=== PATIENT | male | born 1955 | race Caucasian/White ===

== ENCOUNTER → 2020-11-19 13:49 | Outpatient (BNVA) | payer OTHER, SELFPAY | PROVIDERS: Visit Provider Internal Medicine | DX: I25.10 Atherosclerotic heart disease of native coronary artery without angina pectoris (principal); I48.20 Chronic atrial fibrillation, unspecified; I51.9 Heart disease, unspecified; G90.3 Multi-system degeneration of the autonomic nervous system; Z95.1 Presence of aortocoronary bypass graft; Z95.0 Presence of cardiac pacemaker | CPT/HCPCS: 93005; 99202 ==

== ENCOUNTER 2025-09-14 10:06 | Outpatient (AMB) | payer OTHER, SELFPAY ==
--- OUTSIDE RECORDS SUMMARY | 2025-09-11 11:30 | XMS_ITS | Encounter Summary ---
[facility] Organization [facility] Address [address] [place] [address] Care Team Providers Care Vice President For Philanthropy Name Role Phone Chidi Carrillo NP Primary Care Provider [phone] Encounter Details Date Type Department Care Team (Late st Contact Info) Description 09/11/2025 11:30 AM EDT Treatment [facility] Physical Therapy [address] [place] [address] Wes Urrutia PT Social History Tobacco Use Types Packs/Day Years Used Date Smoking Tobacco: Never Passive Smoke Exposure: Past Smokeless Tobacco: Never Comments:Never smoked tobacc o Alcohol Use Standard Drinks/Week Comments Never 0 (1 standard drink = 0.6 oz pur e alcohol) Housing Instability Answer Date Recorde d Are you worried that in the next 2 months you may not have stable housing? Patient declined 08/06/2025 Food Access & Nutrition Answer Date Rec orded Do you have access to a vari ety of food including fruits and vegetables? Patient declined 08/06/2025 Access to Healthcare Answer Date Record ed Within the last 3 months, ho w many times did you visit the emergency department for your medical care? 4 02/09/2025 Health Literacy Answer Date Recorded How often do you need to hav e someone help you when you read instructions, pamphlets, or other written material from your doctor or pharmacy? Patient declined 08/06/2025 Caregiver: How often do you need to have someone help you when you read instructions, pamphlets, or other written material from your doctor or pharmacy? Not on file 025 Financial Risk Answer Date Recorded How hard is it for you to pa y for the very basics like food, housing, medical care, and air conditioning / heating? Patient declined 08/06/2025 Transportation Answer Date Recorded Has the lack of transportati on kept you from meetings, work, or from getting things needed for daily living? Patient declined 08/06/2025 Has the lack of transportati on kept you from medical appointments or from getting medications? Patient declined 08/06/2025 Social Isolation Answer Date Recorded How often do you feel lonely or isolated from those around you? Patient declined 08/06/2025 Food Risk Answer Date Recorded Within the past 12 months we worried whether our food would run out before we got money to buy more. Patient declined 025 Within the past 12 months th e food we bought just didn't last and we didn't have money to get more. Patient declined 06/2025 Dependent Care Answer Date Recorded Do you need help finding or paying for care for your loved ones. For example, infant childcare provider or elderly care for an older adult? Unable to respond 02/09/2025 Education Answer Date Recorded Do you think completing more education or training, like finishing a GED, going to college, or learning a trade, would be helpful for you? Patient declined 08/06/2025 Employment and Income Answer Date Recor ded During the last four weeks, have you been actively looking for work? Patient declined 08/06/2025 Living Situation Answer Date Recorded What is your living situation? Unrecognized valu e 08/06/2025 Interpersonal Safety Answer Date Record ed Physical Abuse Unrecognized value 08/06/2025 Verbal Abuse Unrecognized value 08/06/2025 Sex and Gender Information Value Date Recorded Sex Assigned at Male 12/08/2024 1:11 PM EST Legal Sex Male 9:31 PM EST Gender Identity Male 12/08/2024 1:11 PM EST Sexual Orientation Straight 02/14/2025 12 :16 AM EDT documented as of this encounter Functional Status * Are you deaf or do you have serious difficulty hearing? Answer Date of Assessment Author No 08/11/2025 6:42 PM EDT Luna RN * Are you blind or do you have serious difficulty seeing, even when wearing glasses? Answer Date of Assessment Author No 08/11/2025 6:42 PM EDT Luna RN * Do you have serious difficulty walking or climbing stairs? Answer Date of Assessment Author No 08/11/2025 6:42 PM EDT Luna RN * Do you have serious difficulty dressing or bathing? Answer Date of Assessment Author No 08/11/2025 6:42 PM EDT Luna RN * Because of a physical, mental, or emotional condition, do you have serious difficulty doing errandsalone such as visiting the doctor? Answer Date of Assessment Author No 08/11/2025 6:42 PM EDT Luna RN documented as of this encounter Mental Status * Because of a physical, mental, or emotional condition, do you have serious difficulty concentrating, remembering, or making decisions? (5 years old or older) Answer Entry Date Author No 08/11/2025 6:42 PM EDT Luna RN documented in this encounter Progress Notes * Wes Urrutia, PT - 09/11/2025 11:30 AM EDT PT TREATMENT S: Participant reports he has had some fluctuating edema due to decrease urinary output. He continues to self cath and is being followed up with multiple medical appts. He has surgeon appointment Wed the at 9am with surgeon who performed R BKA. O: Prosthetic tr for donning, doffing, locking and unlocking knee when transferring. 3 ply sock utilized today due to slight increase in swelling. Gait training with RW. 100 feet x 1. No SOB. One standing rest period. Cues needed for shorten step length on RLE and increase step on left to promote more midstance RLE. Gait tr continues with prosthetic locked in extension. Good stability when turning A: Participant independent with doffing and cleaning prosthesis. Consistent locking and unlocking during chair to rise and stand to sit with good control. Continue to monitor. Donning prosthethesis continues to be challenging and requiring A of 2. Prosthetic continues to be stored at [facility] until cleared for safe donning, doffing and ambulation short distances with turning and consistent safe transfers locking and unlocking prosthetic as approriate. P: Joint visit at [facility] for follow up. Address difficulty doning prosthesis documented in this encounter Plan of Treatment Upcoming Encounters Date Type Department Care Team (Late st Contact Info) Description 09/17/2025 10:00 AM EDT Appointment [facility] Pulmonary [address] [place] [address] 09/17/2025 2:30 PM EDT Treatment [facility] Physical Therapy [address] [place] [phone] Wes Urrutia, PT 09/19/2025 9:40 AM EDT Office Visit [facility] Cardiology [facility] [address] [address] Zay Garcia NP 300 [place] [address] 09/19/2025 1:10 PM EDT Clinical Support [address] [address] 09/20/2025 10:45 AM EDT Treatment [facility] Physical Therapy [address] [place] [phone] Wes Urrutia, PT 09/24/2025 1:15 PM EDT PACE External Visit [address] [address] 10/08/2025 8:50 AM EST Office Visit [facility] Cardiology [facility] [address] [address] Thais Stevenson MD 300 [place] [address] 10/12/2025 1:30 PM EST PACE External Visit [address] [address] 10/23/2025 9:30 AM EST Office Visit General Surgery - [place] [address] [place] [phone] Terrell Castillo MD 230 [place] [phone] 10/24/2025 3:00 PM EST [facility] Support [facility] [address] [place] [address] 11/07/2025 1:10 PM EST [facility] [address] [address] 03/28/2026 11:00 AM EDT Ancillary Procedure [facility] - [facility] [address] [facility] [address] [place] [address] 08/08/2026 10:45 AM EDT Treatment [facility] 200 [place] [address] Wes Urrutia, PT 08/15/2026 10:45 AM EDT Treatment [facility] [address] [place] [phone] Wes Urrutia, PT documented as of this encounter Goals Goal Patient Goal Type Associated Problems Recent Progress Patient-Stated? Author Wound volume breakdown reduced by X% by week 4 Care Plan Impaired Tissue No Kerri Olivo, hadoop application developer volume breakdown reduced by X% by week 8 Care Plan Impaired Tissue No Kerri Olivo, hadoop application developer volume breakdown reduced by X% by week 12 Care Plan Impaired Tissue No Kerri Olivo, RN Quit using tobacco (cigarettes, smokeless, etc) Care Plan Education needed on impact of smoking on wound No Kerri Olivo, RN Reduce tobacco use (cigarettes, smokeless, etc) Care Plan Education needed on impact of smoking on wound No Kerri Olivo, LETY Decrease Wound Volume by X% by date (in notes) Care Plan Education needed on impact of smoking on wound No Kerri Olivo, RN Patient and Caregiver Understand Wound Care Education Care Plan Education needed related to ulceration/compr omised skin integrity. No Kerri Olivo, LETY documented as of this encounter Visit Diagnoses Not on filedocumented in this encounter Additional Health Concerns Active Problems Noted Date Diagnosed Date Impaired Tissue 03/16/2025 Education needed on impact of smoking on wound 0 03/16/2025 Education needed related to ulceration/compromised skin integrity. 03/16/2025 Assessment Noted Time PHQ-9 Depression Total Score: 0 02/09/20 25 10:45 AM EDT documented as of this encounter Care Teams Vice President For Philanthropy Relationship Specialty Start Date End Date Chidi Carrillo NP [address] [place] [address] PCP - General 10/03/24 documented as of this encounter
--- OUTSIDE RECORDS SUMMARY | 2025-09-12 13:00 | XMS_ITS | Encounter Summary ---
[facility] Address [address] [place] [address] Care Team Providers Care Jewelry Jobber Name Role Phone Chidi Carrillo NP Primary Care Provider [phone] Encounter Details Date Type Department Care Team (Late st Contact Info) Description 09/12/2025 1:00 PM EDT Treatment [facility] [address] [place] [address] Wes Urrutia, PT Social History Tobacco Use Types Packs/Day [...] care for your loved ones. For example, child welfare worker or elderly care for an older adult? [...] Progress Notes * Wes Urrutia, PT - 09/12/2025 1:00 PM EDT PT co visit at [facility] with participant for follow up regarding prosthetic adjustments 1:00 pm to 2:00 pm Participant seen by wirer helper and adjustments made to pilon to move slightly posterior to allow for push off during gait as participant is progressing. A window was also cut out to allow for easierdonning of prosthetic. Participant was able to don independently in the office x 4 reps following this change. Gait assessment in parallel bars and with RW with cues and close supervision for equal step lengths for consistency and trial of reciprocal gait pattern ( patient not ready for at this time due to lack of midstance control with weight shift. Mild low back soreness with increase strides during gait. Plan: Continue skilled PT for prosthetic tr., gait tr, balance tr., fall prevention, safety issues as Par progresses. Follow up with wirer helper in approximately 3wks unless any modifications needed to be made earlier. Appointment to be set. documented in this encounter Plan of Treatment Upcoming Encounters Date Type Department Care Team (Late st Contact Info) Description 09/17/2025 10:00 AM EDT Appointment [facility] Pulmonary [address] [place] [address] 09/17/2025 2:30 PM EDT Treatment [facility] Physical Therapy [address] [place] [address] Wes Urrutia, PT 09/19/2025 9:40 AM EDT Office Visit [facility] 154 300 [facility] 154 [place] [address] Zay Garcia NP 300 [place] [address] 09/19/2025 1:10 PM EDT Clinical Support [address] [address] 09/20/2025 10:45 AM EDT Treatment [facility] Physical Therapy [address] [place] [address] Wes Urrutia, PT 09/24/2025 1:15 PM EDT PACE External Visit [facility] [address] [place] [address] 10/08/2025 8:50 AM EST Office Visit [facility] 154 300 [facility] 154 [place] [address] Thais Stevenson MD 300 [place] [address] 10/12/2025 1:30 PM EST PACE External Visit [address] [address] 10/23/2025 9:30 AM EST Office Visit General Surgery - [place] 175 [facility] 110 [place] [phone] Terrell Castillo MD [address] [place] [phone] 10/24/2025 3:00 PM EST Clinical Support [facility] 200 [place] [address] 11/07/2025 1:10 PM EST Clinical Support [facility] [address] [address] 03/28/2026 11:00 AM EDT Ancillary Procedure [facility] - [address] [place] [address] 08/08/2026 10:45 AM EDT Treatment [facility] [address] [place] [phone] Wes Urrutia, LIA 08/15/2026 10:45 AM EDT Treatment [facility] [address] [place] [phone] Wes Urrutia, PT documented as of this encounter Goals Goal Patient Goal Type Associated Problems Recent Progress Patient-Stated? Author Wound volume breakdown reduced by X% by week 4 Care Plan Impaired Tissue No Kerri Olivo RN Wound volume breakdown reduced by X% by week 8 Care Plan Impaired Tissue No Kerri Olivo RN Wound volume breakdown reduced by X% by week 12 Care Plan Impaired Tissue No Kerri Olivo RN Quit using tobacco (cigarettes, smokeless, etc) Care Plan Education needed on impact of smoking on wound No Kerri Olivo RN Reduce tobacco use (cigarettes, smokeless, etc) Care Plan Education needed on impact of smoking on wound No Kerri Olivo RN Decrease Wound Volume by X% by date (in notes) Care Plan Education needed on impact of smoking on wound No Kerri Olivo RN Patient and Caregiver Understand Wound Care Education Care Plan Education needed related to ulceration/compr omised skin integrity. No Kerri Olivo RN documented as of this encounter Visit Diagnoses Not on filedocumented in this encounter Additional Health Concerns Active Problems Noted Date Diagnosed Date Impaired Tissue 03/16/2025 Education needed on impact of smoking on wound 0 03/16/2025 Education needed related to ulceration/compromised skin integrity. 03/16/2025 Assessment Noted Time PHQ-9 Depression Total Score: 0 02/09/20 25 10:45 AM EDT documented as of this encounter Care Teams Jewelry Jobber Relationship Specialty Start Date End Date Chidi Carrillo NP 200 [place] [address] PCP - General 10/03/24 documented as of this encounter
--- OUTSIDE RECORDS SUMMARY | 2025-09-13 10:45 | XMS_ITS | Encounter Summary ---
[facility] Organization [facility] Address [address] [place] [address] Care Team Providers Care Link Machine Operator Name Role Phone Chidi Carrillo NP Primary Care Provider [phone] Encounter Details Date Type Department Care Team (Late st Contact Info) Description 09/13/2025 10:45 AM EDT Treatment [facility] Physical Therapy [address] [place] [address] Wes Urrutia PT Social History [...] care for your loved ones. For example, professor of early childhood education or elderly care for an older adult? [...] Progress Notes * Wes Urrutia, PT - 09/13/2025 10:45 AM EDT PT TREATMENT S: No complaints per participant he is monitoring his BP and it continues to run high. -Surgeon appt today rescheduled. He has pulmonology appt on 09/17. Cardiology on 09/19/2025 to follow up on highblood pressue and Urology on the DME: issued replacement std RW as current one unsafe. O: Prosthetic tr, self management. Donned prosthetic first attempt and 5x after that without need for assist. Gait with RW and balance activities in parallel bars decrease dependency on UE for support. Gait x 3 with single UE support on left and facilitation for sternal elevation to maintain upright posture. Gait with RW and close supervision - no LOB noted cues only for foot placement for optimal safety. 80 feet x 2. Transfer tr several times from varying chairs in rehab dept to assess safety and sequencing. Cues 40% of the time. No change in skin: inspected before and after PT. Endurance limited by mild SOB with exertion - recovers after 30 seconds. Goal to keep activities within tolerance and avoid over exertion due to high blood pressure hx. RPE less than 3/10. He reports occas he overworks himself and has chest pressure - mild but doesn't last longer than a few minutes. Reports only a few episodes with no other complaints. He has cardiology follow up next week. A: After modifications at [facility] visit ie: anterior window placed for donning prosthetic, participant is now independent with donning, doffing and managing maintenance. Transfers 75% of the time demonstrate safety after 15 transfers incorp within session. Gait tr continues for consistent/equal step lengths with cues for stride length 50 % of time as Par reports he is used to taking big strides and continues to try and remember this to promote weight shift on RLE. P: Continue to progress as tolerated. Avoid over exertion. Transfer/gait/balance tr. Update plan ofcare next visit if consistent with donning and doffing prosthesis documented in this encounter Plan of Treatment Upcoming Encounters Date Type Department Care Team (Late st Contact Info) Description 09/17/2025 10:00 AM EDT Appointment [facility] Pulmonary [address] [place] [address] 09/17/2025 2:30 PM EDT Treatment [facility] Physical Therapy [address] [place] [phone] Wes Urrutia, PT 09/19/2025 9:40 AM EDT Office Visit [facility] Cardiology Associates - [facility] [address] [address] Zay Garcia NP 300 [place] [address] 09/19/2025 1:10 PM EDT Clinical Support [address] [address] 09/20/2025 10:45 AM EDT Treatment [facility] Physical Therapy [address] [place] [phone] Wes Urrutia, PT 09/24/2025 1:15 PM EDT [facility] 200 [place] [address] 10/08/2025 8:50 AM EST Office Visit [facility] Cardiology [facility] 154 300 [facility] 154 [place] [address] Thais Stevenson MD 300 [place] [address] 10/12/2025 1:30 PM EST PACE External Visit [facility] 200 [place] [address] 10/23/2025 9:30 AM EST Office Visit General Surgery [facility] 175 [facility] 110 [place] [address] Terrell Castillo MD [address] [place] [phone] 10/24/2025 3:00 PM EST Clinical Support [facility] 200 [place] [address] 11/07/2025 1:10 PM EST [facility] [address] [address] 03/28/2026 11:00 AM EDT Ancillary Procedure [facility] Cardiology [facility] 154 300 [facility] 154 [place] [address] 08/08/2026 10:45 AM EDT Treatment [facility] [address] [place] [address] Wes Urrutia, PT 08/15/2026 10:45 AM EDT Treatment [facility] [address] [place] [phone] Wes Urrutia, PT documented as of this [...] documented as of this encounter Care Teams Link Machine Operator Relationship Specialty Start Date End Date Chidi Carrillo NP 200 [place] [address] PCP - General 10/03/24 documented as of this encounter
--- NOTE | 2025-09-14 10:09 | A.OFFVIS_ITS ---
Intake Visit Reasons: f/u appt Allergies No Known Allergies Allergy (Verified 09/14/25 10:10) Medication List - Last Reconciled 09/14/25 by Jenny Johnson CNP allopurinol 100 mg PO DAILY apixaban (Eliquis) 5 mg PO BID atorvastatin 80 mg PO BEDTIME bumetanide 3 mg PO BID calcitriol 2 mcg PO QWEEK cholecalciferol (vitamin D3) 25 mcg PO DAILY clonidine HCl 0.1 mg PO BID denosumab (Prolia) 60 mg subcut [id number] diltiazem HCl ER 60 mg PO BID docusate sodium (Stool Softener) 100 mg PO BID gabapentin 200 mg PO BID isosorbide mononitrate ER 60 mg PO DAILY metoprolol succinate ER 50 mg PO DAILY oxycodone 5 mg PO Q6H PRN potassium chloride ER 20 mEq PO DAILY ranolazine ER 500 mg PO BID sacubitril-valsartan 24-26 mg 1 tab PO BID spironolactone 25 mg PO DAILY HPI Comments Details: 70-year-old RH man who injured his back at work around , had multiple back surgeries with hardware placement by Dr. Talbert and Dr. Anne at [facility] and [facility]. He also used to be quite obese and insulin dependent diabetic. After gastroparesis surgery he lost a lot of weight and was not diabetic anymore. He denied any significant alcohol use. He had a spinal cord stimulator for pain control that did not work. He was seen for tremor. He had R AKA in 01/2025 after multiple surgeries to RLE (including foot, tib/fib, and R TKR in 04/2024). He had cardiac catheterization in 07/2025 at [facility], and was now working on controlling blood pressure. He was planning for procedure to replace spinal cord stimulator battery at [facility] in 09/2025 (Dr. Anne) and was considering prostatectomy for prostate cancer in 09/2025. He was having more arthritic pains in hands, previously treated with steroid injections and had follow up soon with PCP who treated arthritis in the past. He was no longer taking primidone. No significant tremors. No functional impairment. No difficulty eating, drinking, or swallowing. [facility] Medical History (Updated 09/14/25 @ 10:14 by Jenny Johnson CNP) Peripheral neuropathy Encephalopathy Spinal cord stimulator status Failed back syndrome Insomnia Atrial fibrillation CAD (coronary artery disease) Dysautonomia orthostatic hypotension syndrome Normally functioning cardiac pacemaker present Chronic atrial fibrillation Atherosclerotic cardiovascular disease Surgical History (Updated 09/14/25 @ 10:13 by Jenny Johnson CNP) S/P total knee replacement S/P cardiac pacemaker procedure Status post aorto-coronary artery bypass graft History of cardiac catheterization History of prior ablation treatment History of cardiac pacemaker (~2010) History of coronary artery bypass graft x 2 (~02/17/17) Family History (Updated 11/19/20 @ 14:18 by Monique Ventura [facility]) Father CVD (cardiovascular disease) Mother Lung cancer Asthma Review of Systems Const Denies chills, Denies daytime sleepiness, Denies difficulty sleeping, Denies fatigue, Denies fever(s), Denies frequent falls, Denies headache(s), Denies increased appetite, Denies poor appetite, Denies snoring, Denies weakness, Denies weight gain and Denies weight loss Eyes Denies loss of vision ENT Denies vertigo, Denies dizziness, Denies headache(s) and Reports tinnitus Card Denies chest pain at rest, Denies chest pain with activity, Denies syncope, Denies leg edema and Denies palpitations Resp Denies snoring GI Denies constipation, Denies heartburn, Denies diarrhea and Denies nausea Denies urinary frequency, Denies urinary incontinence and Denies urinary urgency Musc Denies abnormal gait, Reports numbness and Reports tingling Skin/Breast Denies dry skin and Denies rash Neuro Denies abnormal gait, Denies vertigo, Denies dizziness, Denies syncope, Denies frequent falls, Denies headache(s), Denies lack of coordination, Denies loss of vision, Denies memory loss, Reports numbness, Denies restless legs, Denies seizure-like activity, Reports tingling, Denies paresthesias, Reports tremor(s) and Denies weakness Psych Denies anxiety, Denies depression, Denies auditory hallucinations, Denies memory loss, Denies visual hallucinations and Denies suicidal ideation Endo Denies fatigue and Denies palpitations Physical Exam Const Other: General Appearance:? normal, in no acute distress. Skin:? no rashes, no significant birthmarks. Heart:? S1, S2 normal, no murmurs. Lungs:? clear anteriorly and posteriorly. Extremities:? R AKA Psych:? alert, oriented, cognitive function intact, cooperative with exam. Neuro Other: Mental Status:?Normal attention, orientation, memory and affect.? Cranial Nerves:?Pupils are equal, round and reactive to light. External occular muscles are intact. Visual powell are full. Face is symmetrical. Facial sensations are normal. Tongue is midline. Palate elevates symmetrically. Shoulder shrugging is normal. Hearing to bedside conversation is normal. Sensory Exam:?....? Coordination:?No ataxia,?no titubation.? Gait Exam: In wheelchair. Cerebellar Signs:?[id number] is okay. Extrapyramidal System:?No tremor, rigidity with normal facial expressions.? Pronator Drift:?Not present.? Involuntary Movements:?Fine tremors of outstretched hands are not noted today. Speech:?Normal.? Results Reviewed Results Reviewed: CT brain WO at [facility] in 2016: mild to mod diff cortical atrophy EMG/NCS LEs at [facility] in Dec 2022: Severe axonal SM PN, chronic bilateral multilevel lumbar radiculapathy. NCV/EMG UE Moderate sensory and motor peripheral neuropathy. Chronic bilateral lower cervical radiculopathy. 03/29/23. Assessment & Plan Assessment & Plan (1) Tremor: Code(s): R25.1 - Tremor, unspecified Category: Medical Plan: Tremor was not significant and medication was not indicated at this time. Coding Level of Care Code Est Pt Level 3 (21376) Diagnoses Tremor R25.1
--- OUTSIDE RECORDS SUMMARY | 2025-09-14 11:50 | XMS_ITS | Encounter Summary ---
Author Organization [facility], Address [address] [place] [address] Phone Care Team Providers Care Licensed Home Inspector Name Role Phone Chidi Carrillo Primary Care Provider Unavailabl e Encounter Details Date Type Department Care Team (Late Contact Info) Description 2023 Documentation Only [facility] [address] [place] [address] Tiana Lange [address] [place] [phone] Social History Tobacco Use Types Packs/Day Years Used Date Smoking Tobacco: Never Alcohol Use Standard Drinks/Week Comments No 0 (1 standard drink = 0.6 oz pur e alcohol) Sex and Gender Information Value Date Recorded Sex Assigned at Not on file Legal Sex Male 4:35 PM EST Gender Identity Not on file Sexual Orientation Not on file documented as of this encounter Plan of Treatment Upcoming Encounters Date Type Department Care Team (Late st Contact Info) Description 10/02/2025 1:30 PM EST Office Visit [facility] [address] [place] [address] Cuate Ramey MD [address] [place] [address] [place] [address] documented as of this encounter Visit Diagnoses Not on filedocumented in this encounter Care Teams Licensed Home Inspector Relationship Specialty Start Date End Date Chidi Carrillo [address] [address] PCP - General Nutrition 05/29/25 documented as of this encounter
--- OUTSIDE RECORDS SUMMARY | 2025-09-14 11:50 | XMS_ITS | Encounter Summary ---
Author Organization [facility] [place], Address [address] [place] [address] Phone Care Team Providers Care Pharmacy Intake Technician Name Role Phone Chidi Carrillo Primary Care Provider Unavailabl e Encounter Details Date Type Department Care Team (Late Contact Info) Description 08/19/2022 Documentation Only [facility] [address] [place] [address] Tiana Lange [address] [place] [phone] Social History Tobacco Use Types Packs/Day Years [...] Visit [facility] [address] [place] [address] Cuate Ramey MD [address] [place] [address] [place] [address] documented as of this encounter Visit Diagnoses Not on filedocumented in this encounter Care Teams Pharmacy Intake Technician Relationship Specialty Start Date End Date Chidi Carrillo [address] [address] PCP - General Nutrition 05/29/25 documented as of this encounter
--- OUTSIDE RECORDS SUMMARY | 2025-09-14 11:50 | XMS_ITS ---
Author Name [facility] Organization Unknown Results Test Name/Text Value Interpretation Date Range Source RBC NO. BLD AUTO 2.79 M/uL Below low normal 04/03/2024 4.7 - 6 [facility] MCV RBC AUTO 95.4 fL Normal 04/03/2024 78 - 100 [facility] RDW RBC AUTO RTO 21.1 % Above high normal 04/03/2024 12.1 - 17.7 [facility] PMV BLD AUTO 7.7 fL Normal 04/03/2024 7.4 - 11.4 [facility] HGB BLD MCNC 8.6 g/dL Below low normal 04/03/2024 13.5 - 18 [facility] MCH RBC QN AUTO 30.8 pg Normal 04/03/2024 25 - 33 [facility] MCHC RBC AUTO MCNC 32.3 g/dL Normal 04/03/2024 32 - 36 [facility] WBC NO. BLD AUTO 5.4 K/uL Normal 04/03/2024 4 - 10.5 [facility] HCT VFR BLD AUTO 26.6 % Below low normal 04/03/2024 40 - 54 [facility] PLATELET NO. BLD AUTO 383.0 K/uL Normal 04/03/2024 150 - 450 [facility] GLUCOSE SERPL MCNC 89.0 mg/dL Normal 04/03/2024 70 - 199 [facility] SODIUM SERPL SCNC 136.0 mmol/L Normal 04/03/2024 135 - 14 5 [facility] CREAT SERPL MCNC 0.7 mg/dL Normal 04/03/2024 0.7 - 1.3 [facility] CHLORIDE SERPL SCNC 107.0 mmol/L Normal 04/03/2024 98 - 1 07 [facility] BUN SERPL MCNC 18.0 mg/dL Normal 04/03/2024 9 - 20 [facility] ANION GAP SERPL SCNC 6.0 mmol/L Normal 04/03/2024 5 - 14 [facility] Glomerular filtration rate/1.73 sq M. predicted 100.0 Normal 04/03/2024 60 - [facility] HCO3 SER SCNC 23.0 mmol/L Below low normal 04/03/2024 24 - 3 2 [facility] CALCIUM SERPL MCNC 8.4 mg/dL Normal 04/03/2024 8.4 - 10.2 [facility] POTASSIUM SERPL SCNC 3.6 mmol/L Normal 04/03/2024 3.5 - 5.1 [facility] SODIUM SERPL SCNC 140.0 mmol/L Normal 04/02/2024 135 - 14 5 [facility] ANION GAP SERPL SCNC 6.0 mmol/L Normal 04/02/2024 5 - 14 [facility] Glomerular filtration rate/1.73 sq M. predicted 93.0 Normal 04/02/2024 60 - [facility] HCO3 SER SCNC 22.0 mmol/L Below low normal 04/02/2024 24 - 3 2 [facility] GLUCOSE SERPL MCNC 139.0 mg/dL Normal 04/02/2024 70 - 199 [facility] BUN SERPL MCNC 20.0 mg/dL Normal 04/02/2024 9 - 20 [facility] CALCIUM SERPL MCNC 8.3 mg/dL Below low normal 04/02/2024 8.4 - 10.2 [facility] CREAT SERPL MCNC 0.9 mg/dL Normal 04/02/2024 0.7 - 1.3 [facility] CHLORIDE SERPL SCNC 112.0 mmol/L Above high normal 98 - 107 [facility] POTASSIUM SERPL SCNC 4.4 mmol/L Normal 04/02/2024 3.5 - 5.1 [facility] RDW RBC AUTO RTO 19.1 % Above high normal 04/02/2024 12.1 - 17.7 [facility] PMV BLD AUTO 7.7 fL Normal 04/02/2024 7.4 - 11.4 [facility] WBC NO. BLD AUTO 5.8 K/uL Normal 04/02/2024 4 - 10.5 [facility] PLATELET NO. BLD AUTO 367.0 K/uL Normal 04/02/2024 150 - 450 [facility] RBC NO. BLD AUTO 2.7 M/uL Below low normal 04/02/2024 4.7 - 6 [facility] MCH RBC QN AUTO 30.1 pg Normal 04/02/2024 25 - 33 [facility] HCT VFR BLD AUTO 25.9 % Below low normal 04/02/2024 40 - 54 [facility] MCHC RBC AUTO MCNC 31.3 g/dL Below low normal 04/02/2024 32 - 36 [facility] HGB BLD MCNC 8.1 g/dL Below low normal 04/02/2024 13.5 - 18 [facility] MCV RBC AUTO 96.1 fL Normal 04/02/2024 78 - 100 [facility] ALPHA 2 % 9.4 Normal 04/05/2024 [facility] GAMMA % 15.0 Normal 04/05/2024 [facility] ALPHA 1 % 12.2 Above high normal 04/05/2024 [facility] ALBUMIN G/DL 2.5 Below low normal 04/05/2024 [facility] ALPHA 1 G/DL 0.6 Above high normal 04/05/2024 [facility] GAMMA G/DL 0.8 Normal 04/05/2024 [facility] ALPHA 2 G/DL 0.5 Normal 04/05/2024 [facility] BETA % 14.5 Above high normal 04/05/2024 [facility] ALBUMIN % 48.9 Below low normal 04/05/2024 [facility] BETA G/DL 0.7 Normal 04/05/2024 [facility] TOTAL PROTEIN 5.1 Below low normal 04/05/2024 [facility] Free Lambda Light Chains 4.88 Above high normal 04/05/2024 [facility] [place] Light Chains 5.89 Above high normal 04/05/2024 [facility] K/L FLC Ratio 1.21 Normal 04/05/2024 [facility] IGG SERPL-MCNC 722.0 mg/dL Normal 04/01/2024 635 - 1741 [facility] IGA SERPL-MCNC 319.0 mg/dL Normal 04/01/2024 66 - 433 [facility] IGM SER MCNC 56.0 mg/dL Normal 04/01/2024 45 - 281 [facility] LDH SERPL L TO P CCNC 300.0 U/L Above high normal 04/01/2024 125 - 220 [facility] CREAT SERPL MCNC 0.8 mg/dL Normal 04/01/2024 0.7 - 1.3 [facility] Glomerular filtration rate/1.73 sq M. predicted 96.0 Normal 04/01/2024 60 - [facility] POTASSIUM SERPL SCNC 4.1 mmol/L Normal 04/01/2024 3.5 - 5.1 [facility] HCO3 SER SCNC 21.0 mmol/L Below low normal 04/01/2024 24 - 3 2 [facility] BUN SERPL MCNC 20.0 mg/dL Normal 04/01/2024 9 - 20 [facility] CHLORIDE SERPL SCNC 111.0 mmol/L Above high normal 98 - 107 [facility] GLUCOSE SERPL MCNC 94.0 mg/dL Normal 04/01/2024 70 - 199 [facility] SODIUM SERPL SCNC 139.0 mmol/L Normal 04/01/2024 135 - 14 5 [facility] CALCIUM SERPL MCNC 8.1 mg/dL Below low normal 04/01/2024 8.4 - 10.2 [facility] ANION GAP SERPL SCNC 7.0 mmol/L Normal 04/01/2024 5 - 14 [facility] MCHC RBC AUTO MCNC 32.1 g/dL Normal 04/01/2024 32 - 36 [facility] PLATELET NO. BLD AUTO 351.0 K/uL Normal 04/01/2024 150 - 450 [facility] MCV RBC AUTO 94.5 fL Normal 04/01/2024 78 - 100 [facility] RBC NO. BLD AUTO 2.54 M/uL Below low normal 04/01/2024 4.7 - 6 [facility] HCT VFR BLD AUTO 24.0 % Below low normal 04/01/2024 40 - 54 [facility] WBC NO. BLD AUTO 6.2 K/uL Normal 04/01/2024 4 - 10.5 [facility] HGB BLD MCNC 7.7 g/dL Below low normal 04/01/2024 13.5 - 18 [facility] PMV BLD AUTO 7.9 fL Normal 04/01/2024 7.4 - 11.4 [facility] MCH RBC QN AUTO 30.4 pg Normal 04/01/2024 25 - 33 [facility] RDW RBC AUTO RTO 18.5 % Above high normal 04/01/2024 12.1 - 17.7 [facility] RETICS/100 RBC NFR AUTO 12.5 % Above high normal 04/01/2024 0.7 - 1.7 [facility] BILIRUB SERPL MCNC 1.3 mg/dL Above high normal 04/01/2024 0. 3 - 1 [facility] BILIRUB DIRECT SERPL MCNC 0.4 mg/dL Above high normal 04/01/2024 0 - 0.2 [facility] BLOOD BANK CMNT PATIENT-IMP Testing performed at [facility], [address] [place] [id number], Katerin Seals MD [employer], [facility] [id number] Normal 03/31/2024 [facility] QUYNH POLY-SP REAG RBC QL NEGATIVE Normal 03/31/2024 [facility] AMMONIA PLAS SCNC 33.0 mcmol/L Normal 03/31/2024 15 - 45 [facility] Prot Ur Ql Strip.auto 30.0 mg/dL Abnormal 03/31/2024 - [facility] Glucose Ur Ql Strip.auto NEGATIVE Normal 03/31/2024 - [facility] Color Ur Auto MAME Normal 03/31/2024 [facility] Hyaline casts number/area UrnS Auto 5.0 /LPF Above high normal 03/31/2024 0 - 3 [facility] Clarity Ur Refract.auto CLEAR Normal 03/31/2024 [facility] Nitrite Ur Ql Strip.auto NEGATIVE Normal 03/31/2024 - [facility] Sp Gr Ur Strip.auto 1.024 Normal 03/31/2024 1.005 - 1.03 [facility] Squamous number/area UrnS Auto 2.0 /LFP Normal 03/31/2024 0 - 5 [facility] pH Ur Strip.auto 6.0 Normal 03/31/2024 4.5 - 8 [facility] Hgb Ur Ql Strip.auto NEGATIVE Normal 03/31/2024 - [facility] Ketones Ur Ql Strip.auto NEGATIVE Normal 03/31/2024 - [facility] Mucous Threads Ur Ql Auto PRESENT Abnormal 03/31/2024 - [facility] RBC number/area UrnS Auto <1 Normal 03/31/2024 0 - 3 [facility] Leukocyte esterase Ur Ql Strip.auto NEGATIVE Normal 03/31/2024 - [facility] WBC number/area UrnS Auto 2.0 /HPF Normal 03/31/2024 0 - 5 [facility] SPECIMEN SOURCE XXX URINE CLEAN CATCH Normal 03/31/2024 [facility] PT TIME PPP 13.8 sec Above high normal 03/31/2024 10.5 - 13 .3 [facility] INR PPP 1.2 Above high normal 03/31/2024 0.8 - 1.1 [facility] ALBUMIN SERPL BCG MCNC 2.9 g/dL Below low normal 03/31/2024 3.5 - 5 [facility] RETICS/100 RBC NFR AUTO 11.5 % Above high normal 03/31/2024 0.7 - 1.7 [facility] APTT TIME PPP 42.0 sec Above high normal 03/31/2024 25 - 37 [facility] HGB BLD MCNC 8.1 g/dL Below low normal 03/31/2024 13.5 - 18 [facility] WBC NO. BLD AUTO 6.0 K/uL Normal 03/31/2024 4 - 10.5 [facility] RDW RBC AUTO RTO 17.5 % Normal 03/31/2024 12.1 - 17.7 [facility] PMV BLD AUTO 7.7 fL Normal 03/31/2024 7.4 - 11.4 [facility] MCV RBC AUTO 91.5 fL Normal 03/31/2024 78 - 100 [facility] RBC NO. BLD AUTO 2.7 M/uL Below low normal 03/31/2024 4.7 - 6 [facility] HCT VFR BLD AUTO 24.7 % Below low normal 03/31/2024 40 - 54 [facility] MCHC RBC AUTO MCNC 32.8 g/dL Normal 03/31/2024 32 - 36 [facility] MCH RBC QN AUTO 30.0 pg Normal 03/31/2024 25 - 33 [facility] PLATELET NO. BLD AUTO 381.0 K/uL Normal 03/31/2024 150 - 450 [facility] LDH SERPL L TO P CCNC 296.0 U/L Above high normal 03/31/2024 125 - 220 [facility] BUN SERPL MCNC 18.0 mg/dL Normal 03/31/2024 9 - 20 [facility] CREAT SERPL MCNC 0.9 mg/dL Normal 03/31/2024 0.7 - 1.3 [facility] CHLORIDE SERPL SCNC 110.0 mmol/L Above high normal 98 - 107 [facility] Glomerular filtration rate/1.73 sq M. predicted 93.0 Normal 03/31/2024 60 - [facility] ANION GAP SERPL SCNC 8.0 mmol/L Normal 03/31/2024 5 - 14 [facility] POTASSIUM SERPL SCNC 3.6 mmol/L Normal 03/31/2024 3.5 - 5.1 [facility] GLUCOSE SERPL MCNC 97.0 mg/dL Normal 03/31/2024 70 - 199 [facility] HCO3 SER SCNC 23.0 mmol/L Below low normal 03/31/2024 24 - 3 2 [facility] CALCIUM SERPL MCNC 8.5 mg/dL Normal 03/31/2024 8.4 - 10.2 [facility] SODIUM SERPL SCNC 141.0 mmol/L Normal 03/31/2024 135 - 14 5 [facility] BILIRUB SERPL MCNC 1.8 mg/dL Above high normal 03/31/2024 0. 3 - 1 [facility] BILIRUB DIRECT SERPL MCNC 0.5 mg/dL Above high normal 03/31/2024 0 - 0.2 [facility] Ketones Ur Ql Strip.auto TRACE Abnormal 03/30/2024 - [facility] Leukocyte esterase Ur Ql Strip.auto NEGATIVE Normal 03/30/2024 - [facility] Sp Gr Ur Strip.auto 1.018 Normal 03/30/2024 1.005 - 1.03 [facility] Mucous Threads Ur Ql Auto PRESENT Abnormal 03/30/2024 - [facility] Nitrite Ur Ql Strip.auto NEGATIVE Normal 03/30/2024 - [facility] Color Ur Auto MAME Normal 03/30/2024 [facility] WBC number/area UrnS Auto 3.0 /HPF Normal 03/30/2024 0 - 5 [facility] RBC number/area UrnS Auto 13.0 /HPF Above high normal 03/30/2024 0 - 3 [facility] Gran Casts number/area Ur Comp Assist 1.0 /LPF Abnormal 03/30/2024 - [facility] Prot Ur Ql Strip.auto 30.0 mg/dL Abnormal 03/30/2024 - [facility] Hgb Ur Ql Strip.auto SMALL Abnormal 03/30/2024 - [facility] Glucose Ur Ql Strip.auto NEGATIVE Normal 03/30/2024 - [facility] Hyaline casts number/area UrnS Auto 3.0 /LPF Normal 03/30/2024 0 - 3 [facility] Squamous number/area UrnS Auto 0.0 /LFP Normal 03/30/2024 0 - 5 [facility] Clarity Ur Refract.auto CLEAR Normal 03/30/2024 [facility] pH Ur Strip.auto 6.0 Normal 03/30/2024 4.5 - 8 [facility] SPECIMEN SOURCE XXX URINE CLEAN CATCH Normal 03/30/2024 [facility] HCO3 SER SCNC 20.0 mmol/L Below low normal 03/30/2024 24 - 3 2 [facility] SODIUM SERPL SCNC 136.0 mmol/L Normal 03/30/2024 135 - 14 5 [facility] CHLORIDE SERPL SCNC 108.0 mmol/L Above high normal 98 - 107 [facility] CREAT SERPL MCNC 0.8 mg/dL Normal 03/30/2024 0.7 - 1.3 [facility] BUN SERPL MCNC 16.0 mg/dL Normal 03/30/2024 9 - 20 [facility] ANION GAP SERPL SCNC 8.0 mmol/L Normal 03/30/2024 5 - 14 [facility] POTASSIUM SERPL SCNC 3.7 mmol/L Normal 03/30/2024 3.5 - 5.1 [facility] Glomerular filtration rate/1.73 sq M. predicted 96.0 Normal 03/30/2024 60 - [facility] CALCIUM SERPL MCNC 8.3 mg/dL Below low normal 03/30/2024 8.4 - 10.2 [facility] GLUCOSE SERPL MCNC 94.0 mg/dL Normal 03/30/2024 70 - 199 [facility] MCV RBC AUTO 90.3 fL Normal 03/30/2024 78 - 100 [facility] MCH RBC QN AUTO 29.8 pg Normal 03/30/2024 25 - 33 [facility] HGB BLD MCNC 7.3 g/dL Below low normal 03/30/2024 13.5 - 1 8 [facility] RDW RBC AUTO RTO 16.8 % Normal 03/30/2024 12.1 - 17.7 [facility] WBC NO. BLD AUTO 6.3 K/uL Normal 03/30/2024 4 - 10.5 [facility] MCHC RBC AUTO MCNC 33.0 g/dL Normal 03/30/2024 32 - 36 [facility] HCT VFR BLD AUTO 22.2 % Below low normal 03/30/2024 40 - 54 [facility] RBC NO. BLD AUTO 2.46 M/uL Below low normal 03/30/2024 4.7 - 6 [facility] PLATELET NO. BLD AUTO 332.0 K/uL Normal 03/30/2024 150 - 450 [facility] PMV BLD AUTO 7.9 fL Normal 03/30/2024 7.4 - 11.4 [facility] FACTOR II ASSAY 85.0 Normal 03/31/2024 [facility] FACT X ACT/NOR PPP 82.0 Normal 04/04/2024 [facility] FACTOR V ACTIVITY 99.0 Normal 04/04/2024 [facility] INR PPP 1.4 Above high normal 03/29/2024 0.8 - 1.1 [facility] PT TIME PPP 16.5 sec Above high normal 03/29/2024 10.5 - 13 .3 [facility] BUN SERPL MCNC 20.0 mg/dL Normal 03/29/2024 9 - 20 [facility] POTASSIUM SERPL SCNC 3.7 mmol/L Normal 03/29/2024 3.5 - 5.1 [facility] HCO3 SER SCNC 24.0 mmol/L Normal 03/29/2024 24 - 32 [facility] GLUCOSE SERPL MCNC 138.0 mg/dL Normal 03/29/2024 70 - 199 [facility] CHLORIDE SERPL SCNC 105.0 mmol/L Normal 03/29/2024 98 - 1 07 [facility] CALCIUM SERPL MCNC 8.3 mg/dL Below low normal 03/29/2024 8.4 - 10.2 [facility] ANION GAP SERPL SCNC 7.0 mmol/L Normal 03/29/2024 5 - 14 [facility] CREAT SERPL MCNC 0.9 mg/dL Normal 03/29/2024 0.7 - 1.3 [facility] SODIUM SERPL SCNC 136.0 mmol/L Normal 03/29/2024 135 - 14 5 [facility] Glomerular filtration rate/1.73 sq M. predicted 93.0 Normal 03/29/2024 60 - [facility] MCV RBC AUTO 90.0 fL Normal 03/29/2024 78 - 100 [facility] MCHC RBC AUTO MCNC 33.8 g/dL Normal 03/29/2024 32 - 36 [facility] RDW RBC AUTO RTO 16.9 % Normal 03/29/2024 12.1 - 17.7 [facility] HGB BLD MCNC 7.6 g/dL Below low normal 03/29/2024 13.5 - 18 [facility] RBC NO. BLD AUTO 2.5 M/uL Below low normal 03/29/2024 4.7 - 6 [facility] PMV BLD AUTO 8.1 fL Normal 03/29/2024 7.4 - 11.4 [facility] MCH RBC QN AUTO 30.5 pg Normal 03/29/2024 25 - 33 [facility] PLATELET NO. BLD AUTO 316.0 K/uL Normal 03/29/2024 150 - 450 [facility] HCT VFR BLD AUTO 22.5 % Below low normal 03/29/2024 40 - 54 [facility] WBC NO. BLD AUTO 6.8 K/uL Normal 03/29/2024 4 - 10.5 [facility] PT TIME PPP 1 TO 1 SALINE 17.2 sec Normal 03/29/2024 [facility] PT 1h HAT FORMING MACHINE OPERATOR PPP 14.2 sec Normal 03/29/2024 [facility] PT imm HAT FORMING MACHINE OPERATOR PPP 13.5 sec Normal 03/29/2024 [facility] PT TIME PPP 17.8 sec Above high normal 03/29/2024 10.5 - 13 .3 [facility] PT 1h p Inc PPP 18.1 sec Normal 03/29/2024 [facility] PT TIME PPP CONT 12.0 sec Normal 03/29/2024 [facility] APTT 1H P INC TIME PPP 45.0 sec Normal 03/29/2024 [facility] APTT 1H P INC TIME PPP CONT 35.0 sec Normal 03/29/2024 [facility] aPTT 1h HAT FORMING MACHINE OPERATOR PPP 39.0 sec Normal 03/29/2024 [facility] APTT TIME PPP 1 TO 1 SALINE 38.0 sec Normal 03/29/2024 [facility] APTT TIME PPP 42.0 sec Above high normal 03/29/2024 25 - 37 [facility] APTT TIME PPP CONT 32.0 sec Normal 03/29/2024 [facility] APTT IMM HAT FORMING MACHINE OPERATOR TIME PPP 36.0 sec Normal 03/29/2024 [facility] PLAT MORPH BLD NORMAL Normal 03/28/2024 [facility] HAPTOGLOB SERPL NEPH MCNC 206.0 mg/dL Normal 03/28/2024 44 - 215 [facility] BILIRUB DIRECT SERPL MCNC 0.7 mg/dL Above high normal 03/28/2024 0 - 0.2 [facility] BILIRUB SERPL MCNC 2.0 mg/dL Above high normal 03/28/2024 0. 3 - 1 [facility] HCT VFR BLD AUTO 22.9 % Below low normal 03/28/2024 40 - 54 [facility] MCHC RBC AUTO MCNC 33.3 g/dL Normal 03/28/2024 32 - 36 [facility] HGB BLD MCNC 7.6 g/dL Below low normal 03/28/2024 13.5 - 18 [facility] MCH RBC QN AUTO 30.0 pg Normal 03/28/2024 25 - 33 [facility] RDW RBC AUTO RTO 16.9 % Normal 03/28/2024 12.1 - 17.7 [facility] PLATELET NO. BLD AUTO 273.0 K/uL Normal 03/28/2024 150 - 450 [facility] WBC NO. BLD AUTO 7.4 K/uL Normal 03/28/2024 4 - 10.5 [facility] MCV RBC AUTO 90.0 fL Normal 03/28/2024 78 - 100 [facility] RBC NO. BLD AUTO 2.54 M/uL Below low normal 03/28/2024 4.7 - 6 [facility] PMV BLD AUTO 8.2 fL Normal 03/28/2024 7.4 - 11.4 [facility] SODIUM SERPL SCNC 135.0 mmol/L Normal 03/28/2024 135 - 14 5 [facility] GLUCOSE SERPL MCNC 76.0 mg/dL Normal 03/28/2024 70 - 199 [facility] BUN SERPL MCNC 19.0 mg/dL Normal 03/28/2024 9 - 20 [facility] CHLORIDE SERPL SCNC 105.0 mmol/L Normal 03/28/2024 98 - 1 07 [facility] POTASSIUM SERPL SCNC 3.7 mmol/L Normal 03/28/2024 3.5 - 5.1 [facility] CALCIUM SERPL MCNC 8.3 mg/dL Below low normal 03/28/2024 8.4 - 10.2 [facility] HCO3 SER SCNC 23.0 mmol/L Below low normal 03/28/2024 24 - 3 2 [facility] ANION GAP SERPL SCNC 7.0 mmol/L Normal 03/28/2024 5 - 14 [facility] CREAT SERPL MCNC 0.9 mg/dL Normal 03/28/2024 0.7 - 1.3 [facility] Glomerular filtration rate/1.73 sq M. predicted 93.0 Normal 03/28/2024 60 - [facility] GLUCOSE BLDC GLUCOMTR MCNC 136.0 mg/dL Normal 03/27/2024 70 - 199 [facility] GLUCOSE SERPL MCNC 131.0 mg/dL Normal 03/27/2024 70 - 199 [facility] POTASSIUM SERPL SCNC 3.9 mmol/L Normal 03/27/2024 3.5 - 5.1 [facility] ALBUMIN SERPL BCG MCNC 2.8 g/dL Below low normal 03/27/2024 3.5 - 5 [facility] AST SERPL CCNC 10.0 U/L Normal 03/27/2024 5 - 40 [facility] BUN SERPL MCNC 20.0 mg/dL Normal 03/27/2024 9 - 20 [facility] Glomerular filtration rate/1.73 sq M. predicted 82.0 Normal 03/27/2024 60 - [facility] BILIRUB SERPL MCNC 1.2 mg/dL Above high normal 03/27/2024 0. 3 - 1 [facility] CHLORIDE SERPL SCNC 108.0 mmol/L Above high normal 98 - 107 [facility] CALCIUM SERPL MCNC 8.1 mg/dL Below low normal 03/27/2024 8.4 - 10.2 [facility] ANION GAP SERPL SCNC 7.0 mmol/L Normal 03/27/2024 5 - 14 [facility] HCO3 SER SCNC 24.0 mmol/L Normal 03/27/2024 24 - 32 [facility] ALP SERPL-CCNC 51.0 U/L Normal 03/27/2024 34 - 104 [facility] SODIUM SERPL SCNC 139.0 mmol/L Normal 03/27/2024 135 - 14 5 [facility] CREAT SERPL MCNC 1.0 mg/dL Normal 03/27/2024 0.7 - 1.3 [facility] ALT SERPL CCNC 6.0 U/L Below low normal 03/27/2024 7 - 52 [facility] PROT SERPL MCNC 5.4 g/dL Below low normal 03/27/2024 6.4 - 8.5 [facility] MAGNESIUM SERPL MCNC 1.9 mg/dL Normal 03/27/2024 1.7 - 2.8 [facility] PHOSPHATE SERPL MCNC 2.5 mg/dL Normal 03/27/2024 2.5 - 4.5 [facility] PT TIME PPP 18.0 sec Above high normal 03/27/2024 10.5 - 13 .3 [facility] APTT TIME PPP 39.0 sec Above high normal 03/27/2024 25 - 37 [facility] INR PPP 1.5 Above high normal 03/27/2024 0.8 - 1.1 [facility] PMV BLD AUTO 8.4 fL Normal 03/27/2024 7.4 - 11.4 [facility] HGB BLD MCNC 7.8 g/dL Below low normal 03/27/2024 13.5 - 18 [facility] MCHC RBC AUTO MCNC 33.3 g/dL Normal 03/27/2024 32 - 36 [facility] HCT VFR BLD AUTO 23.5 % Below low normal 03/27/2024 40 - 54 [facility] PLATELET NO. BLD AUTO 230.0 K/uL Normal 03/27/2024 150 - 450 [facility] MCH RBC QN AUTO 30.1 pg Normal 03/27/2024 25 - 33 [facility] RDW RBC AUTO RTO 17.1 % Normal 03/27/2024 12.1 - 17.7 [facility] MCV RBC AUTO 90.4 fL Normal 03/27/2024 78 - 100 [facility] RBC NO. BLD AUTO 2.6 M/uL Below low normal 03/27/2024 4.7 - 6 [facility] WBC NO. BLD AUTO 7.6 K/uL Normal 03/27/2024 4 - 10.5 [facility] GLUCOSE SERPL MCNC 121.0 mg/dL Normal 03/27/2024 70 - 199 [facility] CHLORIDE SERPL SCNC 108.0 mmol/L Above high normal 98 - 107 [facility] ANION GAP SERPL SCNC 7.0 mmol/L Normal 03/27/2024 5 - 14 [facility] BUN SERPL MCNC 19.0 mg/dL Normal 03/27/2024 9 - 20 [facility] SODIUM SERPL SCNC 139.0 mmol/L Normal 03/27/2024 135 - 14 5 [facility] HCO3 SER SCNC 24.0 mmol/L Normal 03/27/2024 24 - 32 [facility] CREAT SERPL MCNC 1.0 mg/dL Normal 03/27/2024 0.7 - 1.3 [facility] POTASSIUM SERPL SCNC 3.8 mmol/L Normal 03/27/2024 3.5 - 5.1 [facility] CALCIUM SERPL MCNC 8.2 mg/dL Below low normal 03/27/2024 8.4 - 10.2 [facility] Glomerular filtration rate/1.73 sq M. predicted 82.0 Normal 03/27/2024 60 - [facility] FIBRINOGEN PPP-MCNC 670.0 mg/dL Above high normal 03/26/2024 145 - 415 [facility] FERRITIN SERPL MCNC 85.0 ng/mL Normal 03/26/2024 20 - 250 [facility] HGB BLD MCNC 8.5 g/dL Below low normal 03/27/2024 13.5 - 18 [facility] HCT VFR BLD AUTO 25.4 % Below low normal 03/27/2024 40 - 54 [facility] D DIMER DDU PPP EIA MCNC 313.0 ng/mL DDU Above high normal 03/26/2024 - 231 [facility] LDH SERPL L TO P CCNC 204.0 U/L Normal 03/26/2024 125 - 220 [facility] RETICS/100 RBC NFR AUTO 8.3 % Above high normal 03/26/2024 0.7 - 1.7 [facility] IRON SATN MFR SERPL 17.0 % Below low normal 03/26/2024 20 - 45 [facility] UIBC SERPL MCNC 209.0 ug/dL Normal 03/26/2024 155 - 355 C [facility] TIBC SERPL MCNC 252.0 ug/dL Normal 03/26/2024 250 - 450 C [facility] IRON SERPL MCNC 43.0 mcg/dL Below low normal 03/26/2024 49 - 181 [facility] TRANS NUM UNITS PACKED RBC Refer to TYPE AND SCREEN Order, for Red Cell Product Data / Detail Normal 03/26/2024 [facility] HGB BLD MCNC 7.1 g/dL Below low normal 03/26/2024 13.5 - 18 [facility] HCT VFR BLD AUTO 21.4 % Below low normal 03/26/2024 40 - 54 [facility] HCO3 SER SCNC 24.0 mmol/L Normal 03/26/2024 24 - 32 [facility] CREAT SERPL MCNC 1.0 mg/dL Normal 03/26/2024 0.7 - 1.3 [facility] GLUCOSE SERPL MCNC 126.0 mg/dL Normal 03/26/2024 70 - 199 [facility] POTASSIUM SERPL SCNC 4.3 mmol/L Normal 03/26/2024 3.5 - 5.1 [facility] SODIUM SERPL SCNC 139.0 mmol/L Normal 03/26/2024 135 - 14 5 [facility] CHLORIDE SERPL SCNC 108.0 mmol/L Above high normal 98 - 107 [facility] BUN SERPL MCNC 21.0 mg/dL Above high normal 03/26/2024 9 - 2 0 [facility] Glomerular filtration rate/1.73 sq M. predicted 82.0 Normal 03/26/2024 60 - [facility] CALCIUM SERPL MCNC 7.8 mg/dL Below low normal 03/26/2024 8.4 - 10.2 [facility] ANION GAP SERPL SCNC 7.0 mmol/L Normal 03/26/2024 5 - 14 [facility] T4 FREE SERPL MCNC 1.2 ng/dL Normal 03/26/2024 0.5 - 1.3 [facility] HCT VFR BLD AUTO 20.3 % Below low normal 03/26/2024 40 - 54 [facility] MCHC RBC AUTO MCNC 33.6 g/dL Normal 03/26/2024 32 - 36 [facility] PMV BLD AUTO 8.7 fL Normal 03/26/2024 7.4 - 11.4 [facility]LECIA MCH RBC QN AUTO 31.0 pg Normal 03/26/2024 25 - 33 CTT [facility] HGB BLD MCNC 6.8 g/dL Below low normal 03/26/2024 13.5 - 18 [facility] WBC NO. BLD AUTO 6.6 K/uL Normal 03/26/2024 4 - 10.5 [facility] MCV RBC AUTO 92.2 fL Normal 03/26/2024 78 - 100 [facility] RDW RBC AUTO RTO 16.1 % Normal 03/26/2024 12.1 - 17.7 [facility] RBC NO. BLD AUTO 2.2 M/uL Below low normal 03/26/2024 4.7 - 6 [facility] PLATELET NO. BLD AUTO 188.0 K/uL Normal 03/26/2024 150 - 450 [facility] VIT B12 SER MCNC 475.0 pg/mL Normal 03/26/2024 180 - 914 [facility] FOLATE SERPL MCNC 18.3 ng/mL Normal 03/26/2024 3 - [facility] TSH SerPl DL<=0.005 mIU/L-aCnc 6.84 uIU/mL Above high normal 03/26/2024 0.45 - 5.33 [facility] PMV BLD AUTO 9.0 fL Normal 03/25/2024 7.4 - 11.4 [facility] WBC NO. BLD AUTO 7.6 K/uL Normal 03/25/2024 4 - 10.5 [facility] RDW RBC AUTO RTO 15.9 % Normal 03/25/2024 12.1 - 17.7 [facility] MCH RBC QN AUTO 32.9 pg Normal 03/25/2024 25 - 33 CTT [facility] MCV RBC AUTO 92.7 fL Normal 03/25/2024 78 - 100 [facility] MCHC RBC AUTO MCNC 35.6 g/dL Normal 03/25/2024 32 - 36 [facility] RBC NO. BLD AUTO 2.4 M/uL Below low normal 03/25/2024 4.7 - 6 [facility] PLATELET NO. BLD AUTO 162.0 K/uL Normal 03/25/2024 150 - 450 [facility] HGB BLD MCNC 7.9 g/dL Below low normal 03/25/2024 13.5 - 18 [facility] HCT VFR BLD AUTO 22.3 % Below low normal 03/25/2024 40 - 54 [facility] GLUCOSE P FAST SERPL MCNC 120.0 mg/dL Above high normal 03/24/2024 70 - 99 [facility] BUN SERPL MCNC 28.0 mg/dL Above high normal 03/24/2024 9 - 2 0 [facility] CALCIUM SERPL MCNC 8.0 mg/dL Below low normal 03/24/2024 8.4 - 10.2 [facility] CREAT SERPL MCNC 1.0 mg/dL Normal 03/24/2024 0.7 - 1.3 [facility] CHLORIDE SERPL SCNC 106.0 mmol/L Normal 03/24/2024 98 - 1 07 [facility] Glomerular filtration rate/1.73 sq M. predicted 82.0 Normal 03/24/2024 60 - [facility] ANION GAP SERPL SCNC 6.0 mmol/L Normal 03/24/2024 5 - 14 [facility] HCO3 SER SCNC 28.0 mmol/L Normal 03/24/2024 24 - 32 CTT [facility] SODIUM SERPL SCNC 140.0 mmol/L Normal 03/24/2024 135 - 14 5 [facility] POTASSIUM SERPL SCNC 4.0 mmol/L Normal 03/24/2024 3.5 - 5.1 [facility] MAGNESIUM SERPL MCNC 2.1 mg/dL Normal 03/24/2024 1.7 - 2.8 [facility] MCHC RBC AUTO MCNC 34.3 g/dL Normal 03/24/2024 32 - 36 [facility] PLATELET NO. BLD AUTO 125.0 K/uL Below low normal 03/24/2024 150 - 450 [facility] PMV BLD AUTO 9.4 fL Normal 03/24/2024 7.4 - 11.4 [facility]LEC[facility] RBC NO. BLD AUTO 2.76 M/uL Below low normal 03/24/2024 4.7 - 6 [facility] MCV RBC AUTO 91.4 fL Normal 03/24/2024 78 - 100 [facility] MCH RBC QN AUTO 31.3 pg Normal 03/24/2024 25 - 33 CTT [facility] RDW RBC AUTO RTO 15.7 % Normal 03/24/2024 12.1 - 17.7 [facility] HGB BLD MCNC 8.7 g/dL Below low normal 03/24/2024 13.5 - 18 [facility] WBC NO. BLD AUTO 6.9 K/uL Normal 03/24/2024 4 - 10.5 [facility] HCT VFR BLD AUTO 25.3 % Below low normal 03/24/2024 40 - 54 [facility] POTASSIUM SERPL SCNC 3.8 mmol/L Normal 03/24/2024 3.5 - 5.1 [facility] MAGNESIUM SERPL MCNC 1.7 mg/dL Normal 03/24/2024 1.7 - 2.8 [facility] Troponin I SerPl HS-mCnc 16.0 ng/L Normal 03/24/2024 0 - 20 [facility] Troponin I SerPl HS-mCnc 16.0 ng/L Normal 03/24/2024 0 - 20 [facility] MAGNESIUM SERPL MCNC 1.8 mg/dL Normal 03/24/2024 1.7 - 2.8 [facility] CREAT SERPL MCNC 1.3 mg/dL Normal 03/24/2024 0.7 - 1.3 [facility] GLUCOSE SERPL MCNC 190.0 mg/dL Normal 03/24/2024 70 - 199 [facility] SODIUM SERPL SCNC 144.0 mmol/L Normal 03/24/2024 135 - 14 5 [facility] CALCIUM SERPL MCNC 8.1 mg/dL Below low normal 03/24/2024 8.4 - 10.2 [facility] ANION GAP SERPL SCNC 7.0 mmol/L Normal 03/24/2024 5 - 14 [facility] CHLORIDE SERPL SCNC 109.0 mmol/L Above high normal 98 - 107 [facility] HCO3 SER SCNC 28.0 mmol/L Normal 03/24/2024 24 - 32 CTT [facility] BUN SERPL MCNC 34.0 mg/dL Above high normal 03/24/2024 9 - 2 0 [facility] POTASSIUM SERPL SCNC 4.5 mmol/L Normal 03/24/2024 3.5 - 5.1 [facility] Glomerular filtration rate/1.73 sq M. predicted 60.0 Below low normal 03/24/2024 60 - [facility] PHOSPHATE SERPL MCNC 1.8 mg/dL Below low normal 03/24/2024 2.5 - 4.5 [facility] MCV RBC AUTO 90.9 fL Normal 03/24/2024 78 - 100 [facility] HCT VFR BLD AUTO 24.9 % Below low normal 03/24/2024 40 - 54 [facility] PMV BLD AUTO 9.5 fL Normal 03/24/2024 7.4 - 11.4 [facility] MCHC RBC AUTO MCNC 34.4 g/dL Normal 03/24/2024 32 - 36 [facility] RDW RBC AUTO RTO 16.0 % Normal 03/24/2024 12.1 - 17.7 [facility] PLATELET NO. BLD AUTO 127.0 K/uL Below low normal 03/24/2024 150 - 450 [facility] MCH RBC QN AUTO 31.3 pg Normal 03/24/2024 25 - 33 CTT [facility] HGB BLD MCNC 8.6 g/dL Below low normal 03/24/2024 13.5 - 18 [facility] RBC NO. BLD AUTO 2.74 M/uL Below low normal 03/24/2024 4.7 - 6 [facility] WBC NO. BLD AUTO 7.6 K/uL Normal 03/24/2024 4 - 10.5 [facility] GLUCOSE BLDC GLUCOMTR MCNC 153.0 mg/dL Normal 03/23/2024 70 - 199 [facility] BLD PROD DISPOSITION BPU REL FROM ALLOC Normal 03/24/2024 [facility] SUZY XM SERPL-IMP COMPATIBLE Normal 03/23/2024 C [facility] OTHER BLD PROD BPU 0.0 Normal 03/23/2024 [facility] BPU ID [id number] Normal 03/23/2024 [facility] TRANSFUSION STATUS PATIENT QL OK TO TRANSFUSE Normal 03/23/[facility]<[id number] Normal 03/23/2024 [facility] N BLD PROD TYP BPU RBC LR Normal 03/23/2024 [facility] BLD GP AB SCN SERPL QL NEGATIVE Normal 03/23/2024 [facility] BLOOD BANK CMNT PATIENT-IMP Testing performed at [facility], [address] [place] [id number], Katerin Seals MD [facility], CLIA [id number] Normal 03/23/2024 [facility] ABO+RH GP BLD A POSITIVE Normal 03/23/2024 [facility] BLD GP AB SCN SERPL QL NEGATIVE Normal 03/23/2024 [facility] ABO+RH GP BLD A POSITIVE Normal 03/23/2024 [facility] BLOOD BANK CMNT PATIENT-IMP Testing performed at [facility], [address] [place] [id number], Katerin Seals MD [facility], CLIA [id number] Normal 03/23/2024 [facility] TRANS NUM UNITS PACKED RBC Refer to TYPE AND SCREEN Order, for Red Cell Product Data / Detail Normal 03/23/2024 [facility] WBC NO. BLD AUTO 7.9 K/uL Normal 03/23/2024 4 - 10.5 CT [facility] PLATELET NO. BLD AUTO 120.0 K/uL Below low normal 03/23/2024 150 - 450 [facility] RBC NO. BLD AUTO 2.52 M/uL Below low normal 03/23/2024 4.7 - 6 [facility] PMV BLD AUTO 9.4 fL Normal 03/23/2024 7.4 - 11.4 [facility] FELECIA HCT VFR BLD AUTO 22.7 % Below low normal 03/23/2024 40 - 54 [facility] RDW RBC AUTO RTO 15.0 % Normal 03/23/2024 12.1 - 17.7 [facility] MCV RBC AUTO 90.1 fL Normal 03/23/2024 78 - 100 [facility] HGB BLD MCNC 8.0 g/dL Below low normal 03/23/2024 13.5 - 18 [facility] MCH RBC QN AUTO 31.6 pg Normal 03/23/2024 25 - 33 CTT HS[facility] MCHC RBC AUTO MCNC 35.1 g/dL Normal 03/23/2024 32 - 36 [facility] POTASSIUM SERPL SCNC 3.3 mmol/L Below low normal 03/23/2024 3.5 - 5.1 [facility] GLUCOSE P FAST SERPL MCNC 148.0 mg/dL Above high normal 03/23/2024 70 - 99 [facility] BUN SERPL MCNC 40.0 mg/dL Above high normal 03/23/2024 9 - 2 0 [facility] CALCIUM SERPL MCNC 7.4 mg/dL Below low normal 03/23/2024 8.4 - 10.2 [facility] CHLORIDE SERPL SCNC 104.0 mmol/L Normal 03/23/2024 98 - 1 07 [facility] HCO3 SER SCNC 29.0 mmol/L Normal 03/23/2024 24 - 32 CTT HSFRAN Glomerular filtration rate/1.73 sq M. predicted 55.0 Below low normal 03/23/2024 60 - [facility] ANION GAP SERPL SCNC 7.0 mmol/L Normal 03/23/2024 5 - 14 [facility] CREAT SERPL MCNC 1.4 mg/dL Above high normal 03/23/2024 0.7 - 1.3 [facility] SODIUM SERPL SCNC 140.0 mmol/L Normal 03/23/2024 135 - 14 5 [facility] RBC NO. BLD AUTO 2.84 M/uL Below low normal 03/23/2024 4.7 - 6 [facility] MCHC RBC AUTO MCNC 34.5 g/dL Normal 03/23/2024 32 - 36 [facility] MCH RBC QN AUTO 31.4 pg Normal 03/23/2024 25 - 33 CTT HS[facility] MCV RBC AUTO 91.0 fL Normal 03/23/2024 78 - 100 [facility] PLATELET NO. BLD AUTO 131.0 K/uL Below low normal 03/23/2024 150 - 450 [facility] HCT VFR BLD AUTO 25.8 % Below low normal 03/23/2024 40 - 54 [facility] WBC NO. BLD AUTO 10.0 K/uL Normal 03/23/2024 4 - 10.5 CT [facility] PMV BLD AUTO 9.6 fL Normal 03/23/2024 7.4 - 11.4 [facility] RDW RBC AUTO RTO 14.9 % Normal 03/23/2024 12.1 - 17.7 [facility] HGB BLD MCNC 8.9 g/dL Below low normal 03/23/2024 13.5 - 18 [facility] TRANS NUM UNITS PACKED RBC Refer to TYPE AND SCREEN Order, for Red Cell Product Data / Detail Normal 03/22/2024 [facility] PHOSPHATE SERPL MCNC 3.6 mg/dL Normal 03/22/2024 2.5 - 4.5 [facility] MAGNESIUM SERPL MCNC 1.9 mg/dL Normal 03/22/2024 1.7 - 2.8 [facility] Hgb A1c MFr Bld HPLC 5.4 % Normal 03/22/2024 - 5.7 [facility] HCO3 SER SCNC 21.0 mmol/L Below low normal 03/22/2024 24 - 3 2 [facility] Glomerular filtration rate/1.73 sq M. predicted 36.0 Below low normal 03/22/2024 60 - [facility] SODIUM SERPL SCNC 133.0 mmol/L Below low normal 03/22/2024 1 35 - 145 [facility] CHLORIDE SERPL SCNC 100.0 mmol/L Normal 03/22/2024 98 - 1 07 [facility] CALCIUM SERPL MCNC 7.6 mg/dL Below low normal 03/22/2024 8.4 - 10.2 [facility] BUN SERPL MCNC 43.0 mg/dL Above high normal 03/22/2024 9 - 2 0 [facility] ANION GAP SERPL SCNC 12.0 mmol/L Normal 03/22/2024 5 - 14 [facility] CREAT SERPL MCNC 2.0 mg/dL Above high normal 03/22/2024 0.7 - 1.3 [facility] GLUCOSE P FAST SERPL MCNC 165.0 mg/dL Above high normal 03/22/2024 70 - 99 [facility] POTASSIUM SERPL SCNC 4.1 mmol/L Normal 03/22/2024 3.5 - 5.1 [facility] HGB BLD MCNC 7.3 g/dL Below low normal 03/22/2024 13.5 - 18 [facility] RDW RBC AUTO RTO 15.3 % Normal 03/22/2024 12.1 - 17.7 [facility] RBC NO. BLD AUTO 2.36 M/uL Below low normal 03/22/2024 4.7 - 6 [facility] MCHC RBC AUTO MCNC 33.9 g/dL Normal 03/22/2024 32 - 36 [facility] PMV BLD AUTO 9.8 fL Normal 03/22/2024 7.4 - 11.4 [facility] WBC NO. BLD AUTO 15.2 K/uL Above high normal 03/22/2024 4 - 10.5 [facility] MCV RBC AUTO 90.6 fL Normal 03/22/2024 78 - 100 [facility] PLATELET NO. BLD AUTO 127.0 K/uL Below low normal 03/22/2024 150 - 450 [facility] MCH RBC QN AUTO 30.7 pg Normal 03/22/2024 25 - 33 CTT HS[facility]AN HCT VFR BLD AUTO 21.4 % Below low normal 03/22/2024 40 - 54 [facility] Troponin I SerPl HS-mCnc 12.0 ng/L Normal 03/22/2024 0 - 20 [facility] Glomerular filtration rate/1.73 sq M. predicted 29.0 Below low normal 03/21/2024 60 - [facility] POTASSIUM SERPL SCNC 4.0 mmol/L Normal 03/21/2024 3.5 - 5.1 [facility] CALCIUM SERPL MCNC 7.2 mg/dL Below low normal 03/21/2024 8.4 - 10.2 [facility] CREAT SERPL MCNC 2.4 mg/dL Above high normal 03/21/2024 0.7 - 1.3 [facility] GLUCOSE SERPL MCNC 217.0 mg/dL Above high normal 03/21/2024 70 - 199 [facility] HCO3 SER SCNC 22.0 mmol/L Below low normal 03/21/2024 24 - 3 2 [facility] ANION GAP SERPL SCNC 11.0 mmol/L Normal 03/21/2024 5 - 14 [facility] BUN SERPL MCNC 39.0 mg/dL Above high normal 03/21/2024 9 - 2 0 [facility] CHLORIDE SERPL SCNC 97.0 mmol/L Below low normal 03/21/2024 98 - 107 [facility] SODIUM SERPL SCNC 130.0 mmol/L Below low normal 03/21/2024 1 35 - 145 [facility] Troponin I SerPl HS-mCnc 13.0 ng/L Normal 03/21/2024 0 - 20 [facility] MAGNESIUM SERPL MCNC 1.3 mg/dL Below low normal 03/21/2024 1.7 - 2.8 [facility] PHOSPHATE SERPL MCNC 5.7 mg/dL Above high normal 03/21/2024 2.5 - 4.5 [facility] TRANS NUM UNITS PACKED RBC Refer to TYPE AND SCREEN Order, for Red Cell Product Data / Detail Normal 03/21/2024 [facility] CALCIUM SERPL MCNC 7.6 mg/dL Below low normal 03/21/2024 8.4 - 10.2 [facility] SODIUM SERPL SCNC 136.0 mmol/L Normal 03/21/2024 135 - 14 5 [facility] HCO3 SER SCNC 19.0 mmol/L Below low normal 03/21/2024 24 - 3 2 [facility] BUN SERPL MCNC 30.0 mg/dL Above high normal 03/21/2024 9 - 2 0 [facility] Glomerular filtration rate/1.73 sq M. predicted 36.0 Below low normal 03/21/2024 60 - [facility] POTASSIUM SERPL SCNC 4.2 mmol/L Normal 03/21/2024 3.5 - 5.1 [facility] GLUCOSE P FAST SERPL MCNC 174.0 mg/dL Above high normal 03/21/2024 70 - 99 [facility] CHLORIDE SERPL SCNC 103.0 mmol/L Normal 03/21/2024 98 - 1 07 [facility] CREAT SERPL MCNC 2.0 mg/dL Above high normal 03/21/2024 0.7 - 1.3 [facility] ANION GAP SERPL SCNC 14.0 mmol/L Normal 03/21/2024 5 - 14 [facility] Troponin I SerPl HS-mCnc 12.0 ng/L Normal 03/21/2024 0 - 20 [facility] MCV RBC AUTO 93.2 fL Normal 03/21/2024 78 - 100 [facility] HCT VFR BLD AUTO 25.1 % Below low normal 03/21/2024 40 - 54 [facility] PMV BLD AUTO 10.3 fL Normal 03/21/2024 7.4 - 11.4 [facility]LEC[facility] RBC NO. BLD AUTO 2.69 M/uL Below low normal 03/21/2024 4.7 - 6 [facility] PLATELET NO. BLD AUTO 157.0 K/uL Normal 03/21/2024 150 - 450 [facility] MCH RBC QN AUTO 31.2 pg Normal 03/21/2024 25 - 33 CTT HS[facility] WBC NO. BLD AUTO 18.6 K/uL Above high normal 03/21/2024 4 - 10.5 [facility] MCHC RBC AUTO MCNC 33.4 g/dL Normal 03/21/2024 32 - 36 [facility] RDW RBC AUTO RTO 15.6 % Normal 03/21/2024 12.1 - 17.7 [facility] HGB BLD MCNC 8.4 g/dL Below low normal 03/21/2024 13.5 - 18 [facility] GLUCOSE BLDC GLUCOMTR MCNC 165.0 mg/dL Normal 03/21/2024 70 - 199 [facility] MCHC RBC AUTO MCNC 33.9 g/dL Normal 03/20/2024 32 - 36 [facility] PMV BLD AUTO 9.9 fL Normal 03/20/2024 7.4 - 11.4 [facility] HCT VFR BLD AUTO 39.3 % Below low normal 03/20/2024 40 - 54 [facility] HGB BLD MCNC 13.3 g/dL Below low normal 03/20/2024 13.5 - 18 [facility] PLATELET NO. BLD AUTO 249.0 K/uL Normal 03/20/2024 150 - 450 [facility] WBC NO. BLD AUTO 17.0 K/uL Above high normal 03/20/2024 4 - 10.5 [facility] RBC NO. BLD AUTO 4.26 M/uL Below low normal 03/20/2024 4.7 - 6 [facility] MCV RBC AUTO 92.2 fL Normal 03/20/2024 78 - 100 [facility] RDW RBC AUTO RTO 15.4 % Normal 03/20/2024 12.1 - 17.7 [facility] MCH RBC QN AUTO 31.3 pg Normal 03/20/2024 25 - 33 CTT HS[facility] POTASSIUM SERPL SCNC 4.0 mmol/L Normal 03/20/2024 3.5 - 5.1 [facility] BUN SERPL MCNC 21.0 mg/dL Above high normal 03/20/2024 9 - 2 0 [facility] CREAT SERPL MCNC 1.2 mg/dL Normal 03/20/2024 0.7 - 1.3 CT [facility] SODIUM SERPL SCNC 137.0 mmol/L Normal 03/20/2024 135 - 14 5 [facility] ANION GAP SERPL SCNC 8.0 mmol/L Normal 03/20/2024 5 - 14 [facility] GLUCOSE SERPL MCNC 214.0 mg/dL Above high normal 03/20/2024 70 - 199 [facility] HCO3 SER SCNC 24.0 mmol/L Normal 03/20/2024 24 - 32 CTT HS[facility] CALCIUM SERPL MCNC 7.8 mg/dL Below low normal 03/20/2024 8.4 - 10.2 [facility] Glomerular filtration rate/1.73 sq M. predicted 66.0 Normal 03/20/2024 60 - [facility] CHLORIDE SERPL SCNC 105.0 mmol/L Normal 03/20/2024 98 - 1 07 [facility] SODIUM BLDC SCNC 140.0 mmol/L Normal 03/21/2024 135 - 145 [facility] HCT VFR BLDC 36.0 % Below low normal 03/21/2024 40 - 54 [facility] POTASSIUM BLDC SCNC 3.5 mmol/L Normal 03/21/2024 3.5 - 5. 1 [facility] HGB BLDC MCNC 12.2 g/dL Below low normal 03/21/2024 13.5 - 1 8 [facility] SODIUM BLDC SCNC 138.0 mmol/L Normal 03/21/2024 135 - 145 [facility] HGB BLDC MCNC 12.6 g/dL Below low normal 03/21/2024 13.5 - 1 8 [facility] POTASSIUM BLDC SCNC 2.7 mmol/L Below low normal 03/21/2024 3 .5 - 5.1 [facility] HCT VFR BLDC 37.0 % Below low normal 03/21/2024 40 - 54 [facility] HCT VFR BLDC 36.0 % Below low normal 03/21/2024 40 - 54 [facility] POTASSIUM BLDC SCNC 2.5 mmol/L Below low normal 03/21/2024 3 .5 - 5.1 [facility] HGB BLDC MCNC 12.2 g/dL Below low normal 03/21/2024 13.5 - 1 8 [facility] SODIUM BLDC SCNC 139.0 mmol/L Normal 03/21/2024 135 - 145 [facility] TRANS NUM UNITS PACKED RBC Refer to TYPE AND SCREEN Order, for Red Cell Product Data / Detail Normal 03/20/2024 [facility] BLD GP AB SCN SERPL QL NEGATIVE Normal 03/20/2024 [facility] ABO+RH GP BLD A POSITIVE Normal 03/20/2024 [facility] BLOOD BANK CMNT PATIENT-IMP Testing performed at [facility], [address] [place] [address], [place] [address], Katerin Seals MD [facility], GARY [id number] Normal 03/20/2024 [facility] RBC NO. BLD AUTO 4.89 M/uL Normal 02/21/2024 4.7 - 6 [facility] MCH RBC QN AUTO 31.2 pg Normal 02/21/2024 25 - [address] [facility] PLATELET NO. BLD AUTO 211.0 K/uL Normal 02/21/2024 150 - [facility] MONOCYTES NO. BLD AUTO 0.3 K/uL Normal 02/21/2024 0 - 0.8 [facility] HGB BLD MCNC 15.2 g/dL Normal 02/21/2024 13.5 - 18 [facility] WBC NO. BLD AUTO 5.6 K/uL Normal 02/21/2024 4 - 10.5 CT [facility] BASOPHILS NFR BLD AUTO 0.6 % Normal 02/21/2024 0 - 2 [facility] RDW RBC AUTO RTO 15.2 % Normal 02/21/2024 12.1 - 17.7 [facility] BASOPHILS IN BLOOD BY AUTOMATED COUNT 0.0 K/uL Normal 02/21/2024 0 - 0.2 [facility] MCHC RBC AUTO MCNC 33.9 g/dL Normal 02/21/2024 32 - 36 [facility] LYMPHOCYTES NFR BLD AUTO 23.5 % Normal 02/21/2024 20 - 48 [facility] PMV BLD AUTO 9.0 fL Normal 02/21/2024 7.4 - [facility] DI[facility] Normal 02/21/2024 C T[facility]S MCV RBC AUTO 92.0 fL Normal 02/21/2024 78 - 100 [facility] H EOSINOPHIL NO. BLD AUTO 0.0 K/uL Normal 02/21/2024 0 - 0.5 [facility] NEUTROPHILS NFR BLD AUTO 69.9 % Normal 02/21/2024 44 - 74 [facility] LYMPHOCYTES NO. BLD AUTO 1.3 K/uL Normal 02/21/2024 1 - 3.2 CT[facility] EOSINOPHIL NFR BLD AUTO 0.9 % Normal 02/21/2024 0 - 6 [facility] NEUTROPHILS NO. BLD AUTO 3.9 K/uL Normal 02/21/2024 1.8 - 7.8 [facility] HCT VFR BLD AUTO 45.0 % Normal 02/21/2024 40 - [facility]LD AUTO 5.1 % Normal 02/21/2024 2 - 12 [facility] GLUCOSE P FAST SERPL MCNC 62.0 mg/dL Below low normal 02/21/2024 70 - 99 [facility] AST SERPL CCNC 21.0 U/L Normal 02/21/2024 5 - 40 CTT [facility] SODIUM SERPL SCNC 141.0 mmol/L Normal 02/21/2024 135 - 14 5 [facility] ANION GAP SERPL SCNC 8.0 mmol/L Normal 02/21/2024 5 - 14 [facility] ALT SERPL CCNC 22.0 U/L Normal 02/21/2024 7 - 52 [facility]TT [facility] PROT SERPL MCNC 6.1 g/dL Below low normal 02/21/2024 6.4 - 8.5 [facility] BUN SERPL MCNC 11.0 mg/dL Normal 02/21/2024 9 - 20 CTT [facility] HCO3 SER SCNC 26.0 mmol/L Normal 02/21/2024 24 - 32 [facility]TT [facility] CHLORIDE SERPL SCNC 107.0 mmol/L Normal 02/21/2024 98 - 1 07 [facility] CALCIUM SERPL MCNC 9.0 mg/dL Normal 02/21/2024 8.4 - 10.2 [facility] BILIRUB [facility] MCNC 0.8 mg/dL Normal 02/21/2024 0.3 - 1 [facility] ALP [facility]PL-CCNC 92.0 U/L Normal 02/21/2024 34 - 104 [facility]TT [facility] POTASSIUM SERPL SCNC 3.6 mmol/L Normal 02/21/2024 3.5 - 5.1 [facility] CREAT SERPL MCNC 0.7 mg/dL Normal 02/21/2024 0.7 - 1.3 CT [facility] ALBUMIN SERPL BCG MCNC 4.0 g/dL Normal 02/21/2024 3.5 - 5 [facility] Glomerular filtration rate/1.73 sq M. predicted 100.0 Normal 02/21/2024 60 - [facility] PREALB SERPL NEPH MCNC 23.5 mg/dL Normal 02/21/2024 17 - [facility] PT TIME PPP 11.9 sec Normal 02/21/2024 10.5 - 13.3 [facility] INR PPP 1.0 Normal 02/21/2024 0.8 - 1.1 [facility] APTT TIME PPP 36.0 sec Normal 02/21/2024 25 - 37 [facility] ABO+RH GP BLD A POSITIVE Normal 02/22/2024 [facility] BLOOD BANK CMNT PATIENT-IMP Testing performed at [facility], [address] [place] [id number], Katerin Seals MD [facility], [facility] [id number] Normal 02/22/2024 [facility] BLD GP AB SCN SERPL QL NEGATIVE Normal 02/22/2024 [facility] POLYS NFR SNV MANUAL 47.0 % Normal 11/02/2023 [facility] SPECIMEN SOURCE FLD RGHT KNEE Normal 11/02/2023 [facility] SYNOVIOCYTES NFR SNV 0.0 /100 WBC Normal 11/02/2023 [facility] UNIDENT CELLS NFR SNV 0.0 /100 WBC Normal 11/02/2023 [facility] MONONUC CELLS NFR SNV MANUAL 39 LYMPHOCYTES, 14 MONOCYTES Normal 11/02/2023 [facility] APPEARANCE SNV BLOODY FLUID Normal 11/02/2023 [facility] NUCLEATED CELLS NO. SNV MANUAL 593.0 /UL Normal 11/02/2023 [facility] RBC NO. SNV MANUAL 232919.0 /UL Normal 11/02/2023 [facility] CRYSTALS SNV MICRO NO CRYSTALS SEEN Normal 11/02/2023 [facility] BASOPHILS NFR BLD AUTO 0.6 % Normal 11/02/2023 0 - 2 [facility] PMV BLD AUTO 8.9 fL Normal 11/02/2023 7.4 - 11.4 [facility] LYMPHOCYTES NO. BLD AUTO 1.2 K/uL Normal 11/02/2023 1 - 3.2 [facility] MCH RBC QN AUTO 29.9 pg Normal 11/02/2023 25 - 33 [facility] MONOCYTES NFR BLD AUTO 7.2 % Normal 11/02/2023 2 - 12 [facility] DIFFERENTIAL TYPE AUTOMATED Normal 11/02/2023 [facility] MONOCYTES NO. BLD AUTO 0.4 K/uL Normal 11/02/2023 0 - 0.8 [facility] PLATELET NO. BLD AUTO 270.0 K/uL Normal 11/02/2023 150 - 450 [facility] BASOPHILS IN BLOOD BY AUTOMATED COUNT 0.0 K/uL Normal 11/02/2023 0 - 0.2 [facility] MCHC RBC AUTO MCNC 32.6 g/dL Normal 11/02/2023 32 - 36 [facility] RDW RBC AUTO RTO 16.6 % Normal 11/02/2023 12.1 - 17.7 [facility] NEUTROPHILS NFR BLD AUTO 72.4 % Normal 11/02/2023 44 - 74 [facility] WBC NO. BLD AUTO 6.2 K/uL Normal 11/02/2023 4 - 10.5 [facility] MCV RBC AUTO 91.8 fL Normal 11/02/2023 78 - 100 [facility] MG HGB BLD MCNC 15.3 g/dL Normal 11/02/2023 13.5 - 18 [facility] MG RBC NO. BLD AUTO 5.13 M/uL Normal 11/02/2023 4.7 - 6 [facility] LYMPHOCYTES NFR BLD AUTO 19.1 % Below low normal 11/02/2023 20 - 48 [facility] HCT VFR BLD AUTO 47.1 % Normal 11/02/2023 40 - 54 [facility] NEUTROPHILS NO. BLD AUTO 4.5 K/uL Normal 11/02/2023 1.8 - 7.8 [facility] EOSINOPHIL NFR BLD AUTO 0.7 % Normal 11/02/2023 0 - 6 [facility] EOSINOPHIL NO. BLD AUTO 0.0 K/uL Normal 11/02/2023 0 - 0.5 [facility] ESR Bld Qn Photometric 4.0 mm/h Normal 11/02/2023 0 - 15 [facility] CRP SERPL MCNC 1.5 mg/dL Above high normal 11/02/2023 - 0.9 [facility] History of Medication Use Medication Directions Dispensed Refills Start Date End Date Stat nitrofurantoin, macrocrystal-monohyd rate, (Macrobid) 100 MG capsule Take 1 capsule (100 mg total) by mouth 2 (two) times a day for 7 days. 04/03/2024 4 active melatonin 3 MG tablet 6 mg 6 mg, Oral, Once, On Wed03/29/24 at 2345, For 1 dose 03/30/2024 4 completed traZODone (DESYREL) split tablet 25 mg 25 mg, Oral, Every 8 hours PRN, agitation., Starting on Wed03/29/24 at 1415 03/29/2024 active ferric gluconate (FERRLECIT) 125 mg in sodium chloride (NS) 0.9 % 100 mL IVPB 125 mg, Intravenous, Administer over 60 Minutes, Once, On Paulette 03/30/24 at 1330, For 1 doseNot to exceed 2.1 mg/min (duration = 60 min) 03/28/2024 4 completed acetaminophen (TYLENOL EXTRA STRENGTH) 500 MG tablet Take 2 tablets (1,000 mg total) by mouth every 8 (eight) hours. 03/27/2024 active acetaminophen (TYLENOL) 500 mg tablet Take 2 tablets (1,000 mg total) by mouth every 8 hours. 03/27/2024 active calcitriol (ROCALTROL) capsule 2 mcg 2 mcg, Oral, Weekly, First dose on 03/27/24 at 0900 03/27/2024 active methocarbamol (ROBAXIN) 750 MG tablet Take 1 tablet (750 mg total) by mouth every 6 (six) hours as needed. 03/27/2024 active oxyCODONE (ROXICODONE) 5 MG immediate release tablet Take 1 tablet (5 mg total) by mouth every 6 (six) hours as needed for up to 30 doses. 03/27/2024 active senna-docusate (PERICOLACE) 8.6-50 MG Take 1 tablet by mouth 2 (two) times a day. 03/27/2024 active lactated ringers bolus 1,000 mL 1,000 mL, Intravenous, Administer over 3 Hours, Once, On Paulette 03/23/24 at 1045, For 1 doseCan stop during blood transfusion 03/23/2024 4 completed potassium chloride ER tablet 40 mEq 40 mEq, Oral, Every 1 hour, First dose on Paulette 03/23/24 at 0900, For 2 dosesDo not crush or chew tablet. To make a liquid dissolution from a tablet: 1) Place the whole tablet(s) in approximately cup of water (4 fluid ounces). 2) Allow approximately 2 minutes for the tablet(s) to disintegrate. 03/23/2024 4 completed enoxaparin (LOVENOX) syringe 40 mg 40 mg, Subcutaneous, Every 24 hours scheduled (Daily), First dose on Wed04/02/24 at 1430Administer in abdomen (at least 2 inches from navel) 03/22/2024 4 active bumetanide (BUMEX) tablet 3 mg 3 mg, Oral, Once, On Wed03/22/24 at 1300, For 1 doseAfter 1st unit of blood 03/22/2024 4 completed midodrine (PROAMATINE) tablet 10 mg 10 mg, Oral, 3 times daily before meals, First dose (after last modification) on Wed03/21/24 at 1130Hold for BP > 110 Avoid dosing after 6 PM or within 4 hours of bedtime. 03/21/2024 4 aborted magnesium sulfate 2 g/50ml IVPB Premix 2 g, Intravenous, at 50 mL/hr, Once, On Wed03/24/24 at 0145, For 1 dose 03/21/2024 4 completed ceFAZolin (ANCEF) injection 2 g 2 g, Intravenous, Every 8 hours, First dose (after last modification) on Wed03/21/24 at 1900, For 2 doses, PACU/FloorGive 8 hours after the intra-op cefazolin dose. For Adults, if ordered IV then reconstitute each 1GM vial with 10mL sterile water or normal saline and administer IV Push over 3-5 min 03/21/2024 4 completed bumetanide (BUMEX) tablet 2 mg 2 mg, Oral, Once, On Wed03/21/24 at 1000, For 1 doseTo be given between RBC tranfusions, hold if BP < 80 or MAP < 60 03/21/2024 4 completed calcium gluconate 1 g/50 mL NaCl IVPB 1 g, Intravenous, Every 1 hour, First dose on Wed03/20/24 at 2100, For 2 doses 03/21/2024 4 completed dexamethasone (DECADRON) tablet 8 mg 8 mg, Oral, Once, On Wed03/21/24 at 0800, For 1 dosePOD #1 in the morning. Hold for patients with the following procedures: I&D w/ or w/o poly exchange, resection arthroplasty, removal of prosthesis 03/21/2024 4 completed dilTIAZem (CARDIZEM) tablet 60 mg 60 mg, Oral, 4 times daily, First dose on Wed03/20/24 at 2100 03/21/2024 4 aborted sodium chloride 0.9% bolus (NS) 500 mL 500 mL, Intravenous, at 500 mL/hr, Once, On Wed03/21/24 at 0000, For 1 dose 03/21/2024 4 completed calcitonin (salmon) (MIACALCIN) nasal spray 1 spray 1 spray, Nasal, Daily, First dose on Wed03/21/24 at 0900To administer, place nozzle into nostril with head in upright position. Alternate nostrils daily. 03/21/2024 active topiramate (TOPAMAX) tablet 25 mg 25 mg, Oral, Every Night at Bedtime, First dose on Wed03/20/24 at 2200Reproductive/B reast Feeding Risk: Use appropriate precautions for handling and disposal. 03/21/2024 active oxyCODONE (ROXICODONE) 5 MG immediate release tablet Take 2 tablets (10 mg total) by mouth every 6 (six) hours for 14 days. 03/20/2024 active ranolazine (RANEXA) 500 MG 12 hr tablet 1,000 mg 1,000 mg, Oral, 2 times daily, First dose on Wed03/20/24 at 1830Do not crush, break or chew. 03/20/2024 4 aborted lactated ringers infusion 100 mL/hr, Intravenous, Continuous, Starting on Wed03/20/24 at 0730 03/20/2024 4 aborted potassium chloride ER tablet 10 mEq 10 mEq, Oral, 2 times daily, First dose on Wed03/20/24 at 1830Do not crush or chew tablet. To make a liquid dissolution from a tablet: 1) Place the whole tablet(s) in approximately cup of water (4 fluid ounces). 2) Allow approximately 2 minutes for the tablet(s) to disintegrate. 3) Stir for 03/20/2024 4 aborted acetaminophen (TYLENOL EXTRA STRENGTH) 500 MG tablet Take 2 tablets (1,000 mg total) by mouth every 8 (eight) hours. 03/20/2024 4 active HYDROmorphone (DILAUDID) injection 0.5 mg 0.5 mg, Intravenous, Every 4 hours PRN, severe pain (7-10), Starting on Wed03/20/24 at 1827, PACU/FloorAdminist er IV push over 2-3 minutes. 03/20/2024 active vancomycin (VANCOCIN) 1,500 mg in dextrose 5% 500 mL IVPB Premix 1,500 mg, Intravenous, Once, On Wed03/20/24 at 0730, For 1 dose, Pre-opGive pre-op in OR. 03/20/2024 4 completed alum & mag hydroxide-simethicon e suspension 30 mL 30 mL, Oral, Every 6 hours PRN, indigestion, Starting on Wed03/20/24 at 1827 03/20/2024 active atorvastatin (LIPITOR) tablet 80 mg 80 mg, Oral, Every Evening, First dose on Wed03/20/24 at 1830Pregnancy Risk Factor Category: X 03/20/2024 active benzocaine-menthol (CEPACOL) lozenge 1 lozenge 1 lozenge, Oral, Every 2 hours PRN, sore throat, Starting on Wed03/20/24 at 1827 03/20/2024 active bisacodyl (DULCOLAX) suppository 10 mg 10 mg, Rectal, Daily as needed, constipation, Starting on Wed03/20/24 at 1827Hold for patients with history of IBS, IBO, Ileostomy. 03/20/2024 active calcium carbonate (TUMS) chewable tablet 500 mg 500 mg, Chew, Every 4 hours PRN, indigestion, heartburn, Starting on Wed03/20/24 at 1827 03/20/2024 active magnesium hydroxide (MILK OF MAGNESIA) 400 MG/5ML suspension 30 mL 30 mL, Oral, Daily as needed, constipation, Starting on Wed03/20/24 at 1827Hold for patients with history of IBS, IBO, Ileostomy. 03/20/2024 active methocarbamol (ROBAXIN) 750 MG tablet Take 1 tablet (750 mg total) by mouth every 6 (six) hours as needed. 03/20/2024 active metoclopramide (REGLAN) injection 10 mg 10 mg, Intravenous, Every 6 hours PRN, nausea, vomiting, Starting on Wed03/20/24 at 1827, PACU/FloorTo be given if zofran is ineffective. 03/20/2024 active ondansetron (ZOFRAN) injection 4 mg 4 mg, Intravenous, Every 6 hours PRN, nausea, vomiting, Starting on Wed03/20/24 at 1827, PACU/FloorTo be given first. 03/20/2024 active oxyCODONE (ROXICODONE) 5 MG immediate release tablet Take 1 tablet (5 mg total) by mouth every 6 (six) hours as needed for up to 30 doses. 03/20/2024 active senna-docusate (PERICOLACE) 8.6-50 MG Take 1 tablet by mouth 2 (two) times a day. 03/20/2024 active Sodium Phosphate 7-19 g (FLEET) Enema 118 mL 1 enema, Rectal, Daily as needed, constipation, Starting on Wed03/20/24 at 1827Hold for patients with history of IBS, IBO, Ileostomy. 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 03/20/2024 active metoprolol succinate (TOPROL-XL) 24 hr tablet 25 mg Take 1 tablet (25 mg total) by mouth daily. 11/02/2022 active metoprolol succinate (TOPROL-XL) 24 hr tablet 25 mg 25 mg, Oral, Daily, First dose on Wed03/21/24 at 0900Do not crush tablet. 11/02/2022 active metoprolol succinate (TOPROL-XL) 24 hr tablet 25 mg Take 0.5 tablets (12.5 mg total) by mouth. 11/02/2022 active metoprolol succinate (TOPROL-XL) 24 hr tablet 25 mg Take 1 tablet (25 mg total) by mouth daily. 11/02/2022 active metoprolol succinate (TOPROL-XL) 25 mg 24 hr tablet Take 1 tablet (25 mg total) by mouth 1 (one) time each day. 11/02/2022 active dilTIAZem (CARDIZEM) 30 MG tablet Take 2 tablets (60 mg total) by mouth 4 (four) times a day. 10/26/2022 4 aborted isosorbide mononitrate (IMDUR) 60 MG 24 hr tablet Take 3 tablets (180 mg total) by mouth daily. 10/26/2022 4 active dilTIAZem (CARDIZEM) 30 MG tablet Take 2 tablets (60 mg total) by mouth 4 (four) times a day. 10/26/2022 active dilTIAZem (CARDIZEM) 30 MG tablet Take 1 tablet (30 mg total) by mouth 4 (four) times a day. 10/26/2022 active dilTIAZem (CARDIZEM) 30 MG tablet Take 2 tablets (60 mg total) by mouth 4 (four) times a day. 10/26/2022 active isosorbide mononitrate (IMDUR) 60 MG 24 hr tablet Take 3 tablets (180 mg total) by mouth daily. 10/26/2022 active isosorbide mononitrate (IMDUR) 60 MG 24 hr tablet Take 1 tablet (60 mg total) by mouth daily. 10/26/2022 active isosorbide mononitrate (IMDUR) 60 MG 24 hr tablet Take 3 tablets (180 mg total) by mouth daily. 10/26/2022 active midodrine (PROAMATINE) tablet 5 mg 5 mg, Oral, 3 times daily before meals, First dose (after last modification) on Wed03/29/24 at 1630 08/06/2022 4 active midodrine (PROAMATINE) 5 MG tablet Take 1 tablet (5 mg total) by mouth 3 (three) times a day as needed. 08/06/2022 active midodrine (PROAMATINE) 5 MG tablet Take 1 tablet (5 mg total) by mouth 3 (three) times a day as needed. 08/06/2022 active gabapentin (NEURONTIN) 300 MG capsule Take 1 capsule (300 mg total) by mouth 2 (two) times a day. 06/05/2022 active gabapentin (NEURONTIN) 300 MG capsule Take 1 capsule (300 mg total) by mouth 2 (two) times a day. 06/05/2022 active gabapentin (NEURONTIN) capsule 300 mg 300 mg, Oral, 2 times daily, First dose on Wed03/20/24 at 1830 06/05/2022 active hyoscyamine (LEVSIN) 0.125 MG tablet Take 1 tablet (0.125 mg total) by mouth. 02/12/2022 aborted allopurinol (ZYLOPRIM) 100 MG tablet Take 1 tablet (100 mg total) by mouth. 02/12/2022 active allopurinol (ZYLOPRIM) 100 MG tablet Take 1 tablet (100 mg total) by mouth. 02/12/2022 active allopurinol (ZYLOPRIM) 100 MG tablet Take 1 tablet (100 mg total) by mouth. 02/12/2022 active allopurinoL (ZYLOPRIM) 100 mg tablet Take 1 tablet (100 mg total) by mouth. 02/12/2022 active hyoscyamine (LEVSIN) 0.125 MG tablet Take 1 tablet (0.125 mg total) by mouth. 02/12/2022 active hyoscyamine (LEVSIN) 0.125 MG tablet Take 1 tablet (0.125 mg total) by mouth. 02/12/2022 active calcitriol (ROCALTROL) 0.5 MCG capsule Take 4 capsules (2 mcg total) by mouth once a week. Mondays06/30/2018 active calcitriol (ROCALTROL) 0.5 MCG capsule Take 4 capsules (2 mcg total) by mouth once a week. Mondays06/30/2018 active calcitriol (ROCALTROL) 0.5 MCG capsule Take 4 capsules (2 mcg total) by mouth once a week. Mondays06/30/2018 active calcitrioL (ROCALTROL) 0.5 mcg capsule Take 4 capsules (2 mcg total) by mouth once a week. Mondays06/30/2018 active apixaban (ELIQUIS) 5 mg tablet Take 1 tablet (5 mg total) by mouth 2 (two) times a day. 07/07/2017 active apixaban (ELIQUIS) 5 MG TABS tablet Take 1 tablet (5 mg total) by mouth 2 (two) times a day. 07/07/2017 active apixaban (ELIQUIS) 5 MG TABS tablet Take 1 tablet (5 mg total) by mouth 2 (two) times a day. 07/07/2017 active apixaban (ELIQUIS) 5 MG TABS tablet Take 1 tablet (5 mg total) by mouth 2 (two) times a day. 07/07/2017 active Cyanocobalamin 1000 MCG/ML KIT 1,000 mcg every 30 (thirty) days. of every month 06/22/2017 active Cyanocobalamin 1000 MCG/ML KIT 1,000 mcg every 30 (thirty) days. of every month 06/22/2017 active Cyanocobalamin 1000 MCG/ML KIT 1,000 mcg every 30 (thirty) days. of every month 06/22/2017 active cyanocobalamin, vitamin B-12, 1,000 mcg/mL kit 1,000 mcg every 30 (thirty) days. of every month 06/22/2017 active oxyCODONE (OXY-IR) 5 MG capsule 3 (three) times a day as needed. 11/15/2014 4 aborted oxyCODONE (OXY-IR) 5 MG capsule 3 (three) times a day as needed. 11/15/2014 active oxyCODONE (OXY-IR) 5 MG capsule 3 (three) times a day as needed. 11/15/2014 active bumetanide (BUMEX) 1 MG tablet Take 3 tablets (3 mg total) by mouth 3 (three) times a day. 12/19/2013 4 active bumetanide (BUMEX) 1 MG tablet Take 3 tablets (3 mg total) by mouth 3 (three) times a day. 12/19/2013 active bumetanide (BUMEX) 1 MG tablet Take 3 tablets (3 mg total) by mouth 3 (three) times a day. 12/19/2013 active bumetanide (BUMEX) 1 MG tablet Take 2 tablets (2 mg total) by mouth. 12/19/2013 active latanoprost (XALATAN) 0.005 % ophthalmic solution Place 1 drop into both eyes every night at bedtime. 12/19/2013 active latanoprost (XALATAN) 0.005 % ophthalmic solution Place 1 drop into both eyes every night at bedtime. 12/19/2013 active latanoprost (XALATAN) 0.005 % ophthalmic solution Place 1 drop into both eyes every night at bedtime. 12/19/2013 active latanoprost (XALATAN) 0.005 % ophthalmic solution 1 drop 1 drop, Both Eyes, Every Night at Bedtime, First dose on 03/20/24 at 2200 12/19/2013 active Naproxen Sodium (ALEVE PO) Take by mouth. 4 aborted atorvastatin (LIPITOR) 80 mg tablet Take 1 tablet (80 mg total) by mouth every evening. active atorvastatin (LIPITOR) tablet 80 mg Take 1 tablet (80 mg total) by mouth. active atorvastatin (LIPITOR) tablet 80 mg Take 1 tablet (80 mg total) by mouth. active bumetanide (BUMEX) 1 mg tablet Take 3 tablets (3 mg total) by mouth 1 (one) time each day in the morning. 3 tablets afternoon and two tablets in the evening active calcitonin (salmon) (MIACALCIN) nasal spray 200 units/actuation spray or apply 200 Units inside Nose. active calcitonin (salmon) (MIACALCIN) nasal spray 200 units/actuation spray or apply 200 Units inside Nose. active calcitonin (salmon) (MIACALCIN) nasal spray 200 units/actuation spray or apply 200 Units inside Nose. active calcitonin salmon (MIACALCIN) 200 unit/actuation nasal spray spray or apply 200 Units inside Nose. active denosumab (PROLIA) 60 mg/mL syringe syringe Inject 1 mL (60 mg total) under the skin every 6 months. active denosumab (PROLIA) injection 60 mg/mL Inject 1 mL (60 mg total) under the skin every 6 (six) months. October, active denosumab (PROLIA) injection 60 mg/mL Inject 1 mL (60 mg total) under the skin every 6 (six) months. October, active denosumab (PROLIA) injection 60 mg/mL Inject 1 mL (60 mg total) under the skin every 6 (six) months. October, active dilTIAZem (CARDIZEM) 60 mg immediate release tablet Take 1 tablet (60 mg total) by mouth 4 (four) times a day. active ergocalciferol (VITAMIN D-2) 1,250 mcg (50,000 unit) capsule Take 1 capsule (50,000 Units total) by mouth once a week. Wednesday active ergocalciferol (VITAMIN D2) capsule 93948 units Take 1 capsule (50,000 Units total) by mouth once a week. Wednesday active ergocalciferol (VITAMIN D2) capsule 21981 units Take 1 capsule (50,000 Units total) by mouth. active ergocalciferol (VITAMIN D2) capsule 82786 units Take 1 capsule (50,000 Units total) by mouth once a week. Wednesday active magnesium 250 mg tablet Take 250 mg by mouth 1 (one) time each day. active mirabegron (MYRBETRIQ) 25 mg 24 hr tablet Take 1 tablet (25 mg total) by mouth 1 (one) time each day. active Naproxen Sodium (ALEVE PO) Take by mouth. active Naproxen Sodium (ALEVE PO) Take by mouth. active oxyCODONE (ROXICODONE) 10 mg immediate release tablet Take 1 tablet (10 mg total) by mouth every 6 (six) hours. active potassium chloride (KLOR-CON M20) 20 mEq CR tablet Take 1 tablet (20 mEq total) by mouth 2 (two) times a day. Tablet may be swallowed whole (do not crush/chew/suck on) OR broken in half and each half swallowed separately OR dissolved (whole tablet) in ~4 ounces of water (allow ~2 minutes to dissolve, stir well and administer immediately). active potassium chloride ER (K-DUR,KLOR-CON) tablet 10 mEq Take 1 tablet (10 mEq total) by mouth 2 (two) times a day. active potassium chloride ER (K-DUR,KLOR-CON) tablet 10 mEq Take 1 tablet (10 mEq total) by mouth 2 (two) times a day. active ranolazine (RANEXA) 500 mg 12 hr tablet Take 1 tablet (500 mg total) by mouth 2 (two) times a day. Do not crush, chew, or split. active ranolazine (RANEXA) 500 MG 12 hr tablet Take 2 tablets (1,000 mg total) by mouth. active ranolazine (RANEXA) 500 MG 12 hr tablet Take 2 tablets (1,000 mg total) by mouth. active spironolactone (ALDACTONE) 25 mg tablet Take 1 tablet (25 mg total) by mouth 1 (one) time each day. active topiramate (TOPAMAX) 25 MG tablet Take 1 tablet (25 mg total) by mouth every night at bedtime. active topiramate (TOPAMAX) 25 MG tablet Take 1 tablet (25 mg total) by mouth every night at bedtime. active Allergies Allergen Reaction Severity Comment Documented Date Source Statu s PREGABALIN OTHER (SEE COMMENTS) Patient does not feel this is an allergy. Thinks he had a syncopal episode shortly after starting the medication but it was not determined to be the cause of the syncope. 09/21/2017 [facility] active Problems Problem Status Onset Date Problem Type Date of Resolution Source Sleep apnea active ProblemAct [facility] AN Hyperlipidemia active ProblemAct [facility]TH SFR[facility] Dysautonomia orthostatic hypotension syndrome active ProblemAct [facility] AN Acute kidney injury active 2021-05-23 ProblemAct [facility] Periprosthetic fracture around internal prosthetic right knee joint, subsequent encounter active EncounterDiagnosisAct [facility]THSFRAN Inadequate oral nutritional intake active EncounterDiagnosisAct [facility] Anemia [facility] Acute tubular necrosis active 2021-05-23 ProblemAct [facility]THS[facility] Periprosthetic fracture around internal prosthetic right knee joint, sequela active EncounterDiagnosisAct [facility]THSF RAN Demand ischemia active 2023-11-15 ProblemAct CT THS[facility] Osteoarthritis, knee active EncounterDiagnosisA ct CTTJ Congestive heart failure active 2022-01-22 ProblemAct [facility] Glaucoma active ProblemAct [facility] History of back surgery active 2023-11-16 ProblemAct [facility] History of atrial fibrillation active 2023-11-15 ProblemAct [facility] Altered mental status active 2014-02-03 ProblemAct [facility] Abnormality of albumin active 2021-05-23 ProblemAct [facility] Diabetic neuropathy active 2007-12-10 ProblemAct [facility] Persistent recurrent vomiting active 2023-11-02 ProblemAct [facility] Hyperlipidemia active 2024-08-18 ProblemAct CT_ THS[facility] Chronic kidney disease, unspecified active 2023-11-02 ProblemAct [facility] R[facility] Failed total knee, right, initial encounter active 2024-03-20 ProblemAct [facility] Osteoarthritis active 2023-11-15 ProblemAct CT_ THS[facility] Gout active 2021-05-23 ProblemAct [facility] AN 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-02 ProblemAct [facility] NSVT (nonsustained ventricular tachycardia) active 2024-10-06 ProblemAct [facility] Charcot's joint of foot in type 2 diabetes mellitus active 2012-10-28 ProblemAct [facility] COPD (chronic obstructive pulmonary disease) active 2011-07-18 ProblemAct [facility]SFRA N Raynaud's disease without gangrene active 2017-10-19 ProblemAct [facility] Encounter for adjustment or management of cardiac device active EncounterDiagnosisAct CT_T HSFRAN HTN (hypertension) active 2015-01-12 ProblemAct [facility] Sleep apnea active 2024-08-18 ProblemAct [facility] FELECIA Pneumonia active 2023-11-02 ProblemAct [facility] AN Closed comminuted supracondylar fracture of right femur with malunion active 2024-03-20 ProblemAct [facility] AN Hiatal hernia active 2023-11-02 ProblemAct CT_T HSFRAN Carotid stenosis active 2022-01-22 ProblemAct C T_THSFRAN Periprosthetic fracture around internal prosthetic right knee joint active 2023-11-02 ProblemAct [facility] Permanent atrial fibrillation active 2024-10-06 ProblemAct [facility] Chronic bilateral low back pain without sciatica active 2012-10-14 ProblemAct [facility] Dysautonomia orthostatic hypotension syndrome active 2024-08-18 ProblemAct [facility] R[facility] Status post revision of total knee, right active EncounterDiagnosisAct CT_THSFRAN Coronary artery disease active 2023-11-02 ProblemAct [facility] Right foot drop active 2023-11-16 ProblemAct [address] _THSFRAN Pain due to total right knee replacement active 2023-11-16 ProblemAct [facility] 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 active 2012-10-14 ProblemAct [facility] Coagulation disorder active 2009-09-03 ProblemAct [facility] Anemia active 2022-12-30 ProblemAct [facility] AN Diabetic gastroparesis active 2024-03-02 ProblemAct [facility] Diabetic nephropathy active 2008-04-30 ProblemAct [facility] Anemia, blood loss active 2024-04-01 ProblemAct [facility] Venous insufficiency active 2024-03-02 ProblemAct [facility]_THS[facility] Cardiac pacemaker in situ active 2011-01-06 ProblemAct [facility] Glaucoma active 2024-08-18 ProblemAct [facility] AN DVT (deep venous thrombosis) active 2017-10-19 ProblemAct [facility]SFR[facility] Immunizations Vaccine Date Source Lot Number Status Influenza trivalent, with pr eservative (Fluzone; Afluria) 6mo and older 09/09/2022 [id number] completed Influenza trivalent, with pr eservative (Fluzone; Afluria) 6mo and older 09/09/2022 [facility] [id number] completed [facility] SARS-CoV-2 COVID-19, mRNA, LNP-S, preservative free 08/25/2021 [facility] [id number] completed Pfizer SARS-CoV-2 COVID-19, mRNA, LNP-S, preservative free 03/10/2021 [id number] completed Pfizer SARS-CoV-2 COVID-19, mRNA, LNP-S, preservative free 03/10/2021 [facility] [id number] completed [facility] SARS-CoV-2 COVID-19, mRNA, LNP-S, preservative free 02/17/[facility]21 [id number] completed Pneumococcal polysaccharide 23 valent (Pneumovax 23) 2yo and older 02/05/2014 [facility]_S[facility]AN com pleted Pneumococcal polysaccharide 23 valent (Pneumovax 23) 2yo and older 05/11/2012 [facility]_S[facility] UNK com pleted Pneumococcal polysaccharide 23 valent (Pneumovax 23) 2yo and older 05/11/2012 CT_THS[facility]AN UNK com pleted Influenza trivalent, with pr eservative (Fluzone; Afluria) 6mo and older 08/24/2011 [facility] [id number] completed Pneumococcal polysaccharide 23 valent (Pneumovax 23) 2yo and older 08/13/2011 [facility] [id number] com pleted Influenza Whole 11/29/1998 CT_[facility] 0 completed Influenza Whole 09/17/1990 [facility] 0 completed Encounters Encounter Type Encounter Reason Primary Diagnosis Location Date Ambulatory [facility] 12/05/2024 Ambulatory Presence of right artificial knee joint Presence of right artificial knee joint [facility] 12/05/2024 Ambulatory Presence of right artificial knee joint Presence of right artificial knee joint [facility] 12/05/2024 Ambulatory Presence of right artificial knee joint Presence of right artificial knee joint [facility] 08/17/2024 Ambulatory Periprosthetic fracture around internal prosthetic right knee joint, sequela Periprosthetic fracture around internal prosthetic right knee joint, [facility] 08/17/2024 Ambulatory Periprosthetic fracture around internal prosthetic right knee joint, sequela Periprosthetic fracture around internal prosthetic right knee joint, [facility] 07/13/2024 Ambulatory Periprosthetic fracture around internal prosthetic right knee joint, sequela Periprosthetic fracture around internal prosthetic right knee joint, [facility] 07/13/2024 Ambulatory Pain due to internal orthopedic prosthetic devices, implants and grafts, initial encounter Pain due to internal orthopedic prosthetic devices, implants and grafts, initial encounter [facility] 05/11/2024 Ambulatory Pain due to internal orthopedic prosthetic devices, implants and grafts, initial encounter Pain due to internal orthopedic prosthetic devices, implants and grafts, initial encounter [facility] 05/11/2024 Inpatient Pain due to internal orthopedic prosthetic devices, implants and grafts, subsequent encounter Pain due to internal orthopedic prosthetic devices, implants and grafts, subsequent encounter [facility] 03/20/2024 Ambulatory Anemia, unspecified Anemia, unspecified [facility] 02/21/2024 Ambulatory Anemia, unspecified Anemia, unspecified [facility] 02/21/2024 Ambulatory [facility] 02/18/2024 Care Team Organization Name Specialty Phone Email Start Date End Da te [facility] GERARDO Primary [facility] 12/17/2024 [facility] Chidi Gerardo Primary Care 12/05/2024 [facility] 03/20/2024 [facility] 0 02/21/2024 [facility] Primary Care 02/21/2024 06/12/2025 [facility] [place]/17/2024 06/12/2025 [facility] Primary Care 02/17/2024
--- OUTSIDE RECORDS SUMMARY | 2025-09-14 11:50 | XMS_ITS | Encounter Summary ---
Author Organization [facility], Address [address] [place] [address] Phone Care Team Providers Care Branch Lending Manager Name Role Phone Chidi Carrillo Primary Care Provider Unavailabl e Encounter Details Date Type Department Care Team (Late Contact Info) Description 08/28/2022 Documentation Only [facility] [address] [place] [address] Tiana Lange [address] [place] [phone] Social History Tobacco Use Types Packs/Day Years [...] Visit [facility] [address] [place] [address] Cuate Ramey MD [address] [place] [address] [place] [address] documented as of this encounter Visit Diagnoses Not on filedocumented in this encounter Care Teams Branch Lending Manager Relationship Specialty Start Date End Date Chidi Carrillo [address] [address] PCP - General Nutrition 05/29/25 documented as of this encounter
--- OUTSIDE RECORDS SUMMARY | 2025-09-14 11:50 | XMS_ITS | Encounter Summary ---
Author Organization [facility], Address [address] [place] [address] Phone Care Team Providers Care Skiagrapher Name Role Phone Chidi Carrillo Primary Care Provider Unavailabl e Encounter Details Date Type Department Care Team (Late Contact Info) Description 08/27/2022 Documentation Only [facility] [address] [place] [address] Tiana Lange [address] [place] [phone] Social History Tobacco Use Types Packs/Day Years [...] Visit [facility] [address] [place] [address] Cuate Ramey MD [address] [place] [address] [place] [address] documented as of this encounter Visit Diagnoses Not on filedocumented in this encounter Care Teams Skiagrapher Relationship Specialty Start Date End Date Chidi Carrillo [address] [address] PCP - General Nutrition 05/29/25 documented as of this encounter
--- OUTSIDE RECORDS SUMMARY | 2025-09-14 11:50 | XMS_ITS | Encounter Summary ---
Author Organization [facility] [place] [facility], Address [address] [place] [address] Phone Care Team Providers Care Hospice Case Manager Name Role Phone Chidi Carrillo Primary Care Provider Unavailabl e Encounter Details Date Type Department Care Team (Late Contact Info) Description 12/21/2022 Documentation Only [facility] [address] [place] [address] Tiana Lange [address] [place] [phone] Social History Tobacco Use Types Packs/Day Years [...] Visit [facility] [address] [place] [address] Cuate Ramey MD [address] [place] [address] [place] [address] documented as of this encounter Visit Diagnoses Not on filedocumented in this encounter Care Teams Hospice Case Manager Relationship Specialty Start Date End Date Chidi Carrillo [address] [address] PCP - General Nutrition 05/29/25 documented as of this encounter
--- OUTSIDE RECORDS SUMMARY | 2025-09-14 11:50 | XMS_ITS | Patient Health Record ---
[facility] Organization [facility] Gwendolyn henrry Pearsall Address [address] [place] [address] Care Team Providers Care Rn Transitional Name Role Phone Torrie Champion MD Primary Care Provider Unavail able Sean Berkowitz Unavailable [phone] Reason For Referral No Information Medications Medication SIG (Take, Route, Frequency, Duration) Notes Start Date End Date Status Acetaminophen 325 MG 1 tablet as needed Orally every 4 hrs Active Naproxen & Dietary Manage Prod Active Tamsulosin HCl 0.4 MG 1 capsule Orally O nce a day; Duration: 30 day(s) Active Vitamin D3 High Potency Active Calcitriol 0.5 MCG 1 capsule Orally Onc e a day; Duration: 30 day(s) Active Hydroxychloroquine Sulfate 2 00 MG as directed Orally Active DULoxetine HCl 60 MG 1 capsule Orally On ce a day; Duration: 30 day(s) Active Midodrine HCl 10 MG 1 tablet Orally Thre e times a day; Duration: 30 day(s) Active Bumetanide 1 MG as directed Orally Active Eucerin - as directed Externally Active Atorvastatin Calcium 80 MG 1 tablet Oral ly Once a day; Duration: 30 day(s) Active Lidocaine 5 % 1 patch remove after 12 hours Externally Once a day Active potassium 1 tab Oral; Duration : 14 days Active eliquis 5 mg Active Ferrous Sulfate 325 (65 Fe) MG 1 tablet Orally Once a day; Duration: 30 day(s) Active Isosorbide Mononitrate ER 30 MG 1 tablet in the morning Orally Once a day; Duration: 30 day(s) Active traMADol HCl Active Topiramate 25 MG 1 tablet Orally Once a day; Duration: 30 day(s) Active Social History Tobacco Use: Social History Observation Description Date Details (start date - stop date) Never Smoker NA - NA Tobacco Use/Smoking Question Answer Notes Are you a: nonsmoker Alcohol Screen Question Answer Notes Did you have a drink containing alcohol in the p ast year? No Points 0 Interpretation Negative Tobacco use other than smoking: Question Answer Notes Are you an other tobacco user? No Plan Of Treatment No Information Insurance Providers Payer Name Payer Address Payer Phone Subscriber Number Group Number Insured Name Patient Relationship to Insured Coverage Start Date Coverage End Date [employer] Claims Adjudication - [place] [id number] [place] [address] [id number] Amaury Sosa Self - patient is the insured Medical (General) History Medical History History ICD Code Arthritis Back,Hip,and Knee pain Broken bones Cataracts Diabetes mellitus - inactive Epilepsy Gall bladder problems Glaucoma Gout Headaches/Migraines High blood pressure Kidney disease nerve disorder Numbness Stomach ulcer Surgical History Surgery Date(Month/Year) back surgery- x7 stimulation, rods, pins bypass- x3 gall bladder cardiac pacemeker right knee arthroscopy gastrectomy
--- OUTSIDE RECORDS SUMMARY | 2025-09-14 11:50 | XMS_ITS | Encounter Summary ---
Author Organization [facility] [place], Address [address] [place] [address] Phone Care Team Providers Care Blower Insulator Name Role Phone Chidi Carrillo Primary Care Provider Unavailabl e Encounter Details Date Type Department Care Team (Late Contact Info) Description 09/22/2022 Documentation Only [facility] [address] [place] [address] Tiana Lange [address] [place] [phone] Social History Tobacco Use Types Packs/Day Years [...] Visit [facility] [address] [place] [address] Cuate Ramey MD [address] [place] [address] [place] [address] documented as of this encounter Visit Diagnoses Not on filedocumented in this encounter Care Teams Blower Insulator Relationship Specialty Start Date End Date Chidi Carrillo [address] [address] PCP - General Nutrition 05/29/25 documented as of this encounter
--- OUTSIDE RECORDS SUMMARY | 2025-09-14 11:50 | XMS_ITS | Encounter Summary ---
Author Organization [facility] [place], Address [address] [place] [address] Phone Care Team Providers Care Blasting Cap Assembler Name Role Phone Chidi Carrillo Primary Care Provider Unavailabl e Encounter Details Date Type Department Care Team (Late Contact Info) Description 12/21/2022 Documentation Only [facility] [address] [place] [address] Tiana Lange [address] [place] [phone] Social History Tobacco Use Types Packs/Day Years [...] Visit [facility] [address] [place] [address] Cuate Ramey MD [address] [place] [address] [place] [address] documented as of this encounter Visit Diagnoses Not on filedocumented in this encounter Care Teams Blasting Cap Assembler Relationship Specialty Start Date End Date Chidi Carrillo [address] [address] PCP - General Nutrition 05/29/25 documented as of this encounter
--- OUTSIDE RECORDS SUMMARY | 2025-09-14 11:50 | XMS_ITS | Encounter Summary ---
Author Organization [facility] [place], Address [address] [place] [address] Phone Care Team Providers Care Compressor Assembler Name Role Phone Chidi Carrillo Primary Care Provider Unavailabl e Encounter Details Date Type Department Care Team (Late Contact Info) Description 07/01/2023 Documentation Only [facility] [address] [place] [address] Tiana Lange [address] [place] [phone] Social History Tobacco Use Types Packs/Day Years [...] Visit [facility] [address] [place] [address] Cuate Ramey MD [address] [place] [address] [place] [address] documented as of this encounter Visit Diagnoses Not on filedocumented in this encounter Care Teams Compressor Assembler Relationship Specialty Start Date End Date Chidi Carrillo [address] [address] PCP - General Nutrition 05/29/25 documented as of this encounter
--- OUTSIDE RECORDS SUMMARY | 2025-09-14 11:50 | XMS_ITS | Encounter Summary ---
Author Organization [facility] [place], Address [address] [place] [address] Phone Care Team Providers Care Certifier Name Role Phone Chidi Carrillo Primary Care Provider Unavailabl e Encounter Details Date Type Department Care Team (Late Contact Info) Description 03/11/2022 Documentation Only [facility] [address] [place] [address] Tiana Lange [address] [place] [phone] Social History Tobacco Use Types Packs/Day Years [...] Visit [facility] [address] [place] [address] Cuate Ramey MD [address] [place] [address] [place] [address] documented as of this encounter Visit Diagnoses Not on filedocumented in this encounter Care Teams Certifier Relationship Specialty Start Date End Date Chidi Carrillo [address] [address] PCP - General Nutrition 05/29/25 documented as of this encounter
--- OUTSIDE RECORDS SUMMARY | 2025-09-14 11:50 | XMS_ITS | Encounter Summary ---
Author Organization [facility] [place], Address [address] [place] [address] Phone Care Team Providers Care Meat Processing Center Manager Name Role Phone Chidi Carrillo Primary Care Provider Unavailabl e Encounter Details Date Type Department Care Team (Late Contact Info) Description 08/31/2022 Documentation Only [facility] [address] [place] [address] Tiana Lange [address] [place] [phone] Social History Tobacco Use Types Packs/Day Years [...] Visit [facility] [address] [place] [address] Cuate Ramey MD [address] [place] [address] [place] [address] documented as of this encounter Visit Diagnoses Not on filedocumented in this encounter Care Teams Meat Processing Center Manager Relationship Specialty Start Date End Date Chidi Carrillo [address] [address] PCP - General Nutrition 05/29/25 documented as of this encounter
--- OUTSIDE RECORDS SUMMARY | 2025-09-14 11:50 | XMS_ITS ---
Author Organization [facility] Care Team Providers Care Whale Trainer Name Role Phone Noah Galvan Unavailable Unavailable Derrick Roberto Unavailable Unavailable Marcela Metzger Unavailable Unavailable Allergies and adverse reactions No Known Allergies Care Team Name Role Address Phone Organization Dates Derrick Roberto PCP [address] [facility] [address], [place], [address], [facility] (Office): : [facility] 08/06/2022 - 08/07/2022 Noah Galvan [address] [place] [address], [address], [place], [address], [place] (Office): : [facility] 08/06/2022 - 08/07/2022 Marcela Metzger [address] [facility] [address], [place], [address], [place] (Office): : [facility] 08/06/2022 - 08/07/2022 Mental Status Section Date Assessment Total Score Description 08/07/2022 CAM 0 No delirium ind icated Insurance Providers Problems Problem # Description Date of onset Resolved Date Code CodeSystem Concern Status 1 ATHEROSCLEROTIC HEART DISEASE OF [place] CORONARY ARTERY WITHOUT ANGINA PECTORIS 08/07/[id number] active 2 CHRONIC KIDNEY DISEASE, UNSPECIFIED 08/07/[address] active 3 CHRONIC OBSTRUCTIVE PULMONARY DISEASE, UNSPECIFIED 08/06/[address] active 4 DISORDER OF THE AUTONOMIC NERVOUS SYSTEM, UNSPECIFIED 08/06/[address] active 5 ESSENTIAL (PRIMARY) HYPERTENSION 08/06/[address] active 6 GASTROPARESIS 08/06/[address] active 7 HEART FAILURE, UNSPECIFIED 08/06/[address] active 8 HYPERLIPIDEMIA, UNSPECIFIED 08/06/[address] active 9 MAJOR DEPRESSIVE DISORDER, SINGLE EPISODE, UNSPECIFIED 08/06/[address] active 10 PRESENCE OF CARDIAC PACEMAKER 08/06/[address] active 11 SYNCOPE AND COLLAPSE 08/06/[address] active 12 TYPE 2 DIABETES MELLITUS WITH DIABETIC NEUROPATHY, UNSPECIFIED 08/06/[address] active 13 UNSPECIFIED ATRIAL FIBRILLATION 08/06/[address] active 14 UNSPECIFIED CONVULSIONS 08/06/[address] active Reason for Referral No Reasons for Referral Entered Social History Social History Observation Description Start Date End Date Code Code System Current Smoking Status Tobacco smoking consumption unknown 585338395 SNOMED CT Sex Assigned At Male 1955 50461-5 [facility] Gender Identity Sexual Orientation Vital Signs Code Code System Vitals Name Values and Units Timing Information 9279-1 [facility] Respiratory Rate Value=18.0 Units=/m in 08/07/2022 8462-4 [facility] Blood Pressure-Diastolic Value=77 Un its=mmHg 08/07/2022 8480-6 [facility] Blood Pressure-Systolic Egkrm=079 Un its=mmHg 08/07/2022 8310-5 [facility] Body Temperature Value=97.8 Units= F 08/07/2022 8867-4 [facility] Heart rate Value=72.0 Units=/min 07/2022 19354-9 [facility] O2 % BldC Oximetry Value=96.0 Units= % 08/07/2022 52290-7 [facility] Pain Level Value=6.0 08/07/2022 8302-2 [facility] Height Value=74.0 Units=Inches 08/06/2022 14231-4 [facility] Weight Oqcdd=617.0 Units=Lbs 06/2022
--- OUTSIDE RECORDS SUMMARY | 2025-09-14 11:50 | XMS_ITS | Encounter Summary ---
Author Organization [facility] [place], Address [address] [place] [address] Phone Care Team Providers Care Fitting Room Supervisor Name Role Phone Chidi Carrillo Primary Care Provider Unavailabl e Encounter Details Date Type Department Care Team (Late Contact Info) Description 12/07/2022 Documentation Only [facility] [address] [place] [address] Tiana Lange [address] [place] [phone] Social History Tobacco Use Types Packs/Day Years [...] Visit [facility] [address] [place] [address] Cuate Ramey MD [address] [place] [address] [place] [address] documented as of this encounter Visit Diagnoses Not on filedocumented in this encounter Care Teams Fitting Room Supervisor Relationship Specialty Start Date End Date Chidi Carrillo [address] [address] PCP - General Nutrition 05/29/25 documented as of this encounter
--- OUTSIDE RECORDS SUMMARY | 2025-09-14 11:50 | XMS_ITS | Encounter Summary ---
Author Organization [facility] [place], Address [address] [place] [address] Phone Care Team Providers Care Proof Inspector Name Role Phone Chidi Carrillo Primary Care Provider Unavailabl e Encounter Details Date Type Department Care Team (Late Contact Info) Description 08/28/2022 Documentation Only [facility] [address] [place] [address] Tiana Lange [address] [place] [phone] Social History Tobacco Use Types Packs/Day Years [...] Visit [facility] [address] [place] [address] Cuate Ramey MD [address] [place] [address] [place] [address] documented as of this encounter Visit Diagnoses Not on filedocumented in this encounter Care Teams Proof Inspector Relationship Specialty Start Date End Date Chidi Carrillo [address] [address] PCP - General Nutrition 05/29/25 documented as of this encounter
--- OUTSIDE RECORDS SUMMARY | 2025-09-14 11:50 | XMS_ITS | Encounter Summary ---
Author Organization [facility] [place], Address [address] [place] [address] Phone Care Team Providers Care Shake Feeder Name Role Phone Chidi Carrillo Primary Care Provider Unavailabl e Encounter Details Date Type Department Care Team (Late Contact Info) Description 12/24/2022 Documentation Only [facility] [address] [place] [address] Tiana Lange [address] [place] [phone] Social History Tobacco Use Types Packs/Day Years [...] Visit [facility] [address] [place] [address] Cuate Ramey MD [address] [place] [address] [place] [address] documented as of this encounter Visit Diagnoses Not on filedocumented in this encounter Care Teams Shake Feeder Relationship Specialty Start Date End Date Chidi Carrillo [address] [address] PCP - General Nutrition 05/29/25 documented as of this encounter
--- OUTSIDE RECORDS SUMMARY | 2025-09-14 11:50 | XMS_ITS | Encounter Summary ---
Author Organization [facility] [place], Address [address] [place] [address] Phone Care Team Providers Care Pharmacognosy Teacher Name Role Phone Chidi Carrillo Primary Care Provider Unavailabl e Encounter Details Date Type Department Care Team (Late Contact Info) Description 12/24/2022 Documentation Only [facility] [address] [place] [address] Tiana Lange [address] [place] [phone] Social History Tobacco Use Types Packs/Day Years [...] Visit [facility] [address] [place] [address] Cuate Ramey MD [address] [place] [address] [place] [address] documented as of this encounter Visit Diagnoses Not on filedocumented in this encounter Care Teams Pharmacognosy Teacher Relationship Specialty Start Date End Date Chidi Carrillo [address] [address] PCP - General Nutrition 05/29/25 documented as of this encounter
--- OUTSIDE RECORDS SUMMARY | 2025-09-14 11:50 | XMS_ITS | Encounter Summary ---
Author Organization [facility] Address [address] [place] [address] Care Team Providers Care Tar Pot Man Name Role Phone Chidi Carrillo NP Primary Care Provider [phone] Reason for Visit * Reason Onset Date Comments Clinical 08/12/2025 Par called to re port he has had the hiccups for 3 days straight and his BP is 173/117 checked with a wrist BP cuff. Par instructed to go the ER for evaluation. skydiving instructor provider made aware. Encounter Details Date Type Department Care Team ([facility] st Contact Info) Description 08/12/2025 PACE On-Call [facility] [address] [place] [address] Chidi Carrillo NP [address] [id number] Social History Tobacco Use Types Packs/Day Years [...] care for your loved ones. For example, housekeeper child care or elderly care for an older adult? [...] EDT Luna RN documented in this encounter Plan of Treatment Upcoming Encounters Date Type Department Care Team (Late st Contact Info) Description 09/17/2025 10:00 AM EDT Appointment [facility]monary [address] [place] [address] 09/17/2025 2:30 PM EDT Treatment [facility] Physical Therapy [address] [place] [address] Wes Urrutia, LIA 09/19/2025 9:40 AM EDT Office Visit [facility] [address] [facility] [address] [place] [address] Zay Garcia NP [address] [place] [address] 09/19/2025 1:10 PM EDT Clinical Support Veronika [place] [address] [place] [address] 09/20/2025 10:45 AM EDT [facility] [address] [place] [address] Wes Urrutia, LIA 09/24/2025 1:15 PM EDT PACE [facility] [address] [address] 10/08/2025 8:50 AM EST Office Visit [facility] [address] [address] Thais Stevenson MD [address] [place] [address] 10/12/2025 1:30 PM EST PACE External Visit Veronika [address] [address] 10/23/2025 9:30 AM EST Office Visit General [facility] - [place] 175 [facility] [address] [place] [address] Terrell Castillo MD [address] [place] [address] 10/24/2025 3:00 PM EST Clinical Support Veronika [address] [address] 11/07/2025 1:10 PM EST Clinical Support Veronika [address] [address] 03/28/2026 11:00 AM EDT Ancillary Procedure [facility] 154 300 [facility] 154 [place] [address] 08/08/2026 10:45 AM EDT Treatment [facility] Physical Therapy [address] [place] [phone] Wes Urrutia, PT 08/15/2026 10:45 AM EDT Treatment [facility] Physical Therapy [address] [place] [address] Wes Urrutia, PT documented as of this [...] documented as of this encounter Care Teams Tar Pot Man Relationship Specialty Start Date End Date Chidi Carrillo NP [address] [place] [address] PCP - General 10/03/24 documented as of this encounter
--- OUTSIDE RECORDS SUMMARY | 2025-09-14 11:50 | XMS_ITS | Encounter Summary ---
Author Organization [facility] [place], Address [address] [place] [address] Phone Care Team Providers Care Extension Work Director Name Role Phone Chidi Carrillo Primary Care Provider Unavailabl e Encounter Details Date Type Department Care Team (Late Contact Info) Description 08/31/2022 Documentation Only [facility] [address] [place] [address] Tiana Lange [address] [place] [phone] Social History Tobacco Use Types Packs/Day Years [...] Visit [facility] [address] [place] [address] Cuate Ramey MD [address] [place] [address] [place] [address] documented as of this encounter Visit Diagnoses Not on filedocumented in this encounter Care Teams Extension Work Director Relationship Specialty Start Date End Date Chidi Carrillo [address] [address] PCP - General Nutrition 05/29/25 documented as of this encounter
--- OUTSIDE RECORDS SUMMARY | 2025-09-14 11:50 | XMS_ITS | Encounter Summary ---
Author Organization [facility] [place], Address [address] [place] [address] Phone Care Team Providers Care Change Manager Name Role Phone Chidi Carrillo Primary Care Provider Unavailabl e Encounter Details Date Type Department Care Team (Late Contact Info) Description 09/16/2022 Documentation Only [facility] [address] [place] [address] Tiana Lange [address] [place] [address] Social History Tobacco Use Types Packs/Day Years [...] Visit [facility] [address] [place] [address] Cuate Ramey MD [address] [place] [address] [place] [address] documented as of this encounter Visit Diagnoses Not on filedocumented in this encounter Care Teams Change Manager Relationship Specialty Start Date End Date Chidi Carrillo [address] [address] PCP - General Nutrition 05/29/25 documented as of this encounter
--- OUTSIDE RECORDS SUMMARY | 2025-09-14 11:50 | XMS_ITS | Encounter Summary ---
Author Organization [facility] [place], Address [address] [place] [address] Phone Care Team Providers Care Flue Lining Dipper Name Role Phone Chidi Carrillo Primary Care Provider Unavailabl e Encounter Details Date Type Department Care Team (Late Contact Info) Description 01/14/2024 Documentation Only [facility] [address] [place] [address] Molly Kim [place] [address] [place] [phone] Social History Tobacco Use Types Packs/Day Years [...] Visit [facility] [address] [place] [address] Cuate Ramey MD [address] [facility] [place] [address] documented as of this encounter Visit Diagnoses Not on filedocumented in this encounter Care Teams Flue Lining Dipper Relationship Specialty Start Date End Date Chidi Carrillo [address] [place] [address] PCP - General Nutrition 05/29/25 documented as of this encounter
--- OUTSIDE RECORDS SUMMARY | 2025-09-14 11:50 | XMS_ITS | Encounter Summary ---
Author Organization [facility] [place], Address [address] [place] [address] Phone Care Team Providers Care X Ray Developer Name Role Phone Chidi Carrillo Primary Care Provider Unavailabl e Encounter Details Date Type Department Care Team (Late Contact Info) Description 08/28/2022 Documentation Only [facility] [address] [place] [address] Tiana Lange [address] [place] [phone] Social History Tobacco Use Types Packs/Day Years [...] Visit [facility] [address] [place] [address] Cuate Ramey MD [address] [place] [address] [place] [address] documented as of this encounter Visit Diagnoses Not on filedocumented in this encounter Care Teams X Ray Developer Relationship Specialty Start Date End Date Chidi Carrillo [address] [address] PCP - General Nutrition 05/29/25 documented as of this encounter
--- OUTSIDE RECORDS SUMMARY | 2025-09-14 11:50 | XMS_ITS | Encounter Summary ---
Author Organization [facility] Address [address] [place] [address] Phone Care Team Providers Care Cracker Dough Mixer Name Role Phone Chidi Carrillo Primary Care Provider Unavailabl e Encounter Details Date Type Department Care Team (Late st Contact Info) Description 03/29/2022 Documentation Only [facility] [address] [place] [address] Yair Foster MD Social History Tobacco Use Types Packs/Day Years [...] Visit [facility] [address] [place] [address] Cuate Ramey MD [address] [place] [address] [place] [phone] documented as of this encounter Visit Diagnoses Not on filedocumented in this encounter Care Teams Cracker Dough Mixer Relationship Specialty Start Date End Date Chidi Carrillo 2111 [facility] 1 [place] [address] PCP - General Nutrition 05/29/25 documented as of this encounter
--- OUTSIDE RECORDS SUMMARY | 2025-09-14 11:50 | XMS_ITS | Encounter Summary ---
Author Organization [facility] [place], Address [address] [place] [address] Phone Care Team Providers Care Deposit Refund Clerk Name Role Phone Chidi Carrillo Primary Care Provider Unavailabl e Encounter Details Date Type Department Care Team (Late Contact Info) Description 02/04/2024 Documentation Only [facility] [address] [place] [address] Molly Kim [place] [address] [place] [phone] Social History Tobacco Use Types Packs/Day Years [...] Visit [facility] [address] [address] [place] [address] Cuate Ramey MD [address] [facility] [place] [address] documented as of this encounter Visit Diagnoses Not on filedocumented in this encounter Care Teams Deposit Refund Clerk Relationship Specialty Start Date End Date Chidi Carrillo [address] [place] [address] PCP - General Nutrition 05/29/25 documented as of this encounter
--- OUTSIDE RECORDS SUMMARY | 2025-09-14 11:50 | XMS_ITS | Encounter Summary ---
Author Organization [facility] [place], Address [address] [place] [address] Phone Care Team Providers Care Restorative Rehab Aide Name Role Phone Chidi Carrillo Primary Care Provider Unavailabl e Encounter Details Date Type Department Care Team (Late Contact Info) Description 08/31/2022 Documentation Only [facility] [address] [place] [place] [address] Tiana Lange 2150 [place] [phone] Social History Tobacco Use Types Packs/Day Years [...] Visit [facility] [address] [place] [address] Cuate Ramey MD [address] [place] [address] [place] [address] documented as of this encounter Visit Diagnoses Not on filedocumented in this encounter Care Teams Restorative Rehab Aide Relationship Specialty Start Date End Date Chidi Carrillo [address] [address] PCP - General Nutrition 05/29/25 documented as of this encounter
--- OUTSIDE RECORDS SUMMARY | 2025-09-14 11:50 | XMS_ITS | Encounter Summary ---
Author Organization [facility] [place], Address [address] [place] [address] Phone Care Team Providers Care Environmental Studies Department Chair Name Role Phone Chidi Carrillo Primary Care Provider Unavailabl e Encounter Details Date Type Department Care Team (Late st Contact Info) Description 01/28/2024 Documentation Only [facility] [address] [place] [address] Molly Kim [place] [address] [place] [phone] Social History Tobacco Use Types Packs/Day Years [...] Visit [facility] [address] [address] [place] [address] Cuate Ramey MD 134 [facility] [place] [address] documented as of this encounter Visit Diagnoses Not on filedocumented in this encounter Care Teams Environmental Studies Department Chair Relationship Specialty Start Date End Date Chidi Carrillo [address] [place] [address] PCP - General Nutrition 05/29/25 documented as of this encounter
--- OUTSIDE RECORDS SUMMARY | 2025-09-14 11:50 | XMS_ITS | Encounter Summary ---
Author Organization [facility] [place], Address [address] [place] [address] Phone Care Team Providers Care Voice Over Artist Name Role Phone Chidi Carrillo Primary Care Provider Unavailabl e Encounter Details Date Type Department Care Team (Late Contact Info) Description 12/21/2022 Documentation Only [facility] [address] [place] [address] Tiana Lange 2150 [place] [phone] Social History Tobacco Use Types Packs/Day Years [...] Visit [facility] [address] [facility] [place] [address] Cuate Ramey MD [address] [place] [address] [place] [address] documented as of this encounter Visit Diagnoses Not on filedocumented in this encounter Care Teams Voice Over Artist Relationship Specialty Start Date End Date Chidi Carrillo [address] [address] PCP - General Nutrition 05/29/25 documented as of this encounter
--- OUTSIDE RECORDS SUMMARY | 2025-09-14 11:50 | XMS_ITS | Encounter Summary ---
Author Organization [facility] [place], Address [address] [place] [address] Phone Care Team Providers Care Quantitative Associate Name Role Phone Chidi Carrillo Primary Care Provider Unavailabl e Encounter Details Date Type Department Care Team (Late Contact Info) Description 09/14/2022 Documentation Only [facility] [address] [place] [address] Tiana Lange 2150 [place] [phone] Social History Tobacco Use Types Packs/Day Years [...] [facility] [address] [place] [address] Cuate Ramey MD [address] [place] [address] [place] [address] documented as of this encounter Visit Diagnoses Not on filedocumented in this encounter Care Teams Quantitative Associate Relationship Specialty Start Date End Date Chidi Carrillo [address] [address] PCP - General Nutrition 05/29/25 documented as of this encounter
--- OUTSIDE RECORDS SUMMARY | 2025-09-14 11:51 | XMS_ITS | Encounter Summary ---
Author Organization [facility] Address [address] [place] [address] Care Team Providers Care Rn Referral Name Role Phone Chidi Carrillo NP Primary Care Provider [phone] Reason for Visit * Reason Onset Date Comments Clinical 03/24/2025 Participant call ed to report wound vac was beeping.Instructed participant to turn device off then back on so it could reset. Beeping had stopped. Instructed participant to call back with any other concerns. Verbalized understanding. Encounter Details Date Type Department Care Team ([facility] st Contact Info) Description 03/24/2025 PACE On-Call [facility] [address] [place] [phone] Chidi Carrillo NP [address] [phone] Social History Tobacco Use Types Packs/Day Years Used Date Smoking Tobacco: Never Smokeless Tobacco: Never Comments:Never smoked tobacc o Alcohol Use Standard Drinks/Week Comments Never 0 (1 standard drink = 0.6 oz pur e alcohol) Housing Instability Answer Date Recorde d Are you worried that in the next 2 months you may not have stable housing? No 02/09/2025 Food Access & Nutrition Answer Date Rec orded Do you have access to a vari ety of food including fruits and vegetables? Yes 02/09/2025 Access to Healthcare Answer Date Record ed Within the last 3 months, ho w many times did you visit the emergency department for your medical care? 4 02/09/2025 Health Literacy Answer Date Recorded How often do you need to hav e someone help you when you read instructions, pamphlets, or other written material from your doctor or pharmacy? Sometimes 02/09/2025 Caregiver: How often do you need to have someone help you when you read instructions, pamphlets, or other written material from your doctor or pharmacy? Not on file 02/09/2025 Financial Risk Answer Date Recorded How hard is it for you to pa y for the very basics like food, housing, medical care, and air conditioning / heating? Very hard 02/09/2025 Transportation Answer Date Recorded Has the lack of transportati on kept you from meetings, work, or from getting things needed for daily living? No Has the lack of transportati on kept you from medical appointments or from getting medications? No 02/09/2025 Social Isolation Answer Date Recorded How often do you feel lonely or isolated from th ose around you? Often 02/09/2025 Food Risk Answer Date Recorded Within the past 12 months we worried whether our food would run out before we got money to buy more. Often true 025 Within the past 12 months th e food we bought just didn't last and we didn't have money to get more. Sometimes true 02/09/2025 Dependent Care Answer Date Recorded Do you need help finding or paying for care for your loved ones. For example, child welfare social worker or elderly care for an older adult? Unable to respond 02/09/2025 Education Answer Date Recorded Do you think completing more education or training, like finishing a GED, going to college, or learning a trade, would be helpful for you? No 02/09/2025 Employment and Income Answer Date Recor ded During the last four weeks, have you been actively looking for work? Patient declined 02/09/2025 Living Situation Answer Date Recorded What is your living situation? Unrecognized valu e 02/09/2025 Interpersonal Safety Answer Date Record ed Physical Abuse Unrecognized value 02/14/2025 Verbal Abuse Unrecognized value 02/14/2025 Sex and Gender Information Value Date Recorded Sex Assigned at Male 12/08/2024 1:11 PM EST Legal Sex Male 9:31 PM EST Gender Identity Male 12/08/2024 1:11 PM EST Sexual Orientation Straight 02/14/2025 12 :16 AM EDT documented as of this encounter Functional Status * Are you deaf or do you have serious difficulty hearing? Answer Date of Assessment Author No 02/08/2025 5:16 PM EDT Jatinder Kincaid RN * Are you blind or do you have serious difficulty seeing, even when wearing glasses? Answer Date of Assessment Author No 02/08/2025 5:16 PM EDT Jatinder Kincaid RN * Do you have serious difficulty walking or climbing stairs? Answer Date of Assessment Author Yes 02/08/2025 5:16 PM EDT Jatinder Kincaid RN * Do you have serious difficulty dressing or bathing? Answer Date of Assessment Author Yes 02/08/2025 5:16 PM EDT Jatinder Kincaid RN * Because of a physical, mental, or emotional condition, do you have serious difficulty doing errandsalone such as visiting the doctor? Answer Date of Assessment Author No 02/08/2025 5:16 PM EDT Jatinder Kincaid RN documented as of this encounter Mental Status * Because of a physical, mental, or emotional condition, do you have serious difficulty concentrating, remembering, or making decisions? (5 years old or older) Answer Entry Date Author No 02/08/2025 5:16 PM EDT Jatinder Kincaid RN documented in this encounter Plan of Treatment Upcoming Encounters Date Type Department Care Team (Late st Contact Info) Description 09/17/2025 10:00 AM EDT Appointment [facility] Pulmonary [address] [place] [address] 09/17/2025 2:30 PM EDT Treatment [facility] Physical Therapy [address] [place] [phone] Wes Urrutia, LIA 09/19/2025 9:40 AM EDT Office Visit [facility] 154 300 [facility] 154 [place] [address] Zay Garcia NP 300 [place] [address] 09/19/2025 1:10 PM EDT Clinical Support Veronika STILES [place] 200 [place] [address] 09/20/2025 10:45 AM EDT [facility] Physical Therapy 200 [place] [address] Wes Urrutia, LIA 09/24/2025 1:15 PM EDT [facility] [address] [address] 10/08/2025 8:50 AM EST Office Visit [facility] - [facility] [address] [address] Thais Stevenson MD 300 [place] [address] 10/12/2025 1:30 PM EST PACE External Visit Veronika [address] [address] 10/23/2025 9:30 AM EST Office Visit General Surgery - [place] 175 [facility] 110 [place] [address] Terrell Castillo MD 230 [place] [address] 10/24/2025 3:00 PM EST Clinical Support Veronika [facility] [address] [address] 11/07/2025 1:10 PM EST Clinical Support Veronika [facility] [address] [address] 03/28/2026 11:00 AM EDT Ancillary Procedure [facility] 154 300 [facility] 154 [place] [address] 08/08/2026 10:45 AM EDT [facility] Physical Therapy 200 [place] [phone] Wes Urrutia, PT 08/15/2026 10:45 AM EDT [facility] Physical Therapy 200 [place] [address] Wes Urrutia, PT documented as of this [...] documented as of this encounter Care Teams Rn Referral Relationship Specialty Start Date End Date Chidi Carrillo NP 200 [place] [address] PCP - General 10/03/24 documented as of this encounter
--- OUTSIDE RECORDS SUMMARY | 2025-09-14 11:51 | XMS_ITS | Encounter Summary ---
Author Organization [facility] [place], Address [address] [place] [address] Phone Care Team Providers Care Human Services Case Manager Name Role Phone Chidi Carrillo Primary Care Provider Unavailabl e Encounter Details Date Type Department Care Team (Late Contact Info) Description 01/21/2022 Documentation Only [facility] [address] [place] [address] Tiana Lange 2150 [place] [phone] Social History Tobacco Use Types Packs/Day Years [...] Visit [facility] [address] [facility] [place] [address] Cuate Ramey MD [address] [place] [address] [place] [address] documented as of this encounter Visit Diagnoses Not on filedocumented in this encounter Care Teams Human Services Case Manager Relationship Specialty Start Date End Date Chidi Carrillo [address] [address] PCP - General Nutrition 05/29/25 documented as of this encounter
--- OUTSIDE RECORDS SUMMARY | 2025-09-14 11:51 | XMS_ITS | Encounter Summary ---
Author Organization [facility] [place], Address [address] [place] [address] Phone Care Team Providers Care Graphotype Operator Name Role Phone Chidi Carrillo Primary Care Provider Unavailabl e Encounter Details Date Type Department Care Team (Late Contact Info) Description 01/16/2022 Documentation Only [facility] [address] [place] [address] Tiana Lange 2150 [place] [phone] Social History Tobacco Use Types Packs/Day Years [...] Visit [facility] [address] [place] [address] Cuate Ramey MD [address] [place] [address] [place] [address] documented as of this encounter Visit Diagnoses Not on filedocumented in this encounter Care Teams Graphotype Operator Relationship Specialty Start Date End Date Chidi Carrillo [address] [address] PCP - General Nutrition 05/29/25 documented as of this encounter
--- OUTSIDE RECORDS SUMMARY | 2025-09-14 11:51 | XMS_ITS | Encounter Summary ---
Author Organization [employer] [place] [place] [address] Care Team Providers Care Lumber Racker Name Role Phone Chidi Carrillo NP Primary Care Provider [phone] Encounter Details Date Type Department Care Team (Late st Contact Info) Description 03/03/2025 Lab Requisition [facility] - Main Lab 299 [facility] [place] [address] Ai Majano MD [address] [phone] Anemia, unspecified; Other disorders of electrolyte and fluid balance, not elsewhere classified Social History Tobacco Use Types Packs/Day Years [...] for your loved ones. For example, child development specialist or elderly care for an older adult? [...] Info) Description 09/17/2025 10:00 AM EDT Appointment [facility] Pulmonary [address] [place] [address] 09/17/2025 2:30 PM EDT Treatment [facility] Physical Therapy [address] [place] [address] Wes Urrutia PT 09/19/2025 9:40 AM EDT Office Visit [facility] - [facility] [address] 300 [facility] 154 [place] [address] Zay Garcia NP 300 [place] [address] 09/19/2025 1:10 PM EDT Clinical Support Veronika STILES [place] [address] [place] [address] 09/20/2025 10:45 AM EDT Treatment Veronika STILES [place] Physical Therapy [address] [place] [address] Wes Urrutia PT 09/24/2025 1:15 PM EDT PACE External Visit Veronika STILES [place] 200 [place] [address] 10/08/2025 8:50 AM EST Office Visit [facility] Cardiology [facility] - [facility] 154 300 [facility] 154 [place] [address] Thais Stevenson MD 300 [place] [address] 10/12/2025 1:30 PM EST PACE External Visit Veronika STILES [address] [address] 10/23/2025 9:30 AM EST Office Visit General Surgery - [place] 175 [facility] 110 [place] [address] Terrell Castillo MD [address] [place] [address] 10/24/2025 3:00 PM EST Clinical Support Veronika STILES [place] 200 [place] [address] 11/07/2025 1:10 PM EST Clinical Support Veronika STILES [place] [address] [place] [address] 03/28/2026 11:00 AM EDT Ancillary Procedure [facility] Cardiology [facility] 154 300 [facility] 154 [place] [address] 08/08/2026 10:45 AM EDT Treatment Veronika STILES [place] Physical Therapy [address] [place] [phone] Wes Urrutia, PT 08/15/2026 10:45 AM EDT Treatment [facility] Physical Therapy [address] [place] [address] Wes Urrutia, PT documented as of this encounter Procedures Procedure Name Priority Date/Time Associated Diagnosis Comments COMPLETE BLOOD COUNT Routine 03/05/2025 8:11 AM EDT Anemia, unspecified Other disorders of electrolyte and fluid balance, not elsewhere classified BASIC METABOLIC PANEL Routine 03/05/2025 8:11 AM EDT Anemia, unspecified Other disorders of electrolyte and fluid balance, not elsewhere classified documented in this encounter Results * (ABNORMAL) Basic metabolic panel (03/05/2025 8:11 AM EDT) Sodium 131(L) 133 - 145 mmol/L LAB CHEMISTRY METHOD 03/05/2025 1:47 PM [facility] Potassium 4.0 3.5 - 5.5 mmol/L LAB CHEMISTRY METHOD 03/05/2025 1:47 PM [facility] Chloride 94(L) 96 - 110 mmol/L LAB CHEMISTRY METHOD 03/05/2025 1:47 PM [facility] CO2 25 21 - 32 mmol/L LAB CHEMISTRY METHOD 03/05/2025 1:47 PM [facility] Anion Gap 12(H) 3 - 11 LAB CHEMISTRY METHOD 03/05/2025 1:47 PM [facility] Glucose 176(H) 70 - 100 mg/dL LAB CHEMISTRY METHOD 03/05/2025 1:47 PM [facility] BUN 28(H) 5 - 25 mg/dL LAB CHEMISTRY METHOD 03/05/2025 1:47 PM [facility] Creatinine 1.47(H) 0.70 - 1.30 mg/dL LAB CHEMISTRY METHOD 03/05/2025 1:47 PM [facility] eGFR 51(L) >=60 mL/min/1. 73m2 LAB CHEMISTRY METHOD 03/05/2025 1:47 PM EDT [facility] Comment:Calculation based on the Chronic Kidney Disease Epidemiology Collaboration (CKD-EPI) equation refit without adjustment for race. BUN/Creatinine Ratio 19.0 LAB CHEMISTRY METHOD 03/05/2025 1:47 PM EDT [facility] Calcium 9.1 8.5 - 10.5 mg/dL LAB CHEMISTRY METHOD 03/05/2025 1:47 PM EDT [facility] Blood Venous blood specimen / Unknown Venipuncture / Unknown 03/05/2025 8:11 AM EDT 03/05/2025 10:13 AM EDT us Ai Majano MD LAB BLOOD ORDERABLES Fin al Result [facility] 299 [place] [address], * (ABNORMAL) Complete blood count (03/05/2025 8:11 AM EDT) WBC 7.8 4.8 - 10.8 K/mcL LAB HEMETOLOGY METHOD 03/05/2025 11:21 AM [facility] RBC 3.90(L) 4.50 - 5.50 M/mcL LAB HEMETOLOGY METHOD 03/05/2025 11:21 AM T [facility] Hemoglobin 10.9(L) 13.5 - 17.5 g/dL LAB HEMETOLOGY METHOD 03/05/2025 11:21 AM [facility] Hematocrit 35.3(L) 42.0 - 54.0 % LAB HEMETOLOGY METHOD 03/05/2025 11:21 AM [facility] MCV 91.7 79.0 - 98.0 FL LAB HEMETOLOGY METHOD 03/05/2025 11:21 AM EDT [facility] MCH 28.3 27.0 - 32.0 pcg LAB HEMETOLOGY METHOD 03/05/2025 11:21 AM EDT [facility] MCHC 30.9(L) 32.0 - 37.0 g/dL LAB HEMETOLOGY METHOD 03/05/2025 11:21 AM [facility] RDW 16.1(H) 11.0 - 15.0 % LAB HEMETOLOGY METHOD 03/05/2025 11:21 AM EDT [facility] Platelets 515(H) 130 - 400 K/mcL LAB HEMETOLOGY METHOD 03/05/2025 [facility] MPV 10.6 7.0 - 11.0 FL LAB HEMETOLOGY METHOD 03/05/2025 11:21 AM [facility] NRBC 0.0 <1.0 % LAB HEMETOLOGY METHOD 03/05/2025 11:21 AM [facility] NRBC Absolute 0.00 <0.10 K/mcL LAB HEMETOLOGY METHOD 03/05/2025 11:21 AM [facility] Blood Venous blood specimen / Unknown Venipuncture / Unknown 03/05/2025 8:11 AM EDT 03/05/2025 10:13 AM EDT us Ai Majano MD LAB BLOOD ORDERABLES Fin al Result [facility] [address] [place] [address], documented in this encounter Visit Diagnoses Diagnosis Anemia, unspecified Other disorders of electrolyte and fluid balance, not elsewhere classified Encounter for adjustment or management of cardiac device documented in this encounter Additional Health Concerns Assessment Noted Time PHQ-9 Depression Total Score: 0 02/09/20 25 10:45 AM EDT documented as of this encounter Care Teams Lumber Racker Relationship Specialty Start Date End Date Chidi Carrillo NP 200 [place] [address] PCP - General 10/03/24 documented as of this encounter
--- OUTSIDE RECORDS SUMMARY | 2025-09-14 11:51 | XMS_ITS | Encounter Summary ---
Author Organization [facility], Address [address] [place] [address] Phone Care Team Providers Care Employee Relations Specialist Name Role Phone Chidi Carrillo Primary Care Provider Unavailabl e Encounter Details Date Type Department Care Team (Late Contact Info) Description 01/21/2022 Documentation Only [facility] [address] [place] [place] [address] Tiana Lange [address] [place] [phone] Social History Tobacco Use Types Packs/Day Years [...] Visit [facility] [address] [place] [address] Cuate Ramey MD [address] [place] [address] [place] [address] documented as of this encounter Visit Diagnoses Not on filedocumented in this encounter Care Teams Employee Relations Specialist Relationship Specialty Start Date End Date Chidi Carrillo [address] [address] PCP - General Nutrition 05/29/25 documented as of this encounter
--- OUTSIDE RECORDS SUMMARY | 2025-09-14 11:51 | XMS_ITS | Encounter Summary ---
Author Organization [facility] [place], Address [address] [place] [address] Phone Care Team Providers Care Gristmill Operator Name Role Phone Chidi Carrillo Primary Care Provider Unavailabl e Encounter Details Date Type Department Care Team (Late Contact Info) Description 12/26/2021 Documentation Only [facility] [address] [place] [address] Tiana Lange 2150 [place] [phone] Social History Tobacco Use Types Packs/Day Years [...] Visit [facility] [address] [place] [address] Cuate Ramey MD [address] [place] [address] [place] [address] documented as of this encounter Visit Diagnoses Not on filedocumented in this encounter Care Teams Gristmill Operator Relationship Specialty Start Date End Date Chidi Carrillo [address] [address] PCP - General Nutrition 05/29/25 documented as of this encounter
--- OUTSIDE RECORDS SUMMARY | 2025-09-14 11:51 | XMS_ITS | Encounter Summary ---
Author Organization [facility] [place], Address [address] [place] [address] Phone Care Team Providers Care Acute Care Nursing Assistant Name Role Phone Chidi Carrillo Primary Care Provider Unavailabl e Encounter Details Date Type Department Care Team (Late Contact Info) Description 01/21/2022 Documentation Only [facility] [address] [place] [address] Tiana Lange 2150 [place] [phone] Social History Tobacco Use Types Packs/Day Years [...] Visit [facility] [address] [place] [address] Cuate Ramey MD [address] [place] [address] [place] [address] documented as of this encounter Visit Diagnoses Not on filedocumented in this encounter Care Teams Acute Care Nursing Assistant Relationship Specialty Start Date End Date Chidi Carrillo [address] [address] PCP - General Nutrition 05/29/25 documented as of this encounter
--- OUTSIDE RECORDS SUMMARY | 2025-09-14 11:51 | XMS_ITS | Encounter Summary ---
Author Organization [place] [address] Care Team Providers Care Small Brake Form Operator Name Role Phone Chidi Carrillo NP Primary Care Provider [phone] Encounter Details Date Type Department Care Team (Late st Contact Info) Description 03/10/2025 Lab Requisition [facility] - Main Lab [address] [facility] [place] [address] Ai Majano MD [address] [phone] Anemia, unspecified; Other disorders of electrolyte and [...] for your loved ones. For example, child nutrition director or elderly care for an older adult? [...] Info) Description 09/17/2025 10:00 AM EDT Appointment [facility] Pulmonary [address] [place] [address] 09/17/2025 2:30 PM EDT Treatment [facility] Physical Therapy [address] [place] [address] Wes Urrutia PT 09/19/2025 9:40 AM EDT Office Visit [facility] Associates - [facility] [address] 300 [facility] 154 [place] [address] Zay Garcia NP 300 [place] [address] 09/19/2025 1:10 PM EDT Clinical Support Veronika STILES [place] [address] [place] [phone] 09/20/2025 10:45 AM EDT Treatment Veronika STILES [place] Physical Therapy [address] [place] [phone] Wes Urrutia PT 09/24/2025 1:15 PM EDT PACE External Visit Veronika STILES [place] 200 [place] [address] 10/08/2025 8:50 AM EST Office [facility] Cardiology [facility] 154 300 [facility] 154 [place] [address] Thais Stevenson MD 300 [place] [address] 10/12/2025 1:30 PM EST PACE External Visit Veronika STILES [address] [address] 10/23/2025 9:30 AM EST Office Visit General Surgery - [place] 175 [facility] 110 [place] [address] Terrell Castillo MD [address] [place] [phone] 10/24/2025 3:00 PM EST Clinical Support Veronika STILES [place] 200 [place] [address] 11/07/2025 1:10 PM EST Clinical Support Veronika STILES [place] [address] [place] [phone] 03/28/2026 11:00 AM EDT Ancillary Procedure [facility] Cardiology [facility] 154 300 [facility] 154 [place] [address] 08/08/2026 10:45 AM EDT Treatment Veronika STILES [place] Physical Therapy [address] [place] [phone] Wes Urrutia, PT 08/15/2026 10:45 AM EDT [facility] Physical Therapy 200 [place] [address] Wes Urrutia, PT documented as of this encounter Visit Diagnoses Diagnosis Anemia, unspecified Other disorders of electrolyte and fluid balance, not elsewhere classified Encounter for adjustment or management of cardiac device documented in this encounter Additional Health Concerns Assessment Noted Time PHQ-9 Depression Total Score: 0 02/09/20 25 10:45 AM EDT documented as of this encounter Care Teams Small Brake Form Operator Relationship Specialty Start Date End Date Chidi Carrillo NP 200 [place] [address] PCP - General 10/03/24 documented as of this encounter
--- OUTSIDE RECORDS SUMMARY | 2025-09-14 11:51 | XMS_ITS | Encounter Summary ---
Author Organization [email or web address] [address] Care Team Providers Care Accounting Supervisor Name Role Phone Chidi Carrillo NP Primary Care Provider [phone] Encounter Details Date Type Department Care Team (Late st Contact Info) Description 03/01/2025 Lab Requisition [facility] - Main Lab [address] [facility] [place] [address] Ai Majano MD [address] [phone] Anemia, unspecified; Other disorders of electrolyte and [...] care for your loved ones. For example, children's nursery assistant or elderly care for an older adult? [...] Description 09/17/2025 10:00 AM EDT Appointment [facility] Pulmonary [address] [place] [address] 09/17/2025 2:30 PM EDT Treatment [facility] Physical Therapy [address] [place] [address] Wes Urrutia PT 09/19/2025 9:40 AM EDT Office Visit [facility]iology Associates - [facility] [address] 300 [facility] 154 [place] [address] Zya Garcia NP 300 [place] [address] 09/19/2025 1:10 PM EDT Clinical Support Veronika STILES [place] [address] [place] [phone] 09/20/2025 10:45 AM EDT Treatment Veronika STILES [place] Physical Therapy [address] [place] [phone] Wes Urrutia PT 09/24/2025 1:15 PM EDT PACE External Visit Veronika STILES [place] 200 [place] [address] 10/08/2025 8:50 AM EST Office Visit [facility] Cardiology [facility] 154 300 [facility] 154 [place] [address] Thais Stevenson MD 300 [place] [address] 10/12/2025 1:30 PM EST PACE External Visit Veronika STILES [address] [address] 10/23/2025 9:30 AM EST Office Visit General Surgery - [place] 175 [facility] 110 [place] [address] Terrell Castillo MD [address] [place] [phone] 10/24/2025 3:00 PM EST Clinical Support Veronika STILES [place] 200 [place] [address] 11/07/2025 1:10 PM EST Clinical Support Veronika STILES [place] [address] [place] [phone] 03/28/2026 11:00 AM EDT Ancillary Procedure [facility] Cardiology [facility] 154 300 [facility] 154 [place] [address] 08/08/2026 10:45 AM EDT Treatment Veronika STILES [place] Physical Therapy [address] [place] [phone] Wes Urrutia, PT 08/15/2026 10:45 AM EDT Treatment [facility] Physical Therapy 200 [place] [address] Wes Urrutia, PT documented as of this encounter Procedures Procedure Name Priority Date/Time Associated Diagnosis Comments COMPLETE BLOOD COUNT Routine 03/01/2025 6:06 AM EDT Anemia, unspecified Other disorders of electrolyte and fluid balance, not elsewhere classified BASIC METABOLIC PANEL Routine 03/01/2025 6:06 AM EDT Anemia, unspecified Other disorders of electrolyte and fluid balance, not elsewhere classified documented in this encounter Results * (ABNORMAL) Basic metabolic panel (03/01/2025 6:06 AM EDT) Sodium 133 133 - 145 mmol/L LAB CHEMISTRY METHOD 03/01/2025 10:03 AM [facility] Potassium 4.3 3.5 - 5.5 mmol/L LAB CHEMISTRY METHOD 03/01/2025 10:03 AM [facility] Chloride 95(L) 96 - 110 mmol/L LAB CHEMISTRY METHOD 03/01/2025 10:03 AM [facility] CO2 32 21 - 32 mmol/L LAB CHEMISTRY METHOD 03/01/2025 10:03 AM [facility] Anion Gap 6 3 - 11 LAB CHEMISTRY METHOD 03/01/2025 10:03 AM [facility] Glucose 72 70 - 100 mg/dL LAB CHEMISTRY METHOD 03/01/2025 10:03 AM [facility] BUN 37(H) 5 - 25 mg/dL LAB CHEMISTRY METHOD 03/01/2025 10:03 AM [facility] Creatinine 1.51(H) 0.70 - 1.30 mg/dL LAB CHEMISTRY METHOD 03/01/2025 10:03 AM [facility] eGFR 50(L) >=60 mL/min/1. 73m2 LAB CHEMISTRY METHOD 03/01/2025 10:03 AM EDT [facility] Comment:Calculation based on the Chronic Kidney Disease Epidemiology Collaboration (CKD-EPI) equation refit without adjustment for race. BUN/Creatinine Ratio 24.5 LAB CHEMISTRY METHOD 03/01/2025 10:03 AM EDT [facility] Calcium 9.6 8.5 - 10.5 mg/dL LAB CHEMISTRY METHOD 03/01/2025 10:03 AM T [facility] Blood Venous blood specimen / Unknown Venipuncture / Unknown 03/01/2025 6:06 AM EDT 03/01/2025 8:47 AM EDT us Ai Majano MD LAB BLOOD ORDERABLES Fin al Result [facility] 299 [place] [address], * (ABNORMAL) Complete blood count (03/01/2025 6:06 AM EDT) WBC 7.1 4.8 - 10.8 K/mcL LAB HEMETOLOGY METHOD 03/01/2025 9:33 AM [facility] RBC 3.60(L) 4.50 - 5.50 M/mcL LAB HEMETOLOGY METHOD 03/01/2025 9:33 AM [facility] Hemoglobin 10.0(L) 13.5 - 17.5 g/dL LAB HEMETOLOGY METHOD 03/01/2025 9:33 AM [facility] Hematocrit 31.8(L) 42.0 - 54.0 % LAB HEMETOLOGY METHOD 03/01/2025 9:33 AM [facility] MCV 89.3 79.0 - 98.0 FL LAB HEMETOLOGY METHOD 03/01/2025 9:33 AM [facility] MCH 28.1 27.0 - 32.0 pcg LAB HEMETOLOGY METHOD 03/01/2025 9:33 AM EDT [facility] MCHC 31.4(L) 32.0 - 37.0 g/dL LAB HEMETOLOGY METHOD 03/01/2025 9:33 AM EDT [facility] RDW 16.2(H) 11.0 - 15.0 % LAB HEMETOLOGY METHOD 03/01/2025 9:33 AM EDT [facility] Platelets 428(H) 130 - 400 K/mcL LAB HEMETOLOGY METHOD 03/01/2025 9:33 AM EDT [facility] MPV 10.5 7.0 - 11.0 FL LAB HEMETOLOGY METHOD 03/01/2025 9:33 AM EDT [facility] NRBC 0.0 <1.0 % LAB HEMETOLOGY METHOD 03/01/2025 9:33 AM EDT [facility] NRBC Absolute 0.00 <0.10 K/mcL LAB HEMETOLOGY METHOD 03/01/2025 9:33 AM T [facility] Blood Venous blood specimen / Unknown Venipuncture / Unknown 03/01/2025 6:06 AM EDT 03/01/2025 8:47 AM EDT us Ai Majano MD LAB BLOOD ORDERABLES Fin al Result [facility] [address] [place] [address], documented in this encounter Visit Diagnoses Diagnosis Anemia, unspecified Other disorders of electrolyte and fluid balance, not elsewhere classified Encounter for adjustment or management of cardiac device documented in this encounter Additional Health Concerns Assessment Noted Time PHQ-9 Depression Total Score: 0 02/09/20 25 10:45 AM EDT documented as of this encounter Care Teams Accounting Supervisor Relationship Specialty Start Date End Date Chidi Carrillo NP 200 [place] [address] PCP - General 10/03/24 documented as of this encounter
--- OUTSIDE RECORDS SUMMARY | 2025-09-14 11:51 | XMS_ITS | Encounter Summary ---
Author Organization [facility] Address [address] [place] [address] Care Team Providers Care Rn Sexual Assault Name Role Phone Chidi Carrillo NP Primary Care Provider [phone] Reason for Visit * Reason Onset Date Comments Clinical 03/24/2025 Participant call ed again to state wd vac was alarming, blocked . Attempted with instructions to reset and disconnect but to no avail. Informed participant to apply the wet to dry and securely dress wound until next day. The nurse has been advised to perform home visit on Wednesday to reapply wd vac. Encounter Details Date Type Department Care Team ([facility] st Contact Info) Description 03/24/2025 PACE On-Call [facility] Clinic [address] [place] [address] Chidi Carrillo NP [address] [phone] Social History Tobacco Use Types Packs/Day Years [...] your loved ones. For example, child nutrition assistant or elderly care for an older [...] Info) Description 09/17/2025 10:00 AM EDT Appointment [facility] Pulmonary [address] [place] [address] 09/17/2025 2:30 PM EDT Treatment [facility] Physical Therapy [address] [place] [address] Wes Urrutia, PT 09/19/2025 9:40 AM EDT Office Visit [facility] - [facility] 154 300 [facility] 154 [place] [address] Zay Garcia NP 300 [place] [address] 09/19/2025 1:10 PM EDT Clinical Support Veronika STILES [address] [address] 09/20/2025 10:45 AM EDT [facility] Physical Therapy [address] [place] [phone] Wes Urrutia, LIA 09/24/2025 1:15 PM EDT [facility]ACE External [facility] [address] [address] 10/08/2025 8:50 AM EST Office Visit [facility] Cardiology [facility] - [facility] 154 300 [facility] 154 [place] [address] Thais Stevenson MD 300 [place] [address] 10/12/2025 1:30 PM EST PACE External Visit Veronika [address] [address] 10/23/2025 9:30 AM EST Office Visit General Surgery - [place] 175 [facility] 110 [place] [phone] Terrell Castillo MD 230 [place] [address] 10/24/2025 3:00 PM EST Clinical Support Veronika STILES [address] [address] 11/07/2025 1:10 PM EST Clinical Support Veronika [address] [address] 03/28/2026 11:00 AM EDT Ancillary Procedure [facility] - [facility] [address] [facility] [address] [place] [address] 08/08/2026 10:45 AM EDT Treatment [facility] Physical Therapy 200 [place] [address] Wes Urrutia, PT 08/15/2026 10:45 AM EDT Treatment [facility] Physical Therapy 200 [place] [address] Wes Urrutia, PT documented as of this [...] as of this encounter Care Teams Rn Sexual Assault Relationship Specialty Start Date End Date Chidi Carrillo NP 200 [place] [address] PCP - General 10/03/24 documented as of this encounter
--- OUTSIDE RECORDS SUMMARY | 2025-09-14 11:51 | XMS_ITS | Encounter Summary ---
Author Organization [facility] [place] [address] Care Team Providers Care Fish And Wildlife Warden Name Role Phone Chidi Carrillo NP Primary Care Provider [phone] Reason for Visit * Reason Onset Date Comments Fall 03/10/2025 Participant arie es any injury Encounter Details Date Type Department Care Team (Late st Contact Info) Description 03/10/2025 PACE On-Call [facility] 200 [place] [address] Nohemi Rebolledo LPN Social History Tobacco Use Types Packs/Day Years [...] Record ed Within the last 3 months, katy khoury many times did you visit the emergency [...] care for your loved ones. For example, childbirth and infant care teacher or elderly care for an older adult? [...] Jatinder Kincaid RN documented in this encounter Progress Notes * Nohemi Rebolledo LPN - 03/10/2025 4:59 PM EDT Participant slid out of his chair and fell while attempting to transfer. He landed on his left kneeand right stump. Participant reports no injuries from the fall. He did not hit his head and did notlose consciousness. He noted a small amount of blood around the wound vac area but expressed no concern. Participant is scheduled for a nursing visit tomorrow and will call if any issues arise. documented in this encounter Plan of Treatment Upcoming Encounters Date Type Department Care Team (Late st Contact Info) Description 09/17/2025 10:00 AM EDT Appointment [facility] Pulmonary [address] [place] [address] 09/17/2025 2:30 PM EDT [facility] 200 [place] [address] Wes Urrutia, PT 09/19/2025 9:40 AM EDT Office Visit [facility] Cardiology [facility] 154 300 [facility] 154 [place] [address] Zay Garcia NP 300 [place] [address] 09/19/2025 1:10 PM EDT [facility] [address] [address] 09/20/2025 10:45 AM EDT Treatment [facility] Physical Therapy [address] [place] [address] Wes Urrutia, PT 09/24/2025 1:15 PM EDT PACE External Visit [facility] [place] 200 [place] [address] 10/08/2025 8:50 AM EST Office Visit [facility] Cardiology [facility] 154 300 [facility] 154 [place] [address] Thais Stevenson MD 300 [place] [address] 10/12/2025 1:30 PM EST PACE External Visit [facility] [address] [address] 10/23/2025 9:30 AM EST Office Visit General Surgery - [place] 175 [facility] 110 [place] [address] Terrell Castillo MD 230 [place] [address] 10/24/2025 3:00 PM EST Clinical Support [facility] [address] [address] 11/07/2025 1:10 PM EST Clinical Support [facility]ika [facility] 200 [place] [address] 03/28/2026 11:00 AM EDT Ancillary Procedure [facility]iology Associates - [address] [place] [address] 08/08/2026 10:45 AM EDT [facility] Physical Therapy [address] [place] [address] Wes Urrutia, LIA 08/15/2026 10:45 AM EDT [facility] Physical Therapy [address] [place] [address] Wes Urrutia, PT documented as of this encounter Visit Diagnoses Not on filedocumented in this encounter Additional Health Concerns Assessment Noted Time PHQ-9 Depression Total Score: 0 02/09/20 25 10:45 AM EDT documented as of this encounter Care Teams Fish And Wildlife Warden Relationship Specialty Start Date End Date Chidi Carrillo NP 200 [place] [address] PCP - General 10/03/24 documented as of this encounter
--- OUTSIDE RECORDS SUMMARY | 2025-09-14 11:52 | XMS_ITS | Encounter Summary ---
Author Organization [facility] [place] [address] Care Team Providers Care Multifocal Button Grinder Name Role Phone Chidi Carrillo NP Primary Care Provider [phone] Reason for Visit * Reason Onset Date Comments Clinical 06/10/2025 Jose called to [place] day his appt time for 06/11/25. Reviewed the time with par. No further f/u. Encounter Details Date Type Department Care Team ([facility] st Contact Info) Description 06/10/2025 PACE On-Call [facility] Clinic 200 [place] [address] Chidi Carrillo NP [address] [address] Social History Tobacco Use Types Packs/Day Years [...] for your loved ones. For example, child and family services specialist or elderly care for an older [...] Info) Description 09/17/2025 10:00 AM EDT Appointment [facility] Pulmonary [address] [place] [phone] 09/17/2025 2:30 PM EDT Treatment [facility] Physical Therapy [address] [place] [address] Wes Urrutia PT 09/19/2025 9:40 AM EDT Office Visit [facility] - [facility] [address] 300 [facility] 154 [place] [phone] Zay Garcia NP 300 [place] [address] 09/19/2025 1:10 PM EDT Clinical Support Veronika STILES [place] 200 [place] [address] 09/20/2025 10:45 AM EDT [facility] [place] Physical Therapy [address] [place] [address] Wes Urrutia, LIA 09/24/2025 1:15 PM EDT PACE External Visit Veronika [address] [address] 10/08/2025 8:50 AM EST Office Visit [facility]iology Associates - [facility] 154 300 [facility] 154 [place] [address] Thais Stevenson MD 300 [place] [address] 10/12/2025 1:30 PM EST PACE External Visit Veronika [address] [address] 10/23/2025 9:30 AM EST Office Visit General Surgery - [place] 175 [facility] 110 [place] [address] Terrell Castillo MD 230 [place] [address] 10/24/2025 3:00 PM EST Clinical Support Veronika STILES [address] [address] 11/07/2025 1:10 PM EST Clinical Support Veronika STILES [address] [place] [address] [address] 03/28/2026 11:00 AM EDT Ancillary Procedure [facility] Cardiology [facility] - [facility] 154 300 [facility] 154 [place] [address] 08/08/2026 10:45 AM EDT Treatment [facility] Physical Therapy [address] [place] [phone] Wes Urrutia, PT 08/15/2026 10:45 AM EDT [facility] Physical Therapy [address] [place] [phone] Wes Urrutia, PT documented as of this [...] documented as of this encounter Care Teams Multifocal Button Grinder Relationship Specialty Start Date End Date Chidi Carrillo NP [address] [place] [address] PCP - General 10/03/24 documented as of this encounter
--- OUTSIDE RECORDS SUMMARY | 2025-09-14 11:52 | XMS_ITS | Encounter Summary ---
Author Organization [facility] Address [address] [place] [address] Phone Care Team Providers Care Aeronautical Engineering Officer Name Role Phone Chidi Carrillo Primary Care Provider Unavailabl e Encounter Details Date Type Department Care Team (Late Contact Info) Description 09/07/2025 Office Communication [facility] [address] [place] [address] Tiana Lange [address] [place] [phone] Social History Tobacco Use Types Packs/Day Years Used Date Smoking Tobacco: Never Alcohol Use Standard Drinks/Week Comments No 0 (1 standard drink = 0.6 oz pur e alcohol) Sex and Gender Information Value Date Recorded Sex Assigned at Not on file Legal Sex Male 4:35 PM EST Gender Identity Not on file Sexual Orientation Not on file documented as of this encounter Miscellaneous Notes * Telephone Encounter - Bailey Tilley RN - 09/12/2025 8:42 AM EDT Need a ferritin please documented in this encounter Plan of Treatment Upcoming Encounters Date Type Department Care Team (Late Contact Info) Description 10/02/2025 1:30 PM EST Office Visit [facility] [address] [place] [phone] Cuate Ramey MD [address] [place] [address] documented as of this encounter Visit Diagnoses Not on filedocumented in this encounter Care Teams Aeronautical Engineering Officer Relationship Specialty Start Date End Date Chidi Carrillo [address] [address] PCP - General Nutrition 05/29/25 documented as of this encounter
--- OUTSIDE RECORDS SUMMARY | 2025-09-14 11:52 | XMS_ITS | Clinical Summary ---
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 Name Role Phone Johann King NP Primary Care Provider [phone] Allergies No known active allergies Medications allopurinoL (ZYLOPRIM) 100 mg tabletIndications:Tran min B12 deficiency,Vitamin B12 deficiency anemia due to selective vitamin B12 malabsorption with proteinuria,Chronic combined systolic and diastolic congestive heart failure ([facility] V24, [facility] V28),Retention of urine,Chronic bilateral low back pain without sciatica,Diabetic gastroparesis ([facility] V24, [facility] V28),Other diabetic neurological complication associated with type 2 diabetes mellitus ([facility] V24, [facility] V28),Dysautonomia orthostatic hypotension syndrome,Open-angle glaucoma of both eyes, unspecified glaucoma stage, unspecified open-angle glaucoma type,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 V24, CMS/HCC V28),Pain in right hip,Seizure disorder (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 V24, [facility] V28),Primary open angle glaucoma of both eyes, moderate stage,Chronic obstructive pulmonary disease, unspecified COPD type ([facility] V24, [facility] V28),Sleep apnea, unspecified type,Bilateral carotid artery stenosis,Coronary artery disease involving quechan heart, unspecified vessel or lesion type, unspecified whether angina present,Cardiac pacemaker in situ,Primary hypertension,Raynaud's disease without gangrene,Venous insufficiency,Permanen t atrial fibrillation ([facility] V24, [facility] V28),Nutcracker esophagus,Deficiency of vitamin B12,Vitamin D deficiency,Gastroesoph ageal reflux disease with esophagitis without hemorrhage,Type 2 diabetes mellitus with chronic kidney disease, without long-term current use of insulin, unspecified CKD stage ([facility] V24, [facility] V28),Diabetic nephropathy associated with type 2 diabetes mellitus ([facility] V24, [facility] V28),Benign prostatic hyperplasia with urinary retention,Overactive bladder,Renal cyst, left,Other specified disorders of bone density and structure, multiple sites,Hammer toe of right foot,Right above-knee amputee ([facility] V24, [facility] V28),Chronic gout involving toe without tophus, unspecified cause, unspecified laterality,Mixed hyperlipidemia,Hyperpa rathyroidism, secondary renal ([facility] V24),Nocturia,Recurren t major depression in remission ([facility] V24),Failed back syndrome of lumbar spine,Umbilical hernia without obstruction and without gangrene Take 1 tablet (100 mg total) by mouth 1 (one) time each day. 30 tablet 11 2025 Active isosorbide mononitrate (IMDUR) 60 mg 24 hr tabletIndications:Tran min B12 deficiency,Vitamin B12 deficiency anemia due to selective vitamin B12 malabsorption with proteinuria,Chronic combined systolic and diastolic congestive heart failure ([facility] V24, [facility] V28),Retention of urine,Chronic bilateral low back pain without sciatica,Diabetic gastroparesis ([facility] V24, 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,Behavioral variant frontotemporal dementia ([facility] V24, [facility] V28),Spinal stenosis, lumbar region with neurogenic claudication,Diabetic peripheral neuropathy associated with type 2 diabetes mellitus ([facility] V24, [facility] V28),Pain in right hip,Seizure disorder ([facility] V24[facility] V28),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 ([facility] V24, [facility] V28),Primary open angle glaucoma of both eyes, moderate stage,Chronic obstructive pulmonary disease, unspecified COPD type ([facility] V24, [facility] V28),Sleep apnea, unspecified type,Bilateral carotid artery stenosis,Coronary artery disease involving quechan heart, unspecified vessel or lesion type, unspecified whether angina present,Cardiac pacemaker in situ,Primary hypertension,Raynaud's disease without gangrene,Venous insufficiency,Permanen t atrial fibrillation ([facility] V24, [facility] V28),Nutcracker esophagus,Deficiency of vitamin B12,Vitamin D deficiency,Gastroesoph ageal reflux disease with esophagitis without hemorrhage,Type 2 diabetes mellitus with chronic kidney disease, without long-term current use of insulin, unspecified CKD stage ([facility] V24[facility] V28),Diabetic nephropathy associated with type 2 diabetes mellitus ([facility] V24, [facility] V28),Benign prostatic hyperplasia with urinary retention,Overactive bladder,Renal cyst, left,Other specified disorders of bone density and structure, multiple sites,Hammer toe of right foot,Right above-knee amputee ([facility] V24, [facility] V28),Chronic gout involving toe without tophus, unspecified cause, unspecified laterality,Mixed hyperlipidemia,Hyperpa rathyroidism, secondary renal ([facility] V24),Nocturia,Recurren t major depression in remission ([facility] V24),Failed back syndrome of lumbar spine,Umbilical hernia without obstruction and without gangrene Take 1 tablet (60 mg total) by mouth 1 (one) time each day. Do not crush or chew. 30 tablet 11 025 2025 Active ranolazine (RANEXA) 500 mg 12 hr tabletIndications:Tran min B12 deficiency,Vitamin B12 deficiency anemia due to selective vitamin B12 malabsorption with proteinuria,Chronic combined systolic and diastolic congestive heart failure ([facility] V24, [facility] V28),Retention of urine,Chronic bilateral low back pain without sciatica,Diabetic gastroparesis ([facility] V24, [facility] V28),Other diabetic neurological complication associated with type 2 diabetes mellitus ([facility] V24, 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 V24, [facility] V28),Spinal stenosis, lumbar region with neurogenic claudication,Diabetic peripheral neuropathy associated with type 2 diabetes mellitus ([facility] V24, [facility] V28),Pain in right hip,Seizure disorder ([facility] V24, 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 V24, [facility] V28),Primary open angle glaucoma of both eyes, moderate stage,Chronic obstructive pulmonary disease, unspecified COPD type ([facility] V24, [facility] V28),Sleep apnea, unspecified type,Bilateral carotid artery stenosis,Coronary artery disease involving quechan heart, unspecified vessel or lesion type, unspecified whether angina present,Cardiac pacemaker in situ,Primary hypertension,Raynaud's disease without gangrene,Venous insufficiency,Permanen t atrial fibrillation ([facility] V24, [facility] V28),Nutcracker esophagus,Deficiency of vitamin B12,Vitamin D deficiency,Gastroesoph ageal reflux disease with esophagitis without hemorrhage,Type 2 diabetes mellitus with chronic kidney disease, without long-term current use of insulin, unspecified CKD stage ([facility] V24, [facility] V28),Diabetic nephropathy associated with type 2 diabetes mellitus ([facility] V24, [facility] V28),Benign prostatic hyperplasia with urinary retention,Overactive bladder,Renal cyst, left,Other specified disorders of bone density and structure, multiple sites,Hammer toe of right foot,Right above-knee amputee ([facility] V24, [facility] V28),Chronic gout involving toe without tophus, unspecified cause, unspecified laterality,Mixed hyperlipidemia,Hyperpa rathyroidism, secondary renal ([facility] V24),Nocturia,Recurren t major depression in remission ([facility] V24),Failed back syndrome of lumbar spine,Umbilical hernia without obstruction and without gangrene Take 1 tablet (500 mg total) by mouth 2 (two) times a day. Do not crush, chew, or split. 60 each 11 2025 Active cyanocobalamin (VITAMIN B-12) 1,000 mcg/mL injectionIndications:V itamin B12 deficiency,Vitamin B12 deficiency anemia due to selective vitamin B12 malabsorption with proteinuria,Chronic combined systolic and diastolic congestive heart failure ([facility] V24, [facility] V28),Retention of urine,Chronic bilateral low back pain without sciatica,Diabetic gastroparesis ([facility] V24, [facility] V28),Other diabetic neurological complication associated with type 2 diabetes mellitus ([facility] V24, 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 V24, [facility] V28),Spinal stenosis, lumbar region with neurogenic claudication,Diabetic peripheral neuropathy associated with type 2 diabetes mellitus ([facility] V24, [facility] V28),Pain in right hip,Seizure disorder (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 V24, [facility] V28),Primary open angle glaucoma of both eyes, moderate stage,Chronic obstructive pulmonary disease, unspecified COPD type ([facility] V24, [facility] V28),Sleep apnea, unspecified type,Bilateral carotid artery stenosis,Coronary artery disease involving quechan heart, unspecified vessel or lesion type, unspecified whether angina present,Cardiac pacemaker in situ,Primary hypertension,Raynaud's disease without gangrene,Venous insufficiency,Permanen t atrial fibrillation ([facility] V24, [facility] V28),Nutcracker esophagus,Deficiency of vitamin B12,Vitamin D deficiency,Gastroesoph ageal reflux disease with esophagitis without hemorrhage,Type 2 diabetes mellitus with chronic kidney disease, without long-term current use of insulin, unspecified CKD stage ([facility] V24, [facility] V28),Diabetic nephropathy associated with type 2 diabetes mellitus ([facility] V24, [facility] V28),Benign prostatic hyperplasia with urinary retention,Overactive bladder,Renal cyst, left,Other specified disorders of bone density and structure, multiple sites,Hammer toe of right foot,Right above-knee amputee ([facility] V24, [facility] V28),Chronic gout involving toe without tophus, unspecified cause, unspecified laterality,Mixed hyperlipidemia,Hyperpa rathyroidism, secondary renal ([facility] V24),Nocturia,Recurren t major depression in remission ([facility] V24),Failed back syndrome of lumbar spine,Umbilical hernia without obstruction and without gangrene Inject 1 mL (1,000 mcg total) into the shoulder, thigh, or buttocks every 30 (thirty) days. 1 mL 11 03/28/2025 Active spironolactone (Aldactone) 25 mg tabletIndications:Tran min B12 deficiency,Vitamin B12 deficiency anemia due to selective vitamin B12 malabsorption with proteinuria,Chronic combined systolic and diastolic congestive heart failure ([facility] V24, [facility] V28),Retention of urine,Chronic bilateral low back pain without sciatica,Diabetic gastroparesis ([facility] V24, [facility] V28),Other diabetic neurological complication associated with type 2 diabetes mellitus ([facility] V24, 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 V24, [facility] V28),Spinal stenosis, lumbar region with neurogenic claudication,Diabetic peripheral neuropathy associated with type 2 diabetes mellitus ([facility] V24, [facility] V28),Pain in right hip,Seizure disorder ([facility] V24, 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 V24, [facility] V28),Primary open angle glaucoma of both eyes, moderate stage,Chronic obstructive pulmonary disease, unspecified COPD type ([place] [id number], [facility] V28),Sleep apnea, unspecified type,Bilateral carotid artery stenosis,Coronary artery disease involving quechan heart, unspecified vessel or lesion type, unspecified whether angina present,Cardiac pacemaker in situ,Primary hypertension,Raynaud's disease without gangrene,Venous insufficiency,Permanen t atrial fibrillation ([facility] V24, [facility] V28),Nutcracker esophagus,Deficiency of vitamin B12,Vitamin D deficiency,Gastroesoph ageal reflux disease with esophagitis without hemorrhage,Type 2 diabetes mellitus with chronic kidney disease, without long-term current use of insulin, unspecified CKD stage ([facility] V24, [facility] V28),Diabetic nephropathy associated with type 2 diabetes mellitus ([facility] V24, [facility] V28),Benign prostatic hyperplasia with urinary retention,Overactive bladder,Renal cyst, left,Other specified disorders of bone density and structure, multiple sites,Hammer toe of right foot,Right above-knee amputee ([facility] V24, [facility] V28),Chronic gout involving toe without tophus, unspecified cause, unspecified laterality,Mixed hyperlipidemia,Hyperpa rathyroidism, secondary renal ([facility] V24),Nocturia,Recurren t major depression in remission ([facility] V24),Failed back syndrome of lumbar spine,Umbilical hernia without obstruction and without gangrene Take 1 tablet (25 mg total) by mouth 1 (one) time each day. 30 each 2025 Active latanoprost (Xalatan) 0.005 % ophthalmic solutionIndications:Vi tamin B12 deficiency,Vitamin B12 deficiency anemia due to selective vitamin B12 malabsorption with proteinuria,Chronic combined systolic and diastolic congestive heart failure ([facility] V24, [facility] V28),Retention of urine,Chronic bilateral low back pain without sciatica,Diabetic gastroparesis ([facility] V24[facility] V28),Other diabetic neurological complication associated with type 2 diabetes mellitus ([facility] V24, [facility] V28),Dysautonomia orthostatic hypotension syndrome,Open-angle glaucoma of both eyes, unspecified glaucoma stage, unspecified open-angle glaucoma type,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 V24, [facility] V28),Spinal stenosis, lumbar region with neurogenic claudication,Diabetic peripheral neuropathy associated with type 2 diabetes mellitus ([facility] V24, [facility] V28),Pain in right hip,Seizure disorder ([facility] V24[facility] V28),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 ([facility] V24, [facility] V28),Primary open angle glaucoma of both eyes, moderate stage,Chronic obstructive pulmonary disease, unspecified COPD type ([facility] V24, [facility] V28),Sleep apnea, unspecified type,Bilateral carotid artery stenosis,Coronary artery disease involving quechan heart, unspecified vessel or lesion type, unspecified whether angina present,Cardiac pacemaker in situ,Primary hypertension,Raynaud's disease without gangrene,Venous insufficiency,Permanen t atrial fibrillation ([facility] V24, [facility] V28),Nutcracker esophagus,Deficiency of vitamin B12,Vitamin D deficiency,Gastroesoph ageal reflux disease with esophagitis without hemorrhage,Type 2 diabetes mellitus with chronic kidney disease, without long-term current use of insulin, unspecified CKD stage ([facility] V24, [facility] V28),Diabetic nephropathy associated with type 2 diabetes mellitus ([facility] V24, [facility] V28),Benign prostatic hyperplasia with urinary retention,Overactive bladder,Renal cyst, left,Other specified disorders of bone density and structure, multiple sites,Hammer toe of right foot,Right above-knee amputee ([facility] V24, [facility] V28),Chronic gout involving toe without tophus, unspecified cause, unspecified laterality,Mixed hyperlipidemia,Hyperpa rathyroidism, secondary renal ([facility] V24),Nocturia,Recurren t major depression in remission ([facility] V24),Failed back syndrome of lumbar spine,Umbilical hernia without obstruction and without gangrene Administer 1 drop into both eyes at bedtime. 2.5 mL 12 025 2025 Active dilTIAZem (CARDIZEM) 60 mg immediate release tabletIndications:Long standing persistent atrial fibrillation ([facility] V24, [facility] V28) Take 1 tablet (60 mg total) by mouth 2 (two) times a day. 60 each 11 025 2025 Active docusate sodium (COLACE) 100 mg capsuleIndications:Con stipation, unspecified constipation type Take 1 capsule (100 mg total) by mouth 2 (two) times a day. 60 each 025 2025 Active apixaban (Eliquis) 5 mg tabletIndications:Paro xysmal atrial fibrillation ([facility] V24, [facility] V28) Take 1 tablet (5 mg total) by mouth 2 (two) times a day. 60 each 025 2025 Active metoprolol succinate (TOPROL-XL) 25 mg 24 hr tabletIndications:Tran min B12 deficiency,Vitamin B12 deficiency anemia due to selective vitamin B12 malabsorption with proteinuria,Chronic combined systolic and diastolic congestive heart failure ([facility] V24, [facility] V28),Retention of urine,Chronic bilateral low back pain without sciatica,Diabetic gastroparesis ([facility] V24, [facility] V28),Other diabetic neurological complication associated with type 2 diabetes mellitus ([facility] V24, 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 V24, [facility] V28),Spinal stenosis, lumbar region with neurogenic claudication,Diabetic peripheral neuropathy associated with type 2 diabetes mellitus ([facility] V24, [facility] V28),Pain in right hip,Seizure disorder (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 V24, [facility] V28),Primary open angle glaucoma of both eyes, moderate stage,Chronic obstructive pulmonary disease, unspecified COPD type ([facility] V24, [facility] V28),Sleep apnea, unspecified type,Bilateral carotid artery stenosis,Coronary artery disease involving quechan heart, unspecified vessel or lesion type, unspecified whether angina present,Cardiac pacemaker in situ,Primary hypertension,Raynaud's disease without gangrene,Venous insufficiency,Permanen t atrial fibrillation ([facility] V24, [facility] V28),Nutcracker esophagus,Deficiency of vitamin B12,Vitamin D deficiency,Gastroesoph ageal reflux disease with esophagitis without hemorrhage,Type 2 diabetes mellitus with chronic kidney disease, without long-term current use of insulin, unspecified CKD stage ([facility] V24, [facility] V28),Diabetic nephropathy associated with type 2 diabetes mellitus ([facility] V24, [facility] V28),Benign prostatic hyperplasia with urinary retention,Overactive bladder,Renal cyst, left,Other specified disorders of bone density and structure, multiple sites,Hammer toe of right foot,Right above-knee amputee ([facility] V24, [facility] V28),Chronic gout involving toe without tophus, unspecified cause, unspecified laterality,Mixed hyperlipidemia,Hyperpa rathyroidism, secondary renal ([facility] V24),Nocturia,Recurren t major depression in remission ([facility] V24),Failed back syndrome of lumbar spine,Umbilical hernia without obstruction and without gangrene Take 2 tablets (50 mg total) by mouth 1 (one) time each day. 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 V24, [facility] V28) Take 3 tablets three times per daily at 0700 and 1300 and 1700 9 tablet Active gabapentin (NEURONTIN) 100 mg capsuleIndications:Lauren ropathic pain Take 2 capsules (200 mg total) by mouth every 8 (eight) hours. 180 each 2025 Active atorvastatin (LIPITOR) 80 mg tabletIndications:Pure hypertriglyceridemia Take 1 tablet (80 mg total) by mouth at bedtime. 30 each 025 2025 Active denosumab (Prolia) 60 mg/mL syringe syringeIndications:Vit meier B12 deficiency,Vitamin B12 deficiency anemia due to selective vitamin B12 malabsorption with proteinuria,Chronic combined systolic and diastolic congestive heart failure ([facility] V24, [facility] V28),Retention of urine,Chronic bilateral low back pain without sciatica,Diabetic gastroparesis ([facility] V24, [facility] V28),Other diabetic neurological complication associated with type 2 diabetes mellitus ([facility] V24, [facility] V28),Dysautonomia orthostatic hypotension syndrome,Open-angle glaucoma of both eyes, unspecified glaucoma stage, unspecified open-angle glaucoma type,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,Behavioral variant frontotemporal dementia ([facility] V24, [facility] V28),Spinal stenosis, lumbar region with neurogenic claudication,Diabetic peripheral neuropathy associated with type 2 diabetes mellitus ([facility] V24, [facility] V28),Pain in right hip,Seizure disorder ([facility] V24[facility] V28),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 ([facility] V24, [facility] V28),Primary open angle glaucoma of both eyes, moderate stage,Chronic obstructive pulmonary disease, unspecified COPD type ([facility] V24, [facility] V28),Sleep apnea, unspecified type,Bilateral carotid artery stenosis,Coronary artery disease involving quechan heart, unspecified vessel or lesion type, unspecified whether angina present,Cardiac pacemaker in situ,Primary hypertension,Raynaud's disease without gangrene,Venous insufficiency,Permanen t atrial fibrillation ([facility] V24, [facility] V28),Nutcracker esophagus,Deficiency of vitamin B12,Vitamin D deficiency,Gastroesoph ageal reflux disease with esophagitis without hemorrhage,Type 2 diabetes mellitus with chronic kidney disease, without long-term current use of insulin, unspecified CKD stage ([facility] V24, [facility] V28),Diabetic nephropathy associated with type 2 diabetes mellitus ([facility] V24, [facility] V28),Benign prostatic hyperplasia with urinary retention,Overactive bladder,Renal cyst, left,Other specified disorders of bone density and structure, multiple sites,Hammer toe of right foot,Right above-knee amputee ([facility] V24, [facility] V28),Chronic gout involving toe without tophus, unspecified cause, unspecified laterality,Mixed hyperlipidemia,Hyperpa rathyroidism, secondary renal ([facility] V24),Nocturia,Recurren t major depression in remission ([facility] V24),Failed back syndrome of lumbar spine,Umbilical hernia without obstruction and without gangrene Inject 1 mL (60 mg total) under the skin every 6 (six) months. 1 mL 025 Active lidocaine (LIDODERM) 5 % patchIndications:Vitam in B12 deficiency,Vitamin B12 deficiency anemia due to selective vitamin B12 malabsorption with proteinuria,Chronic combined systolic and diastolic congestive heart failure ([facility] V24, [facility] V28),Retention of urine,Chronic bilateral low back pain without sciatica,Diabetic gastroparesis ([facility] V24, 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 V24, [facility] V28),Spinal stenosis, lumbar region with neurogenic claudication,Diabetic peripheral neuropathy associated with type 2 diabetes mellitus ([facility] V24, [facility] V28),Pain in right hip,Seizure disorder ([facility] V24, 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 V24, [facility] V28),Primary open angle glaucoma of both eyes, moderate stage,Chronic obstructive pulmonary disease, unspecified COPD type ([facility] V24, [facility] V28),Sleep apnea, unspecified type,Bilateral carotid artery stenosis,Coronary artery disease involving quechan heart, unspecified vessel or lesion type, unspecified whether angina present,Cardiac pacemaker in situ,Primary hypertension,Raynaud's disease without gangrene,Venous insufficiency,Permanen t atrial fibrillation ([facility] V24, [facility] V28),Nutcracker esophagus,Deficiency of vitamin B12,Vitamin D deficiency,Gastroesoph ageal reflux disease with esophagitis without hemorrhage,Type 2 diabetes mellitus with chronic kidney disease, without long-term current use of insulin, unspecified CKD stage ([facility] V24, [facility] V28),Diabetic nephropathy associated with type 2 diabetes mellitus ([facility] V24, [facility] V28),Benign prostatic hyperplasia with urinary retention,Overactive bladder,Renal cyst, left,Other specified disorders of bone density and structure, multiple sites,Hammer toe of right foot,Right above-knee amputee ([facility] V24, [facility] V28),Chronic gout involving toe without tophus, unspecified cause, unspecified laterality,Mixed hyperlipidemia,Hyperpa rathyroidism, secondary renal ([facility] V24),Nocturia,Recurren t major depression in remission (CMS/HCC V24),Failed back syndrome of lumbar spine,Umbilical hernia without obstruction and without gangrene Apply 1 patch topically 1 (one) time each day. Apply to painful area 12 hours per day, remove for 12 hours. 120 each 3 025 2025 Active cholecalciferol (VITAMIN D-3) 125 mcg (5,000 unit) capsuleIndications:Vit meier D deficiency Take 1 capsule (5,000 Units total) by mouth 1 (one) time each day. 30 each 025 2025 Active magnesium 250 mg tabletIndications:Syst olic and diastolic CHF, chronic (CMS/HCC V24, CMS/HCC V28),Type 2 diabetes mellitus with stage 1 chronic kidney disease, with long-term current use of insulin (CMS/HCC V24, CMS/HCC V28) Take 1 tablet by mouth 1 (one) time each day. 28 tablet 025 2025 Active phosphorus (Phosphorous) tabletIndications:Syst olic and diastolic CHF, chronic (CMS/HCC V24, CMS/HCC V28),Type 2 diabetes mellitus with stage 1 chronic kidney disease, with long-term current use of insulin (CMS/HCC V24, CMS/HCC V28) Take 1 tablet by mouth 1 (one) time each day. 30 tablet 2025 Active syringe with needle (Tuberculin Syringe) 1 mL 25 gauge x 1 syringeIndications:Sys tolic and diastolic CHF, chronic (CMS/HCC V24, CMS/HCC V28),Type 2 diabetes mellitus with stage 1 chronic kidney disease, with long-term current use of insulin (CMS/HCC V24, CMS/HCC V28) 1 each every 30 (thirty) days. 12 each 025 2025 Active potassium chloride (KLOR-CON M20) 20 mEq CR tabletIndications:Syst olic and diastolic CHF, chronic (CMS/HCC V24, CMS/HCC V28),Type 2 diabetes mellitus with stage 1 chronic kidney disease, with long-term current use of insulin (CMS/HCC V24, CMS/HCC V28) Take 1 tablet (20 mEq total) by mouth 1 (one) time each day. 30 each 025 2025 Active cloNIDine (CATAPRES) 0.1 mg tabletIndications:Resi stant hypertension Take 1 tablet (0.1 mg total) by mouth 2 (two) times a day for 2 days. 4 each Active cloNIDine (CATAPRES) 0.1 mg tabletIndications:Resi stant hypertension Take 1 tablet (0.1 mg total) by mouth 2 (two) times a day. 60 each 025 2025 Active ferrous gluconate (FERGON) 324 mg (38 mg iron) tabletIndications:Iron deficiency anemia, unspecified iron deficiency anemia type,Indigestion Take 1 tablet (324 mg total) by mouth every other day. 15 each 025 2025 Active tamsulosin (FLOMAX) 0.4 mg 24 hr capsuleIndications:Jaime ign prostatic hyperplasia with urinary hesitancy Take 1 capsule (0.4 mg total) by mouth 1 (one) time each day. Capsules should be taken 30 minutes following the same meal each day. 30 each 025 2025 Active sacubitriL-valsartan (Entresto) 49-51 mg per tabletIndications:Hype rtensive heart and renal disease with congestive heart failure (CMS/HCC V24, CMS/HCC V28),HFrEF (heart failure with reduced ejection fraction) (CMS/HCC V24, CMS/HCC V28) Take 1 tablet by mouth 2 (two) times a day. 60 each 025 2025 Active oxyCODONE (OXY-IR) 5 mg immediate release capsuleIndications:Chr onic bilateral low back pain without sciatica Take 1 capsule (5 mg total) by mouth every 6 (six) hours if needed for severe pain for up to 14 days. Max Daily Amount: 20 mg 56 capsule 025 2024 Active mirabegron (MYRBETRIQ) 25 mg 24 hr tabletIndications:Tran min B12 deficiency,Vitamin B12 deficiency anemia due to selective vitamin B12 malabsorption with proteinuria,Chronic combined systolic and diastolic congestive heart failure (CMS/HCC V24, CMS/HCC V28),Retention of urine,Chronic bilateral low back pain without sciatica,Diabetic gastroparesis ([facility] V24, [facility] V28),Other diabetic neurological complication associated with type 2 diabetes mellitus (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 V24, [facility] V28),Spinal stenosis, lumbar region with neurogenic claudication,Diabetic peripheral neuropathy associated with type 2 diabetes mellitus ([facility] V24, [facility] V28),Pain in right hip,Seizure disorder ([facility] V24, 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 V24, [facility] V28),Primary open angle glaucoma of both eyes, moderate stage,Chronic obstructive pulmonary disease, unspecified COPD type ([facility] V24, [facility] V28),Sleep apnea, unspecified type,Bilateral carotid artery stenosis,Coronary artery disease involving quechan heart, unspecified vessel or lesion type, unspecified whether angina present,Cardiac pacemaker in situ,Primary hypertension,Raynaud's disease without gangrene,Venous insufficiency,Permanen t atrial fibrillation ([facility] V24, [facility] V28),Nutcracker esophagus,Deficiency of vitamin B12,Vitamin D deficiency,Gastroesoph ageal reflux disease with esophagitis without hemorrhage,Type 2 diabetes mellitus with chronic kidney disease, without long-term current use of insulin, unspecified CKD stage ([facility] V24, [facility] V28),Diabetic nephropathy associated with type 2 diabetes mellitus ([facility] V24, [facility] V28),Benign prostatic hyperplasia with urinary retention,Overactive bladder,Renal cyst, left,Other specified disorders of bone density and structure, multiple sites,Hammer toe of right foot,Right above-knee amputee ([facility] V24, [facility] V28),Chronic gout involving toe without tophus, unspecified cause, unspecified laterality,Mixed hyperlipidemia,Hyperpa rathyroidism, secondary renal ([facility] V24),Nocturia,Recurren t major depression in remission ([facility] V24),Failed back syndrome of lumbar spine,Umbilical hernia without obstruction and without gangrene Take 1 tablet (25 mg total) by mouth 1 (one) time each day. 30 each 11 025 2024 Disconti nued(The rapy complete d) oxyCODONE (ROXICODONE) 10 mg immediate release tablet Take 1 tablet (10 mg total) by mouth every 6 (six) hours if needed for severe pain. 2024 Disconti nued(The rapy complete d) sacubitriL-valsartan (Entresto) 24-26 mg per tabletIndications:HFrE F (heart failure with reduced ejection fraction) ([facility] V24, [facility] V28) Take 1 tablet by mouth 2 (two) times a day. 60 each 5 025 2024 Disconti nued(Dos e adjustme nt) metoclopramide (REGLAN) 10 mg tabletIndications:Dysp epsia Take 1 tablet (10 mg total) by mouth every 6 (six) hours for 7 days. 28 each 025 2024 metoclopramide (REGLAN) 10 mg tabletIndications:Iron deficiency anemia, unspecified iron deficiency anemia type,Indigestion Take 1 tablet (10 mg total) by mouth 4 (four) times a day if needed (nausea) for up to 8 days. 32 tablet 025 2024 furosemide (LASIX) 10 mg/mL solutionIndications:[place] chronic combined systolic and diastolic CHF (congestive heart failure) ([facility] V24, [facility] V28) Take 4 mL (40 mg total) by mouth See administration instructions. 80 mg furosemide IV X 1 administered in clinic. 8 mL 025 2024 Disconti nued(The rapy complete d) cefpodoxime (VANTIN) 100 mg tabletIndications:Acut e cystitis without hematuria Take 1 tablet (100 mg total) by mouth 2 (two) times a day for 7 days. 14 tablet 025 2024 Hospital, Clinic, or Other Facility Administered Medication Ordered Dose Route Frequency Start Date End Date Status flash glucose sensor kit 1 EAIndications:Type 2 diabetes mellitus with chronic kidney disease, without long-term current use of insulin, unspecified CKD stage ([facility] V24, [facility] V28) 1 EA misc Every 14 days 04/18/2025 Active Active Problems Problem Noted Date Diagnosed Date Acute cystitis without hematuria 08/31/2025 Assessment & Plan (08/31/2025 11:21 AM EDT): Urine culture & sensitivity on 08/31/2025: Klebsiella Pneumoniae: Contacted Amaury by phone and reviewed results today. Jose agreed to start treatment: Cefpodoxime 100 mg PO BID X 7 days, sent to his local pharmacy and his will pick it up, will CTM. Ischemic cardiomyopathy 08/24/2025 Assessment & Plan (08/29/2025 4:36 PM EDT): Chronic, stable condition, Cardiology f/u on 09/19/2025, will continue current medications and continue to monitor. Assessment & Plan (08/24/2025 4:21 PM EDT): Images from the original note were not included. Cardiac catheterization on 08/23/2025: Pressures during procedure: LV 153/8, 19 AO 161/77 LV 170/15, 32 Conclusion: Cardiology f/u on 09/19/2025, will continue current medications and continue to monitor. Other constipation 08/24/2025 Assessment & Plan (08/29/2025 3:39 PM EDT): Jose denies constipation, last BM yesterday. Assessment & Plan (08/24/2025 4:35 PM EDT): Jose endorses periodic episodes of straining to move his bowels. He stated his last BM was this am and he had to strain. He states he is taking his colace. Plan: Added one week trial of Dulcolux suppositories PRN from clinic stock, will see him back in clinic next week to reassess.. Right above-knee amputee ([facility] V24, [facility] V 28) 02/03/2025 Assessment & Plan (08/29/2025 3:46 PM EDT): Wound healed, stable. No complaints. Assessment & Plan (05/30/2025 4:43 PM EDT): Surgical wound was left to close by secondary intention. On exam this encounter the wound appears to be closed. Discussed with Par the importance of realizing that although the wound is closed it is still healing under the surface and not to stress the area too much. Par stated understanding and agreed with the plan. Assessment & Plan (05/30/2025 4:41 PM EDT): >>ASSESSMENT AND PLAN FOR UNILATERAL AKA, RIGHT ([facility] V24, [facility] V28) WRITTEN ON 05/02/2025 3:30 PM BY JOHANN KING NP AKA stump left to close by secondary intension. Wound VAC assisted for first several weeks, now has been off of wound VAC therapy for 4 weeks approximately. Wound continues to be closing and w/o evidence of infection. Plan: Continue current orthopedic/PCP - wound care plan. Assessment & Plan (05/30/2025 4:41 PM EDT): >>ASSESSMENT AND PLAN FOR UNILATERAL AKA, RIGHT (CMS/HCC V24, CMS/[facility] V28) WRITTEN ON 05/18/2025 8:02 AM BY JOHANN KING NP Par went to surgical corsetier for assessment of right AKA in preparation for stump rn cardiac rehab on 05/17/2025. ML therapy present for appt: Par seen surgical corsetier at [facility] [facility] for R AKA rn cardiac rehab assessment. Discussion of par's medical history, prior vs current level of function, types of rn cardiac rehab. Primer Inserting Machine Operator recommending rn cardiac rehab w/ waist belt and compressor hand twister due to concerns about suture line healing. Measurements taken by the surgical corsetier. Par received two rn cardiac rehab. Primer Inserting Machine Operator educated to wear consistently, as much as possible, being aware of bunching of rn cardiac rehab material on residual limb, and how to launder, par reports understanding. Par requires redirection and re-education multiple times during session regarding the process/timeline for obtaining prosthesis. Par educated that documentation from the surgeon, wound clinic, and PCP would be needed before casting of prosthesis could start. Plan: Continue to monitor progress with stump rn cardiac rehab, orthopedic and wound care f/u before progressing to prosthetic application. Assessment & Plan (04/25/2025 2:46 PM EDT): AKA stump left to close by secondary intension. Wound VAC assisted for first several weeks, now has been off of wound VAC therapy for 2 weeks or so. Wound continues to be closing and w/o evidence of infection. Discussed with Amaury the fact that a closed wound is not synonymous with a healed wound. His wound will continue to heal for a few months after the skin edges are approximated and closed. Par stated understanding and ML nursing continue with wound DSG change. Assessment & Plan (04/09/2025 12:36 PM EDT): Right AKA stump wound bed is moist, beefy red with mild slough. Wound VAC has been discontinued by orthopedic surgery; f/u with them tomorrow, wound care clinic in two days. Plan: continue current management and be alert for changes; currently stable. Assessment & Plan (04/04/2025 1:07 PM EDT): Wound right AKA stump continues to improve. It has shrunk significantly and no tunneling to speak of. Wound VAC on hold per orthopedic surgery. Wound Care tomorrow will make the final determination for the need to continue wound vac therapy or not. Assessment & Plan (03/28/2025 2:41 PM EDT): Right AKA stump with 7 CM X 5 CM WITH 1 CM OF TUNNELING IN THE POSTERIOR ASPECT, improvement from previous assessment two weeks ago. Plan continue wound vac therapy and f/u with [facility] for closure. Assessment & Plan (03/14/2025 3:22 PM EDT): Right AKA with postoperative bleeding/hematoma, multiple subsequent I&Ds in the operating room. Par has open wound defect of his stump: 9 cm X 4cm with tunneling in the posterior aspect of the wound that measures 4.5 cm. He has a f/u with [facility] wound care clinic, [facility] Orthopedic clinic appointments: 03/20/25 and every week after that until 04/30/2025. Current wound care is wound vac with DSG changes 3 X week. Abdominal wall hernia 01/02/2025 Overview (06/07/2025): Successful: OPEN REPAIR RECURRENT INCISIONAL HERNIA OPERATIVE NOTE Date: 06/07/2025 Location: [facility] OR Name: Amaury Sosa, : 1955, Diagnosis Pre-Op Diagnosis Codes: * Abdominal wall hernia [K43.9] Post-op Diagnosis * Abdominal wall hernia [K43.9] Procedures OPEN REPAIR RECURRENT INCISIONAL HERNIA 12659 - IA REPR ANT ABD HERNIA(S) ANY APPR RECUR INCL IMPL < 3 CM REDUCIBLE Assessment & Plan (08/29/2025 3:50 PM EDT): Repaired. Other specified disorders of bone density and structure, multiple sites 12/26/2024 Overview (03/28/2025): DEXA: Z13.820, M85.89 >>OVERVIEW FOR OSTEOPENIA WRITTEN ON 12/26/2024 8:39 AM BY NBA QUINTANILLA Osteopenia, Right Calf, Right Ankle & Right Rudi Assessment & Plan (08/29/2025 3:45 PM EDT): DEXA: Z13.820, M85.89 >>OVERVIEW FOR OSTEOPENIA WRITTEN ON 12/26/2024 8:39 AM BY NBA QUINTANILLA Osteopenia, Right Calf, Right Ankle & Right He Continue vit d Assessment & Plan (03/28/2025 2:36 PM EDT): Par is on Prolia injections every 6 months and calcitriol; stable. 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 Answering questions appropriately. Assessment & Plan (03/28/2025 12:32 PM EDT): Par alert and oriented X 4 in clinic for this encounter, answering questions appropriately. Remembering dates for future appointments with accuracy. Behavioral variant frontotem poral dementia ([facility] V24, [facility] V28) 12/26/2024 Overview (12/26/2024): Behavioral Variant Frontotemporal degeneration FTD (BvFTD) Assessment & Plan (08/29/2025 2:57 PM EDT): Par symptomatic at time of visit, will continue to monitor. Assessment & Plan (03/28/2025 12:32 PM EDT): Chronic condition, stable, asymptomatic. Benign prostatic hyperplasia with lower urinary tract symptoms 12/26/2024 Assessment & Plan (08/29/2025 3:43 PM EDT): Jose had nelson cath removed on Wednesday in urology office due to pain and discomfort, par reports drinking 2 bottles of power aid, two 12 oz bottles of water, and 2 cups of coffee since 0700, reports he has only been able to void in dribbles he also reports he woke up q 1 hr last night with urgency and was only able to produce drops . Bladder scan showed less than 15ml in bladder, RN educated jose on how to do straight cath from home, walked par through procedure and par demonstrated teach back on himself, c + s sent to lab, par has urology follow up on 09/24/25. Called Urologist office for most recent notes. Assessment & Plan (03/28/2025 2:35 PM EDT): Post void residual 325 ml in clinic this encounter, will order urology f/u. Anuria 12/26/2024 Assessment & Plan (08/29/2025 3:43 PM EDT): Jose had nelson cath removed on Wednesday in urology office due to pain and discomfort, par reports drinking 2 bottles of power aid, two 12 oz bottles of water, and 2 cups of coffee since 0700, reports he has only been able to void in dribbles he also reports he woke up q 1 hr last night with urgency and was only able to produce drops . Bladder scan showed less than 15ml in bladder, RN educated jose on how to do straight cath from home, walked jose through procedure and par demonstrated teach back on himself, c + s sent to lab, jose has urology follow up on 09/24/25. Called Urologist office for most recent notes. Assessment & Plan (08/24/2025 4:02 PM EDT): Nelson catheter change d/t discomfort. D/C'd Nelson, 16 Greek standard silicone catheter, with 200 ml of dark crystal urine in Urimeter. Inserted 20 Greek coude' tip catheter w/o obstruction or difficulty, urine flow appreciated prior to inflating 10 cc of NACL into balloon. New catheter secure place on left leg. Additional catheter secures provided to participant for after bathing. Jose tolerated procedure well, no trauma or bleeding appreciated, will CTM, urology f/u on Wednesday08/27/2025. Assessment & Plan (08/15/2025 8:41 AM EDT): Amaury stated when he goes to the BR to urinate he has a strong urge and sometimes nothing comes out or a small amount. He states his recent ED visit on 08/11/2025 he had a bladder scan for > 200 ml. During this encounter Jose was diuresed with IV furosemide for 3100 ml. Jose agreed to take all of his medications as prescribed. He will return to clinic next week for f/u. Plan: Starting Tamsulosin 0.4 mg PO QD. Order for urology referral for urodynamic testing to r/o neurogenic bladder vs bladder outlet obstruction ordered. Overactive bladder 12/26/2024 Assessment & Plan (08/29/2025 3:43 PM EDT): Jose had nelson cath removed on Wednesday in urology office due to pain and discomfort, par reports drinking 2 bottles of power aid, two 12 oz bottles of water, and 2 cups of coffee since 0700, reports he has only been able to void in dribbles he also reports he woke up q 1 hr last night with urgency and was only able to produce drops . Bladder scan showed less than 15ml in bladder, RN educated jose on how to do straight cath from home, walked jose through procedure and par demonstrated teach back on himself, c + s sent to lab, jose has urology follow up on 09/24/25. Called Urologist office for most recent notes. Assessment & Plan (03/28/2025 2:35 PM EDT): Controlled with medications Systolic and diastolic CHF, chronic (CMS/[facility] V24, CMS/HCC V28) 12/26/2024 Overview (08/10/2025): - mildly reduced EF 45-50% - Does not tolerate reduced diuretic dose despite episodes of syncope/presyncope Assessment & Plan (08/29/2025 3:32 PM EDT): Jose is euvolemic at time of visit, denies SOB, no evidence of LLE, condition stable, will continue to monitor. Assessment & Plan (08/24/2025 4:38 PM EDT): Images from the original note were not included. Last week Amaury's labs revealed a very high BNP Repeated labs this encounter. No evidence of fluid volume overload on exam, will continue current medications and CTM, see him back in clinic next week. Assessment & Plan (08/14/2025 3:42 PM EDT): Acute on chronic combined systolic/diastolic heart failure. Initial BP 180/110 mmhg. Par agreed to IV start for the administration of IV Furosemide as well, placement of urinary catheter for the duration of diuresis then to discontinue. # 20 PIV started in left AC. 80 mg Furosemide IV administered 1 mg per minute at 12:15. Total urine output 3100 ml at 15:30, BP down to 142/88 mmhg. Discussed with Jose to continue home medications as prescribed, subscribe to a low sodium diet. Jose states that the only thing he can drink that has flavor since his gastrectomy is Power Aid. I explained that Power Aid has a lot of sodium and will end up getting you in trouble. Jose tolerated IVP lasix, good result of an estimated 6.6 lb off with 3 liters of urine out. Jose will return to clinic in 9 days and agreed to call in his daily weight to clinic, will repeat labs next week. Interventional Cardiology referral order for cardiac catheterization per Jose's primary collections attorney recommendation, schedule date is pending. Assessment & Plan (08/13/2025 10:26 AM EDT): Evidence of hypervolemia during ED visit over the weekend. Par endorsed new 3 pillow orthopnea. Message to Jose's Primary General Internist And Physician Leader, Dr. Stevenson regarding question of direction of care for diuresis, she recommended brining him into ML clinic for IV diuresis fist. Imaging shows dilated IVC, hepatic veins, LFTs are WNL. Discussed with Amaury the importance of taking all of his medications as prescribed and that he had told me previously that he was not taking his bumetanide regularly. He states that in the ED this weekend they scanned his bladder for > 200 PVR. Jose is scheduled to ML clinic tomorrow at 10:30. Plan is to assess him, he has agreed to IV start for IV demonstration for furosemide. Will bladder scan him and place urinary catheter prior to starting diuresis and discontinue it when done, will repeat labs, CTM. Assessment & Plan (08/10/2025 5:28 PM EDT): The patient appears euvolemic on his current regimen. He has mildly reduced LVEF in the 45-50% range. He has been started on Entresto by his PCP both for his myopathy as well as his blood pressure. He is on diltiazem, and this is reasonable given his mildly impaired LVEF and concurrent indication of nutcracker esophagus. Evaluate for ischemia as above. He takes high-dose diuretic, typically to mitigate urinary retention, but he has not passed out of late. Continue current treatment plan as the diuretic is likely helping his blood pressure as well Renal cyst, left 12/26/2024 Assessment & Plan (08/29/2025 3:44 PM EDT): Asymptomatic at encounter, stable. Assessment & Plan (03/28/2025 2:36 PM EDT): Chronic, stable, asymptomatic. Deficiency of vitamin B12 12/26/2024 Assessment & Plan (08/29/2025 3:37 PM EDT): Component Ref Range & Units (hover) 5 mo ago (03/28/25) 6 mo ago (02/15/25) 6 mo ago (02/08/25) 6 mo ago (02/08/25) Vitamin B-12 [phone] Folate 15.7 6.8 Resulting Agency SP [facility] Labs pending from todays visit Assessment & Plan (03/28/2025 2:31 PM EDT): Labs pending from this encounter. Vitamin D deficiency 12/26/2024 Assessment & Plan (08/29/2025 3:38 PM EDT): Component Ref Range & Units (hover) 5 mo ago Vit D, 25-Hydroxy 29.2 Low Continue vit d supplement, vitamin d level drawn at todays visit. Assessment & Plan (03/28/2025 2:32 PM EDT): Last VIT D was low, increased frequency of replacement to EOD. Recurrent major depression in remission (CMS/[facility] V24) 12/26/2024 Overview (12/26/2024): Depression Major, Recurrent, Mild, in remission Assessment & Plan (08/29/2025 3:49 PM EDT): Controlled, reports he has too much to live for, denies SI/HI Assessment & Plan (03/28/2025 2:46 PM EDT): Stable, in remission. Failed back syndrome of lumbar spine 12/26/2024 Assessment & Plan (08/29/2025 4:49 PM EDT): Referral to [facility] for assessment and management of spinal cord stimulator, see if therapy can be restarted, will continue to monitor. Assessment & Plan (03/28/2025 2:47 PM EDT): Chronic intermittent symptoms, currently stable, no complaints Spinal stenosis, lumbar region with neurogenic c laudication 12/26/2024 Overview (03/28/2025): >>OVERVIEW FOR OTHER SPONDYLOSIS WITH RADICULOPATHY, LUMBAR REGION WRITTEN ON 12/26/2024 8:30 AM BY NBA QUINTANILLA Spondylosis, Lumbar with Radiculopathy Assessment & Plan (08/29/2025 4:25 PM EDT): Referral to [facility] for evaluation to restart spinal cord stimulator therapy ordered this encounter, Par is in agreement, will order refill for short course therapy of oxycodone 5 mg IR and CTM. Assessment & Plan (03/28/2025 12:32 PM EDT): Chronic condition, stable, asymptomatic. Bilateral cervical radiculopathy 12/26/2024 Assessment & Plan (08/29/2025 4:26 PM EDT): Chronic intermittent condition, stable, asymptomatic, will continue current medications and CTM. Assessment & Plan (03/28/2025 12:33 PM EDT): Chronic, intermittent condition, currently asymptomatic. GERD with esophagitis 12/26/2024 Assessment & Plan (08/29/2025 4:40 PM EDT): Asymptomatic at time of encounter, will continue current medications and monitor. Assessment & Plan (03/28/2025 2:32 PM EDT): Chronic, stable, asymptomatic. Hyperparathyroidism, secondary renal ([facility] V2 4) 12/26/2024 Assessment & Plan (08/29/2025 4:45 PM EDT): Images from the original note were not included. Last GFR on 08/24/25: Stable, continue to monitor. Assessment & Plan (03/28/2025 2:43 PM EDT): CKD is resolved, last eGFR is 92 ml/min, labs performed in clinic this encounter, hyperparathyroidism is asymptomatic and stable. 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 CMP drawn and pending, par having decreased urine output s/p removal of nelson cath in urology on Wednesday, will follow up with results and continue to monitor. Assessment & Plan (08/06/2025 1:44 PM EDT): Very high blood pressure on exam this encounter, bilaterally. Jose has reportedly not been taking his midodrine and has changed how he takes his Bumex. Bumex 1mg tab, 3 tabs by mouth TID is the normal dosing. He states he has changed the dose and frequency depending on how well he is urinating. Plan: Administered Clonidine 0.1 mg tab, 2 tabs by mouth X 1 at 11:00. At 12:00 his blood pressure had not come down. Recommended Par go to the ED for evaluation and management of hypertensive emergency; par agreed. van transportation. [facility] ED called, report given, added Entresto 24-26 mg PO BID to be sent to tomorrow, will CTM, Cardiology f/u in 2 days. Assessment & Plan (07/19/2025 4:25 PM EDT): Jsoe is on Midodrine for PMHx of hypotension, syncope: Midodrine 5 mg PO TID. Instructed Par to decrease his Midodrine to 2.5 mg PO TID, provided him with a pill cutter. Will order Cardiology f/u ANGELA to reassess if Midodrine therapy is still needed. Clonidine 0.1 mg PO X 1 given at the time of the encounter: 11:45. Hold Midodrine if systolic blood pressure is over 100 mmgh. Par stated understanding and agreed with plan. Diabetic peripheral neuropat hy associated with type 2 diabetes mellitus ([facility] V24, [facility] V28) 12/26/2024 Overview (12/26/2024): Neuropathy, Peripheral due to DM2 Assessment & Plan (08/29/2025 4:26 PM EDT): Chronic condition, stable, asymptomatic, will continue current medications and CTM. Assessment & Plan (03/28/2025 12:34 PM EDT): Last A1C 14 days ago = 6.8% WNL, Neuropathy is asymptomatic and stable. Pain in right hip 12/26/2024 Assessment & Plan (08/29/2025 4:26 PM EDT): Chronic intermittent condition, better since right AKA, asymptomatic, will continue current medications and CTM. Assessment & Plan (03/28/2025 12:35 PM EDT): Chronic intermittent condition, stable, asymptomatic. Diabetes mellitus type 2 wit h peripheral artery disease ([facility] V24, 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 Assessment & Plan (03/28/2025 2:38 PM EDT): 2-5 right foot, stable, will continue with [facility] podiatry f/u. Seizure disorder ([facility] V24, [facility] V28) 11/30 Assessment & Plan (08/29/2025 4:27 PM EDT): Last seizure approximately 12 years ago, stable, will CTM. Assessment & Plan (03/28/2025 12:40 PM EDT): Chronic intermittent condition, stable, asymptomatic. No record of active seizure disorder found on chart review. This provider will look further before resolving diagnosis. 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 Assessment & Plan (03/28/2025 12:41 PM EDT): Chronic condition, asymptomatic and stable, will continue with periodic ophthalmology and optometry visits and monitor. Primary open angle glaucoma of both eyes, modera te stage 12/26/2024 Assessment & Plan (08/29/2025 4:28 PM EDT): Chronic condition, asymptomatic and stable, will continue with periodic ophthalmology and optometry visits and monitor. Assessment & Plan (03/28/2025 12:41 PM EDT): Chronic condition, asymptomatic and stable, will continue with periodic ophthalmology and optometry visits and monitor. Permanent atrial fibrillation ([facility] V24, [facility]/ [facility] V28) 10/06/2024 Overview (10/06/2024): -Status post AV node ablation with dual-chamber pacemaker placement Medtr[employer] [place] [address] Ulloa for A. fib that was difficult to rate control with syncopal episodes at the time -On Eliquis for CVA prophylaxis Assessment & Plan (08/29/2025 3:23 PM EDT): Par has pacemaker present, he is anticoagulated on eliquis, will continue to monitor. Assessment & Plan (08/10/2025 5:26 PM EDT): Patient's heart rate is supported by his pacemaker. He remains anticoagulated with apixaban. He does not require dose adjustment given his age. He has not had any bleeding issues Assessment & Plan (04/03/2025 10:10 AM EDT): Post AV nikki ablation. Patient is on Eliquis for CVA prophylaxis. Has device. Denies any abnormal bleeding. Rate controlled with metoprolol. Should remain anticoagulated due to an elevated [id number] score. Orders: metoprolol succinate (TOPROL-XL) 25 mg 24 hr tablet; Take 2 tablets (50 mg total) by mouth 1 (one) time each day. Assessment & Plan (03/28/2025 12:49 PM EDT): Chronic condition on CCB for rate control and apixaban for anticoagulation, no issues with bleeding; stable. Assessment & Plan (11/30/2024 12:47 PM EST): The patient's heart rate is supported status post AV nikki ablation with his pacemaker. Continue anticoagulation with apixaban. He has not had any bleeding issues. Assessment & Plan (10/06/2024 12:14 PM EST): Continue Eliquis for CVA prophylaxis, status post AV node ablation, patient is chronically V paced Ventricular tachycardia (CMS/HCC V24, CMS/HCC V2 8) 10/06/2024 Overview (08/10/2025): - Detected on pacemaker interrogation in November 2017 - This prompted lab work indicating persistent hypokalemia Assessment & Plan (08/29/2025 3:25 PM EDT): Par on spironolactone, potassium supplement, potassium 3.8 on 08/24/25, denies palpitations, will CTM. Pacemaker present. Assessment & Plan (08/10/2025 5:31 PM EDT): Typically, the patient's VT, is as a result of hypokalemia, driven in part by his high dose diuretic. More recently though, his potassium has been within the normal range, offset at least in part by his oral potassium supplementation as well as his spironolactone. Cardiac catheterization as above to see if this is ischemic driven despite recent stress test without ischemia. Assessment & Plan (11/30/2024 12:47 PM EST): Gilson to be related to electrolyte abnormalities. He has not had any recent VT noted in the last month or so. Continue to maintain potassium > 4 and magnesium >2 Assessment & Plan (10/06/2024 12:32 PM EST): Most recent potassium is on half dose spironolactone are improved but given that I am increasing Bumex at the request of the patient, I am increasing spironolactone as well to hopefully offset further hypokalemia. Dysautonomia orthostatic hypotension syndrome Overview (10/06/2024): - Numerous episodes of syncope and presyncope over the years - Is on low-dose midodrine - Dr Stevenson ended up seeing him in consultation again in the hospital after his prostate surgery in July 2022 at [facility]-postoperatively, he was ambulating to the bathroom and passed out-she continued to have episodes of passing out-interestingly while there, I realized that he had been taking 180 mg of Imdur in addition to other antihypertensives which I am inclined to believe is a major cause of passing out and probably the reason trials of midodrine in the past did not work-he tells me he has been on this dose for years -In the hospital, he was effectively off of all of his antihypertensive medications including Bumex with the exception of a low-dose of metoprolol for anginal purposes and given IV fluid boluses and did quite well - Unfortunately, it is very difficult to treat this because Dr Stevenson has been unable to make the medication changes that I feel are necessary including discontinuation of high doses of nitrates and Bumex-patient apparently feels as though his Bumex helps his urinary retention though this does not physiologically make sense to me but he really does not want to get off of it, furthermore I cannot seem to discontinue his high doses of Imdur which are undoubtedly not helping though on most recent visit from 10/06/2024-the high doses of Imdur seem to have fallen off of his medication list Assessment & Plan (08/29/2025 2:54 PM EDT): Denies symptoms at time of visit, blood pressure 172/87 in clinic today. Will continue to monitor. Assessment & Plan (03/28/2025 12:30 PM EDT): Chronic, intermittent condition, asymptomatic at this time; stable. Assessment & Plan (10/06/2024 12:13 PM EST): Again, the history is somewhat convoluted. Initially he told me that he has been passing out regularly. I commented that he has had the situation going on for many years now. Then he tells me that when he is on Bumex 3mg 3 times a day that these passing out episodes will improve because he does not have any urinary retention. However, in the past, he has always been on 3 mg 3 times a day and has had numerous syncopal episodes. It is theoretically possible that urinary retention would create some sort of vasovagal response causing syncope but I am not certain how increasing Bumex improves urinary retention. Through some compromise, I have agreed to 3 mg in the morning and early afternoon and 2 mg in the evening. In addition, I am increasing his spironolactone to 25 mg daily. I commented that a reduction in 1 mg of Bumex in the evening should not make that much of a difference if at all the amount of urinary retention and furthermore, Bumex is not an agent that we typically use for urinary retention. That said, we came to a compromise as above. He will let me know how things go with this regimen. We will plan to repeat a basic metabolic panel in another couple of weeks. Continue current midodrine 5 mg 3 times daily for dysautonomia. Glaucoma 08/18/2024 Assessment & Plan (08/29/2025 2:56 PM EDT): Chronic condition stable, will continue to monitor and follow up with optometry as needed. Assessment & Plan (03/28/2025 12:31 PM EDT): Chronic stable condition on latanoprost eye drops OU nightly. Hyperlipidemia 08/18/2024 Assessment & Plan (08/29/2025 3:47 PM EDT): Lipid level drawn at time of visit. Assessment & Plan (08/10/2025 5:29 PM EDT): Recently well-controlled lipid profile on current dose statin. His LDL is just about a year old at this point. Would update his cholesterol profile with his preprocedure labs. If LDL still elevated above goal of 70, there are new data suggesting driving LDL as low as 55 or lower is beneficial, can transition to rosuvastatin and consider adding Zetia and/or PCSK9 inhibitor. Assessment & Plan (04/03/2025 10:10 AM EDT): Continue on your high dose of atorvastatin. Would like to update lipid panel later this year. Would like LDL to be 70 or below. Orders: metoprolol succinate (TOPROL-XL) 25 mg 24 hr tablet; Take 2 tablets (50 mg total) by mouth 1 (one) time each day. Assessment & Plan (03/28/2025 2:42 PM EDT): Chronic condition, stable on medications. Assessment & Plan (11/30/2024 12:47 PM EST): Well-controlled lipid profile on current dose statin. Continue Sleep apnea 08/18/2024 Assessment & Plan (08/29/2025 3:00 PM EDT): Par cannot tolerate mask, stable condition, will continue to monitor. Assessment & Plan (03/28/2025 12:43 PM EDT): Chronic condition, asymptomatic and stable, Diabetic gastroparesis (CMS/HCC V24, CMS/HCC V28 ) 03/02/2024 Assessment & Plan (08/29/2025 1:41 PM EDT): Chronic condition, stable, asymptomatic, will continue current medications and CTM. Assessment & Plan (03/28/2025 12:29 PM EDT): S/p sub-total gastrectomy; asymptomatic, stable. 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 Assessment & Plan (03/28/2025 2:31 PM EDT): Chronic condition, stable. Venous insufficiency 03/02/2024 Assessment & Plan (08/29/2025 3:22 PM EDT): S/p AKA in RLE, LLE stable, no complaints. Assessment & Plan (03/28/2025 12:48 PM EDT): S/p right AKA, LLE without hemosiderin stating, stable. Coronary artery disease 11/02/2023 Overview (12/26/2024): Coronary Artery Disease (CAD) with H/O Angina -Status post CABG 2 with NARANJO to the LAD and vein graft to the first diagonal branch on 02/17/2017 -Sent him for repeat cardiac catheterization for symptoms of progressive chest pain-with some typical and some atypical features; cardiac cath on 03/02/2019 showed 80% quechan proximal LAD disease, 95% D1 disease, 70% subsequent proximal LAD disease, 40% OM1 disease, no comment on the RCA but NARANJO to the LAD is fully patent and vein graft to the diagonal is down but given that the diagonal territory was relatively small and intervening in an antegrade fashion cause a lot of complications given the extensive calcification of the LAD disease, this was managed medically -Repeat cardiac cath on 04/18/2021 showed patent NARANJO to the LAD, known occluded vein graft to the diagonal, no obstructive coronary disease greater than 50% in the quechan circumflex or RCA and therefore no intervention was performed-comparison to prior cath was fairly similar and stable - We have been escalating antianginal therapies quite a bit but are limited by coexisting dysautonomia - Echocardiogram on 04/26/2023 showed normal left ventricular cavity size and wall thickness, mild, global LV systolic dysfunction with ejection fraction estimated at 45 to 50%, paradoxic septal motion in keeping with RV pacemaker, dilated RV with normal systolic function, mild mitral regurgitation, moderate tricuspid regurgitation, mild pulmonary hypertension, pacer wire seen in the right heart - Given ongoing issues with chest pain, had a PET stress on 03/25/2023 looking for microvascular disease as well as macrovascular disease-it showed medium sized, moderately severe infarct of the mid anterior, mid anteroseptal, apical anterior, apical septal, and apical avina. Assessment & Plan (08/29/2025 4:35 PM EDT): Images from the original note were not included. Jose denies any episodes of chest pain, Recent cardiac catheterization: 08/22/25: No PCI's. PMHx: CAD, CHF, HTN, and HLD. Continue atorvastatin, metoprolol, entresto (dose recently increased to 49/51 mg PO BID this encounter), spironolactone. Par has a pacemaker in place, with frequent device checks, continue to routinely follow up with cardiology. Will continue to monitor. Assessment & Plan (08/10/2025 5:25 PM EDT): The patient continues with ongoing episodes of chest discomfort. He also has hypertension, which has not been a problem until recently. Typically, he has hypotension. He does tell me that prior to his CABG, he had very similar sensations and blood pressure abnormalities. He had a recent pharmacologic nuclear stress test without ischemia. Initially, on the day of our visit, we discussed following his blood pressure at home on the Entresto and clonidine. However, he called me the next day with ongoing symptoms of chest discomfort, dizziness, elevated blood pressure and now nausea on the new medications. I spoke directly with Dr. Stevenson, his primary collections attorney. Despite his normal nuclear stress test, he does have significant risk factors for recurrent coronary insufficiency. Therefore, we would like to proceed directly to invasive angiography to evaluate for any new ischemic lesions. He does have a known occlusion of his SVG to D1 and on last cath in 2018, his quechan D1 was not amenable to PCI due to proximal LAD disease and small vascular territory. For now, he will continue his ongoing medical therapy with beta-jared, Ranexa, Entresto, spironolactone, Imdur, diltiazem, clonidine and statin. He is not on aspirin given his Eliquis. Chest pain precautions reviewed with the patient in office and during our conversation today. He understands and will present back to the hospital for any change or progressive symptoms. Assessment & Plan (04/03/2025 10:10 AM EDT): Patient is having chest discomfort, potentially this is something that has been exacerbated by recent surgery as he reportedly had similar feelings after his TURP procedure. I am going to update a nuclear stress test. And am also going to increase his metoprolol from 25 mg to 50 mg p.o. daily. In addition he should continue on his statin, atorvastatin 80 mg p.o. daily. He reports that he had been on a baby aspirin in the past however was discontinued because he was on the Eliquis. Orders: metoprolol succinate (TOPROL-XL) 25 mg 24 hr tablet; Take 2 tablets (50 mg total) by mouth 1 (one) time each day. Assessment & Plan (03/28/2025 12:46 PM EDT): Chronic disease, stable anginal symptoms with chest pain with exertion that goes away with rest within seconds. Cardiology f/u next week 04/03/25. Assessment & Plan (11/30/2024 12:47 PM EST): The patient continues with episodes of chest discomfort. However, his long- acting nitrates have been discontinued. Interestingly as well, we expect him to be on 1000 mg of Ranexa twice daily--he is only on 500 mg twice daily. I have placed a call to his [facility] provider requesting that Imdur 30 mg daily be resumed. His dose can be escalated based on his response. It is unlikely to cause significant hypotension. This is all discussed with the patient. Continue otherwise his beta-jared, calcium channel jared and statin at current doses. He will keep us updated on his chest discomfort Continue otherwise his beta-jared, calcium channel jared, Ranexa, diuretic and MRA. Assessment & Plan (10/06/2024 12:31 PM EST): Ongoing chest pain which at this point, may not be cardiac at all. We have tried various combinations of antianginals with limited benefit. The last time we saw Michael, he was on diltiazem 30 mg 4 times daily (also for nutcracker esophagus and esophageal spasm), ranolazine 1000 twice daily, Imdur 180 mg daily along with metoprolol 25 mg daily. At some point, Imdur was switched to Isordil 40 3 times daily-a reasonable change given his orthostasis. I had actually tried to convince him to stop Imdur because of his dysautonomia but this seemed a reasonable compromise. Currently however, he is no longer on nitrates, no longer on calcium channel jared, and no longer on ranolazine. I am not sure when and how this happened and unfortunately I do not have the notes. This is also a major issue and that there is no seamless communication between all of his medical providers. I will try to get a hold of his PCP at [facility] as well as potentially the nurse practitioner that he sees [facility] to see if there is any reason why these medications were discontinued. My bias would be to at least resume ranolazine which has no hemodynamic effect. Continue high-dose atorvastatin for secondary prevention. Patient is on Eliquis and therefore no longer on baby aspirin apparently. Given coronary history however, I would favor initiation of baby aspirin. Iron deficiency anemia secon sangeeta to inadequate dietary iron intake 12/30/2022 Overview (12/26/2024): Anemia: Microcytic Hypochromic & CKD, in remission Assessment & Plan (08/31/2025 12:06 PM EDT): Amaury has a PMHx of total gastrectomy. He has been on oral iron replacement therapy that has been ineffective. Most recently his labs on 08/29/2025: show a Hgb of 11.9, MCV 74.2, MCH 22.1; Iron 9, TIBC 335, Iron SAT 6. I reached out to Amaury's paper bag maker, Dr. Ramey and asked him about IV Iron infusion therapy; he agreed. He said he will reach out to the patient. I will f/u with Amaury to inquire and CTM. Assessment & Plan (08/29/2025 4:48 PM EDT): Images from the original note were not included. 08/24/25: Repeating labs this encounter, currently on oral iron replacement EOD, will CTM. Assessment & Plan (03/28/2025 2:44 PM EDT): Mild and improving, VIT B12 level collected for labs this encounter, last Iron studies were WNL, no c/o of bleeding that is moderate to significant, oozing from wound and collection from wound vac. Carotid stenosis 01/22/2022 Overview (08/29/2025): >>OVERVIEW FOR CAROTID ARTERY CALCIFICATION WRITTEN ON 12/26/2024 8:41 AM BY NBA QUINTANILLA Calcification, Carotid Bifurcations Assessment & Plan (08/29/2025 3:03 PM EDT): 03/25/24 showed calcified plaque, lipid panel ordered, will follow up with vascular as needed. Assessment & Plan (04/03/2025 10:10 AM EDT): Chronic, asymptomatic, stable. Follow-up with vascular surgery. Orders: metoprolol succinate (TOPROL-XL) 25 mg 24 hr tablet; Take 2 tablets (50 mg total) by mouth 1 (one) time each day. Assessment & Plan (03/28/2025 12:44 PM EDT): Chronic condition, asymptomatic and stable, will continue with annual duplex US and periodic vascular surgery f/u for monitoring. Gout 05/23/2021 Assessment & Plan (08/29/2025 4:43 PM EDT): Chronically treated prophylactics w/Allopurinol, stable, will CTM. Assessment & Plan (03/28/2025 2:42 PM EDT): Chronic intermittent condition, on prophylactic therapy, stable. Raynaud's disease without gangrene 10/19/2017 Assessment & Plan (08/29/2025 3:12 PM EDT): Chronic, stable, asymptomatic Assessment & Plan (03/28/2025 12:48 PM EDT): Chronic, stable, asymptomatic disease. HTN (hypertension) 01/12/2015 Assessment & Plan (08/29/2025 3:11 PM EDT): Blood pressure is 172/87, increased entresto dose, will continue to monitor. Assessment & Plan (08/10/2025 5:25 PM EDT): Blood pressure elevated in the office despite addition of Entresto and clonidine. Will follow aortic pressures during his cardiac catheterization. For now, continue beta-jared, Entresto, spironolactone, Imdur, diltiazem, clonidine and Bumex. He typically tends towards hypotension but has not needed his midodrine in a number of months Assessment & Plan (04/03/2025 10:10 AM EDT): Slightly elevated at the appointment today. Patient reports this is similar to values he gets at home. Increasing metoprolol to 50 mg p.o. daily. Orders: metoprolol succinate (TOPROL-XL) 25 mg 24 hr tablet; Take 2 tablets (50 mg total) by mouth 1 (one) time each day. Assessment & Plan (03/28/2025 12:47 PM EDT): Normotensive on exam this encounter, will continue current medications and monitor. Assessment & Plan (11/30/2024 12:47 PM EST): Blood pressure well-controlled in office today without reported episodes of hypotension. Again, recommend reinstating his long-acting nitrates with ongoing GDMT for his CAD. Assessment & Plan (10/06/2024 12:10 PM EST): Does continue to have supine hypertension but frankly, it is mild and I do not want to worsen his orthostasis symptoms and therefore, would continue current antihypertensives including low-dose metoprolol. Chronic bilateral low back pain without sciatica 10/14/2012 Assessment & Plan (08/29/2025 1:41 PM EDT): Chronic condition, stable, symptomatic, will refer to Dr. Anne or Cesar for consult to reactivate his spinal cord stimulator, continue current medications and CTM. Assessment & Plan (03/28/2025 12:28 PM EDT): Chronic condition, stable, asymptomatic Type 2 diabetes mellitus wit h stage 1 chronic kidney disease ([facility] V24, [facility] V28) 10/14/2012 Assessment & Plan (08/29/2025 3:39 PM EDT): T2DM controlled last A1C 6.6, CMP pending. Assessment & Plan (03/28/2025 2:34 PM EDT): T2DM controlled, last A1C 12 days 6.8% and eGFR was 92 ml/min (normal) COPD (chronic obstructive pu lmonary disease) ([facility] V24, [facility] V28) 07/18/2011 Overview (08/18/2024): PFT's 2010 Assessment & Plan (08/29/2025 2:59 PM EDT): PFT ordered, will review results once completed and continue to monitor. Assessment & Plan (03/28/2025 12:42 PM EDT): Chronic condition, asymptomatic and stable, will continue with periodic pulmonology and PFTs when indicated. Cardiac pacemaker in situ 01/06/2011 Overview (10/06/2024): - Has a Medtronic dual-chamber device - Status post generator change recently on 01/07/2022 -Most recent device check in August 2024 showed normal device function, 1 more 11 beat run of nonsustained VT occurring on 08/19/2024 at 10:16 PM Assessment & Plan (08/29/2025 3:10 PM EDT): - Has a Medtronic dual-chamber device - Continue frequent device interrogations - Most recent visit today 08/29/25 showed: -IMPRESSION: Normal Remote: No Events * Normal Device Function * Alerts or events: None * Battery: OK, 8.08 yrs * Sensing, impedance and thresholds reviewed * Programmed parameters reviewed * Presenting rhythm reviewed * Heart Rate Histograms reviewed * No significant changes noted Assessment & Plan (04/03/2025 10:10 AM EDT): Continue follow-ups with our device clinic. Orders: metoprolol succinate (TOPROL-XL) 25 mg 24 hr tablet; Take 2 tablets (50 mg total) by mouth 1 (one) time each day. Assessment & Plan (03/28/2025 12:47 PM EDT): Last PPM check was yesterday. Battery life in middle of life, function is normal. Assessment & Plan (10/06/2024 12:14 PM EST): Continue device clinic follow-up. Diabetic nephropathy (CMS/HCC V24, CMS/HCC V28) 04/30/2008 Overview (08/18/2024): Follows with Dr. Yair Foster Assessment & Plan (08/29/2025 3:40 PM EDT): Chronic stable condition, will continue to monitor. Assessment & Plan (03/28/2025 2:34 PM EDT): Chronic, stable, asymptomatic. Diabetic neuropathy (CMS/HCC V24, CMS/HCC V28) 0 12/10/2007 Assessment & Plan (08/29/2025 2:53 PM EDT): S/p AKA, stable, will continue to monitor Assessment & Plan (03/28/2025 12:29 PM EDT): S/p right AKA, asymptomatic, stable. Resolved Problems Problem Noted Date Diagnosed Date Resolved Date Hypertensive emergency 08/06/202508/07 S/P hernia surgery 06/13/2025 Overview (06/13/2025): OPEN REPAIR RECURRENT INCISIONAL HERNIA Assessment & Plan (06/25/2025 10:25 AM EDT): Follow-up with General Surgery: Terrell Castillo MD 06/21/2025 1:58 PM Sign when Signing Visit Al returns for his first postop check. He really did not have much incisional discomfort, his preoperative complaints have resolved, he does notice he is belching more after eating but is not having fevers. The wound looks very good, no early recurrence, minimal residual tissue edema, no sign of infection. We will give him a note to clear him to get fitted for his first prosthesis for the right lower extremity, and he can pursue therapy as necessary. Final check with me in 4 months or so. Will order final f/u for four months and continue to monitor. S/P cataract surgery, right 06/13/2025 08/29/2025 Lower extremity edema 06/13/20252024 Non-pressure chronic ulcer o f right thigh, limited to breakdown of skin ([facility] V24, [facility] V28) 05/29/2025 08/29/2025 Skin excoriation 04/18/2025 08/29/2025 Assessment & Plan (04/18/2025 2:20 PM EDT): Right AKA stump at the anterior surface in the 12 O'clock position: Skin excoriation, or abrasion, resulting from an adhesive bandage is called Medical Adhesive- Related Skin Injury (MARSI). MARSI can manifest as redness, blistering, erosion, or even skin tears and can occur when the adhesive removes superficial layers of skin upon removal. Plan: Clean area with skin prep: apply Tegaderm over area then wound dressing over that. Change both with regular wound care dressing changes, will see Amaury back to clinic in one week. Non-healing wound of amputat ion stump ([facility] V24, [facility] V28) 04/11/2025 05/30/2025 Assessment & Plan (05/23/2025 3:28 PM EDT): AKA stump left to close by secondary intention. Wound continues to pregress to closure, decreasing in size, currently 3 cm X 0.5 cm. No evidence of infection. Plan: Continue current plan of care and CTM. Assessment & Plan (05/16/2025 2:59 PM EDT): AKA stump left to close by secondary intention. Wound is progressing to closure well, no evidence of infection. Medical Adhesive-Related Skin Injury (MARSI) is being managed with skin prep and bordered gauze over it. Stump Teletypesetter to start soon per ML therapy, will CTM. Non-pressure chronic ulcer o f right thigh with muscle involvement without evidence of necrosis ([facility] V24, [facility] V28) 04/11/202511/2024 Amputation of right lower ex tremity above knee with complication ([facility] V24, [facility] V28) 02/08/2025 03/28/2025 Above-knee amputation of rig ht lower extremity with complication, initial encounter ([facility] V24, [facility] V28) 02/08/2025 Prosthetic joint implant shonna lure, subsequent encounter 01/31/2025 03/28/2025 Prosthetic joint implant shonna lure ([facility] V24) 01/30/2025 03/28/2025 Ventral hernia without obstr uction or gangrene 01/02/2025 03/28/2025 Assessment & Plan (03/14/2025 2:38 PM EDT): CT ABD/Pelvis from May 2022 speaks of Periumbilical hernia with loop of small bowel without obstruction. On exam old well healed midline abdominal surgical scar with a gall ball size hernia defect palpated to the left of midline just above the umbilicus. Will order preoperative assessment with Dr. Jonathan MD. Urgency incontinence 12/26/2024 025 Nocturia 12/26/2024 08/29/2025 Assessment & Plan (03/28/2025 2:46 PM EDT): Endorses 2 episodes per night, reviewed sleep hygiene for food and drink before bed. Par stated understanding and agreed with plan to avoid. Urinary hesitancy 12/26/2024 03/28/2025 Bladder neck obstruction 12/26/2024 Type 2 diabetes mellitus wit h stage 2 chronic kidney disease ([facility] V24, [facility] V28) 12/26/2024 03/28/2025 Overview (12/26/2024): CKD 2 and Nephropathy due to DM2 Complex regional pain syndrome I, unspecified 12/26/19 25 03/28/2025 Overview (12/26/2024): Complex Regional Pain Syndrome Hepatosplenomegaly 12/26/2024 Overview (12/26/2024): mild Hernia, umbilical 12/26/2024 08/29/2025 Overview (12/26/2024): Small Assessment & Plan (08/29/2025 3:50 PM EDT): Repaired. Assessment & Plan (03/28/2025 2:48 PM EDT): Chronic, stable, Par states his General Surgery appointment is May 25, 2025. He denies any significant pain and states his hernia never gets stuck. Pure hypercholesterolemia 12/26/2024 Hypercoagulable state, primary ([facility] V24) 03/28/2025 Hypokalemia 12/26/2024 03/28/2025 Lymphadenopathy 12/26/2024 03/28/2025 Overview (12/26/2024): Lymphadenopathy, Mild mediastinal and right hilar, possibly reactive hyperplasia. Entrapment of ulnar nerve 12/26/2024 Obstructive sleep apnea 12/26/2024 04/3 Bursitis of left knee 12/26/20242024 Deformity, foot acquired, cavovarus, right 12/26/2024 03/28/2025 Pain in right foot 12/26/2024 Foot drop, bilateral 12/26/2024 025 Tendinitis of flexor tendon of left hand 12/26/2024 03/28/2025 Overview (12/26/2024): Tendinitis, Flexor, Left First [employer] Closed comminuted supracondy lar fracture of right femur with malunion 03/20/2024 03/28/2025 Failed total knee, right, in itial encounter ([facility] V24) 03/20/2024 03/28/2025 Pain due to total right knee replacement ([facility] V24) 11/16/2023 03/28/2025 Right foot drop 11/16/2023 03/28/2025 Demand ischemia ([facility] V24, [facility] V28) 11/15/2023 10/06/2024 Osteoarthritis 11/15/2023 03/28/2025 Overview (12/26/2024): Osteoarthritis (OA), Hands, Right Ankle, Right Foot, & Left Knee Chronic kidney disease, unspecified 11/02/2023 03/28/2025 Hiatal hernia 11/02/2023 03/28/2025 Persistent recurrent vomiting 11/02/2023 03/28/2025 Periprosthetic fracture arou nd internal prosthetic right knee joint 11/02/2023 03/28/2025 Pneumonia 11/02/2023 03/28/2025 Congestive heart failure ( S/[facility] V24, [facility] V28) 01/22/2022 10/06/2024 Acute kidney injury ([facility] V24) 05/23/2021 10/06/2024 Acute tubular necrosis ([facility] V24) 05/23/2021 10/06/2024 Abnormality of albumin 05/23/202103/28 DVT (deep venous thrombosis) ([facility] V24, [facility] V28) 10/19/2017 03/28/2025 Overview (08/18/2024): Left leg; on apixaban Chronic blood loss anemia 07/27/2017 Overview (08/18/2024): Identification 2016. Probable cause = total gastrectomy, bypass of the duodenum, and anticoagulation. Intravenous iron treatment initiated by nephrology 07/18/2017. Altered mental status 02/03/20142024 Charcot's joint of foot in t ype 2 diabetes mellitus ([facility] V24, [facility] V28) 10/28/201203/01 Coagulation disorder ([facility] V24) 09/03/2009 03/28/2025 Encounters Date Type Department Care Team Description 09/13/2025 10:[address] [facility] [address] [place] [phone] Wes Urrutia, PT 09/12/2025 1:[address] [facility] [address] [place] [phone] Wes Urrutia, PT 09/11/2025 11:[address] [facility] [address] [place] [phone] Wes Urrutia, PT 09/06/2025 10:[address] [facility] [address] [place] [phone] Wes Urrutia, PT 09/04/2025 10:[address] [facility] [address] [place] [phone] Wes Urrutia, PT 09/03/2025 10:30 AM EDT PACE External Visit [facility] [address] [place] [phone] 08/30/2025 10:[address] [facility] [address] [place] [phone] Wes Urrutia, PT 08/30/[address] [facility] [address] [place] [phone] Gabriela Olmedo RN 08/30/[address] [facility] [address] [place] [phone] Gabriela Olmedo RN 08/29/2025 12:30 PM EDT PACE Assessment [facility] [address] [phone] Velma Arango RN Adult general medical examination (Primary Dx) 08/29/2025 12:30 PM EDT PACE Assessment 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 ([facility] V24, [facility] V28); Systolic and diastolic CHF, chronic ([facility] V24, [facility] V28); Dysuria; HFrEF (heart failure with reduced ejection fraction) ([facility] V24, [facility] V28); Chronic bilateral low back pain without sciatica; Diabetic gastroparesis ([facility] V24, [facility] V28); Other diabetic neurological complication associated with type 2 diabetes mellitus ([facility] V24, [facility] V28); Dysautonomia orthostatic hypotension syndrome; Open-angle glaucoma of both eyes, unspecified glaucoma stage, unspecified open-angle glaucoma type; 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; Behavioral variant frontotemporal dementia ([facility] V24, [facility] V28); Chronic obstructive pulmonary disease, unspecified COPD type ([facility] V24, [facility] V28); Sleep apnea, unspecified type; Bilateral carotid artery stenosis; Coronary artery disease involving coronary bypass graft of quechan heart, unspecified whether angina present; Cardiac pacemaker in situ; Raynaud's disease without gangrene; Venous insufficiency; Permanent atrial fibrillation ([facility] V24, [facility] V28); Ventricular tachycardia (CMS/[facility] V24, [facility] V28); Diabetes mellitus type 2 with peripheral artery disease ([facility] V24, [facility] V28); Ischemic cardiomyopathy; Nutcracker esophagus; Deficiency of vitamin B12; Vitamin D deficiency; Gastroesophageal reflux disease with esophagitis without hemorrhage; Other constipation; Type 2 diabetes mellitus with stage 1 chronic kidney disease, without long-term current use of insulin ([facility] V24, [facility] V28); Diabetic nephropathy associated with type 2 diabetes mellitus ([facility] V24, [facility] V28); Benign prostatic hyperplasia with urinary retention; Anuria; Overactive bladder; Renal cyst, left; Other specified disorders of bone density and structure, multiple sites; Hammer toe of right foot; Right above-knee amputee ([facility] V24, [facility] V28); Non-pressure chronic ulcer of right thigh with muscle involvement without evidence of necrosis ([facility] V24, [facility] V28); Chronic gout involving toe without tophus, unspecified cause, unspecified laterality; Hyperparathyroidism, secondary renal ([facility] V24); Anemia, unspecified type; Recurrent major depression in remission ([facility] V24); Failed back syndrome of lumbar spine; Umbilical hernia without obstruction and without gangrene; Abdominal wall hernia; Spinal stenosis, lumbar region with neurogenic claudication; Bilateral cervical radiculopathy; Diabetic peripheral neuropathy associated with type 2 diabetes mellitus ([facility] V24, [facility] V28); Pain in right hip; Seizure disorder ([facility] V24, [facility] V28); 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 Physical Therapy [address] [place] [phone] Wes Urrutia PT 08/27/2025 1:15 PM EDT PACE External Visit [facility] [address] [place] [phone] 08/24/2025 2:30 PM EDT Office Visit [facility] [address] [place] [phone] Gerardo, Johann, LETTUCE CUTTER Systolic and diastolic CHF, chronic (CMS/HCC V24, CMS/HCC V28) (Primary Dx); Anuria; Ischemic cardiomyopathy; Other constipation 08/22/2025 8:30 AM EDT PACE External Visit [address] [phone] Coronary artery disease involving coronary bypass graft of quechan heart, unspecified whether angina present; Resistant hypertension; Systolic and diastolic CHF, chronic ([facility] V24, [facility] V28); Cardiac pacemaker in situ 08/21/2025 1:[address] [facility] [address] [phone] Wes Urrutia, PT 08/16/2025 10:00 AM EDT Clinical Support [address] [phone] Chelo Paris LPN 08/15/2025 1:30 PM EDT Clinical Support [address] [phone] Chelo Paris, EARL Benign prostatic hyperplasia with urinary hesitancy (Primary Dx); Oliguria 08/15/[address] [facility] [address] [phone] Wes Urrutia, PT 08/14/2025 10:15 AM EDT Office Visit [address] [phone] Johann King NP Systolic and diastolic CHF, chronic (CMS/[facility] V24, [facility] V28) (Primary Dx); Acute on chronic combined systolic and diastolic CHF (congestive heart failure) ([facility] V24, [facility] V28); Iron deficiency anemia, unspecified iron deficiency anemia type; Indigestion; Benign prostatic hyperplasia with urinary hesitancy; Urinary retention; Retention of urine 08/13/[address] [phone] Gabriela Olmedo RN 08/13/[address] [phone] Gabriela Olmedo RN 08/13/2025 PACE Admissions [address] [phone] Gayle Palomares RN Chest pain, unspecified type (Primary Dx); Hiccups 08/12/2025 PACE On-Call [address] [phone] Johann King NP 08/11/2025 6:22 PM EDT - 08/12/2025 1:[address] [facility] Emergency [address] [place] [phone] Derrick Gonzalez MD Muhoozi, Bannet, MD Chest pain, unspecified type (Primary Dx); Hiccups Discharge Disposition: Home or Self Care 08/09/2025 11:[address] [facility] Physical Therapy [address] [place] [phone] Wes Urrutia PT 08/09/2025 Telephone [facility]iology [facility] [address] [place] [phone] Rae Paniagua NP 08/08/2025 10:40 AM EDT Office Visit [facility] [address] [facility] [address] [place] [phone] Rae Paniagua NP Coronary artery disease involving coronary bypass graft of quechan heart, unspecified whether angina present (Primary Dx); Primary hypertension; Permanent atrial fibrillation (CMS/HCC V24, CMS/HCC V28); Systolic and diastolic CHF, chronic (CMS/HCC V24, CMS/HCC V28); Mixed hyperlipidemia; Ventricular tachycardia (CMS/HCC V24, CMS/HCC V28) 08/07/2025 PACE Admissions [address] [phone] Gayle Palomares RN Hypertensive emergency (Primary Dx) 08/06/2025 3:32 PM EDT - 08/07/2025 12:05 PM EDT Hospital Encounter [facility]mediate Care Unit [facility] [address] [place] [phone] Jennifer Tejada MD Kela, MD Antonio Garcia, MD Cristel Wallace Alistair A, MD Hypertensive emergency (Primary Dx) Discharge Disposition: Home-Health Care [facility] 08/06/2025 10:30 AM EDT Office Visit [facility] [address] [phone] Johann King, LETTUCE CUTTER Hypertensive urgency (Primary Dx); HFrEF (heart failure with reduced ejection fraction) ([facility] V24, 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 V24, [facility] V28) 07/31/2025 1:[address] [facility] Physical Therapy [address] [place] [phone] Wes Urrutia, PT 07/26/2025 10:[address] 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 V24, [facility] V28) 07/19/2025 11:[address] [facility] Physical Therapy [address] [place] [phone] Wes Urrutia, PT 07/18/[address] [facility] Physical Therapy [address] [place] [phone] Wes Urrutia, PT 07/12/2025 10:[address] [facility] Physical Therapy [address] [place] [phone] Wes Urrutia, PT 07/09/2025 1:00 PM EDT PACE External Visit [place] [address] [place] [phone] 07/05/2025 10:[address] [facility] Physical Therapy [address] [place] [phone] Wes Urrutia, PT 06/28/2025 10:[address] [facility] Therapy [address] [place] [phone] Wes Urrutia, PT 06/21/2025 1:45 PM EDT Office Visit General Surgery - [place] [address] [place] [phone] Terrell Castillo MD Incisional hernia of anterior abdominal wall without obstruction or gangrene (Primary Dx) 06/18/2025 10:00 AM EDT PACE External Visit [facility] [address] [place] [phone] from Last 3 Months Immunizations Immunization Administration Dates Next Due Influenza Whole 11/29/1998,09/17/1990 Influenza trivalent, 0.5mL ( Fluad) 65yo and older 08/29/2025 Influenza trivalent, with pr eservative (Fluzone; Afluria) 6mo and older 09/09/2022,08/24/2011 Influenza, Unspecified 10/16/2024 Meningococcal, Unspecified 11/21/2014 Electric Imp SARS-CoV-2 COVID-19, mRNA, LNP-S, preservative free 08/25/2021,03/10/2021,02/17/2021 Pneumococcal conjugate 13 va lent (Prevnar 13, PCV13) 2mo and older 09/18/2016 Pneumococcal polysaccharide 23 valent (Pneumovax 23) 2yo and older 02/05/2014,05/11/2012,08/13/2011 Pneumococcal, Unspecified 11/14/2014 Td Tetanus diptheria (Tdvax) 7yo and older 04/11 Surgical History Surgery Date Site/Laterality Comments FEMUR SURGERY PROCEDURE:FEMUR SURGERY OTHER SURGICAL HISTORY N/A PROCEDURE:right foot PROSTATE SURGERY PROCEDURE:PROSTATE SURGERY CARDIAC PACEMAKER PLACEMENT N/A PROCEDURE:CARDIAC PACEMAKER PLACEMENT OTHER SURGICAL HISTORY N/A PROCEDURE:stomach surgey ARTERIAL BYPASS SURGERY N/A PROCEDURE:ARTERIAL BYPASS SURGERY GASTROSTOMY PROCEDURE:GASTROSTOMY SPINAL CORD STIMULATOR IMPLANT PROCEDURE:SPINAL CORD STIMULATOR IMPLANT CORONARY ARTERY BYPASS GRAFT 2015 PROCEDURE:CORONARY ARTERY BYPASS GRAFT;COMMENT:x 2 CHOLECYSTECTOMY PROCEDURE:CHOLECYSTECTOMY HERNIA REPAIR PROCEDURE:HERNIA REPAIR TOTAL KNEE ARTHROPLASTY 2013 Right PROCEDURE:TOTAL KNEE ARTHROPLASTY COLONOSCOPY PROCEDURE:COLONOSCOPY UPPER GASTROINTESTINAL ENDOSCOPY PROCEDURE:UPPER GASTROINTESTINAL ENDOSCOPY CATARACT EXTRACTION, BILATERAL PROCEDURE:CATARACT EXTRACTION, BILATERAL KNEE ARTHROPLASTY 03/20/2024 Right PROCEDURE:REVISION TOTAL KNEE ARTHROPLASTY;COMMENT:Procedur e: REVISION TOTAL KNEE; Surgeon: Mir Ching MD; Location: [facility] ([facility]); Service: Orthopedics; Laterality: Right; OTHER SURGICAL HISTORY 03/20/2024 Right PROCEDURE:FEMUR HARDWARE REMOVAL;COMMENT:Procedure: REMOVE HARDWARE FEMUR; Surgeon: Mir Ching MD; Location: [facility] ([facility]); Service: Orthopedics; Laterality: Right; LEG AMPUTATION THROUGH LOWER TIBIA AND FIBULA Right Medical History Medical History Date Comments Hypertension DX:Hypertension Clotting disorder ([facility] V24) DX:Clotting disorder ([facility]) Chronic kidney disease DX:Chroni c kidney disease Sleep apnea DX:Sleep apnea Myocardial infarction ([facility] V24, [facility] V28) 2015 DX:Myocardial infarction ( C) Seizures ([facility] V24, [facility] V28) DX:Seizures ([facility]);COMMENT:none since 2013 History of transfusion DX:Histor y of transfusion Anemia DX:Anemia Hyperlipidemia DX:Hyperlipidemi a CKD (chronic kidney disease) Abnormal urination DX:Abnormal urination;COMMENT:sometimes infrequent, other times frequent Glaucoma DX:Glaucoma DVT (deep venous thrombosis) ([facility] V24, [facility] V28) DX:DVT (deep venous thrombos is) ([facility]);COMMENT:LE postop -, back and knee surgeries Family history of DVT DX:Family history of DVT;COMMENT:father Problem with Nelson catheter ([facility] V24) DX:Problem with Nelson cathet er ([facility]);COMMENT:history of difficulty w/excessive bleeding with insertion and removal History of anemia Anemia: Microc ytic Hypochromic & CKD, in remission / H/O Anemia, Blood Loss Pacemaker Status post coronary artery bypass graft Wears dentures Presence of neurostimulator History of falling Status post ankle fusion Right f oot/ankle is s/p surgical fused History of hypoglycemia History of smoking Status post gastrectomy Status post cataract extract ion of both eyes with insertion of intraocular lens Afib (CMS/[facility] V24, CMS/HCC V28) Hernia, umbilical 12/26/2024 Small Family History Medical History Relation Name Comments Heart disease Brother CABG x3 Lung cancer Brother Clotting disorder Father Heart disease Father Hypertension Father Lung cancer Father Cancer Mother lung Diabetes Mother Heart disease Sister Relation Name Status Comments Brother Father (Age 72) Mother (Age 40) Sister Alive Social History Tobacco Use Types Packs/Day Years Used Date Smoking Tobacco: Never Passive Smoke Exposure: Past Smokeless Tobacco: Never Tobacco Cessation:Counseling Given: Not Answered Comments:Never smoked tobacco Alcohol Use Standard Drinks/Week Comments Never 0 [...] Orientation Straight 02/14/2025 12 :16 AM EDT Obstetrics History Last Filed Vital Signs Vital Sign Reading Time Taken Comments Blood Pressure 172/87 08/29/2025 4:07 PM EDT Pulse 74 08/29/2025 4:07 PM EDT Temperature 36.7 C (98 F) 08/29/2025 4:07 PM EDT Respiratory Rate 19 08/29/2025 4:07 PM EDT Oxygen Saturation 100% 08/29/2025 4:07 PM EDT Inhaled Oxygen Concentration - - Weight 86.2 kg (190 lb) 08/29/2025 3:47 PM EDT Height 188 cm (6' 2 ) 08/29/2025 3:47 PM EDT Body Mass Index 24.39 08/29/2025 3:47 PM EDT Plan of Treatment Upcoming Encounters Date Type Department Care Team (Late st Contact Info) Description 09/17/2025 10:[address] [facility] Pulmonary [address] [place] [phone] 09/17/2025 2:30 PM EDT [facility] System [facility] [address] [place] [address] Wes Urrutia, PT 09/19/2025 9:40 AM EDT Office Visit [facility] 154 300 [facility] [address] [place] [address] Zay Garcia NP [address] [place] [address] 09/19/2025 1:10 PM EDT Clinical Support [address] [address] 09/20/2025 10:45 AM EDT Treatment [facility] [address] [place] [address] Wes Urrutia, PT 09/24/2025 1:15 PM EDT PACE External Visit [facility] [address] [place] [address] 10/08/2025 8:50 AM EST Office Visit [facility] 154 300 [facility] [address] [place] [address] Thais Stevenson MD [address] [place] [address] 10/12/2025 1:30 PM EST PACE External Visit [facility] [address] [place] [address] 10/23/2025 9:30 AM EST Office Visit General Surgery - [place] 175 [facility] [address] [place] [phone] Terrell Castillo MD [address] [place] [id number] 10/24/2025 3:00 PM EST Clinical Support [address] [address] 11/07/2025 1:10 PM EST Clinical Support Veronika STILES MA [address] [place] [address] 03/28/2026 11:00 AM EDT Ancillary Procedure [facility] [address] [facility] [address] [place] [address] 08/08/2026 10:45 AM EDT Treatment Veronika STILES [place] Physical Therapy [address] [place] [address] Wes Urrutia, PT 08/15/2026 10:45 AM EDT Treatment Veronika STILES [place] Physical Therapy [address] [place] [address] Wes Urrutia, PT Health Maintenance Due Date Last Done Comments Diabetes: Annual Foot Exam 02/18/1966 Diabetes: Annual Retina Eye Exam 02/18/1966 Zoster Vaccines (1 of 2) 02/18/1975 RSV Immunization Adult Patients (1 - Risk 50-74 years 1-dose series) 02/18/2006 Pneumococcal Vaccine: 50+ Years (3 of 3 - PCV20 or PCV21) 09/18/2021 09/18/2016, 11/14/2014, 02/05/2014, Additional history exists Hepatitis C Screening 11/07/2022 DTaP,Tdap,and Td Vaccines (2 - Td or Tdap) 04/11/2024 04/11/2014 Diabetes: Annual Urine Albumin-Creatinine Ratio (uACR) 07/06/2025 07/06/2024 COVID-19 Vaccine ( season) 2025 04/07/2024, 08/31/2023, 03/24/2023, Additional history exists Diabetes: Blood Sugar Control Test (HGBA1C) 12/14/2025 06/13/2025, 03/14/2025, 10/16/2024, Additional history exists Social Influencers of Health Screening 08/06/2026 08/06/2025 Falls Risk Assessment 08/07/2026 08/07/2025 Diabetes: Annual GFR (Glomerular Filtration Rate) 08/29/2026 08/29/2025, 08/24/2025, 08/11/2025, Additional history exists Hypertension/CHF/CAD Annual BMP Blood Test 08/29/2026 08/29/2025, 08/24/2025, 08/11/2025, Additional history exists Cholesterol Screening (Lipid Panel) 08/29/2030 08/29/2025, 10/16/2024 Colorectal Cancer Screening: Colonoscopy 06/01/2032 Meningococcal ACWY Vaccine Aged Out 11/21/2014 N o longer eligible based on patient's age to complete this topic Depression Screening Completed 02/08/2025 Influenza Vaccine Completed 08/29/2025, , 09/09/2022, Additional history exists HIB Vaccines Aged Out No longer eligi ble based on patient's age to complete this topic HPV Vaccines Aged Out No longer eligi ble based on patient's age to complete this topic Hepatitis A Vaccines Aged Out No long er eligible based on patient's age to complete this topic Hepatitis B Vaccines Aged Out No long er eligible based on patient's age to complete this topic IPV Vaccines Aged Out No longer eligi ble based on patient's age to complete this topic MMR Vaccines Aged Out No longer eligi ble based on patient's age to complete this topic Meningococcal B Vaccine Aged Out No l onger eligible based on patient's age to complete this topic RSV Immunization Patients Under 20 months Aged Out No longer eligible based on patient's age to complete this topic Varicella Vaccines Aged Out No longer eligible based on patient's age to complete this topic Goals Goal Patient Goal Type Associated Problems Recent Progress Patient-Stated? Author Wound volume breakdown reduced by X% by week 4 Care Plan Impaired Tissue No Kerri Olivo RN Wound volume breakdown reduced by X% by week 8 Care Plan Impaired Tissue No Kerri Olivo RN Wound volume breakdown reduced by X% by week 12 Care Plan Impaired Tissue No Kerri Olivo, LETY Quit using tobacco (cigarettes, smokeless, etc) Care Plan Education needed on impact of smoking on wound No Kerri Olivo RN Reduce tobacco use (cigarettes, smokeless, etc) Care Plan Education needed on impact of smoking on wound No Kerri Olivo, LETY Decrease Wound Volume by X% by date (in notes) Care Plan Education needed on impact of smoking on wound No Kerri Olivo, LETY Patient and Caregiver Understand Wound Care Education Care Plan Education needed related to ulceration/compr omised skin integrity. No Kerri Olivo RN Medical Devices Implanted Type Area Cash Applications Specialist Device Identifier Shelf Expiration Date Model / Serial / Lot Medt-Card Buckhorn Xt Dr Mri [id number] Implanted: by Rex Ulloa MD (Quantity not on file) Cardiac Pacemaker Left: Chest [employer] - CARDIAC RHYTH-CRDM MARYURI XT DR MRI [id number] / [id number] / Medt-Card Buckhorn Xt Dr Mri [id number] Implanted: (Quantity not on file) Cardiac Pacemaker [employer] - CARDIAC RHYTH-CRDM MARYURI XT DR MRI / [id number] / Oss Bowed Im Stem With Screw 17mm, 150mm Interlok Cemented Implanted:Qt y: 1 on 03/20/2024 by Mir Ching MD Joints Right: Knee [id number] 02/23/2029 / / [id number] Segmented Femoral Implanted:Qt y: 1 on 03/20/2024 by Mir Ching MD Joints Right: Knee [id number] 08/02/2029 / / [id number] Pain Mgt Implants Pain Mgt Implants Left: Back Knee Aug Tib Univ 10x79 83 Zimm-Biom [id number] 6 Implanted:Qt y: 1 on 03/20/2024 by Mir Ching MD Right: Knee BALTAZAR BIOMET 04/28/2025 [id number] / / [id number] Plug Bone Lg Stry-Howm 7703-7-346-1 76482 Implanted:Qt y: 1 on 03/20/2024 by Mir Ching MD Right: Knee [employer] [id number] 08/18/2028 6215-5-0 21 / / [id number] BC Plug Bone Lg Stry-Howm 4943-3-389-1 65072 Implanted:Qt y: 1 on 03/20/2024 by Mir Ching MD Right: Knee [employer] [id number] 05/12/2027 6215-5-0 21 / / [id number] Screw Stem César Oss Side Lock Zimm[employer]om [id number] Implanted:Qt y: 1 on 03/20/2024 by Mir Ching MD Right: Knee [employer]AR [employer] [id number] 06/20/2033 [id number] / / [id number] Screw Bone Lag 2.4x32mm [facility] [id number] 443 Implanted:Qt y: 1 on 03/20/2024 by Mir Ching MD Right: Knee OSTEOMED RAYMON [id number] 06/28/2033 306-2592 / / [id number] [place] Set Oss Poly Femoral Zimm-Biom 287458-82087 0 Implanted:Qt y: 1 on 03/20/2024 by Mir Ching MD Right: Knee [employer]ZAR [employer] [id number] 12/29/2028 [id number] / / [id number] Knee Oss Reinf Yoke [employer]om 044942-02227 2 Implanted:Qt y: 1 on 03/20/2024 by Mir Ching MD Right: Knee [employer]AR [employer]ET [id number] 12/10/2033 947558 / / [id number] Elbow César Oss Bumper Zimm[employer]Biom [id number] Implanted:Qt y: 1 on 03/20/2024 by Mir Ching MD Right: Knee [employer]AR [employer] [id number] 10/28/2028 [id number] / / [id number] Knee Tib Bushing Comp Oss Zimm[employer]Biom 818624-00013 9 Implanted:Qt y: 1 on 03/20/2024 by Mir Ching MD Right: Knee [employer] [id number] 12/10/2028 740141 / / [id number] Knee Fem Compon Oss Axle Zimm-Biom 651100-04466 2 Implanted:Qt y: 1 on 03/20/2024 by Mir Ching MD Right: Knee [employer] [id number] 12/15/2033 623603 / / [id number] Knee Brng Tib Oss Poly 12mm [employer]om [id number] 3 Implanted:Qt y: 1 on 03/20/2024 by Mir Ching MD Right: Knee [employer]AR [employer] [id number] 10/01/2028 091328 / / [id number] Knee Aug Tib Univ 10x79 83 Zimm[employer]om 804743-62073 6 Implanted:Qt y: 1 on 03/20/2024 by Mir Ching MD Right: Knee BALTAZAR BIOMET 02/27/2033 919861 / / [id number] Knee Adapt Stacking Seg Oss [employer]om [id number] 8 Implanted:Qt y: 1 on 03/20/2024 by Mir Ching MD Right: Knee [employer]AR BI[employer]ET 06/21/2033 [id number] / / [id number] Biomet Oss César Lock Pin Implanted:Qt y: 1 on 03/20/2024 by Mir Ching MD Right: Knee 10/04/2033 / / [id number] Knee Bsplt Tib Mod 79mm Zimm[employer]om [id number] 7 Implanted:Qt y: 1 on 03/20/2024 by Mir Ching MD Right: Knee [employer] 11/30/2028 945637 / / [id number] Cement Bone Surg Simplex Radiopq Stry-Howm 4003-6-240-1 20994 Implanted:Qt y: 1 on 03/20/2024 by Mir Ching MD Right: Knee [employer] 03/28/2026 6191-1-0 10 / / [id number] Cement Bone Surg Simplex Radiopq Stry-Howm 4315-7-706-1 92804 Implanted:Qt y: 1 on 03/20/2024 by Mir Ching MD Right: Knee [employer] 03/28/2026 6191-1-0 10 / / [id number] Cement Bone Surg Simplex Radiopq Stry-Howm 6485-7-093-1 19954 Implanted:Qt y: 1 on 03/20/2024 by Mir Ching MD Right: Knee [employer] 03/28/2026 6191-1-0 10 / / [id number] Cement Bone Surg Simplex Radiopq Stry-Howm 6776-0-357-1 09536 Implanted:Qt y: 1 on 03/20/2024 by Mir Ching MD Right: Knee [employer] 03/28/2026 6191-1-0 10 / / [id number] Cement Bone Surg Simplex Radiopq [facility] 9980-5-170-1 17187 Implanted:Qt y: 1 on 03/20/2024 by Mir Ching MD Right: Knee [employer] 03/28/2026 6191-1-0 10 / / [id number] Impl Set Bead 2.0mm Vit Dall Miles Str-How [id number] [id number] Implanted:Qt y: 1 on 03/20/2024 by Mir Ching MD Right: Knee [employer] [id number] 08/14/2028 6704-0-5 20 / / [id number] Procedures Procedure Name Priority Date/Time Associated Diagnosis Comments URINALYSIS WITH REFLEX MICROSCOPIC AND CULTURE Routine 08/29/2025 1:38 PM EDT Dysuria CULTURE URINE Routine 08/29/2025 1:38 PM EDT Dysuria CBC WITH AUTO DIFFERENTIAL Routine 08/29/2025 1:19 PM EDT Mixed hyperlipidemia Primary hypertension 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 (CMS/HCC V24, CMS/HCC V28) Systolic and diastolic CHF, chronic (CMS/HCC V24, CMS/HCC V28) CBC AND DIFFERENTIAL Routine 08/29/2025 1:19 PM EDT Mixed hyperlipidemia Primary hypertension 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 (CMS/HCC V24, CMS/HCC V28) Systolic and diastolic CHF, chronic (CMS/HCC V24, CMS/HCC V28) COMPREHENSIVE METABOLIC PANEL Routine 08/29/2025 1:19 PM EDT Mixed hyperlipidemia Primary hypertension 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 (CMS/HCC V24, CMS/HCC V28) Systolic and diastolic CHF, chronic (CMS/HCC V24, CMS/HCC V28) IRON AND TIBC Routine 08/29/2025 1:19 PM EDT Mixed hyperlipidemia Primary hypertension 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 (CMS/HCC V24, CMS/HCC V28) Systolic and diastolic CHF, chronic (CMS/HCC V24, CMS/HCC V28) VITAMIN B12 Routine 08/29/2025 1:19 PM EDT Mixed hyperlipidemia Primary hypertension 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 (CMS/HCC V24, CMS/HCC V28) Systolic and diastolic CHF, chronic (CMS/HCC V24, CMS/HCC V28) VITAMIN D 25 HYDROXY Routine 08/29/2025 1:19 PM EDT Mixed hyperlipidemia Primary hypertension 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 (CMS/HCC V24, CMS/HCC V28) Systolic and diastolic CHF, chronic (CMS/HCC V24, CMS/HCC V28) B-TYPE NATRIURETIC PEPTIDE Routine 08/29/2025 1:19 PM EDT Mixed hyperlipidemia Primary hypertension 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 (CMS/HCC V24, CMS/HCC V28) Systolic and diastolic CHF, chronic (CMS/HCC V24, CMS/HCC V28) LIPID PANEL WITH REFLEX TO DIRECT LDL Routine 08/29/2025 1:19 PM EDT Mixed hyperlipidemia Primary hypertension 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 (CMS/HCC V24, CMS/HCC V28) Systolic and diastolic CHF, chronic (CMS/HCC V24, CMS/HCC V28) CARDIAC DEVICE CHECK- REMOTE- MURJ Routine 08/29/2025 3:15 AM EDT CBC WITH AUTO DIFFERENTIAL Routine 08/24/2025 3:12 PM EDT Systolic and diastolic CHF, chronic (CMS/HCC V24, CMS/HCC V28) CBC AND DIFFERENTIAL Routine 08/24/2025 3:12 PM EDT Systolic and diastolic CHF, chronic (CMS/HCC V24, CMS/HCC V28) BASIC METABOLIC PANEL Routine 08/24/2025 3:12 PM EDT Systolic and diastolic CHF, chronic (CMS/HCC V24, CMS/HCC V28) B-TYPE NATRIURETIC PEPTIDE Routine 08/24/2025 3:12 PM EDT Systolic and diastolic CHF, chronic (CMS/HCC V24, CMS/HCC V28) ECG ANNOTATED 08/13/2025 CT ANGIO CHEST WO AND/OR W CONTRAST STAT 08/11/2025 10:46 PM EDT Chest pain, unspecified type UQINN URINE CULTURE TUBE STAT 08/11/2025 8:49 PM EDT URINALYSIS WITH REFLEX MICROSCOPIC AND CULTURE STAT 08/11/2025 8:49 PM EDT URINALYSIS WITH REFLEX MICROSCOPIC AND CULTURE STAT 08/11/2025 8:49 PM EDT D-DIMER STAT 08/11/2025 8:47 PM EDT TROPONIN I HIGH SENSITIVITY Timed 08/11/2025 8:47 PM EDT ECG 12-LEAD Routine 08/11/2025 8:35 PM EDT CBC WITH AUTO DIFFERENTIAL STAT 08/11/2025 6:41 PM EDT B-TYPE NATRIURETIC PEPTIDE STAT 08/11/2025 6:41 PM EDT MAGNESIUM STAT 08/11/2025 6:41 PM EDT LIPASE STAT 08/11/2025 6:41 PM EDT COMPREHENSIVE METABOLIC PANEL STAT 08/11/2025 6:41 PM EDT CBC AND DIFFERENTIAL STAT 08/11/2025 6:41 PM EDT TROPONIN I HIGH SENSITIVITY Timed 08/11/2025 6:41 PM EDT ECG 12-LEAD STAT 08/11/2025 5:28 PM EDT ECG ANNOTATED 08/08/2025 POCT GLUCOSE BLOOD Routine 08/07/2025 8: 08 AM EDT LAVENDER - EDTA Routine 08/07/2025 5:23 AM EDT EXTRA TUBES Routine 08/07/2025 5:23 AM EDT MAGNESIUM Routine 08/07/2025 5:23 AM EDT BASIC METABOLIC PANEL Routine 08/07/2025 5:23 AM EDT TIGER TOP URINE TUBE Routine 08/07/2025 3:27 AM EDT QUINN URINE CULTURE TUBE Routine 08/07/2025 3:27 AM EDT EXTRA TUBES Routine 08/07/2025 3:27 AM EDT DRUG ABUSE SCREEN 8A PANEL, URINE Routine 08/07/2025 3:27 AM EDT POCT GLUCOSE BLOOD Routine 08/06/2025 8: 35 PM EDT XR CHEST 2 VIEWS STAT 08/06/2025 4:49 PM EDT B-TYPE NATRIURETIC PEPTIDE STAT 08/06/2025 4:15 PM EDT TROPONIN I HIGH SENSITIVITY Timed 08/06/2025 4:15 PM EDT ECG 12-LEAD STAT 08/06/2025 4:12 PM EDT THYROID STIMULATING HORMONE WITH REFLEX TO FREE T4 AND FREE T3 Add-On 08/06/2025 1:05 PM EDT CBC WITH AUTO DIFFERENTIAL STAT 08/06/2025 1:05 PM EDT MAGNESIUM STAT 08/06/2025 1:05 PM EDT LIPASE STAT 08/06/2025 1:05 PM EDT COMPREHENSIVE METABOLIC PANEL STAT 08/06/2025 1:05 PM EDT CBC AND DIFFERENTIAL STAT 08/06/2025 1:05 PM EDT TROPONIN I HIGH SENSITIVITY Timed 08/06/2025 1:05 PM EDT ECG 12-LEAD STAT 08/06/2025 12:49 PM EDT CBC WITH AUTO DIFFERENTIAL Routine 08/06/2025 11:12 AM EDT Hypertension, unspecified type CBC AND DIFFERENTIAL Routine 08/06/2025 11:12 AM EDT Hypertension, unspecified type BASIC METABOLIC PANEL Routine 08/06/2025 11:12 AM EDT Hypertension, unspecified type HEMOGLOBIN A1C Routine 06/13/2025 11:37 AM EDT Type 2 diabetes mellitus with chronic kidney disease, without long-term current use of insulin, unspecified CKD stage ([facility] V24, [facility] V28) HM URINE ALBUMIN CREATININE RATIO Routine 07/06/2024 from Last 3 Months or Most Recently Relevant to Health Maintenance Results * (ABNORMAL) Urinalysis with reflex microscopic and culture (08/29/2025 1:38 PM EDT) Only the most recent of2 resultswithin the time period is included. Specific [place] Urine 1.027 1.003 - 1.030 LAB URINALYSIS - AUTOMATED METHOD 08/29/2025 6:22 PM EDT [facility] pH, Urine 6.0 5.0 - 8.0 pH LAB URINALYSIS - AUTOMATED METHOD [facility]2025 6[facility] Leukocytes, Urine Small(A) Negative LAB URINALYSIS - AUTOMATED METHOD 08/29/2025 6:22 PM [facility] Nitrite, Urine Negative Negative LAB URINALYSIS - AUTOMATED METHOD 08/29/2025 6:22 PM [facility] Protein, Urine 300(A) <=Trace mg/dL LAB URINALYSIS - AUTOMATED METHOD 08/29/2025 6:22 PM [facility] Glucose, Urine Negative Negative mg/dL LAB URINALYSIS - AUTOMATED METHOD 08/29/2025 6:22 PM [facility] Ketones, Urine Negative Negative mg/dL LAB URINALYSIS - AUTOMATED METHOD 08/29/2025 6:22 PM [facility] Urobilinogen, Urine 4.0(A) 0.2 - 1.0 mg/dL LAB URINALYSIS - AUTOMATED METHOD 08/29/2025 6:22 PM [facility] Bilirubin, Urine Small(A) Negative LAB URINALYSIS - AUTOMATED METHOD 08/29/2025 6:22 PM [facility] Blood, Urine Small(A) Negative LAB URINALYSIS - AUTOMATED METHOD 08/29/2025 6:22 PM [facility] RBC, Urine 11.9(H) 0 - 4 /HPF LAB URINALYSIS - AUTOMATED METHOD 08/29/2025 6:22 PM [facility] WBC, Urine 433.5(H) 0 - 4 /HPF LAB URINALYSIS - AUTOMATED METHOD 08/29/2025 6:22 PM [facility] Squamous Epithelial, Urine >100(H) 0 - 60 /LPF LAB URINALYSIS - AUTOMATED METHOD 08/29/2025 6:22 PM [facility] Bacteria, Urine Few(A) Negative /HPF LAB URINALYSIS - AUTOMATED METHOD 08/29/2025 6:22 PM [facility] Hyaline Casts, Urine 6.3(H) 0 - 3 /LPF LAB URINALYSIS - AUTOMATED METHOD 08/29/2025 6:22 PM EDT [facility] Urine Urine specimen obtained by clean catch procedure / Unknown Non-blood Collection / Unknown 08/29/2025 1:38 PM EDT 08/29/2025 1:38 PM EDT us Johann King LETTUCE CUTTER LAB URINE ORDERABLES Final Resul t [facility] [address] [place] [address], * (ABNORMAL) Culture urine (08/29/2025 1:38 PM EDT) Culture, Urine 50,000-100,000 CFU/mL Klebsiella pneumoniae ssp pneumoniae(A) DALTON 08/31/2025 10:29 AM EDT [facility] Comment: This is an edited result. Previous organism was Gram negative bacilli on 08/30/2025 at 1322 EDT. Urine Urine specimen obtained by clean catch procedure / Unknown Non-blood Collection / Unknown 08/29/2025 1:38 PM EDT 08/29/2025 6:22 PM EDT Narrative Organism Antibiotic Method Susceptibility Klebsiella pneumoniae ssp pneumoniae Amoxicillin/Clavulanate DALTON <=2 ug/ml: Susceptible Klebsiella pneumoniae ssp pneumoniae Ampicillin/Sulbactam DALTON 4 ug/ml: Susceptible Klebsiella pneumoniae ssp pneumoniae Piperacillin/Tazobactam DALTON <=4 ug/ml: Susceptible Klebsiella pneumoniae ssp pneumoniae Cefazolin (Urine) DALTON 2 ug/ml: Susceptible Klebsiella pneumoniae ssp pneumoniae Cefoxitin DALTON <=4 ug/ml: Susceptible Klebsiella pneumoniae ssp pneumoniae Ceftazidime DALTON <=0.5 ug/ml: Susceptible Klebsiella pneumoniae ssp pneumoniae Ceftriaxone DALTON <=0.25 ug/ml: Susceptible Klebsiella pneumoniae ssp pneumoniae Cefepime DALTON <=0.12 ug/ml: Susceptible Klebsiella pneumoniae ssp pneumoniae Meropenem DALTON <=0.25 ug/ml: Susceptible Klebsiella pneumoniae ssp pneumoniae Amikacin DALTON <=1 ug/ml: Susceptible Klebsiella pneumoniae ssp pneumoniae Gentamicin DALTON <=1 ug/ml: Susceptible Klebsiella pneumoniae ssp pneumoniae Ciprofloxacin DALTON <=0.06 ug/ml: Susceptible Klebsiella pneumoniae ssp pneumoniae Levofloxacin DALTON <=0.12 ug/ml: Susceptible Klebsiella pneumoniae ssp pneumoniae Nitrofurantoin DALTON 64 ug/ml: Intermediate Klebsiella pneumoniae ssp pneumoniae Trimethoprim/Sulfamethoxazo le DALTON >=320 ug/ml: Resistant us Johann King LETTUCE CUTTER LAB MICROBIOLOGY - GENERAL ORDER CHIP Final Result [facility] [address] [place] [address], [place] [phone] * (ABNORMAL) Lipid panel with reflex to direct LDL (08/29/2025 1:19 PM EDT) Cholesterol 95 0 - 200 mg/dL LAB CHEMISTRY METHOD 08/29/2025 6:55 PM EDT [facility] Triglycerides 60 0 - 150 mg/dL LAB CHEMISTRY METHOD 08/29/2025 6:55 PM EDT [facility] HDL 35(L) >=40 mg/dL LAB CHEMISTRY METHOD 08/29/2025 6:55 PM EDT [facility] LDL Calculated 48 0 - 100 mg/dL LAB CHEMISTRY METHOD 08/29/2025 6:55 PM EDT [facility] Comment:Estimated LDL Calcul ated using equation: Total cholesterol - HDL cholesterol - (Triglycerides/5) VLDL Cholesterol Janes 12 mg/dL LAB CHEMISTRY METHOD 08/29/2025 6:55 PM EDT [facility] Non HDL Chol. (LDL+VLDL) 60 <145 mg/dL LAB CHEMISTRY METHOD 08/29/2025 6:55 PM EDT [facility] Chol/HDL Ratio 2.7 0.0 - 4.4 LAB CHEMISTRY METHOD 08/29/2025 6:55 PM T [facility] Blood Venous blood specimen / Unknown Venipuncture / Unknown 08/29/2025 1:19 PM EDT 08/29/2025 1:19 PM EDT us Johann King LETTUCE CUTTER LAB BLOOD ORDERABLES Final Resul t [facility] [address] [place] [address], [place] [phone] * (ABNORMAL) CBC auto differential (08/29/2025 1:19 PM EDT) Only the most recent of5 resultswithin the time period is included. WBC 13.8(H) 4.8 - 10.8 K/mcL LAB HEMETOLOGY METHOD 08/29/2025 5:49 PM EDT [facility] RBC 5.40 4.50 - 5.50 M/mcL LAB HEMETOLOGY METHOD 08/29/2025 5:49 PM EDT [facility] Hemoglobin 11.9(L) 13.5 - 17.5 g/dL LAB HEMETOLOGY METHOD 08/29/2025 5:49 PM EDT [facility] Hematocrit 39.9(L) 42.0 - 54.0 % LAB HEMETOLOGY METHOD 08/29/2025 5:49 PM EDT [facility] MCV 74.2(L) 79.0 - 98.0 FL LAB HEMETOLOGY METHOD 08/29/2025 5:49 PM EDT [facility] MCH 22.1(L) 27.0 - 32.0 pcg LAB HEMETOLOGY METHOD 08/29/2025 5:49 PM EDT [facility] MCHC 29.8(L) 32.0 - 37.0 g/dL LAB HEMETOLOGY METHOD 08/29/2025 5:49 PM EDT [facility] RDW 20.3(H) 11.0 - 15.0 % LAB HEMETOLOGY METHOD 08/29/2025 5:49 PM EDT [facility] Platelets 330 130 - 400 K/mcL LAB HEMETOLOGY METHOD 08/29/2025 5:49 PM EDT [facility] MPV 10.2 7.0 - 11.0 FL LAB HEMETOLOGY METHOD 08/29/2025 5:49 PM EDT [facility] NRBC 0.0 <1.0 % LAB HEMETOLOGY METHOD 08/29/2025 5:49 PM EDT [facility] NRBC Absolute 0.00 <0.10 K/mcL LAB HEMETOLOGY METHOD 08/29/2025 5:49 PM EDT [facility] Neutrophils Relative 86.4 % LAB HEMETOLOGY METHOD [facility]/29[facility]2025 5:[facility] Lymphocytes Relative 6.5 % LAB HEMETOLOGY METHOD 08/29/2025 5:49 PM [facility] Monocytes Relative 6.4 % LAB HEMETOLOGY METHOD 08/29/2025 5:49 PM [facility] Eosinophils Relative 0.1 % LAB HEMETOLOGY METHOD 08/29/2025 5:49 PM [facility] Basophils Relative 0.2 % LAB HEMETOLOGY METHOD 08/29/2025 5:49 PM [facility] Immature Granulocytes Relative 0.4 % LAB HEMETOLOGY METHOD 08/29/2025 5:49 PM [facility] Neutrophils Absolute 11.89(H) 1.50 - 7.00 K/mcL LAB HEMETOLOGY METHOD 08/29/2025 5:49 PM EDT [facility] Lymphocytes Absolute 0.90(L) 1.00 - 5.00 K/mcL LAB HEMETOLOGY METHOD 08/29/2025 5:49 PM [facility] Monocytes Absolute 0.88 0.20 - 1.00 K/mcL LAB HEMETOLOGY METHOD 08/29/2025 5:49 PM [facility] Eosinophils Absolute 0.01 0.00 - 0.50 K/mcL LAB HEMETOLOGY METHOD 08/29/2025 5:49 PM EDT [facility] Basophils Absolute 0.03 0.00 - 0.20 K/[facility] LAB HEMETOLOGY METHOD 08/29/2025 5:49 PM EDT [facility] Immature Granulocytes Absolute 0.05(H) 0.00 - 0.03 K/[facility] HEMETOLOGY METHOD 08/29/2025 5:49 PM EDT [facility] Blood Venous blood specimen / Unknown Venipuncture / Unknown 08/29/2025 1:19 PM EDT 08/29/2025 1:19 PM EDT us Johann King NP LAB BLOOD ORDERABLES Final Resul t Performing Organization Address City/[facility]/ZIP Co de Phone Number [facility] [address] [place] [address], [place] [phone] * (ABNORMAL) Iron and TIBC (08/29/2025 1:19 PM EDT) Iron 19(L) 50 - 160 mcg/dL LAB CHEMISTRY METHOD 08/29/2025 6:33 PM EDT [facility] TIBC 335 250 - 450 mcg/dL LAB CHEMISTRY METHOD 08/29/2025 6:33 PM EDT [facility] Iron Saturation 6(L) 20 - 50 % LAB CHEMISTRY METHOD 08/29/2025 6:33 PM EDT [facility] Blood Venous blood specimen / Unknown Venipuncture / Unknown 08/29/2025 1:19 PM EDT 08/29/2025 1:19 PM EDT us Johann King NP LAB BLOOD ORDERABLES Final Resul t Performing Organization Address City/[facility]/ZIP Co de Phone Number [facility] [address] [place] [address], [place] [phone] * (ABNORMAL) Vitamin D 25 hydroxy (08/29/2025 1:19 PM EDT) Vit D, 25-Hydroxy 16.8(L) 30.0 - 80.0 ng/mL LAB CHEMISTRY METHOD 08/29/2025 7:53 PM EDT [facility] Blood Venous blood specimen / Unknown Venipuncture / Unknown 08/29/2025 1:19 PM EDT 08/29/2025 1:19 PM EDT us Johann King LETTUCE CUTTER LAB BLOOD ORDERABLES Final Resul t Performing Organization Address [facility] [place] de Phone Number [facility] [address] [place] [address], [place] [phone] * (ABNORMAL) B-type natriuretic peptide (08/29/2025 1:19 PM EDT) Only the most recent of4 resultswithin the time period is included. BNP 837(H) <=100 pcg/mL LAB CHEMISTRY METHOD 08/29/2025 6:39 PM EDT [facility] Blood Venous blood specimen / Unknown Venipuncture / Unknown 08/29/2025 1:19 PM EDT 08/29/2025 1:19 PM EDT us Johann King LETTUCE CUTTER LAB BLOOD ORDERABLES Final Resul t Performing Organization Address City/[facility]/ZIP Co de Phone Number [facility] [address] [place] [address], [place] [phone] * Vitamin B12 (08/29/2025 1:19 PM EDT) Vitamin B-12 314 250 - 900 pcg/mL LAB CHEMISTRY METHOD 08/29/2025 6:55 PM EDT [facility] Blood Venous blood specimen / Unknown Venipuncture / Unknown 08/29/2025 1:19 PM EDT 08/29/2025 1:19 PM EDT us Johann King NP LAB BLOOD ORDERABLES Final Resul t [facility] [address] [place] [address], [place] [phone] * Comprehensive metabolic panel (08/29/2025 1:19 PM EDT) Only the most recent of3 resultswithin the time period is included. Sodium 138 133 - 145 mmol/L LAB CHEMISTRY METHOD 08/29/2025 6:33 PM [facility] Potassium 4.1 3.5 - 5.5 mmol/L LAB CHEMISTRY METHOD 08/29/2025 6:33 PM [facility] Chloride 108 96 - 110 mmol/L LAB CHEMISTRY METHOD 08/29/2025 6:33 PM [facility] CO2 24 21 - 32 mmol/L LAB CHEMISTRY METHOD 08/29/2025 6:33 PM [facility] Anion Gap 6 3 - 11 LAB CHEMISTRY METHOD 08/29/2025 6:33 PM [facility] Glucose 98 70 - 100 mg/dL LAB CHEMISTRY METHOD 08/29/2025 6:33 PM [facility] BUN 10 5 - 25 mg/dL LAB CHEMISTRY METHOD 08/29/2025 6:33 PM [facility] Creatinine 0.77 0.70 - 1.30 mg/dL LAB CHEMISTRY METHOD 08/29/2025 6:33 PM [facility] eGFR 97 >=60 mL/min/1. 73m2 LAB CHEMISTRY METHOD 08/29/2025 6:33 PM [facility] Comment:Calculation based on the Chronic Kidney Disease Epidemiology Collaboration (CKD-EPI) equation refit without adjustment for race. BUN/Creatinine Ratio 13.0 LAB CHEMISTRY METHOD 08/29/2025 6:33 PM [facility] Calcium 8.6 8.5 - 10.5 mg/dL LAB CHEMISTRY METHOD 08/29/2025 6:33 PM EDT [facility] AST (SGOT) 22 10 - 42 unit/L LAB CHEMISTRY METHOD 08/29/2025 6:33 PM EDT [facility] ALT (SGPT) 17 10 - 60 unit/L LAB CHEMISTRY METHOD 08/29/2025 6:33 PM EDT [facility] Alkaline Phosphatase 91 42 - 121 unit/L LAB CHEMISTRY METHOD 08/29/2025 6:33 PM EDT [facility] Total Protein 6.6 6.0 - 8.0 g/dL LAB CHEMISTRY METHOD 08/29/2025 6:33 PM EDT [facility] Albumin 3.4 3.2 - 5.0 g/dL LAB CHEMISTRY METHOD 08/29/2025 6:33 PM EDT [facility] Total Bilirubin 0.9 0.0 - 1.4 mg/dL LAB CHEMISTRY METHOD 08/29/2025 6:33 PM EDT [facility] Blood Venous blood specimen / Unknown Venipuncture / Unknown 08/29/2025 1:19 PM EDT 08/29/2025 1:19 PM EDT us Johann King LETTUCE CUTTER LAB BLOOD ORDERABLES Final Resul t [facility] [address] [place] [address], * Cardiac device check - Remote- MURJ (08/29/2025 3:15 AM EDT) Date Time Interrogation Session [id number] CV DEVICE CHECK Type Interrogation Session Remote CV DEVICE CHECK Implantable Pulse Generator Cash Applications Specialist MDT CV DEVICE CHECK Implantable Pulse Generator Type IPG CV DEVICE CHECK Implantable Pulse Generator Model Buckhorn XT MRI [id number] CV DEVICE CHECK Implantable Pulse Generator Serial Number [id number] CV DEVICE CHECK Implantable Pulse Generator Implant Date [id number] CV DEVICE CHECK Battery Remaining Longevity 97.0 CV DEVICE CHECK Battery Voltage 3.000 CV D EVICE CHECK Battery RAD TECH Trigger 2.625 CV DEVICE CHECK Battery Status Middle of Service CV DEVICE CHECK Los Statistic RA Percent Paced 0.00 CV DEVICE CHECK Los Statistic RV Percent Paced 99.30 CV DEVICE CHECK Lead Channel Impedance Value 418 CV DEVICE CHECK Lead Channel Sensing Intrinsic Amplitude 3.125 CV DEVICE CHECK Lead Channel Setting Sensing Sensitivity 0.90 CV DEVICE CHECK Lead Channel Impedance Value 418 CV DEVICE CHECK Lead Channel Pacing Threshold Amplitude 1.000 CV DEVICE CHECK Lead Channel Pacing Threshold Pulse Width 0.4 CV DEVICE CHECK Lead Channel RV Pacing Threshold Date 2025-08-16 CV DEVICE CHECK Lead Channel Setting Pacing Amplitude 2.250 CV DEVICE CHECK Lead Channel Setting Pacing Pulse Width 0.4 CV DEVICE CHECK Los Setting Mode (NBG Code) VVIR CV DEVICE CHECK Los Setting Lower Rate Limit 70 CV DEVICE CHECK Los Setting Maximum Sensor Rate 130 CV DEVICE CHECK Zone Setting Type Category VT CV DEVICE CHECK Rate 150 CV DEVICE CHECK Zone Setting Status ENABLED CV DEVICE CHECK Zone ID 6 CV DEVICE CHECK Date of Service 2025-09-11 CV DEVICE CHECK Anatomical Region Laterality Modality Device Interroga tion 08/16/2025 10:5 1 PM EDT Impressions 08/28/2025 12:25 PM EDT Normal Remote: No Events * Normal Device Function * Alerts or events: None * Battery: OK, 8.08 yrs * Sensing, impedance and thresholds reviewed * Programmed parameters reviewed * Presenting rhythm reviewed * Heart Rate Histograms reviewed * No significant changes noted Narrative Procedure Note Rex Ulloa MD - 08/29/2025 IMPRESSION: Normal Remote: No Events * Normal Device Function * Alerts or events: None * Battery: OK, 8.08 yrs * Sensing, impedance and thresholds reviewed * Programmed parameters reviewed * Presenting rhythm reviewed * Heart Rate Histograms reviewed * No significant changes noted Rex Ulloa MD CV IMPLANTABLE CARDIAC DEVICE PROCEDURES Final Result * Basic metabolic panel (08/24/2025 3:12 PM EDT) Only the most recent of3 resultswithin the time period is included. Sodium 138 133 - 145 mmol/L LAB CHEMISTRY METHOD 08/24/2025 6:14 PM [facility] Potassium 3.8 3.5 - 5.5 mmol/L LAB CHEMISTRY METHOD 08/24/2025 6:14 PM [facility] Chloride 109 96 - 110 mmol/L LAB CHEMISTRY METHOD 08/24/2025 6:14 PM [facility] CO2 23 21 - 32 mmol/L LAB CHEMISTRY METHOD 08/24/2025 6:14 PM [facility] Anion Gap 6 3 - 11 LAB CHEMISTRY METHOD 08/24/2025 6:14 PM [facility] Glucose 81 70 - 100 mg/dL LAB CHEMISTRY METHOD 08/24/2025 6:14 PM [facility] BUN 10 5 - 25 mg/dL LAB CHEMISTRY METHOD 08/24/2025 6:14 PM [facility] Creatinine 0.79 0.70 - 1.30 mg/dL LAB CHEMISTRY METHOD 08/24/2025 6:14 PM [facility] eGFR 96 >=60 mL/min/1. 73m2 LAB CHEMISTRY METHOD 08/24/2025 6:14 PM [facility] Comment:Calculation based on the Chronic Kidney Disease Epidemiology Collaboration (CKD-EPI) equation refit without adjustment for race. BUN/Creatinine Ratio 12.7 LAB CHEMISTRY METHOD 08/24/2025 6:14 PM [facility] Calcium 8.9 8.5 - 10.5 mg/dL LAB CHEMISTRY METHOD 08/24/2025 6:14 PM [facility] Blood Venous blood specimen / Unknown Venipuncture / Unknown 08/24/2025 3:12 PM EDT 08/24/2025 3:12 PM EDT us Johann King NP LAB BLOOD ORDERABLES Final Resul t [facility] [address] [place] [address], * ECG-Annotated (08/13/2025) Only the most recent of2 resultswithin the time period is included. us Provider Onbase ECG ORDERABLES Final Result * CT Angio Chest wo and/or w Contrast (08/11/2025 10:46 PM EDT) Anatomical Region Laterality Modality Body Computed Tomogra phy 08/11/2025 11:0 9 PM EDT Impressions 08/11/2025 11:09 PM EDT 1. No pulmonary embolism. 2. Small bilateral pleural effusions. 3. Cardiomegaly. This document has been electronically signed by: Bharathi Ibarra MD on 08/11/2025 23:09:35 Narrative 08/11/2025 11:09 PM EDT INDICATION: concerns for PE CT angiography chest with contrast. 3D Postprocessing. Comparison: CT/IA/SR - CT ANGIO CHEST WO AND OR W CONTRAST - 02/14/25 13:47 EDT Findings: There is no pulmonary embolism. There is cardiomegaly with four-chamber dilation. There is no pericardial effusion. Patient is status post CABG. Pacemaker leads are in the right atrium and right ventricle. Thoracic aorta is within normal limits in diameter. There are no enlarged lymph nodes. There are small bilateral pleural effusions. There is mild compressive atelectasis in the lower lobes. The lungs appear otherwise clear. Trachea and central bronchi are widely patent. There is no acute fracture or suspicious lytic or sclerotic lesion. There is a spinal stimulator in the lower thoracic spinal canal. Limited images of the upper abdomen demonstrate reflux of contrast into a dilated IVC and hepatic veins. There are renal cysts. There are postoperative changes of gastrectomy. Procedure Note Bharathi Ibarra MD - 08/11/2025 INDICATION: concerns for PE CT angiography chest with contrast. 3D Postprocessing. Comparison: CT/IA/SR - CT ANGIO CHEST WO AND OR W CONTRAST - 02/14/2513:47 EDT Findings: There is no pulmonary embolism. There is cardiomegaly with four-chamber dilation. There is no pericardial effusion. Patient is status post CABG. Pacemaker leads are in the right atrium and right ventricle. Thoracic aorta is within normal limits in diameter. There are no enlarged lymph nodes. There are small bilateral pleural effusions. There is mild compressive atelectasis in the lower lobes. The lungs appear otherwise clear.Trachea and central bronchi are widely patent. There is no acute fracture or suspicious lytic or sclerotic lesion.There is a spinal stimulator in the lower thoracic spinal canal. Limited images of the upper abdomen demonstrate reflux of contrast intoa dilated IVC and hepatic veins. There are renal cysts. There are postoperative changes of gastrectomy. IMPRESSION: 1. No pulmonary embolism. 2. Small bilateral pleural effusions. 3. Cardiomegaly. This document has been electronically signed by: Bharathi Ibarra MD on 08/11/2025 23:09:35 Derrick Gonzalez MD IMG CT PROCEDURES Final Res ult * Quinn urine culture tube (08/11/2025 8:49 PM EDT) Only the most recent of2 resultswithin the time period is included. Pathologist [facility] Extra Tube Hold for add-ons. 08/11/2025 11:01 PM EDT [facility] Comment:Auto resulted. Urine Urine specimen obtained by clean catch procedure / Unknown Non-blood Collection / Unknown 08/11/2025 8:49 PM EDT 08/11/2025 9:30 PM EDT Derrick Gonzalez MD LAB URINE ORDERABLES Final Result [facility] [address] [place] [address], [place] [phone] * Troponin I high sensitivity (08/11/2025 8:47 PM EDT) Only the most recent of4 resultswithin the time period is included. [facility] High Sensitivity Troponin I 20 <=79 ng/L LAB CHEMISTRY METHOD 08/11/2025 9:56 PM EDT [facility] Blood Venous blood specimen / Unknown Venipuncture / Unknown 08/11/2025 8:47 PM EDT 08/11/2025 9:30 PM EDT Narrative [facility] - 08/11/2025 9:56 PM EDT High levels of biotin in samples may falsely decrease hsTroponin values. Use caution when interpreting hsTroponin results in patients taking biotin who exhibit renal impairment (eGFR <60) or in patients taking more than 20 mg/day of biotin. us Derrick Gonzalez MD LAB BLOOD ORDERABLES Final Result Performing Organization Address [facility]/ZIP Co de Phone Number [facility] [address] [place] [address], [place] [phone] * (ABNORMAL) D-dimer, quantitative (08/11/2025 8:47 PM EDT) D-Dimer, Quant (D-DU) 241(H) <=230 ng/mL DDU LAB COAGULATION METHOD 08/11/2025 9:46 PM EDT [facility] Blood Venous blood specimen / Unknown Venipuncture / Unknown 08/11/2025 8:47 PM EDT 08/11/2025 9:30 PM EDT Narrative [facility] - 08/11/2025 9:46 PM EDT D-Dimer <230 ng/mL (D-Dimer units) is the threshold for exclusion of DVT/PE. D-Dimer may be elevated in: Critically ill, severely infected, trauma patients, DIC, acute CVA, acute CA, unstable angina, AF, old age, , and smoking. D-Dimer may be decreased with: Initiation of heparin therapy and oral anticoagulants. us Derrick Gonzalez MD LAB BLOOD ORDERABLES Final Result Performing Organization Address [facility]/ZIP Co de Phone Number [facility] [address] [place] [address], [place] [phone] * ECG 12 lead (08/11/2025 8:35 PM EDT) Only the most recent of4 resultswithin the time period is included. Ventricular Rate ECG 70 BPM GEMUSE Atrial Rate 41 BPM GEMUSE QRS Duration 174 ms GEMUSE Q-T Interval 488 ms GEMUSE QTc 527 ms GEMUSE R [place] -66 degrees GEMUSE T [place] 72 degrees GEMUSE ECG Interpretation Ventricular- paced rhythm When compared with ECG of 11-AUG-2025 17:28, Vent. rate has decreased BY 9 BPM Confirmed by JIMMIE LEIGH ([id number]) on 08/14/2025 7:47:55 AM GEMUSE 08/11/2025 8:35 PM EDT 08/14/2025 7:47 AM EDT Michael Fajardo MD ECG ORDERABLES Final Resul t Performing Organization Address City/[facility]/ZIP Co de Phone Number GEMUSE * Magnesium (08/11/2025 6:41 PM EDT) Only the most recent of3 resultswithin the time period is included. Magnesium 1.9 1.9 - 2.6 mg/dL LAB CHEMISTRY METHOD 08/11/2025 7:43 PM EDT [facility] Blood Venous blood specimen / Unknown Venipuncture / Unknown 08/11/2025 6:41 PM EDT 08/11/2025 7:07 PM EDT Derrick Gonzalez MD LAB BLOOD ORDERABLES Final Result [facility] [address] [place] [address], [place] [phone] * Lipase (08/11/2025 6:41 PM EDT) Only the most recent of2 resultswithin the time period is included. Lipase 17 13 - 75 unit/L LAB CHEMISTRY METHOD 08/11/2025 7:43 PM EDT [facility] Blood Venous blood specimen / Unknown Venipuncture / Unknown 08/11/2025 6:41 PM EDT 08/11/2025 7:07 PM EDT us Derrick Gonzalez MD LAB BLOOD ORDERABLES Final Result Performing Organization Address [facility] Co de Phone Number [facility] [address] [place] [address], [place] [phone] * (ABNORMAL) POCT Glucose, blood (08/07/2025 8:08 AM EDT) Only the most recent of2 resultswithin the time period is included. Glucose POCT 143(H) 70 - 100 mg/dL 08/07/2025 8:28 AM EDT [facility] Blood Capillary blood specimen / Unknown 08/07/2025 8:08 AM EDT 08/07/2025 8:29 AM EDT us Tom Fam MD LAB POINT OF CARE TE ST DOCKED DEVICE UNSOLICITED RESULTS Final Result Performing Organization Address [facility] de Phone Number [facility] [address] [place] [address], [place] [phone] * Lavender tube (08/07/2025 5:23 AM EDT) Extra Tube Hold for add-ons. 08/07/2025 8:01 AM EDT [facility] Comment:Auto resulted. Blood Venous blood specimen / Unknown Venipuncture / Unknown 08/07/2025 5:23 AM EDT 08/07/2025 6:18 AM EDT us Tom Fam MD LAB BLOOD ORDERABLES Final Re sult Performing Organization Address [facility]/ZIP Co de Phone Number [facility] [address] [place] [address], [place] [phone] * [place] top urine tube (08/07/2025 3:27 AM EDT) Extra Tube Hold for add-ons. 08/07/2025 6:01 AM EDT [facility] Comment:Auto resulted. Urine Urine specimen obtained by clean catch procedure / Unknown Non-blood Collection / Unknown 08/07/2025 3:27 AM EDT 08/07/2025 4:45 AM EDT us Rodrigo Alvarez MD LAB URINE ORDERABLES Final Res ult [facility] [address] [place] [address], [place] [phone] * Drug abuse screen 8a panel, urine (08/07/2025 3:27 AM EDT) [facility] Amphetamine Screen, Ur Negative Negative LAB CHEMISTRY METHOD 08/07/2025 5:14 AM EDT [facility] Comment:Certain OTC medicati ons containing ephedrine, phenylephrine, pseudoephedrine and phenylpropanolamine can cause false positive results. Barbiturate Screen, Ur Negative Negative LAB CHEMISTRY METHOD 08/07/2025 5:14 AM EDT [facility] Benzodiazepine Screen, Ur Negative Negative LAB CHEMISTRY METHOD 08/07/2025 5:14 AM EDT [facility] Cocaine Screen, Ur Negative Negative LAB CHEMISTRY METHOD 08/07/2025 5:14 AM EDT [facility] Opiate Screen, Ur Negative Negative LAB CHEMISTRY METHOD 08/07/2025 5:14 AM T [facility] Cannabinoid (THC) Screen, Ur Negative Negative LAB CHEMISTRY METHOD 08/07/2025 5:14 AM T [facility] Comment:Specimens from patie nts taking pantoprazole sodium (Protonix) have been shown to produce false positive results. Oxycodone Screen, Ur Negative Negative LAB CHEMISTRY METHOD 08/07/2025 5:14 AM EDT [facility] Fentanyl, Ur Negative Negative LAB CHEMISTRY METHOD 08/07/2025 5:14 AM EDT [facility] Urine Urine specimen obtained by clean catch procedure / Unknown Non-blood Collection / Unknown 08/07/2025 3:27 AM EDT 08/07/2025 4:45 AM EDT Narrative [facility] - 08/07/2025 5:14 AM EDT Assay cutoffs: Amphetamines 1000 ng/mL Barbiturates 200 ng/mL Benzodiazepines 200 ng/mL Cocaine 300 ng/mL Fentanyl 1 ng/mL Opiates 300 ng/mL Oxycodone 100 ng/mL THC 50 ng/mL Semi-quantitative assay for screening purposes only. Unconfirmed screening result should not be used for non-medical purposes. *ALTERNATE METHOD CONFIRMATION DONE UPON REQUEST ONLY* Rodrigo Alvarez MD LAB URINE ORDERABLES Final Res ult [facility] [address] [place] [address], [place] [phone] * XR Chest 2 Views (08/06/2025 4:49 PM EDT) Anatomical Region Laterality Modality Body Radiographic Latoya ging 08/07/2025 8:36 AM EDT Impressions 08/07/2025 8:37 AM EDT FINDINGS/IMPRESSION: Lungs are clear. No pleural effusion or pneumothorax. Cardiac silhouette is normal in size with evidence of prior coronary artery bypass graft. Right chest wall pacemaker with leads unchanged. Median sternotomy and thoracic spinal cord stimulator noted. Mild degenerative changes seen throughout the bones. -------- FINAL REPORT -------- Dictated By: JERZY REEVES Dictated Date: 08/07/2025 08:36 ET Assigned Physician: JERZY REEVES Reviewed and Electronically Signed By: JERZY REEVES Signed Date: 08/07/2025 08:37 ET Workstation ID: [id number] Transcribed By: Self Edit Transcribed Date: 08/07/2025 08:36 ET Narrative 08/07/2025 8:37 AM EDT XR CHEST 2 VIEWS INDICATION: Chest pain TECHNIQUE: XR CHEST 2 VIEWS COMPARISON: 01/31/2025 Procedure Note Jerzy Reeves MD - 08/07/2025 XR CHEST 2 VIEWS INDICATION: Chest pain TECHNIQUE: XR CHEST 2 VIEWS COMPARISON: 01/31/2025 IMPRESSION: FINDINGS/IMPRESSION: Lungs are clear. No pleural effusion orpneumothorax. Cardiac silhouette is normal in size with evidence of priorcoronary artery bypass graft. Right chest wall pacemaker with leadsunchanged. Median sternotomy and thoracic spinal cord stimulator noted.Mild degenerative changes seen throughout the bones. -------- FINAL REPORT -------- Dictated By: JERZY REEVES Dictated Date: 08/07/2025 08:36 ET Assigned Physician: JERZY REEVES Reviewed and Electronically Signed By: JERZY REEVES Signed Date: 08/07/2025 08:37 ET Workstation ID: [id number] Transcribed By: Self Edit Transcribed Date: 08/07/2025 08:36 ET us Michael Fajardo MD IMG XR PROCEDURES Final Res ult * Thyroid stimulating hormone with reflex to free t4 and free t3 (08/06/2025 1:05 PM EDT) TSH 3.24 0.40 - 4.00 mcIU/mL LAB CHEMISTRY METHOD 08/06/2025 10:32 PM EDT [facility] Blood Venous blood specimen / Unknown Venipuncture / Unknown 08/06/2025 1:05 PM EDT 08/06/2025 1:15 PM EDT us Rodrigo Alvarez MD LAB BLOOD ORDERABLES Final Res ult [facility] [address] [place] [address], [place] [phone] * (ABNORMAL) Hemoglobin A1c (06/13/2025 11:37 AM EDT) Hemoglobin A1C 6.6(H) <6.5 % LAB CHEMISTRY METHOD 06/13/2025 8:14 PM EDT [facility] Mean Bld Glu Estim. 143 mg/dL LAB CHEMISTRY METHOD 06/13/2025 8:14 PM EDT [facility] Blood Venous blood specimen / Unknown Venipuncture / Unknown 06/13/2025 11:37 AM EDT 06/13/2025 11:37 AM EDT Karen Lima LETTUCE CUTTER LAB BLOOD ORDERABLES Final Re sult [facility] [address] [place] [address], [place] [phone] * Urine Albumin Creatinine Ratio (07/06/2024) Pathologist [facility] Urine Albumin Creatinine Ratio Abstracted Historical Provider MD HEALTH MAINTENANCE Final Result from Last 3 Months or Most Recently Relevant to Health Maintenance Additional Health Concerns Active Problems Noted Date Diagnosed Date Impaired Tissue 03/16/2025 Education needed on impact of smoking on wound 0 03/16/2025 Education needed related to ulceration/compromised skin integrity. 03/16/2025 Insurance [facility] CLAIMS ADJUDICATION JORDAN GOMEZ [id number] [facility] * Guarantor: [employer] Account Type Relation to Patient Date of Phone Billing [place] [address] Advance Directives Documents on File Type Date Recorded Patient Vba Developer Expl anation Advance Directives and Living Will 03/01/2025 8:59 AM Advance Directives and Living Will 12/26/2024 9:34 AM ADV DIR-MOLST [email or web address] Advance Directives and Living Will 12/26/2024 9:34 AM ADV DIR-Care [place] [email or web address] Advance Directives and Living Will 12/26/2024 9:34 AM ADV DIR-Healthcare Proxy [email or web address] Health Care Decision (hx) 07/06/2024 ADVANCE DIRECTIVE Health Care Decision (hx) 07/06/2024 ADVANCE DIRECTIVE Health Care Decision (hx) 07/06/2024 ADVANCE DIRECTIVE Health Care Decision (hx) 06/05/2024 ADVANCE DIRECTIVE Health Care Decision (hx) 06/21/2023 ADVANCE DIRECTIVE Health Care Decision (hx) 06/21/2023 ADVANCE DIRECTIVE Health Care Decision (hx) 06/21/2023 ADVANCE DIRECTIVE Health Care Decision (hx) 06/21/2023 ADVANCE DIRECTIVE Health Care Decision (hx) 06/21/2023 ADVANCE DIRECTIVE Health Care Decision (hx) 06/21/2023 ADVANCE DIRECTIVE Health Care Decision (hx) 06/21/2023 ADVANCE DIRECTIVE Health Care Decision (hx) 06/21/2023 ADVANCE DIRECTIVE Health Care Decision (hx) 06/21/2023 ADVANCE DIRECTIVE Health Care Decision (hx) 06/21/2023 ADVANCE DIRECTIVE Health Care Decision (hx) 06/21/2023 ADVANCE DIRECTIVE Health Care Decision (hx) 06/21/2023 ADVANCE DIRECTIVE Health Care Decision (hx) 06/21/2023 ADVANCE DIRECTIVE Health Care Decision (hx) 06/21/2023 ADVANCE DIRECTIVE Health Care Decision (hx) 05/06/2023 ADVANCE DIRECTIVE Health Care Decision (hx) 04/13/2023 ADVANCE DIRECTIVE Health Care Decision (hx) 01/14/2022 ADVANCE DIRECTIVE Health Care Decision (hx) 01/14/2022 ADVANCE DIRECTIVE Health Care Decision (hx) 01/14/2022 ADVANCE DIRECTIVE Health Care Decision (hx) 01/14/2022 ADVANCE DIRECTIVE Health Care Decision (hx) 01/14/2022 ADVANCE DIRECTIVE Health Care Decision (hx) 01/14/2022 ADVANCE DIRECTIVE Health Care Decision (hx) 01/14/2022 ADVANCE DIRECTIVE Health Care Decision (hx) 01/14/2022 ADVANCE DIRECTIVE Health Care Decision (hx) 01/14/2022 ADVANCE DIRECTIVE Health Care Decision (hx) 01/14/2022 ADVANCE DIRECTIVE Health Care Decision (hx) 01/14/2022 ADVANCE DIRECTIVE Health Care Decision (hx) 01/14/2022 ADVANCE DIRECTIVE Health Care Decision (hx) 01/14/2022 ADVANCE DIRECTIVE Health Care Decision (hx) 01/14/2022 ADVANCE DIRECTIVE Health Care Decision (hx) 01/14/2022 ADVANCE DIRECTIVE Health Care Decision (hx) 01/14/2022 ADVANCE DIRECTIVE Health Care Decision (hx) 01/14/2022 ADVANCE DIRECTIVE Health Care Decision (hx) 01/14/2022 ADVANCE DIRECTIVE Health Care Decision (hx) 01/14/2022 ADVANCE DIRECTIVE Health Care Decision (hx) 01/14/2022 ADVANCE DIRECTIVE Health Care Decision (hx) 01/14/2022 ADVANCE DIRECTIVE Health Care Decision (hx) 01/14/2022 ADVANCE DIRECTIVE Health Care Decision (hx) 01/14/2022 ADVANCE DIRECTIVE Health Care Decision (hx) 01/14/2022 ADVANCE DIRECTIVE Health Care Decision (hx) 01/14/2022 ADVANCE DIRECTIVE Health Care Decision (hx) 01/14/2022 ADVANCE DIRECTIVE Health Care Decision (hx) 01/14/2022 ADVANCE DIRECTIVE Health Care Decision (hx) 01/14/2022 ADVANCE DIRECTIVE Health Care Decision (hx) 01/14/2022 ADVANCE DIRECTIVE Health Care Decision (hx) 01/14/2022 ADVANCE DIRECTIVE Health Care Decision (hx) 01/14/2022 ADVANCE DIRECTIVE Health Care Decision (hx) 01/14/2022 ADVANCE DIRECTIVE Health Care Decision (hx) 01/14/2022 ADVANCE DIRECTIVE Health Care Decision (hx) 01/14/2022 ADVANCE DIRECTIVE Health Care Decision (hx) 01/14/2022 ADVANCE DIRECTIVE Health Care Decision (hx) 09/22/2017 ADVANCE DIRECTIVE Health Care Decision (hx) 09/22/2017 ADVANCE DIRECTIVE Health Care Decision (hx) 09/22/2017 ADVANCE DIRECTIVE Health Care Decision (hx) 09/22/2017 ADVANCE DIRECTIVE Health Care Decision (hx) 09/22/2017 ADVANCE DIRECTIVE Health Care Decision (hx) 09/22/2017 ADVANCE DIRECTIVE Health Care Decision (hx) 09/22/2017 ADVANCE DIRECTIVE Health Care Decision (hx) 09/22/2017 ADVANCE DIRECTIVE Health Care Decision (hx) 09/22/2017 ADVANCE DIRECTIVE Health Care Decision (hx) 09/22/2017 ADVANCE DIRECTIVE Health Care Decision (hx) 09/22/2017 ADVANCE DIRECTIVE Health Care Decision (hx) 09/22/2017 ADVANCE DIRECTIVE Health Care Decision (hx) 09/22/2017 ADVANCE DIRECTIVE Health Care Decision (hx) 09/22/2017 ADVANCE DIRECTIVE Health Care Decision (hx) 09/22/2017 ADVANCE DIRECTIVE Health Care Decision (hx) 09/22/2017 ADVANCE DIRECTIVE Health Care Decision (hx) 09/22/2017 ADVANCE DIRECTIVE Health Care Decision (hx) 09/22/2017 ADVANCE DIRECTIVE Health Care Decision (hx) 09/22/2017 ADVANCE DIRECTIVE Health Care Decision (hx) 09/22/2017 ADVANCE DIRECTIVE Health Care Decision (hx) 09/22/2017 ADVANCE DIRECTIVE Health Care Decision (hx) 09/22/2017 ADVANCE DIRECTIVE Health Care Decision (hx) 09/22/2017 ADVANCE DIRECTIVE Health Care Decision (hx) 09/22/2017 ADVANCE DIRECTIVE Health Care Decision (hx) 09/22/2017 ADVANCE DIRECTIVE Health Care Decision (hx) 09/22/2017 ADVANCE DIRECTIVE Health Care Decision (hx) 09/22/2017 ADVANCE DIRECTIVE Health Care Decision (hx) 09/22/2017 ADVANCE DIRECTIVE Health Care Decision (hx) 09/22/2017 ADVANCE DIRECTIVE Health Care Decision (hx) 09/22/2017 ADVANCE DIRECTIVE Health Care Decision (hx) 09/22/2017 ADVANCE DIRECTIVE Health Care Decision (hx) 09/22/2017 ADVANCE DIRECTIVE Health Care Decision (hx) 09/22/2017 ADVANCE DIRECTIVE Health Care Decision (hx) 09/22/2017 ADVANCE DIRECTIVE Health Care Decision (hx) 09/22/2017 ADVANCE DIRECTIVE Health Care Decision (hx) 09/22/2017 ADVANCE DIRECTIVE Health Care Decision (hx) 09/22/2017 ADVANCE DIRECTIVE Health Care Decision (hx) 09/22/2017 ADVANCE DIRECTIVE Health Care Decision (hx) 09/22/2017 ADVANCE DIRECTIVE Health Care Decision (hx) 09/22/2017 ADVANCE DIRECTIVE Health Care Decision (hx) 09/22/2017 ADVANCE DIRECTIVE Health Care Decision (hx) 09/22/2017 ADVANCE DIRECTIVE Health Care Decision (hx) 09/22/2017 ADVANCE DIRECTIVE Health Care Decision (hx) 09/22/2017 ADVANCE DIRECTIVE Health Care Decision (hx) 09/22/2017 ADVANCE DIRECTIVE Health Care Decision (hx) 09/22/2017 ADVANCE DIRECTIVE Health Care Decision (hx) 09/22/2017 ADVANCE DIRECTIVE Health Care Decision (hx) 09/22/2017 ADVANCE DIRECTIVE Health Care Decision (hx) 09/22/2017 ADVANCE DIRECTIVE Health Care Decision (hx) 09/22/2017 ADVANCE DIRECTIVE Health Care Decision (hx) 09/22/2017 ADVANCE DIRECTIVE Health Care Decision (hx) 09/22/2017 ADVANCE DIRECTIVE Health Care Decision (hx) 09/22/2017 ADVANCE DIRECTIVE Health Care Decision (hx) 09/22/2017 ADVANCE DIRECTIVE Health Care Decision (hx) 09/22/2017 ADVANCE DIRECTIVE Health Care Decision (hx) 09/22/2017 ADVANCE DIRECTIVE Health Care Decision (hx) 09/22/2017 ADVANCE DIRECTIVE Health Care Decision (hx) 09/22/2017 ADVANCE DIRECTIVE Health Care Decision (hx) 09/22/2017 ADVANCE DIRECTIVE Health Care Decision (hx) 06/28/2017 ADVANCE DIRECTIVE Health Care Decision (hx) 06/28/2017 ADVANCE DIRECTIVE Health Care Decision (hx) 06/28/2017 ADVANCE DIRECTIVE Health Care Decision (hx) 06/28/2017 ADVANCE DIRECTIVE Health Care Decision (hx) 06/28/2017 ADVANCE DIRECTIVE Health Care Decision (hx) 06/28/2017 ADVANCE DIRECTIVE Health Care Decision (hx) 06/28/2017 ADVANCE DIRECTIVE Health Care Decision (hx) 06/28/2017 ADVANCE DIRECTIVE Health Care Decision (hx) 06/28/2017 ADVANCE DIRECTIVE Health Care Decision (hx) 06/28/2017 ADVANCE DIRECTIVE Health Care Decision (hx) 06/28/2017 ADVANCE DIRECTIVE Health Care Decision (hx) 06/28/2017 ADVANCE DIRECTIVE Health Care Decision (hx) 06/28/2017 ADVANCE DIRECTIVE Health Care Decision (hx) 06/28/2017 ADVANCE DIRECTIVE Health Care Decision (hx) 06/28/2017 ADVANCE DIRECTIVE Health Care Decision (hx) 06/28/2017 ADVANCE DIRECTIVE Health Care Decision (hx) 06/28/2017 ADVANCE DIRECTIVE Health Care Decision (hx) 06/28/2017 ADVANCE DIRECTIVE Health Care Decision (hx) 06/28/2017 ADVANCE DIRECTIVE Health Care Decision (hx) 06/28/2017 ADVANCE DIRECTIVE Health Care Decision (hx) 06/28/2017 ADVANCE DIRECTIVE Health Care Decision (hx) 06/28/2017 ADVANCE DIRECTIVE Health Care Decision (hx) 06/28/2017 ADVANCE DIRECTIVE Health Care Decision (hx) 06/28/2017 ADVANCE DIRECTIVE Health Care Decision (hx) 06/28/2017 ADVANCE DIRECTIVE Health Care Decision (hx) 06/28/2017 ADVANCE DIRECTIVE Health Care Decision (hx) 06/28/2017 ADVANCE DIRECTIVE Health Care Decision (hx) 06/28/2017 ADVANCE DIRECTIVE Health Care Decision (hx) 06/28/2017 ADVANCE DIRECTIVE Health Care Decision (hx) 06/28/2017 ADVANCE DIRECTIVE Health Care Decision (hx) 06/28/2017 ADVANCE DIRECTIVE Health Care Decision (hx) 06/28/2017 ADVANCE DIRECTIVE Health Care Decision (hx) 06/28/2017 ADVANCE DIRECTIVE Health Care Decision (hx) 06/28/2017 ADVANCE DIRECTIVE Health Care Decision (hx) 06/28/2017 ADVANCE DIRECTIVE Health Care Decision (hx) 06/28/2017 ADVANCE DIRECTIVE Health Care Decision (hx) 06/28/2017 ADVANCE DIRECTIVE Health Care Decision (hx) 06/28/2017 ADVANCE DIRECTIVE Health Care Decision (hx) 06/28/2017 ADVANCE DIRECTIVE Health Care Decision (hx) 06/28/2017 ADVANCE DIRECTIVE Health Care Decision (hx) 06/28/2017 ADVANCE DIRECTIVE Health Care Decision (hx) 06/28/2017 ADVANCE DIRECTIVE Health Care Decision (hx) 06/28/2017 ADVANCE DIRECTIVE Health Care Decision (hx) 06/28/2017 ADVANCE DIRECTIVE Health Care Decision (hx) 06/28/2017 ADVANCE DIRECTIVE Health Care Decision (hx) 06/28/2017 ADVANCE DIRECTIVE Health Care Decision (hx) 06/28/2017 ADVANCE DIRECTIVE Health Care Decision (hx) 06/28/2017 ADVANCE DIRECTIVE Health Care Decision (hx) 06/28/2017 ADVANCE DIRECTIVE Health Care Decision (hx) 06/28/2017 ADVANCE DIRECTIVE Health Care Decision (hx) 06/28/2017 ADVANCE DIRECTIVE Health Care Decision (hx) 06/28/2017 ADVANCE DIRECTIVE Health Care Decision (hx) 06/28/2017 ADVANCE DIRECTIVE Health Care Decision (hx) 06/28/2017 ADVANCE DIRECTIVE Health Care Decision (hx) 06/28/2017 ADVANCE DIRECTIVE Health Care Decision (hx) 06/28/2017 ADVANCE DIRECTIVE Health Care Decision (hx) 06/28/2017 ADVANCE DIRECTIVE Health Care Decision (hx) 06/28/2017 ADVANCE DIRECTIVE Health Care Decision (hx) 06/28/2017 ADVANCE DIRECTIVE Health Care Decision (hx) 06/26/2017 ADVANCE DIRECTIVE Health Care Decision (hx) 06/26/2017 ADVANCE DIRECTIVE Health Care Decision (hx) 06/26/2017 ADVANCE DIRECTIVE Health Care Decision (hx) 06/26/2017 ADVANCE DIRECTIVE Health Care Decision (hx) 06/26/2017 ADVANCE DIRECTIVE Health Care Decision (hx) 06/26/2017 ADVANCE DIRECTIVE Health Care Decision (hx) 06/26/2017 ADVANCE DIRECTIVE Health Care Decision (hx) 06/26/2017 ADVANCE DIRECTIVE Health Care Decision (hx) 06/26/2017 ADVANCE DIRECTIVE Health Care Decision (hx) 06/26/2017 ADVANCE DIRECTIVE Health Care Decision (hx) 06/26/2017 ADVANCE DIRECTIVE Health Care Decision (hx) 06/26/2017 ADVANCE DIRECTIVE Health Care Decision (hx) 06/26/2017 ADVANCE DIRECTIVE Health Care Decision (hx) 06/26/2017 ADVANCE DIRECTIVE Health Care Decision (hx) 06/26/2017 ADVANCE DIRECTIVE Health Care Decision (hx) 06/26/2017 ADVANCE DIRECTIVE Health Care Decision (hx) 06/26/2017 ADVANCE DIRECTIVE Health Care Decision (hx) 06/26/2017 ADVANCE DIRECTIVE Health Care Decision (hx) 06/26/2017 ADVANCE DIRECTIVE Health Care Decision (hx) 06/26/2017 ADVANCE DIRECTIVE Health Care Decision (hx) 06/26/2017 ADVANCE DIRECTIVE Health Care Decision (hx) 06/26/2017 ADVANCE DIRECTIVE Health Care Decision (hx) 06/26/2017 ADVANCE DIRECTIVE Health Care Decision (hx) 06/26/2017 ADVANCE DIRECTIVE Health Care Decision (hx) 06/26/2017 ADVANCE DIRECTIVE Health Care Decision (hx) 06/26/2017 ADVANCE DIRECTIVE Health Care Decision (hx) 06/26/2017 ADVANCE DIRECTIVE Health Care Decision (hx) 06/26/2017 ADVANCE DIRECTIVE Health Care Decision (hx) 06/26/2017 ADVANCE DIRECTIVE Health Care Decision (hx) 06/26/2017 ADVANCE DIRECTIVE Health Care Decision (hx) 06/26/2017 ADVANCE DIRECTIVE Health Care Decision (hx) 06/26/2017 ADVANCE DIRECTIVE Health Care Decision (hx) 06/26/2017 ADVANCE DIRECTIVE Health Care Decision (hx) 06/26/2017 ADVANCE DIRECTIVE Health Care Decision (hx) 06/26/2017 ADVANCE DIRECTIVE Health Care Decision (hx) 06/26/2017 ADVANCE DIRECTIVE Health Care Decision (hx) 06/26/2017 ADVANCE DIRECTIVE Health Care Decision (hx) 06/26/2017 ADVANCE DIRECTIVE Health Care Decision (hx) 06/26/2017 ADVANCE DIRECTIVE Health Care Decision (hx) 06/26/2017 ADVANCE DIRECTIVE Health Care Decision (hx) 06/26/2017 ADVANCE DIRECTIVE Health Care Decision (hx) 06/26/2017 ADVANCE DIRECTIVE Health Care Decision (hx) 06/26/2017 ADVANCE DIRECTIVE Health Care Decision (hx) 06/26/2017 ADVANCE DIRECTIVE Health Care Decision (hx) 06/26/2017 ADVANCE DIRECTIVE Health Care Decision (hx) 06/26/2017 ADVANCE DIRECTIVE Health Care Decision (hx) 06/26/2017 ADVANCE DIRECTIVE Health Care Decision (hx) 06/26/2017 ADVANCE DIRECTIVE Health Care Decision (hx) 06/26/2017 ADVANCE DIRECTIVE Health Care Decision (hx) 06/26/2017 ADVANCE DIRECTIVE Health Care Decision (hx) 06/26/2017 ADVANCE DIRECTIVE Health Care Decision (hx) 06/26/2017 ADVANCE DIRECTIVE Health Care Decision (hx) 06/26/2017 ADVANCE DIRECTIVE Health Care Decision (hx) 06/26/2017 ADVANCE DIRECTIVE Health Care Decision (hx) 06/26/2017 ADVANCE DIRECTIVE Health Care Decision (hx) 06/26/2017 ADVANCE DIRECTIVE Health Care Decision (hx) 06/26/2017 ADVANCE DIRECTIVE Health Care Decision (hx) 06/26/2017 ADVANCE DIRECTIVE Health Care Decision (hx) 06/26/2017 ADVANCE DIRECTIVE Health Care Decision (hx) 04/30/2016 ADVANCE DIRECTIVE Health Care Decision (hx) 04/30/2016 ADVANCE DIRECTIVE Health Care Decision (hx) 04/30/2016 ADVANCE DIRECTIVE Health Care Decision (hx) 04/30/2016 ADVANCE DIRECTIVE Health Care Decision (hx) 04/30/2016 ADVANCE DIRECTIVE Health Care Decision (hx) 04/30/2016 ADVANCE DIRECTIVE Health Care Decision (hx) 04/30/2016 ADVANCE DIRECTIVE Health Care Decision (hx) 04/30/2016 ADVANCE DIRECTIVE Health Care Decision (hx) 04/30/2016 ADVANCE DIRECTIVE Health Care Decision (hx) 04/30/2016 ADVANCE DIRECTIVE Health Care Decision (hx) 04/30/2016 ADVANCE DIRECTIVE Health Care Decision (hx) 04/30/2016 ADVANCE DIRECTIVE Health Care Decision (hx) 04/30/2016 ADVANCE DIRECTIVE Health Care Decision (hx) 04/30/2016 ADVANCE DIRECTIVE Health Care Decision (hx) 04/30/2016 ADVANCE DIRECTIVE Health Care Decision (hx) 04/30/2016 ADVANCE DIRECTIVE Health Care Decision (hx) 04/30/2016 ADVANCE DIRECTIVE Health Care Decision (hx) 04/30/2016 ADVANCE DIRECTIVE Health Care Decision (hx) 04/30/2016 ADVANCE DIRECTIVE Health Care Decision (hx) 04/30/2016 ADVANCE DIRECTIVE Health Care Decision (hx) 04/30/2016 ADVANCE DIRECTIVE Health Care Decision (hx) 04/30/2016 ADVANCE DIRECTIVE Health Care Decision (hx) 04/30/2016 ADVANCE DIRECTIVE Health Care Decision (hx) 04/30/2016 ADVANCE DIRECTIVE Health Care Decision (hx) 04/30/2016 ADVANCE DIRECTIVE Health Care Decision (hx) 04/30/2016 ADVANCE DIRECTIVE Health Care Decision (hx) 04/30/2016 ADVANCE DIRECTIVE Health Care Decision (hx) 04/30/2016 ADVANCE DIRECTIVE Health Care Decision (hx) 04/30/2016 ADVANCE DIRECTIVE Health Care Decision (hx) 04/30/2016 ADVANCE DIRECTIVE Health Care Decision (hx) 04/30/2016 ADVANCE DIRECTIVE Health Care Decision (hx) 04/30/2016 ADVANCE DIRECTIVE Health Care Decision (hx) 04/30/2016 ADVANCE DIRECTIVE Health Care Decision (hx) 04/30/2016 ADVANCE DIRECTIVE Health Care Decision (hx) 04/30/2016 ADVANCE DIRECTIVE Health Care Decision (hx) 04/30/2016 ADVANCE DIRECTIVE Health Care Decision (hx) 04/30/2016 ADVANCE DIRECTIVE Health Care Decision (hx) 04/30/2016 ADVANCE DIRECTIVE Health Care Decision (hx) 04/30/2016 ADVANCE DIRECTIVE Health Care Decision (hx) 04/30/2016 ADVANCE DIRECTIVE Health Care Decision (hx) 04/30/2016 ADVANCE DIRECTIVE Health Care Decision (hx) 04/30/2016 ADVANCE DIRECTIVE Health Care Decision (hx) 04/30/2016 ADVANCE DIRECTIVE Health Care Decision (hx) 04/30/2016 ADVANCE DIRECTIVE Health Care Decision (hx) 04/30/2016 ADVANCE DIRECTIVE Health Care Decision (hx) 04/30/2016 ADVANCE DIRECTIVE Health Care Decision (hx) 04/30/2016 ADVANCE DIRECTIVE Health Care Decision (hx) 04/30/2016 ADVANCE DIRECTIVE Health Care Decision (hx) 04/30/2016 ADVANCE DIRECTIVE Health Care Decision (hx) 04/30/2016 ADVANCE DIRECTIVE Health Care Decision (hx) 04/30/2016 ADVANCE DIRECTIVE Health Care Decision (hx) 04/30/2016 ADVANCE DIRECTIVE Health Care Decision (hx) 04/30/2016 ADVANCE DIRECTIVE Health Care Decision (hx) 04/30/2016 ADVANCE DIRECTIVE Health Care Decision (hx) 04/30/2016 ADVANCE DIRECTIVE Health Care Decision (hx) 04/30/2016 ADVANCE DIRECTIVE Health Care Decision (hx) 04/30/2016 ADVANCE DIRECTIVE Health Care Decision (hx) 04/30/2016 ADVANCE DIRECTIVE Health Care Decision (hx) 04/30/2016 ADVANCE DIRECTIVE Health Care Decision (hx) 03/11/2015 ADVANCE DIRECTIVE Health Care Decision (hx) 03/11/2015 ADVANCE DIRECTIVE Health Care Decision (hx) 03/11/2015 ADVANCE DIRECTIVE Health Care Decision (hx) 03/11/2015 ADVANCE DIRECTIVE Health Care Decision (hx) 03/11/2015 ADVANCE DIRECTIVE Health Care Decision (hx) 03/11/2015 ADVANCE DIRECTIVE Health Care Decision (hx) 03/11/2015 ADVANCE DIRECTIVE Health Care Decision (hx) 03/11/2015 ADVANCE DIRECTIVE Health Care Decision (hx) 03/11/2015 ADVANCE DIRECTIVE Health Care Decision (hx) 03/11/2015 ADVANCE DIRECTIVE Health Care Decision (hx) 03/11/2015 ADVANCE DIRECTIVE Health Care Decision (hx) 03/11/2015 ADVANCE DIRECTIVE Health Care Decision (hx) 03/11/2015 ADVANCE DIRECTIVE Health Care Decision (hx) 03/11/2015 ADVANCE DIRECTIVE Health Care Decision (hx) 03/11/2015 ADVANCE DIRECTIVE Health Care Decision (hx) 03/11/2015 ADVANCE DIRECTIVE Health Care Decision (hx) 03/11/2015 ADVANCE DIRECTIVE Health Care Decision (hx) 03/11/2015 ADVANCE DIRECTIVE Health Care Decision (hx) 03/11/2015 ADVANCE DIRECTIVE Health Care Decision (hx) 03/11/2015 ADVANCE DIRECTIVE Health Care Decision (hx) 03/11/2015 ADVANCE DIRECTIVE Health Care Decision (hx) 03/11/2015 ADVANCE DIRECTIVE Health Care Decision (hx) 03/11/2015 ADVANCE DIRECTIVE Health Care Decision (hx) 03/11/2015 ADVANCE DIRECTIVE Health Care Decision (hx) 03/11/2015 ADVANCE DIRECTIVE Health Care Decision (hx) 03/11/2015 ADVANCE DIRECTIVE Health Care Decision (hx) 03/11/2015 ADVANCE DIRECTIVE Health Care Decision (hx) 03/11/2015 ADVANCE DIRECTIVE Health Care Decision (hx) 03/11/2015 ADVANCE DIRECTIVE Health Care Decision (hx) 03/11/2015 ADVANCE DIRECTIVE Health Care Decision (hx) 03/11/2015 ADVANCE DIRECTIVE Health Care Decision (hx) 03/11/2015 ADVANCE DIRECTIVE Health Care Decision (hx) 03/11/2015 ADVANCE DIRECTIVE Health Care Decision (hx) 03/11/2015 ADVANCE DIRECTIVE Health Care Decision (hx) 03/11/2015 ADVANCE DIRECTIVE Health Care Decision (hx) 03/11/2015 ADVANCE DIRECTIVE Health Care Decision (hx) 03/11/2015 ADVANCE DIRECTIVE Health Care Decision (hx) 03/11/2015 ADVANCE DIRECTIVE Health Care Decision (hx) 03/11/2015 ADVANCE DIRECTIVE Health Care Decision (hx) 03/11/2015 ADVANCE DIRECTIVE Health Care Decision (hx) 03/11/2015 ADVANCE DIRECTIVE Health Care Decision (hx) 03/11/2015 ADVANCE DIRECTIVE Health Care Decision (hx) 03/11/2015 ADVANCE DIRECTIVE Health Care Decision (hx) 03/11/2015 ADVANCE DIRECTIVE Health Care Decision (hx) 03/11/2015 ADVANCE DIRECTIVE Health Care Decision (hx) 03/11/2015 ADVANCE DIRECTIVE Health Care Decision (hx) 03/11/2015 ADVANCE DIRECTIVE Health Care Decision (hx) 03/11/2015 ADVANCE DIRECTIVE Health Care Decision (hx) 03/11/2015 ADVANCE DIRECTIVE Health Care Decision (hx) 03/11/2015 ADVANCE DIRECTIVE Health Care Decision (hx) 03/11/2015 ADVANCE DIRECTIVE Health Care Decision (hx) 03/11/2015 ADVANCE DIRECTIVE Health Care Decision (hx) 03/11/2015 ADVANCE DIRECTIVE Health Care Decision (hx) 03/11/2015 ADVANCE DIRECTIVE Health Care Decision (hx) 03/11/2015 ADVANCE DIRECTIVE Health Care Decision (hx) 03/11/2015 ADVANCE DIRECTIVE Health Care Decision (hx) 03/11/2015 ADVANCE DIRECTIVE Health Care Decision (hx) 03/11/2015 ADVANCE DIRECTIVE Health Care Decision (hx) 03/11/2015 ADVANCE DIRECTIVE Health Care Decision (hx) 03/04/2015 ADVANCE DIRECTIVE Health Care Decision (hx) 03/04/2015 ADVANCE DIRECTIVE Health Care Decision (hx) 03/04/2015 ADVANCE DIRECTIVE Health Care Decision (hx) 03/04/2015 ADVANCE DIRECTIVE Health Care Decision (hx) 03/04/2015 ADVANCE DIRECTIVE Health Care Decision (hx) 03/04/2015 ADVANCE DIRECTIVE Health Care Decision (hx) 03/04/2015 ADVANCE DIRECTIVE Health Care Decision (hx) 03/04/2015 ADVANCE DIRECTIVE Health Care Decision (hx) 03/04/2015 ADVANCE DIRECTIVE Health Care Decision (hx) 03/04/2015 ADVANCE DIRECTIVE Health Care Decision (hx) 03/04/2015 ADVANCE DIRECTIVE Health Care Decision (hx) 03/04/2015 ADVANCE DIRECTIVE Health Care Decision (hx) 03/04/2015 ADVANCE DIRECTIVE Health Care Decision (hx) 03/04/2015 ADVANCE DIRECTIVE Health Care Decision (hx) 03/04/2015 ADVANCE DIRECTIVE Health Care Decision (hx) 03/04/2015 ADVANCE DIRECTIVE Health Care Decision (hx) 03/04/2015 ADVANCE DIRECTIVE Health Care Decision (hx) 03/04/2015 ADVANCE DIRECTIVE Health Care Decision (hx) 03/04/2015 ADVANCE DIRECTIVE Health Care Decision (hx) 03/04/2015 ADVANCE DIRECTIVE Health Care Decision (hx) 03/04/2015 ADVANCE DIRECTIVE Health Care Decision (hx) 03/04/2015 ADVANCE DIRECTIVE Health Care Decision (hx) 03/04/2015 ADVANCE DIRECTIVE Health Care Decision (hx) 03/04/2015 ADVANCE DIRECTIVE Health Care Decision (hx) 03/04/2015 ADVANCE DIRECTIVE Health Care Decision (hx) 03/04/2015 ADVANCE DIRECTIVE Health Care Decision (hx) 03/04/2015 ADVANCE DIRECTIVE Health Care Decision (hx) 03/04/2015 ADVANCE DIRECTIVE Health Care Decision (hx) 03/04/2015 ADVANCE DIRECTIVE Health Care Decision (hx) 03/04/2015 ADVANCE DIRECTIVE Health Care Decision (hx) 03/04/2015 ADVANCE DIRECTIVE Health Care Decision (hx) 03/04/2015 ADVANCE DIRECTIVE Health Care Decision (hx) 03/04/2015 ADVANCE DIRECTIVE Health Care Decision (hx) 03/04/2015 ADVANCE DIRECTIVE Health Care Decision (hx) 03/04/2015 ADVANCE DIRECTIVE Health Care Decision (hx) 03/04/2015 ADVANCE DIRECTIVE Health Care Decision (hx) 03/04/2015 ADVANCE DIRECTIVE Health Care Decision (hx) 03/04/2015 ADVANCE DIRECTIVE Health Care Decision (hx) 03/04/2015 ADVANCE DIRECTIVE Health Care Decision (hx) 03/04/2015 ADVANCE DIRECTIVE Health Care Decision (hx) 03/04/2015 ADVANCE DIRECTIVE Health Care Decision (hx) 03/04/2015 ADVANCE DIRECTIVE Health Care Decision (hx) 03/04/2015 ADVANCE DIRECTIVE Health Care Decision (hx) 03/04/2015 ADVANCE DIRECTIVE Health Care Decision (hx) 03/04/2015 ADVANCE DIRECTIVE Health Care Decision (hx) 03/04/2015 ADVANCE DIRECTIVE Health Care Decision (hx) 03/04/2015 ADVANCE DIRECTIVE Health Care Decision (hx) 03/04/2015 ADVANCE DIRECTIVE Health Care Decision (hx) 03/04/2015 ADVANCE DIRECTIVE Health Care Decision (hx) 03/04/2015 ADVANCE DIRECTIVE Health Care Decision (hx) 03/04/2015 ADVANCE DIRECTIVE Health Care Decision (hx) 03/04/2015 ADVANCE DIRECTIVE Health Care Decision (hx) 03/04/2015 ADVANCE DIRECTIVE Health Care Decision (hx) 03/04/2015 ADVANCE DIRECTIVE Health Care Decision (hx) 03/04/2015 ADVANCE DIRECTIVE Health Care Decision (hx) 03/04/2015 ADVANCE DIRECTIVE Health Care Decision (hx) 03/04/2015 ADVANCE DIRECTIVE Health Care Decision (hx) 03/04/2015 ADVANCE DIRECTIVE Health Care Decision (hx) 03/04/2015 ADVANCE DIRECTIVE Health Care Decision (hx) 01/17/2015 ADVANCE DIRECTIVE Health Care Decision (hx) 01/17/2015 ADVANCE DIRECTIVE Health Care Decision (hx) 01/17/2015 ADVANCE DIRECTIVE Health Care Decision (hx) 01/17/2015 ADVANCE DIRECTIVE Health Care Decision (hx) 01/17/2015 ADVANCE DIRECTIVE Health Care Decision (hx) 01/17/2015 ADVANCE DIRECTIVE Health Care Decision (hx) 01/17/2015 ADVANCE DIRECTIVE Health Care Decision (hx) 01/17/2015 ADVANCE DIRECTIVE Health Care Decision (hx) 01/17/2015 ADVANCE DIRECTIVE Health Care Decision (hx) 01/17/2015 ADVANCE DIRECTIVE Health Care Decision (hx) 01/17/2015 ADVANCE DIRECTIVE Health Care Decision (hx) 01/17/2015 ADVANCE DIRECTIVE Health Care Decision (hx) 01/17/2015 ADVANCE DIRECTIVE Health Care Decision (hx) 01/17/2015 ADVANCE DIRECTIVE Health Care Decision (hx) 01/17/2015 ADVANCE DIRECTIVE Health Care Decision (hx) 01/17/2015 ADVANCE DIRECTIVE Health Care Decision (hx) 01/17/2015 ADVANCE DIRECTIVE Health Care Decision (hx) 01/17/2015 ADVANCE DIRECTIVE Health Care Decision (hx) 01/17/2015 ADVANCE DIRECTIVE Health Care Decision (hx) 01/17/2015 ADVANCE DIRECTIVE Health Care Decision (hx) 01/17/2015 ADVANCE DIRECTIVE Health Care Decision (hx) 01/17/2015 ADVANCE DIRECTIVE Health Care Decision (hx) 01/17/2015 ADVANCE DIRECTIVE Health Care Decision (hx) 01/17/2015 ADVANCE DIRECTIVE Health Care Decision (hx) 01/17/2015 ADVANCE DIRECTIVE Health Care Decision (hx) 01/17/2015 ADVANCE DIRECTIVE Health Care Decision (hx) 01/17/2015 ADVANCE DIRECTIVE Health Care Decision (hx) 01/17/2015 ADVANCE DIRECTIVE Health Care Decision (hx) 01/17/2015 ADVANCE DIRECTIVE Health Care Decision (hx) 01/17/2015 ADVANCE DIRECTIVE Health Care Decision (hx) 01/17/2015 ADVANCE DIRECTIVE Health Care Decision (hx) 01/17/2015 ADVANCE DIRECTIVE Health Care Decision (hx) 01/17/2015 ADVANCE DIRECTIVE Health Care Decision (hx) 01/17/2015 ADVANCE DIRECTIVE Health Care Decision (hx) 01/17/2015 ADVANCE DIRECTIVE Health Care Decision (hx) 01/17/2015 ADVANCE DIRECTIVE Health Care Decision (hx) 01/17/2015 ADVANCE DIRECTIVE Health Care Decision (hx) 01/17/2015 ADVANCE DIRECTIVE Health Care Decision (hx) 01/17/2015 ADVANCE DIRECTIVE Health Care Decision (hx) 01/17/2015 ADVANCE DIRECTIVE Health Care Decision (hx) 01/17/2015 ADVANCE DIRECTIVE Health Care Decision (hx) 01/17/2015 ADVANCE DIRECTIVE Health Care Decision (hx) 01/17/2015 ADVANCE DIRECTIVE Health Care Decision (hx) 01/17/2015 ADVANCE DIRECTIVE Health Care Decision (hx) 01/17/2015 ADVANCE DIRECTIVE Health Care Decision (hx) 01/17/2015 ADVANCE DIRECTIVE Health Care Decision (hx) 01/17/2015 ADVANCE DIRECTIVE Health Care Decision (hx) 01/17/2015 ADVANCE DIRECTIVE Health Care Decision (hx) 01/17/2015 ADVANCE DIRECTIVE Health Care Decision (hx) 01/17/2015 ADVANCE DIRECTIVE Health Care Decision (hx) 01/17/2015 ADVANCE DIRECTIVE Health Care Decision (hx) 01/17/2015 ADVANCE DIRECTIVE Health Care Decision (hx) 01/17/2015 ADVANCE DIRECTIVE Health Care Decision (hx) 01/17/2015 ADVANCE DIRECTIVE Health Care Decision (hx) 01/17/2015 ADVANCE DIRECTIVE Health Care Decision (hx) 01/17/2015 ADVANCE DIRECTIVE Health Care Decision (hx) 01/17/2015 ADVANCE DIRECTIVE Health Care Decision (hx) 01/17/2015 ADVANCE DIRECTIVE Health Care Decision (hx) 01/17/2015 ADVANCE DIRECTIVE Health Care Decision (hx) 10/05/2014 ADVANCE DIRECTIVE Health Care Decision (hx) 10/05/2014 ADVANCE DIRECTIVE Health Care Decision (hx) 10/05/2014 ADVANCE DIRECTIVE Health Care Decision (hx) 10/05/2014 ADVANCE DIRECTIVE Health Care Decision (hx) 10/05/2014 ADVANCE DIRECTIVE Health Care Decision (hx) 10/05/2014 ADVANCE DIRECTIVE Health Care Decision (hx) 10/05/2014 ADVANCE DIRECTIVE Health Care Decision (hx) 10/05/2014 ADVANCE DIRECTIVE Health Care Decision (hx) 10/05/2014 ADVANCE DIRECTIVE Health Care Decision (hx) 10/05/2014 ADVANCE DIRECTIVE Health Care Decision (hx) 10/05/2014 ADVANCE DIRECTIVE Health Care Decision (hx) 10/05/2014 ADVANCE DIRECTIVE Health Care Decision (hx) 10/05/2014 ADVANCE DIRECTIVE Health Care Decision (hx) 10/05/2014 ADVANCE DIRECTIVE Health Care Decision (hx) 10/05/2014 ADVANCE DIRECTIVE Health Care Decision (hx) 10/05/2014 ADVANCE DIRECTIVE Health Care Decision (hx) 10/05/2014 ADVANCE DIRECTIVE Health Care Decision (hx) 10/05/2014 ADVANCE DIRECTIVE Health Care Decision (hx) 10/05/2014 ADVANCE DIRECTIVE Health Care Decision (hx) 10/05/2014 ADVANCE DIRECTIVE Health Care Decision (hx) 10/05/2014 ADVANCE DIRECTIVE Health Care Decision (hx) 10/05/2014 ADVANCE DIRECTIVE Health Care Decision (hx) 10/05/2014 ADVANCE DIRECTIVE Health Care Decision (hx) 10/05/2014 ADVANCE DIRECTIVE Health Care Decision (hx) 10/05/2014 ADVANCE DIRECTIVE Health Care Decision (hx) 10/05/2014 ADVANCE DIRECTIVE Health Care Decision (hx) 10/05/2014 ADVANCE DIRECTIVE Health Care Decision (hx) 10/05/2014 ADVANCE DIRECTIVE Health Care Decision (hx) 10/05/2014 ADVANCE DIRECTIVE Health Care Decision (hx) 10/05/2014 ADVANCE DIRECTIVE Health Care Decision (hx) 10/05/2014 ADVANCE DIRECTIVE Health Care Decision (hx) 10/05/2014 ADVANCE DIRECTIVE Health Care Decision (hx) 10/05/2014 ADVANCE DIRECTIVE Health Care Decision (hx) 10/05/2014 ADVANCE DIRECTIVE Health Care Decision (hx) 10/05/2014 ADVANCE DIRECTIVE Health Care Decision (hx) 10/05/2014 ADVANCE DIRECTIVE Health Care Decision (hx) 10/05/2014 ADVANCE DIRECTIVE Health Care Decision (hx) 10/05/2014 ADVANCE DIRECTIVE Health Care Decision (hx) 10/05/2014 ADVANCE DIRECTIVE Health Care Decision (hx) 10/05/2014 ADVANCE DIRECTIVE Health Care Decision (hx) 10/05/2014 ADVANCE DIRECTIVE Health Care Decision (hx) 10/05/2014 ADVANCE DIRECTIVE Health Care Decision (hx) 10/05/2014 ADVANCE DIRECTIVE Health Care Decision (hx) 10/05/2014 ADVANCE DIRECTIVE Health Care Decision (hx) 10/05/2014 ADVANCE DIRECTIVE Health Care Decision (hx) 10/05/2014 ADVANCE DIRECTIVE Health Care Decision (hx) 10/05/2014 ADVANCE DIRECTIVE Health Care Decision (hx) 10/05/2014 ADVANCE DIRECTIVE Health Care Decision (hx) 10/05/2014 ADVANCE DIRECTIVE Health Care Decision (hx) 10/05/2014 ADVANCE DIRECTIVE Health Care Decision (hx) 10/05/2014 ADVANCE DIRECTIVE Health Care Decision (hx) 10/05/2014 ADVANCE DIRECTIVE Health Care Decision (hx) 10/05/2014 ADVANCE DIRECTIVE Health Care Decision (hx) 10/05/2014 ADVANCE DIRECTIVE Health Care Decision (hx) 10/05/2014 ADVANCE DIRECTIVE Health Care Decision (hx) 10/05/2014 ADVANCE DIRECTIVE Health Care Decision (hx) 10/05/2014 ADVANCE DIRECTIVE Health Care Decision (hx) 10/05/2014 ADVANCE DIRECTIVE Health Care Decision (hx) 10/05/2014 ADVANCE DIRECTIVE Health Care Decision (hx) 10/05/2014 ADVANCE DIRECTIVE Health Care Decision (hx) 10/05/2014 ADVANCE DIRECTIVE Health Care Decision (hx) 10/05/2014 ADVANCE DIRECTIVE Health Care Decision (hx) 10/05/2014 ADVANCE DIRECTIVE Health Care Decision (hx) 10/05/2014 ADVANCE DIRECTIVE Health Care Decision (hx) 10/05/2014 ADVANCE DIRECTIVE Health Care Decision (hx) 10/05/2014 ADVANCE DIRECTIVE Health Care Decision (hx) 10/05/2014 ADVANCE DIRECTIVE Health Care Decision (hx) 10/05/2014 ADVANCE DIRECTIVE Health Care Decision (hx) 10/05/2014 ADVANCE DIRECTIVE Health Care Decision (hx) 10/05/2014 ADVANCE DIRECTIVE Health Care Decision (hx) 10/05/2014 ADVANCE DIRECTIVE Health Care Decision (hx) 10/05/2014 ADVANCE DIRECTIVE Health Care Decision (hx) 10/05/2014 ADVANCE DIRECTIVE Health Care Decision (hx) 10/05/2014 ADVANCE DIRECTIVE Health Care Decision (hx) 10/05/2014 ADVANCE DIRECTIVE Health Care Decision (hx) 10/05/2014 ADVANCE DIRECTIVE Health Care Decision (hx) 10/05/2014 ADVANCE DIRECTIVE Health Care Decision (hx) 10/05/2014 ADVANCE DIRECTIVE Health Care Decision (hx) 10/05/2014 ADVANCE DIRECTIVE Health Care Decision (hx) 10/05/2014 ADVANCE DIRECTIVE Health Care Decision (hx) 10/05/2014 ADVANCE DIRECTIVE Health Care Decision (hx) 10/05/2014 ADVANCE DIRECTIVE Health Care Decision (hx) 10/05/2014 ADVANCE DIRECTIVE Health Care Decision (hx) 10/05/2014 ADVANCE DIRECTIVE Health Care Decision (hx) 10/05/2014 ADVANCE DIRECTIVE Health Care Decision (hx) 10/05/2014 ADVANCE DIRECTIVE Health Care Decision (hx) 10/05/2014 ADVANCE DIRECTIVE Health Care Decision (hx) 10/05/2014 ADVANCE DIRECTIVE Health Care Decision (hx) 10/05/2014 ADVANCE DIRECTIVE Health Care Decision (hx) 10/05/2014 ADVANCE DIRECTIVE Health Care Decision (hx) 10/05/2014 ADVANCE DIRECTIVE Health Care Decision (hx) 10/05/2014 ADVANCE DIRECTIVE Health Care Decision (hx) 10/05/2014 ADVANCE DIRECTIVE Health Care Decision (hx) 10/05/2014 ADVANCE DIRECTIVE Health Care Decision (hx) 10/05/2014 ADVANCE DIRECTIVE Health Care Decision (hx) 10/05/2014 ADVANCE DIRECTIVE Health Care Decision (hx) 10/05/2014 ADVANCE DIRECTIVE Health Care Decision (hx) 10/05/2014 ADVANCE DIRECTIVE Health Care Decision (hx) 10/05/2014 ADVANCE DIRECTIVE Health Care Decision (hx) 10/05/2014 ADVANCE DIRECTIVE Health Care Decision (hx) 10/05/2014 ADVANCE DIRECTIVE Health Care Decision (hx) 10/05/2014 ADVANCE DIRECTIVE Health Care Decision (hx) 10/05/2014 ADVANCE DIRECTIVE Health Care Decision (hx) 10/05/2014 ADVANCE DIRECTIVE Health Care Decision (hx) 10/05/2014 ADVANCE DIRECTIVE Health Care Decision (hx) 10/05/2014 ADVANCE DIRECTIVE Health Care Decision (hx) 10/05/2014 ADVANCE DIRECTIVE Health Care Decision (hx) 10/05/2014 ADVANCE DIRECTIVE Health Care Decision (hx) 10/05/2014 ADVANCE DIRECTIVE Health Care Decision (hx) 10/05/2014 ADVANCE DIRECTIVE Health Care Decision (hx) 10/05/2014 ADVANCE DIRECTIVE Health Care Decision (hx) 10/05/2014 ADVANCE DIRECTIVE Health Care Decision (hx) 10/05/2014 ADVANCE DIRECTIVE Health Care Decision (hx) 10/05/2014 ADVANCE DIRECTIVE Health Care Decision (hx) 10/05/2014 ADVANCE DIRECTIVE Health Care Decision (hx) 10/05/2014 ADVANCE DIRECTIVE Health Care Decision (hx) 10/05/2014 ADVANCE DIRECTIVE Health Care Decision (hx) 10/05/2014 ADVANCE DIRECTIVE * No CPR/Do Not Intubate (Latest Code Status on File) Date Activated Date Inactivated Comments 08/07/2025 12:00 AM 08/07/2025 2:10 PM This code sta tus was ascertained in the following way: Code status discussion: per living will or healthcare instructions To update the patient's code status, place a code status order. Do not modify or discontinue any currently active code status orders. * Full Code - Default Date Activated Date Inactivated Comments 08/06/2025 6:49 PM 08/07/2025 12:00 AM This is order is used when code status has not been discussed with the patient, or code status is otherwise unknown/unconfirmed To update the patient's code status, place a code status order. Do not modify or discontinue any currently active code status orders. * Full Code - Default Date Activated Date Inactivated Comments 06/07/2025 7:40 AM 06/07/2025 3:15 PM This is orde r is used when code status has not been discussed with the patient, or code status is otherwise unknown/unconfirmed To update the patient's code status, place a code status order. Do not modify or discontinue any currently active code status orders. * No CPR/Do Not Intubate Date Activated Date Inactivated Comments 02/08/2025 11:29 PM 02/28/2025 6:[address] atus was ascertained in the following way: Code status discussion: discussion with patient/molst in chart To update the patient's code status, place a code status order. Do not modify or discontinue any currently active code status orders. * Full Code - Default Date Activated Date Inactivated Comments 02/08/2025 5:41 PM 02/08/2025 11:29 PM This is ord er is used when code status has not been discussed with the patient, or code status is otherwise unknown/unconfirmed To update the patient's code status, place a code status order. Do not modify or discontinue any currently active code status orders. Healthcare Agents on File Name Relationship Healthcare Agent [facility] Jose Sosa Spouse Health Care Agent Mikael Sosa Son Health Care Agent [id number] (Home) Amaury Sosa Jr. [facility] Health Care Agent Care Teams Boilermaker Relationship Specialty Start Date End Date Johann King NP [address] [place] [id number] PCP - General 10/03/24
--- OUTSIDE RECORDS SUMMARY | 2025-09-14 11:52 | XMS_ITS | Encounter Summary ---
Author Organization [facility] Address [address] [place] [address] Phone Care Team Providers Care Cable Machine Operator Name Role Phone Chidi Carrillo Primary Care Provider Unavailabl e Encounter Details Date Type Department Care Team (Late st Contact Info) Description 05/29/2024 Telephone [facility] [address] [place] [phone] Elin Alvarez Social History Tobacco Use Types Packs/Day Years [...] Visit [facility] [address] [place] [address] Cuate Ramey MD [address] [place] [phone] documented as of this encounter Visit Diagnoses Not on filedocumented in this encounter Care Teams Cable Machine Operator Relationship Specialty Start Date End Date Chidi Carrillo [address] [facility] [address] [place] [address] PCP - General Nutrition 05/29/25 documented as of this encounter
--- OUTSIDE RECORDS SUMMARY | 2025-09-14 11:52 | XMS_ITS ---
Author Organization [facility] Care Team Providers Care Fountain Vending Mechanic Name Role Phone Elder, Katy Unavailable Unavailable Shari Barrett Unavailable Unavailable Allergies and adverse reactions No Known Allergies Care Team Name Role Address Phone Organization Dates Katy Majano PCP [address], [address], [place] (Office): [phone] (Fax): [phone] [facility] 05/05/2023 - 05/27/2023 Shari Barrett [address], [address], [place] (Office): [facility] 05/05/2023 - 05/27/2023 Mental Status Section Date Assessment Total Score Description 05/27/2023 BIMS 15 cognitively int act CAM 0 No delirium ind icated PHQ-9 24 severe depressi on 05/27/2023 BIMS 15 cognitively int act CAM 0 No delirium ind icated PHQ-9 24 severe depressi on Insurance Providers Problems Problem # Description Date of onset Resolved Date Code CodeSystem Concern Status 1 URINARY TRACT INFECTION, SITE NOT SPECIFIED 05/22/[address] active 2 ACUTE RESPIRATORY FAILURE WITH HYPOXIA 04/30/[address] active 3 HYPOKALEMIA 04/30/[address] active 4 METABOLIC ENCEPHALOPATHY 04/30/[address] active 5 MORBID (SEVERE) OBESITY DUE TO EXCESS CALORIES 04/30/[address] active 6 TYPE 2 DIABETES MELLITUS WITH DIABETIC NEUROPATHY, UNSPECIFIED 04/30/[address] active 7 TYPE 2 DIABETES MELLITUS WITHOUT COMPLICATIONS 04/30/[address] active 8 UNSPECIFIED SYSTOLIC (CONGESTIVE) HEART FAILURE 04/30/[address] active 9 ATHEROSCLEROSIS OF CORONARY ARTERY BYPASS GRAFT(S) WITHOUT ANGINA PECTORIS 04/12/[address] active 10 ATHEROSCLEROTIC HEART DISEASE OF [place] CORONARY ARTERY WITHOUT ANGINA PECTORIS 04/12/[address] active 11 CHRONIC OBSTRUCTIVE PULMONARY DISEASE, UNSPECIFIED 04/12/[address] active 12 CHRONIC PAIN SYNDROME 04/12/[address] active 13 CHRONIC SYSTOLIC (CONGESTIVE) HEART FAILURE 04/12/[address] active 14 DYSKINESIA OF ESOPHAGUS 04/12/[address] active 15 ENCOUNTER FOR OTHER ORTHOPEDIC AFTERCARE 04/12/[address] active 16 ESSENTIAL (PRIMARY) HYPERTENSION 04/12/[address] active 17 GOUT, UNSPECIFIED 04/12/[address] active 18 HYPERLIPIDEMIA, UNSPECIFIED 04/12/[address] active 19 HYPERPARATHYROIDISM , UNSPECIFIED 04/12/[address] active 20 HYPOTENSION, UNSPECIFIED 04/12/[address] active 21 INCISIONAL HERNIA WITHOUT OBSTRUCTION OR GANGRENE 04/12/[address] active 22 IRON DEFICIENCY ANEMIA SECONDARY TO BLOOD LOSS (CHRONIC) 04/12/[address] active 23 MULTIPLE FRACTURES OF RIBS, RIGHT SIDE, SUBSEQUENT ENCOUNTER FOR FRACTURE WITH ROUTINE HEALING 04/12/[address] active 24 OTHER ACUTE KIDNEY FAILURE 04/12/[address] active 25 OTHER IDIOPATHIC PERIPHERAL AUTONOMIC NEUROPATHY 04/12/[address] active 26 OTHER SLEEP APNEA 04/12/[address] active 27 PAROXYSMAL ATRIAL FIBRILLATION 04/12/[address] active 28 PNEUMONITIS DUE TO INHALATION OF FOOD AND VOMIT 04/12/[address] active 29 POSTGASTRIC SURGERY SYNDROMES 04/12/[address] active 30 PRESENCE OF CARDIAC PACEMAKER 04/12/[address] active 31 UNSPECIFIED FALL, SUBSEQUENT ENCOUNTER 04/12/[address] active 32 UNSPECIFIED FRACTURE OF LOWER END OF RIGHT FEMUR, SUBSEQUENT ENCOUNTER FOR CLOSED FRACTURE WITH ROUTINE HEALING 04/12/[address] active Reason for Referral No Reasons for Referral Entered Social History Social History Observation Description Start Date End Date Code Code System Current Smoking Status Tobacco smoking consumption unknown 860801137 SNOMED CT Sex Assigned At Male 1955 92940-9 [facility] Gender Identity Sexual Orientation Vital Signs Code Code System Vitals Name Values and Units Timing Information 09026-9 [facility] Pain Level Value=0.0 05/27/2023 8310-5 [facility] Body Temperature Value=97.4 Units= F 05/27/2023 8462-4 [facility] Blood Pressure-Diastolic Value=75 Un its=mmHg 05/27/2023 8480-6 [facility] Blood Pressure-Systolic Value=96 Uni ts=mmHg 05/27/2023 40901-7 [facility] Weight Llqni=621.6 Units=Lbs 9279-1 [facility] Respiratory Rate Value=18.0 Units=/m in 05/25/2023 8867-4 [facility] Heart rate Value=78.0 Units=/min 38032-0 [facility] O2 % BldC Oximetry Value=96.0 Units= % 05/25/2023 2339-0 [facility] Blood Sugar Value=98.0 Units=mg/dL 05/21/2023 8302-2 [facility] Height Value=72.0 Units=Inches 04/13/2023
--- OUTSIDE RECORDS SUMMARY | 2025-09-14 11:52 | XMS_ITS | Encounter Summary ---
[facility] Organization [facility] [place] [address] Care Team Providers Care Split And Drum Room Supervisor Name Role Phone Chidi Carrillo NP Primary Care Provider [phone] Encounter Details Date Type Department Care Team (Late st Contact Info) Description 04/10/2025 Health Home Core Service [facility] [address] [place] [address] Viktoria Garcia RN Social History Tobacco Use Types Packs/Day Years [...] ones. For example, child and family services worker or elderly care for an older [...] of Assessment Author Yes 02/08/2025 5:16 PM Jatinder Kelley RN * Because of a physical, mental, or emotional condition, do you have serious difficulty doing errandsalone such as visiting the doctor? Answer Date of Assessment Author No 02/08/2025 5:16 PM Jatinder Kelley RN * Geriatric Depression Scale (Short Version) Question Answer Date of Assessment Author Are you basically satisfied with your life? Yes 04/11/2025 2:25 PM EDT Devon Tillman LCSW Have you dropped many of you r activities and interests? Yes 04/11/2025 2:25 PM EDT Subha Tillman LCSW Do you feel that your life i s empty? No 04/11/2025 2:25 PM EDT Devon Tillman LCSW Do you often get bored? Yes 04/11/2025 2:25 P M Devon Lucero LCSW Are you in good spirits most of the time? Yes 04/11/2025 2:25 PM EDT Devon Tillman LCSW Are you afraid that somethin g bad is going to happen to you? No 04/11/2025 2:25 PM EDT Jody Tillman LCSW Do you feel happy most of th e time? Yes 04/11/2025 2:25 PM EDT Devon Tillman LCSW Do you often feel helpless? No 04/11/2025 2: 25 PM EDT Devon Tillman LCSW Do you prefer to stay at [facility], rather than going out and doing new things? Yes 04/11/2025 2:25 PM EDT Devon Tillman LCSW Do you feel you have more problems with memory than most? No 04/11/2025 2:25 PM EDT Devon Tillman LCSW Do you think it is wonderful to be alive now? Yes 04/11/2025 2:25 PM EDT Devon Tillman GREENHOUSE GROWER Do you feel pretty worthless the way you are now? No 04/11/2025 2:25 PM EDT Devon Tillman GREENHOUSE GROWER Do you feel full of energy? No 04/11/2025 2: 25 PM EDT Devon Tillman GREENHOUSE GROWER Do you feel that your situat ion is hopeless? No 04/11/2025 2:25 PM EDT Devon Tillman GREENHOUSE GROWER Do you think that most peopl e are better off than you are? Yes 04/11/2025 2:25 PM EDT Aime Tillman LCSW Geriatric Depression Scale ( Short Version) Total 5 04/11/2025 2:25 PM EDT Devon Tillman LCSW documented as of this encounter Mental Status [...] Info) Description 09/17/2025 10:00 AM EDT Appointment [facility] [address] [place] [address] 09/17/2025 2:30 PM EDT Treatment [facility] [address] [place] [phone] Wes Urrutia, LIA 09/19/2025 9:40 AM EDT Office Visit [facility] [address] [facility] [address] [place] [address] Zay Garcia NP [address] [place] [address] 09/19/2025 1:10 PM EDT Clinical Support [facility] [address] [place] [address] 09/20/2025 10:45 AM EDT Treatment [facility] [address] [place] [phone] Wes Urrutia PT 09/24/2025 1:15 PM EDT PACE External Visit [facility] [address] [place] [address] 10/08/2025 8:50 AM EST Office Visit [facility] [address] [facility] [address] [place] [address] Thais Stevenson MD [address] [place] [address] 10/12/2025 1:30 PM EST PACE External Visit [facility] [place] [address] [place] [phone] 10/23/2025 9:30 AM EST Office Visit [facility] - [place] [address] [facility] [address] [place] [address] Terrell Castillo MD [address] [place] [phone] 10/24/2025 3:00 PM EST Clinical Support [facility] [address] [place] [address] 11/07/2025 1:10 PM EST Clinical Support [facility] [address] [place] [phone] 03/28/2026 11:00 AM EDT Ancillary Procedure [facility] [address] [facility] [address] [place] [address] 08/08/2026 10:45 AM EDT Treatment [facility] [address] [place] [phone] Wes Urrutia, PT 08/15/2026 10:45 AM EDT Treatment [facility] [address] [place] [address] Wes Urrutia, PT documented as of this [...] documented as of this encounter Care Teams Split And Drum Room Supervisor Relationship Specialty Start Date End Date Chidi Carrillo NP [address] [place] [address] PCP - General 10/03/24 documented as of this encounter
--- OUTSIDE RECORDS SUMMARY | 2025-09-14 11:52 | XMS_ITS | Encounter Summary ---
Author Organization [facility] Address [address] [place] [address] Care Team Providers Care Tear Down Matcher Name Role Phone Chidi Carrillo NP Primary Care Provider [phone] Encounter Details Date Type Department Care Team (Late st Contact Info) Description 10/05/2024 Lab Requisition [facility] - Main Lab [address] [place] [address] Chidi Carrillo NP [address] [id number] Presence of aortocoronary bypass graft; Ventricular tachycardia, unspecified (CMS/HCC V24, CMS/HCC V28); Old myocardial infarction; Atherosclerotic heart disease of [place] coronary artery without angina pectoris Social History Tobacco Use Types Packs/Day Years Used Date Smoking Tobacco: Never Smokeless Tobacco: Never Alcohol Use Standard Drinks/Week Comments Never 0 (1 standard drink = 0.6 oz pur e alcohol) Sex and Gender Information Value Date Recorded Sex Assigned at Male 12/08/2024 1:11 PM EST Legal Sex Male 9:31 PM EST Gender Identity Male 12/08/2024 1:11 PM EST Sexual Orientation Straight 02/14/2025 12 :16 AM EDT documented as of this encounter Plan of Treatment Upcoming Encounters Date Type Department Care Team (Late st Contact Info) Description 09/17/2025 10:[address] [facility] [address] [place] [address] 09/17/2025 2:30 PM EDT Treatment [facility] [address] [place] [address] Wes Urrutia, PT 09/19/2025 9:40 AM EDT Office Visit [facility]ly [facility] [address] [facility] 154 [place] [address] Zay Garcia NP [address] [place] [address] 09/19/2025 1:10 PM EDT Clinical Support [facility] [address] [place] [address] 09/20/2025 10:45 AM EDT Treatment [facility] [address] [place] [address] Wes Urrutia, PT 09/24/2025 1:15 PM EDT PACE External Visit [facility] [address] [place] [address] 10/08/2025 8:50 AM EST Office Visit [facility] [address] [facility] 154 [place] [address] Thais Stevenson MD [address] [place] [address] 10/12/2025 1:30 PM EST PACE External Visit [facility] [address] [place] [address] 10/23/2025 9:30 AM EST Office Visit [facility] - [place] 175 [facility] [address] [place] [phone] Terrell Castillo MD [address] [place] [address] 10/24/2025 3:00 PM EST Clinical Support Veronika STILES [place] [address] [place] [address] 11/07/2025 1:10 PM EST Clinical Support Veronika STILES MD [address] [place] [phone] 03/28/2026 11:00 AM EDT Ancillary Procedure [facility] [address] [place] [address] 08/08/2026 10:45 AM EDT Treatment Veronika STILES MD Physical Therapy [address] [place] [phone] Wes Urrutia, PT 08/15/2026 10:45 AM EDT Treatment Veronika STILES MD Physical Therapy [address] [place] [phone] Wes Urrutia, PT documented as of this encounter Procedures Procedure Name Priority Date/Time Associated Diagnosis Comments CBC WITH AUTO DIFFERENTIAL Routine 10/04/2024 11:00 AM EST Presence of aortocoronary bypass graft Ventricular tachycardia, unspecified (CMS/HCC) 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 CBC AND DIFFERENTIAL Routine 10/04/2024 11:00 AM EST Presence of aortocoronary bypass graft Ventricular tachycardia, unspecified (CMS/HCC) 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 BASIC METABOLIC PANEL Routine 10/04/2024 11:00 AM EST Presence of aortocoronary bypass graft Ventricular tachycardia, unspecified (CMS/HCC) 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 documented in this encounter Results * (ABNORMAL) CBC auto differential (10/04/2024 11:00 AM EST) Pathologist [facility] WBC 7.5 4.8 - 10.8 K/mcL LAB HEMETOLOGY METHOD 10/05/2024 10:01 AM [facility] RBC 5.70(H) 4.50 - 5.50 M/mcL LAB HEMETOLOGY METHOD 10/05/2024 10:01 AM [facility] Hemoglobin 16.5 13.5 - 17.5 g/dL LAB HEMETOLOGY METHOD 10/05/2024 10:01 AM [facility] Hematocrit 51.4 42.0 - 54.0 % LAB HEMETOLOGY METHOD 10/05/2024 10:01 AM [facility] MCV 90.3 79.0 - 98.0 FL LAB HEMETOLOGY METHOD 10/05/2024 10:01 AM [facility] MCH 29.0 27.0 - 32.0 pcg LAB HEMETOLOGY METHOD 10/05/2024 10:01 AM [facility] MCHC 32.1 32.0 - 37.0 g/dL LAB HEMETOLOGY METHOD 10/05/2024 10:01 AM [facility] RDW 14.5 11.0 - 15.0 % LAB HEMETOLOGY METHOD 10/05/2024 10:01 AM [facility] Platelets 351 130 - 400 K/mcL LAB HEMETOLOGY METHOD 10/05/2024 10:01 AM [facility] MPV 11.2(H) 7.0 - 11.0 FL LAB HEMETOLOGY METHOD 10/05/2024 10:01 AM [facility] NRBC 0.0 <1.0 % LAB HEMETOLOGY METHOD 10/05/2024 10:01 AM [facility] NRBC Absolute 0.00 <0.10 K/mcL LAB HEMETOLOGY METHOD 10/05/2024 10:01 AM [facility] Neutrophils Relative 64.6 % LAB HEMETOLOGY METHOD 10/05/2024 10:01 AM [facility] Lymphocytes Relative 26.1 % LAB HEMETOLOGY METHOD 10/05/2024 10:01 AM [facility] Monocytes Relative 7.4 % LAB HEMETOLOGY METHOD 10/05/2024 10:01 AM [facility] Eosinophils Relative 0.9 % LAB HEMETOLOGY METHOD 10/05/2024 10:01 AM [facility] Basophils Relative 0.7 % LAB HEMETOLOGY METHOD 10/05/2024 10:01 AM [facility] Immature Granulocytes Relative 0.3 % LAB HEMETOLOGY METHOD 10/05/2024 10:01 AM [facility] Neutrophils Absolute 4.83 1.50 - 7.00 K/mcL LAB HEMETOLOGY METHOD 10/05/2024 10:01 AM [facility] Lymphocytes Absolute 1.95 1.00 - 5.00 K/mcL LAB HEMETOLOGY METHOD 10/05/2024 10:01 AM [facility] Monocytes Absolute 0.55 0.20 - 1.00 K/mcL LAB HEMETOLOGY METHOD 10/05/2024 10:01 AM [facility] Eosinophils Absolute 0.07 0.00 - 0.50 K/mcL LAB HEMETOLOGY METHOD 10/05/2024 10:01 AM [facility] Basophils Absolute 0.05 0.00 - 0.20 K/mcL LAB HEMETOLOGY METHOD 10/05/2024 10:01 AM [facility] Immature Granulocytes Absolute 0.02 0.00 - 0.03 K/mcL LAB HEMETOLOGY METHOD 10/05/2024 10:01 AM [facility] Blood Venous blood specimen / Unknown 10/04/2024 11:00 AM EST 10/05/2024 9:36 AM EST Chidi Gerardo SYSTEMS ADMINISTRATION ANALYST LAB BLOOD ORDERABLES Final Resul t [facility] [address] [place] [address], * (ABNORMAL) Basic metabolic panel (10/04/2024 11:00 AM EST) Sodium 137 133 - 145 mmol/L LAB CHEMISTRY METHOD 10/05/2024 10:04 AM [facility] Potassium 3.7 3.5 - 5.5 mmol/L LAB CHEMISTRY METHOD 10/05/2024 10:04 AM [facility] Chloride 99 96 - 110 mmol/L LAB CHEMISTRY METHOD 10/05/2024 10:04 AM [facility] CO2 30 21 - 32 mmol/L LAB CHEMISTRY METHOD 10/05/2024 10:04 AM [facility] Anion Gap 8 3 - 11 LAB CHEMISTRY METHOD 10/05/2024 10:04 AM [facility] Glucose 117(H) 70 - 100 mg/dL LAB CHEMISTRY METHOD 10/05/2024 10:04 AM [facility] BUN 19 5 - 25 mg/dL LAB CHEMISTRY METHOD 10/05/2024 10:04 AM [facility] Creatinine 1.19 0.70 - 1.30 mg/dL LAB CHEMISTRY METHOD 10/05/2024 10:04 AM [facility] eGFR 67 >=60 mL/min/1. 73m2 LAB CHEMISTRY METHOD 10/05/2024 10:04 AM [facility] Comment:Calculation based on the Chronic Kidney Disease Epidemiology Collaboration (CKD-EPI) equation refit without adjustment for race. BUN/Creatinine Ratio 16.0 LAB CHEMISTRY METHOD 10/05/2024 10:04 AM [facility] Calcium 9.4 8.5 - 10.5 mg/dL LAB CHEMISTRY METHOD 10/05/2024 10:04 AM [facility] Blood Venous blood specimen / Unknown 10/04/2024 11:00 AM EST 10/05/2024 9:36 AM EST Chidi Carrillo NP LAB BLOOD ORDERABLES Final Resul t [facility] [address] [place] [address], documented in this encounter Visit Diagnoses Diagnosis Presence of aortocoronary bypass graft Ventricular tachycardia, unspecified (CMS/HCC V24, CMS/HCC V28) 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 Encounter for adjustment or management of cardiac device documented in this encounter Care Teams Tear Down Matcher Relationship Specialty Start Date End Date Chidi Carrillo NP [address] [place] [address] PCP - General 10/03/24 documented as of this encounter
--- OUTSIDE RECORDS SUMMARY | 2025-09-14 11:52 | XMS_ITS ---
Author Organization [address] [place] [address] Address [address] [place] [address] Phone Care Team Providers Care Poultry Grader Name Role Phone Chidi Carrillo NP Primary Care Provider [phone] Program of [facility] Elderly Status:Enrolled (Active) Start date:07/30/2016 Enrollment date:07/30/2016 Related social drivers of health:Housing Instability, Financial Risk, Transportation, Social Isolation, Food Risk Overview This episode will track PACE documentation. Case Team Name Relationship Phone Chidi Carrillo CONSTRUCTION FRAMER Nurse Practitioner [phone] Kelley Sol Recreational Therapist Rae Shirley RN Procurement Accountant Malou Conley RN Procurement Accountant Gely Barron PEDIATRIC NEUROPSYCHOLOGIST Environmental Services Technician Ceferino Martinez OT Occupational Therapist Conrad Arango RN Registered Nurse Carolyn Foster RD Dietitian Salazar Rollins PT Physical Therapist Luigi Galan [place] Architectural Intern Devon CANNONW Bricklayer Sewer Brittany Shelby RN Procurement Accountant Gabriela Olmedo RN Registered Nurse Flori Kim Bricklayer Sewer Maria Teresa Fitzgerald [facility] Bricklayer Sewer Rui Urbano Spiritual Care Tiny Astudillo PT Physical Therapist Lesvia Gordon OT Occupational Therapist Sade Adair FREIGHT RATE ANALYST Bricklayer Sewer Wes Urrutia PT Physical Therapist Marta Marinelli MD Primary Care Provider Continued Care and Services Coordination
--- OUTSIDE RECORDS SUMMARY | 2025-09-14 11:52 | XMS_ITS | Encounter Summary ---
Author Organization [facility], Address [address] [place] [address] Phone Care Team Providers Care Healthcare Marketer Name Role Phone Chidi Carrillo Primary Care Provider Unavailabl e Encounter Details Date Type Department Care Team (Late Contact Info) Description 03/17/2024 Documentation Only [facility] [address] [place] [address] Molly Kim [place] [address] [place] [phone] Social History Tobacco Use Types Packs/Day Years [...] [facility] [address] [place] [address] Cuate Ramey MD [address] [place] [address] documented as of this encounter Visit Diagnoses Not on filedocumented in this encounter Care Teams Healthcare Marketer Relationship Specialty Start Date End Date Chidi Carrillo [address] [place] [address] PCP - General Nutrition 05/29/25 documented as of this encounter
--- OUTSIDE RECORDS SUMMARY | 2025-09-14 11:52 | XMS_ITS | Clinical Summary ---
Author Organization [facility], Address [address] [place] [address] [place] [address] Phone Care Team Providers Care National Insurance Officer Name Role Phone Chidi Carrillo Primary Care Provider Unavailabl e Allergies No known active allergies Medications Cyanocobalamin 1000 MCG/ML kit Inject 1,000 mcg as directed every 30 (thirty) days Active pantoprazole (PROTONIX) 20 MG EC tablet Take 20 mg by mouth 1 (one) time each day Active methadone (DOLOPHINE) 10 MG tablet Take 20 mg by mouth twice a day Active Acetaminophen 500 MG capsule Take 1,000 mg by mouth twice a day Active lidocaine (LIDODERM) 5 % patch Active ferrous sulfate 325 (65 Fe) MG tablet Take 325 mg by mouth twice a day Active cholecalciferol (VITAMIN D-3) 50 MCG (1999 UT) tablet Take 2,000 Units by mouth 1 (one) time each day Active calcitriol (ROCALTROL) 0.5 MCG capsule Take 2 mcg by mouth per week Active cholecalciferol (VITAMIN D-3) 50 MCG (1999 UT) tablet Take 2,000 Units by mouth 1 (one) time each day Active atorvastatin (LIPITOR) 80 MG tablet Take 80 mg by mouth 1 (one) time each day Active aspirin (ST KIRK) 81 MG EC tablet Take 81 mg by mouth 1 (one) time each day Active NIFEdipine XL (PROCARDIA XL) 30 MG 24 hr tablet Take 1 tablet (30 mg total) by mouth twice a day Do not crush, chew, or split. 60 tablet 11 09/24/2021 Active isosorbide dinitrate SR (Dilatrate-SR) 40 MG CR capsule Take 1 capsule (40 mg total) by mouth 3 (three) times a day Do not crush, chew, or split. 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 300 mg IV Once in dialysis 02/18/2023 Active iron sucrose (VENOFER) injection 300 mgIndications:Other iron deficiency anemia 300 mg IV Once in dialysis 09/01/2023 Active Active Problems Problem Noted Date Diagnosed Date 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 Acute nontraumatic kidney injury 05/23/2021 Acute tubular necrosis 05/23/2021 Anemia 05/23/2021 Type 2 diabetes mellitus wit h Charc t's joints 05/23/2021 Malnutrition 05/23/2021 Hyperlipidemia 05/23/2021 Essential hypertension 05/23/2021 Gout 05/23/2021 Albumin below reference range 05/23/2021 Hypertensive heart and chron ic kidney disease without heart failure 12/02/2020 Stage 3a chronic kidney disease 06/03/2020 Encounters Date Type Department Care Team Description 09/07/2025 Office Communication [facility] [address] [place] [address] Tiana Lange from Last 3 Months Immunizations Immunization Administration Dates Next Due Influenza TIV (IM) 08/24/2011 Influenza Whole 11/29/1998,09/17/1990 Pfizer SARS-COV-2 03/10/2021,02/17/2021 Pneumococcal Polysaccharide 05/11/2012, 1,08/13/2011 Family History Relation Status Comments Child Father Mother Sibling Social History Tobacco Use Types Packs/Day Years Used Date Smoking Tobacco: Never Alcohol Use Standard Drinks/Week Comments No 0 (1 standard drink = 0.6 oz pur e alcohol) Sex and Gender Information Value Date Recorded Sex Assigned at Not on file Legal Sex Male 4:35 PM EST Gender Identity Not on file Sexual Orientation Not on file Last Filed Vital Signs Vital Sign Reading Time Taken Comments Blood Pressure 130/80 12/26/2018 12:01 PM EST Pulse - - Temperature - - Respiratory Rate - - Oxygen Saturation - - Inhaled Oxygen Concentration - - Weight 88.9 kg (196 lb) 12/26/2018 12:01 PM EST Height 188 cm (6' 2 ) 12/26/2018 12:01 PM EST Body Mass Index 25.16 12/26/2018 12:01 PM EST Plan of Treatment Upcoming Encounters Date Type Department Care Team (Late st Contact Info) Description 10/02/2025 1:30 PM EST Office Visit [facility] [place], [address] [place] [address] Cuate Ramey MD [address] [place] [address] Health Maintenance Due Date Last Done Comments Colorectal Cancer Screening: Annual FOBT 02/18/2005 Colorectal Cancer Screening: Colonoscopy 02/18/2005 Colorectal Cancer Screening: Sigmoidoscopy 02/18/2005 Diabetes: Ophthalmology Exam 05/23/2021 07/13/2014, 01/15/2012, 01/15/2011, Additional history exists Diabetes: Pedal Pulse Checked 05/23/2021 Diabetes: Sensory Foot Exam 05/23/2021 Diabetes: Visual Foot Exam 05/23/2021 Pneumococcal Vaccine: 50+ Years (4 of 4 - PCV20 or PCV21) 09/18/2021 09/18/2016, 11/14/2014, 02/05/2014, Additional history exists Diabetes: Hemoglobin A1C 09/13/2025 025, 06/13/2025, 03/14/2025, Additional history exists Pneumococcal Vaccine: Peds (0 to 5 Years) and At-Risk Patients (6 to 49 Years) Discontinued 09/18/2016, 11/14/2014, 02/05/2014, Additional history exists Influenza Vaccine Completed 08/29/2025, , 08/24/2011, Additional history exists Hepatitis B Vaccine Aged Out No longe r eligible based on patient's age to complete this topic Procedures Procedure Name Priority Date/Time Associated Diagnosis Comments HEMOGLOBIN A1C Routine 08/24/2023 11:34 AM EDT Type 2 diabetes mellitus with Charc t's joints (HCC) Nutcracker esophagus Essential hypertension from Last 3 Months or Most Recently Relevant to Health Maintenance Results * Hemoglobin A1c (08/24/2023 11:34 AM EDT) Hemoglobin A1C 5.4 (4.0-5.6) % [facility] Comment: MONITORING: In known diabetic patients, hemoglobin A1c targets should be discussed with health care provider. DIAGNOSTIC USE: The [place] Diabetes Association (ADA) and the World Health Organization (WHO) recommend the use of HbA1c to diagnose diabetes using a threshold of 6.5%. Patients who have an HbA1c between 5.7% and 6.4% are considered at increased risk for developing diabetes in the future. CAUTION: Falsely low HbA1c results may be observed in patients with hemolytic anemia, homozygous forms of abnormal hemoglobin (e.g. SS, CC, SC), , recent blood loss or hemoglobin F greater than 7%. Fructosamine may be used as an alternate test in these cases. REFERENCE: ADA: Standards of Medical Care in Diabetes 2020, The Journal of Clinical and Applied Research and Education Volume 43, Supplement 1 Testing performed or reported by [facility], a Service of [facility], [address] [place] [address] Mp Celaya MD, Edge Inker Heels [facility]# [id number] Blood specimen (specimen) Venous blood / Unknown 08/24/2023 11:34 AM EDT 08/24/2023 11:35 AM EDT us Yair Foster MD LAB BLOOD ORDERABLES Final Res ult [facility] from Last 3 Months or Most Recently Relevant to Health Maintenance Insurance [facility] Care Teams National Insurance Officer Relationship Specialty Start Date End Date Chidi Carrillo [address] [address] PCP - General Nutrition 05/29/25
--- OUTSIDE RECORDS SUMMARY | 2025-09-14 11:52 | XMS_ITS | Clinical Summary ---
Author Organization [facility] Address [address] [place] [address] Care Team Providers Care Bank Officer Name Role Phone Leeroy Bernal MD Primary Care Provider [phone] Allergies Active Allergy Reactions Criticality Noted Date Comments Pregabalin Other (See Comments) Low 09/21/2017 Patient does not feel this is an allergy. Thinks he had a syncopal episode shortly after starting the medication but it was not determined to be the cause of the syncope. Medications Medication Sig Dispensed Refills Start Date End Date Status allopurinol (ZYLOPRIM) 100 MG tablet Take 1 tablet (100 mg total) by mouth. 0 02/12/2022 Active atorvastatin (LIPITOR) tablet 80 mg Take 1 tablet (80 mg total) by mouth every evening. 0 Active calcitriol (ROCALTROL) 0.5 MCG capsule Take 4 capsules (2 mcg total) by mouth once a week. Mondays 0 06/30/2018 Active gabapentin (NEURONTIN) 300 MG capsule Take 1 capsule (300 mg total) by mouth 2 (two) times a day. 0 06/05/2022 Active midodrine (PROAMATINE) 5 MG tablet Take 1 tablet (5 mg total) by mouth 3 (three) times a day as needed. 0 08/06/2022 Active topiramate (TOPAMAX) 25 MG tablet Take 1 tablet (25 mg total) by mouth every night at bedtime. 0 Active ergocalciferol (VITAMIN D2) capsule 79537 units Take 1 capsule (50,000 Units total) by mouth once a week. Wednesday 0 Active apixaban (ELIQUIS) 5 MG TABS tablet Take 1 tablet (5 mg total) by mouth 2 (two) times a day. 0 07/07/2017 Active metoprolol succinate (TOPROL-XL) 24 hr tablet 25 mg Take 1 tablet (25 mg total) by mouth daily. 0 11/02/2022 Active potassium chloride ER (K-DUR,KLOR-CON) tablet 10 mEq Take 1 tablet (10 mEq total) by mouth 2 (two) times a day. 0 Active calcitonin (salmon) (MIACALCIN) nasal spray 200 units/actuation spray or apply 200 Units inside Nose. 0 Active denosumab (PROLIA) injection 60 mg/mL Inject 1 mL (60 mg total) under the skin every 6 (six) months. October, 0 Active Cyanocobalamin 1000 MCG/ML KIT 1,000 mcg every 30 (thirty) days. 12th of every month 0 06/22/2017 Active latanoprost (XALATAN) 0.005 % ophthalmic solution Place 1 drop into both eyes every night at bedtime. 0 12/19/2013 Active oxyCODONE (ROXICODONE) 5 MG immediate release tablet Take 1 tablet (5 mg total) by mouth every 6 (six) hours as needed for up to 30 doses. 30 tablet 0 03/27/2024 Active acetaminophen (TYLENOL EXTRA STRENGTH) 500 MG tablet Take 2 tablets (1,000 mg total) by mouth every 8 (eight) hours. 30 tablet 0 03/27/2024 Active methocarbamol (ROBAXIN) 750 MG tablet Take 1 tablet (750 mg total) by mouth every 6 (six) hours as needed. 30 tablet 0 03/27/2024 Active senna-docusate (PERICOLACE) 8.6-50 MG Take 1 tablet by mouth 2 (two) times a day. 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 Pain due to total right knee replacement 023 History of back surgery 11/16/2023 Right foot drop 11/16/2023 Osteoarthritis 11/15/2023 11/15/2023 History of atrial fibrillation 11/15/2023 1 01/16/2023 Overview: s/p ablation Demand ischemia 11/15/2023 11/15/2023 Periprosthetic fracture arou nd internal prosthetic right knee joint 11/02/2023 Coronary artery disease 11/02/2023 11/02/20 23 Chronic kidney disease, unspecified 11/02/2023 11/02/2023 Pneumonia 11/02/2023 11/02/2023 Persistent recurrent vomiting 11/02/2023 Hiatal hernia 11/02/2023 11/02/2023 Anemia 12/30/2022 Congestive heart failure 01/22/2022 023 Carotid stenosis 01/22/2022 11/02/2023 Abnormality of albumin 05/23/2021 3 Acute kidney injury 05/23/2021 11/02/2023 Acute tubular necrosis 05/23/2021 3 Gout 05/23/2021 11/15/2023 Raynaud's disease without gangrene 10/19/2017 11/15/2023 DVT (deep venous thrombosis) 10/19/2017 Overview: Left leg; on apixaban Chronic blood loss anemia 07/27/20172022 Overview: Identification 2016. Probable cause = total gastrectomy, bypass of the duodenum, and anticoagulation. Intravenous iron treatment initiated by nephrology 07/18/2017. HTN (hypertension) 01/12/2015 11/15/2023 Altered mental status 02/03/2014 11/02/2023 Charcot's joint of foot in type 2 diabetes melli tus 10/28/2012 11/15/2023 Type 1 diabetes mellitus with kidney complicatio n 10/14/2012 11/02/2023 Chronic bilateral low back pain without sciatica 10/14/2012 11/15/2023 COPD (chronic obstructive pulmonary disease) 11/02/2023 Overview: PFT's 2010 Cardiac pacemaker in situ 01/06/20112022 Coagulation disorder 09/03/2009 11/02/2023 Diabetic nephropathy 04/30/2008 11/02/2023 Overview: Follows with Dr. Yair Foster Diabetic neuropathy 12/10/2007 11/02/2023 Hyperlipidemia Dysautonomia orthostatic hypotension syndrome Sleep apnea Glaucoma Resolved Problems Problem Noted Date Diagnosed Date Resolved Date Painful total knee replacement, right 11/02/2023 11/16/2023 Immunizations Name Administration Dates Next Due Influenza Trivalent (Fluzone /Afluria) 5.0mL Multi-dose Vial 09/09/2022,08/24/2011 Influenza Whole (inactive) 11/29/1998,09/17/1990 Pneumococcal Polysaccharide PPSV23 02/05/2014,,08/13/2011 Family History Medical History Relation Name Comments Heart disease Brother CABG x3 Lung cancer Brother Clotting disorder Father Heart disease Father Hypertension Father Lung cancer Father Cancer Mother lung Diabetes Mother Heart disease Sister Relation Name Status Comments Brother Father (Age 72) Mother (Age 40) Sister Alive Social History Tobacco Use Types Packs/Day Years Used Date Smoking Tobacco: Never Smokeless Tobacco: Never Tobacco Cessation:Counseling Given: Not Answered Alcohol Use Standard Drinks/Week Comments Never 0 (1 standard drink = 0.6 oz pur e alcohol) Sex and Gender Information Value Date Recorded Sex Assigned at Male 12/21/2022 3:47 PM EST Gender Identity Male 09/15/2023 1:31 PM EDT Sexual Orientation Straight 09/15/2023 1: 31 PM EDT Job Start Date Occupation Industry Not on file Not on file Not on file Last Filed Vital Signs Vital Sign Reading Time Taken Comments Blood Pressure 149/90 08/17/2024 2:37 PM EDT Pulse 98 08/17/2024 2:37 PM EDT Temperature 37.1 C (98.7 F) 07/13/2024 10:01 AM EDT Respiratory Rate 18 04/03/2024 8:14 AM EDT Oxygen Saturation 99% 07/13/2024 10:01 AM EDT Inhaled Oxygen Concentration - - Weight 87.1 kg (192 lb) 07/13/2024 10:01 AM EDT Height 188 cm (6' 2 ) 07/13/2024 10:01 AM EDT Body Mass Index 24.65 07/13/2024 10:01 AM EDT Plan of Treatment Health Maintenance Due Date Last Done Comments Hepatitis C Screening 1955 Depression Screening 1968 Preventative Health Evaluation 02/18/1974 DTap / Tdap / Td (1 - Tdap) 02/18/1975 Colon Cancer Screening (Colonoscopy) 02/18/2001 Shingrix-Zoster Vaccine (1 o f 2) 02/18/2006 Pneumococcal Vaccine (2 of 2 - PCV) 02/05/2015 02/05/2014, 05/11/2012, 08/13/2011 RSV Adult > 60+ Yrs or (1 - Risk 60-74 years 1-dose series) 2016 Fall Risk Assessment 02/18/2021 COVID-19 Vaccine (4 - 2024-2 6 season) 2025 08/25/2021, 03/10/2021, 02/17/2021 Influenza Vaccine (#1) 2025 2, 08/24/2011 Hepatitis B Vaccines Aged Out No long er eligible based on patient's age to complete this topic RSV Ped < 20 months Aged Out No longe r eligible based on patient's age to complete this topic Medical Devices Implanted Type Area Recoverer Device Identifier Shelf Expiration Date Model / Serial / Lot Oss Bowed Im Stem With Screw 17mm, 150mm Interlok Cemented Implanted:Qty : 1 on 03/20/2024 by [facility] [place] [facility] Total Joint Right: Knee [id number] 02/23/2029 / / [id number] Segmented Femoral Implanted:Qty : 1 on 03/20/2024 by Mir Ching MD at [facility] Total Joint Right: Knee [id number] 08/02/2029 / / [id number] Knee Aug Tib Univ 10x79 83 [employer] [id number] - [id number] Implanted:Qty : 1 on 03/20/2024 by Mir Ching MD at [facility] Right: Knee BALTAZAR BIOMET 04/28/2025 [id number] / / [id number] Plug Bone Lg Stry-Howm 0727-7-059-14 3873 - [id number] Implanted:Qty : 1 on 03/20/2024 by Mir Ching MD at [facility] Right: Knee [employer] [id number] 08/18/2028 6215 1 / / [id number] C Plug Bone Lg Stry-How 7441-3-805-14 3873 - [id number] Implanted:Qty : 1 on 03/20/2024 by Mir Ching MD at [facility] Right: Knee [employer] [id number] 05/12/2027 6215-03-30 1 / / [id number] A Screw Stem César Oss Side Lock [employer] [id number] - [id number] Implanted:Qty : 1 on 03/20/2024 by Mir Ching MD at [facility] Right: Knee BALTAZAR [employer]ET [id number] 06/20/2033 [id number] / / [id number] Screw Bone Lag 2.4x32mm [facility] 035-5439-3392 43 - [id number] Implanted:Qty : 1 on 03/20/2024 by Mir Ching MD at [facility] Right: Knee OSTEOMED RAYMON [id number] 06/28/2033 306-2432 / / [id number] Bushings Set Oss Poly Femoral [employer] 173930-766606 - [id number] Implanted:Qty : 1 on 03/20/2024 by Mir Ching MD at [facility] Right: Knee BALTAZAR [employer] [id number] 12/29/2028 158086 / / [id number] Knee Oss Reinf Yoke [employer] 434315-738665 - [id number] Implanted:Qty : 1 on 03/20/2024 by Mir Ching MD at [facility] Right: Knee BALTAZAR [employer]ET [id number] 12/10/2033 060304 / / [id number] Elbow César Oss Bumper [employer] [id number] 07 - [id number] Implanted:Qty : 1 on 03/20/2024 by Mir Ching MD at [facility] Right: Knee BALTAZAR [employer] [id number] 10/28/2028 [id number] / / [id number] Knee Tib Bushing Comp Oss [employer] 345904-400890 - [id number] Implanted:Qty : 1 on 03/20/2024 by Mir Ching MD at [facility] Right: Knee BAL[employer] [id number] 12/10/2028 534187 / / [id number] Knee Fem Compon Oss Axle [employer] 002493-862302 - [id number] Implanted:Qty : 1 on 03/20/2024 by Mir Ching MD at [facility] Right: Knee BAL[employer] [id number] 12/15/2033 568388 / / [id number] Knee Brng Tib Oss Poly 12mm [employer] 694716-215851 - [id number] Implanted:Qty : 1 on 03/20/2024 by Mir Ching MD at [facility] Right: Knee [employer]AR [employer] [id number] 10/01/2028 863290 / / [id number] Knee Aug Tib Univ 10x79 83 [employer] 328582-604317 - [id number] Implanted:Qty : 1 on 03/20/2024 by Mir Ching MD at [facility] Right: Knee BALTAZAR [employer]ET 02/27/2033 908520 / / [id number] Knee Adapt Stacking Seg Oss [employer] 445363-026623 - [id number] Implanted:Qty : 1 on 03/20/2024 by Mir Ching MD at [facility] Right: Knee [employer]AR [employer] 06/21/2033 700557 / / [id number] Biomet Oss César Lock Pin Implanted:Qty : 1 on 03/20/2024 by Mir Ching MD at [facility] Right: Knee 10/04/2033 / / [id number] Knee Bsplt Tib Mod 79mm [employer] 583294-049849 - [id number] Implanted:Qty : 1 on 03/20/2024 by Mir Ching MD at [facility] Right: Knee BAL[employer]AR [employer] 11/30/2028 895932 / / [id number] Cement Bone Surg Simplex Radiopq Stry-Howm 3451-9-914-11 4092 - [id number] Implanted:Qty : 1 on 03/20/2024 by Mir Ching MD at [facility] Right: Knee [employer] 03/28/2026 6190-11-29 0 / / [id number] Cement Bone Surg Simplex Radiopq Stry-Howm 2997-9-688-11 4092 - [id number] Implanted:Qty : 1 on 03/20/2024 by Mir Ching MD at [facility] Right: Knee [employer] 03/28/2026 6190-11-29 0 / / [id number] Cement Bone Surg Simplex Radiopq Stry-Howm 5192-0-693-11 4092 - [id number] Implanted:Qty : 1 on 03/20/2024 by Mir Ching MD at [facility] Right: Knee [employer] 03/28/2026 6190-11-29 0 / / [id number] Cement Bone Surg Simplex Radiopq Stry-Howm 0570-8-236-11 4092 - [id number] Implanted:Qty : 1 on 03/20/2024 by Mir Ching MD at [facility] Right: Knee [employer] [facility] 03/28/2026 6190-11-29 0 / / [id number] Cement Bone Surg Simplex Radiopq Stry-Howm 5781-2-783-11 4092 - [id number] Implanted:Qty : 1 on 03/20/2024 by Mir Ching MD at [facility] Right: Knee [employer] [facility] 03/28/2026 6191-1-01 0 / / [id number] Impl Set Bead 2.0mm Lakisha Remy 7852-4-182-11 4128 - [id number] Implanted:Qty : 1 on 03/20/2024 by Mir Ching MD at [facility] Right: Knee [employer] [id number] 08/14/2028 6704-0-52 0 / / [id number] Advance Directives For more information, please contact: [phone] Latest Code Status on File Code Status Date Activated Date Inactivated Comments Full Code 03/20/2024 10:15 AM 04/03/2024 11:15 PM This code status was ascertained in the following way: per living will or healthcare instructions . Code Status History Code Status Date Activated Date Inactivated Comments Full Code 03/20/2024 7:19 AM 03/20/2024 10:15 AM This code status was ascertained in the following way: discussion with patient . Care Teams Bank Officer Relationship Specialty Start Date End Date Leeroy Bernal MD PCP - General Rheumatology 09/03/22
== END 2025-09-14 10:49 | disposition home or self-care (01) ==
LOC: HO.HSM 10:07
PROVIDERS: PCP Internal Medicine Rheumatology; Visit Provider Registered Nurse
DX: R25.1 Tremor, unspecified (principal)
CPT/HCPCS: 99213

== ENCOUNTER → 2025-09-14 10:06 | Outpatient (BNVA) | payer OTHER, SELFPAY | PROVIDERS: PCP Internal Medicine Rheumatology; Visit Provider Registered Nurse | DX: I10 Essential (primary) hypertension (principal); R25.1 Tremor, unspecified | CPT/HCPCS: 99212 ==